=== PATIENT | female | born 1930 | race Caucasian/White ===

== ENCOUNTER 2016-08-30 22:36 | Inpatient (IN) | payer MEDICARE, MEDICAID ==
[~2016-08-30] VITALS: Ht 152.4 cm; Wt 115.0 kg
[~2016-08-30 22:36] MED LIST: ASPI-535 PO; ATOR40TA68 PO; CLOP75TA4 PO; ICNCLON PO; INSU500V SC; METO50TA16 PO; NITROL TD; PANT40TA4 PO; PROM25VI PO
[2016-08-30 22:40] VITALS: Ht 152.4 cm; Wt 115.0 kg
--- NOTE | 2016-08-31 00:26 | ERA ---
ER Documentation Chief Complaint Date/Time DATE: 08/31/16 TIME: 00:25 Chief Complaint dizzy and shortness of breath HPI The patient is a 86-year-old female, presenting to the ER because of dizziness and occipital headache beginning about 7 PM. She feels as if the room is spinning; she has similar symptoms previously. She also complains of shortness of breath and dyspnea on exertion. She denies fever, chills, complaints of cough and congestion for the last couple days. She also complained of lower extremity swollen beginning today. She denies any chest pain, vomiting. She was recently discharged from [facility] last week. She does not smoke or drink Past medical history: Hypertension, dyslipidemia, diabetes mellitus, CAD, history of CHF Past surgical history: Hysterectomy, cholecystectomy, cataract surgery, right knee replacement ROS All systems reviewed and are negative except as per history of present illness. Medications Home Meds Reported Medications Promethazine Hcl (Promethazine Hcl) 25 Mg/Ml Vial, 25 MG PO Q6 Y for COUGH, VIAL 06/26/13 Clopidogrel Bisulfate* (Clopidogrel Bisulfate*) 75 Mg Tablet, 75 MG PO 06/26/13 Pantoprazole (Protonix) 40 Mg Tabec, 40 MG PO DAILY 06/26/13 Nitroglycerin* (Nitro-Bid* Oint (30gm)) 1 Inch Oint, 30 INCH TD DAILY 06/26/13 Metoprolol Succinate* (Toprol XL*) 50 Mg Tab.er.24h, 50 MG PO DAILY 06/26/13 Clonidine (Clonidine (Pediatric Compound)) 0.1 Mg/Ml Susp, 1 MG PO Q6 06/26/13 Atorvastatin* (Atorvastatin*) 40 Mg Tablet, 40 MG PO HS 06/26/13 Aspirin Ec (Aspir 81) 81 Mg Tablet.dr, 81 MG PO DAILY 06/26/13 Insulin Regular, Human (Humulin R) 100 Units/Ml Vial, 0 SC AC MEALS AND BEDTIME , VIAL 06/26/13 Allergies Allergies: Coded Allergies: levofloxacin (Verified Allergy, Unknown, 08/30/16) morphine (Verified Allergy, Unknown, 08/30/16) streptomycin (Verified Allergy, Unknown, 08/30/16) Uncoded Allergies: AVLOX (Allergy, Unknown, 08/30/16) PMhx/Soc History of Surgery: Yes (CHILANGO, GALL BLADDER) Anesthesia Reaction: No Hx Neurological Disorder: No Hx Respiratory Disorders: No Hx Cardiac Disorders: Yes (HTN, heart attack, CHF) Hx Psychiatric Problems: No Hx Miscellaneous Medical Probl: Yes (DM, hypercholesterolemia, obese) Hx Alcohol Use: No Hx Substance Use: No Hx Tobacco Use: No Smoking Status: Never smoker Physical Exam Vitals Vital Signs Date Time Temp Pulse Resp B/P Pulse Ox O2 Delivery O2 Flow Rate FiO2 08/31/16 00:58 Nasal Cannula 2 08/30/16 22:40 98.3 58 17 155/68 97 Physical Exam Const: No acute distress. Head: Atraumatic. Eyes: Normal Conjunctiva. ENT: Normal External Ears, Nose and Mouth. Neck: Full range of motion. No meningismus. Resp: Bibasilar crackle Cardio: Regular rate and rhythm, no murmurs. Abd: Soft, non distended, normal bowel sounds, non tender. Skin: No petechiae or rashes. Back: No midline or flank tenderness. Ext: Mild leg edema, no calf tenderness. Neur: Awake and alert. No focal deficit Psych: Normal Mood and Affect. Result Diagram: 08/31/16 0000 08/31/16 0000 Results 24 hrs Laboratory Tests Test 08/31/16 00:00 White Blood Count 9.510^3/ul Red Blood Count 4.1510^6/ul Hemoglobin 12.0g/dl Hematocrit 37.4% Mean Corpuscular Volume 90.1fl Mean Corpuscular Hemoglobin 28.9pg Mean Corpuscular Hemoglobin Concent 32.1g/dl Red Cell Distribution Width 13.5% Platelet Count 79604^3/UL Mean Platelet Volume 10.8fl Neutrophils % 60.1% Lymphocytes % 27.0% Monocytes % 7.8% Eosinophils % 3.7% Basophils % 0.8% Nucleated Red Blood Cells % 0.0/100WBC Neutrophils # 5.710^3/ul Lymphocytes # 2.610^3/ul Monocytes # 0.710^3/ul Eosinophils # 0.410^3/ul Basophils # 0.110^3/ul Nucleated Red Blood Cells # 0.010^3/ul Prothrombin Time 12.6Sec Prothrombin Time Ratio 1.0 INR International Normalized Ratio 0.94 Activated Partial Thromboplast Time 31.8Sec Sodium Level 134mmol/L Potassium Level 5.0mmol/L Chloride Level 100mmol/L Carbon Dioxide Level 31mmol/L Anion Gap 8 Blood Urea Nitrogen 20mg/dl Creatinine 0.86mg/dl Glucose Level 229mg/dl Calcium Level 8.9mg/dl Troponin I < 0.010ng/ml B-Type Natriuretic Peptide 1410PG/ML Current Medications Medications (Trade) Dose Ordered Sig/[place] Route PRN Reason Start Time Stop Time Status Last Admin Dose Admin Furosemide (Lasix) 40 mg ONCE ONCE IV 08/31/16 02:00 08/31/16 02:01 DC 08/31/16 02:22 Procedures/MDM [place] [address] Radiology Main Line: [phone] DIAGNOSTIC IMAGING REPORT Patient: FREDY BERMUDEZ : 1930 Age: 86 Sex: F MR #: [id number] DOS: 08/31/16 0034 Ordering MD: YAZAN DESAI MD Location: E/R Room/Bed: PROCEDURE: CHEST - 1 VIEW CLINICAL INDICATION: Year-old female with shortness of breath. TECHNIQUE: A single frontal AP portable view of the chest was performed. The images were reviewed on a PACS workstation. COMPARISON: None. FINDINGS: The cardiomediastinal silhouette is moderately enlarged. Mitral annular calcification is noted. There is a calcified thoracic aortic arch. Chronic lung changes are present.. There is no evidence for an infiltrate. There is no evidence for congestive heart failure. There is no evidence for pneumothorax. Degenerative changes are present within the spine. IMPRESSION: 1. Cardiomegaly. 2. Calcified thoracic aortic arch. 3. Chronic lung changes. 4. Degenerative changes within the spine. .Froy Soto MD, MD Date Time Electronically viewed and signed by .Froy Soto MD, on 08/31/2016 01:47 .M/ CC: YAZAN DESAI MD [place] [address] Radiology Main Line: [phone] DIAGNOSTIC IMAGING REPORT Patient: FREDY BERMUDEZ : 1930 Age: 86 Sex: F MR #: [id number] DOS: 08/31/16 0034 Ordering MD: YAZAN DESAI MD Location: E/R Room/Bed: PROCEDURE: CT BRAIN WITHOUT CONTRAST CLINICAL INDICATION: 86-year-old female with dizziness. TECHNIQUE: The study was performed utilizing Zen[employer]T 64-slice CT scanner. Direct axial sections were obtained from the foramen magnum to the vertex without the use of intravenous contrast material. Sagittal and coronal reformations were obtained. One or more the following dose reduction techniques were utilized: automated exposure control, adjustment of the mA and/or kV according to patient's size or use of iterative reconstruction technique. The images were viewed on a PACS workstation. CTD/vol = 90.0 mGy; Total Exam DLP = 720.2 mGy-cm. COMPARISON: None. FINDINGS: There is mild degree of diffuse cortical and central atrophy with compensatory ventricular enlargement. There is no evidence for mass effect or midline shift. There are periventricular areas of decreased density consistent with microangiopathic ischemic changes. There is no evidence for acute intra or extra-axial blood. Calcifications are seen within the intracranial carotid arteries bilaterally. The bony calvarium is intact. Hyperostosis frontalis interna is present. The visualized paranasal sinuses and mastoid air cells are without significant abnormal soft tissue. IMPRESSION: 1. Mild diffuse atrophy. 2. Microangiopathic ischemic changes. 3. Vascular calcifications. 4. Hyperostosis frontalis interna. .Froy Soto MD, MD Date Time Electronically viewed and signed by .Froy Soto MD, MD on 08/31/2016 01:46 .M/ CC: YAZAN DESAI MD EKG: Read by emergency physician Rate/Rhythm: Sinus bradycardia 56 beats/min QRS, ST, T-waves: No ST elevation, no T inversion, septal Q waves Impression: Abnormal EKG MEDICAL MAKING DECISION: The patient is a 86-year-old female, presenting with acute dizziness of unclear etiology, most likely acute benign positional vertigo , acute CHF exacerbation. She was treated with Antivert 25 mg p.o. for dizziness and Lasix 40 mg for acute CHF exacerbation with good response. The differential diagnoses for acute dizziness considered include but are not limited to central causes such as cerebellar infarct, cerebellar hemorrhage, cerebellar tumor, acoustic neuroma, peripheral causes such as benign positional vertigo, labyrinthitis, medication, Meniere's disease. The differential diagnoses for acute dyspnea considered include but are not limited to asthma, COPD, pneumonia, pulmonary embolus, pleural effusion, congestive heart failure. Departure Diagnosis: Primary Impression: Dizziness Additional Impression: CHF (congestive heart failure) Condition: Stable Comments I discussed the findings with the patient. I discussed the patient with the on- call hospitalist Dr. Mckeon who was made aware of the lab, the treatment, the patient condition. The patient is admitted to telemetry at 3:30 AM YAZAN DESAI MD Aug 31, 2016 00:26
[2016-08-31 00:48] LABS: ADD SCAN DIFF NO
[2016-08-31 00:50] LABS: BASOPHIL # 0.1 10^3/ul (0.0-0.1); BASOPHILS % 0.8 % (0.0-2.0); EOSINOPHILS # 0.4 10^3/ul (0.0-0.5); EOSINOPHILS % 3.7 % (0.0-7.0); HEMATOCRIT 37.4 % (37.0-47.0); LYMPHOCYTES # 2.6 10^3/ul (0.8-2.9); MEAN CORPUSCULAR HEMOGLOBIN 28.9 pg (29.0-33.0); MEAN CORPUSCULAR HGB CONC 32.1 g/dl (32.0-37.0); MEAN CORPUSCULAR VOLUME 90.1 fl (82.0-101.0); MEAN PLATELET VOLUME 10.8 fl (7.4-10.4); MONOCYTE # 0.7 10^3/ul (0.3-0.9); MONOCYTES % 7.8 % (0.0-11.0); NEUTROPHIL # 5.7 10^3/ul (1.6-7.5); NEUTROPHILS % 60.1 % (39.0-77.0); PLATELET COUNT 236 10^3/UL (140-415); RED BLOOD COUNT 4.15 10^6/ul (4.20-5.40); RED CELL DISTRIBUTION WIDTH 13.5 % (11.5-14.5); WHITE BLOOD COUNT 9.5 10^3/ul (4.8-10.8)
[2016-08-31 00:59] LABS: INR 0.94; PROTIME 12.6 Sec (12.2-14.2)
[2016-08-31 01:00] LABS: PARTIAL THROMBOPLASTIN TIME 31.8 Sec (25.0-35.0)
[2016-08-31 01:05] LABS: ANION GAP 8 (8-16); BLOOD UREA NITROGEN 20 mg/dl (7-20); CALCIUM 8.9 mg/dl (8.4-10.2); CARBON DIOXIDE 31 mmol/L (21-31); CHLORIDE 100 mmol/L (97-110); CREATININE 0.86 mg/dl (0.44-1.00); GLUCOSE 229 mg/dl (70-220); SODIUM 134 mmol/L (135-144)
[2016-08-31 01:31] LABS: B-TYPE NATRIURETIC PEPTIDE 1410 PG/ML (0-450); TROPONIN-I < 0.010 ng/ml (0.00-0.12)
--- NOTE | 2016-08-31 01:46 | RADRPT ---
PROCEDURE: CT BRAIN WITHOUT CONTRAST CLINICAL INDICATION: 86-year-old female with dizziness. TECHNIQUE: The study was performed utilizing [employer] VCT 64-slice CT scanner. Direct axial sections were obtained from the foramen magnum to the vertex without the use of intravenous contrast material. Sagittal and coronal reformations were obtained. One or more the following dose reduction techniques were utilized: automated exposure control, adjustment of the mA and/or kV according to p atient's size or use of iterative reconstruction technique. The images were viewed on a PACS worksta tion. CTD/vol = 90.0 mGy; Total Exam DLP = 720.2 mGy-cm. COMPARISON: None. FINDINGS: There is mild degree of diffuse cortical and central atrophy with compensatory ventricular enlargeme nt. There is no evidence for mass effect or midline shift. There are periventricular areas of decre ased density consistent with microangiopathic ischemic changes. There is no evidence for acute intr a or extra-axial blood. Calcifications are seen within the intracranial carotid arteries bilaterally . The bony calvarium is intact. Hyperostosis frontalis interna is present. The visualized paranasal sinuses and mastoid air cells are without significant abnormal soft tissue. IMPRESSION: 1. Mild diffuse atrophy. 2. Microangiopathic ischemic changes. 3. Vascular calcifications. 4. Hyperostosis frontalis interna. .Froy Soto MD, MD Date Time Electronically viewed and signed by .Froy Soto MD, on 08/31/2016 01:46 .M/
--- NOTE | 2016-08-31 01:47 | RADRPT ---
PROCEDURE: CHEST - 1 VIEW CLINICAL INDICATION: Year-old female with shortness of breath. TECHNIQUE: A single frontal AP portable view of the chest was performed. The images were reviewed on a PACS workstation. COMPARISON: None. FINDINGS: The cardiomediastinal silhouette is moderately enlarged. Mitral annular calcification is noted. Th ere is a calcified thoracic aortic arch. Chronic lung changes are present.. There is no evidence f or an infiltrate. There is no evidence for congestive heart failure. There is no evidence for pneum othorax. Degenerative changes are present within the spine. IMPRESSION: 1. Cardiomegaly. 2. Calcified thoracic aortic arch. 3. Chronic lung changes. 4. Degenerative changes within the spine. .Froy Soto MD, Date Time Electronically viewed and signed by .Froy Soto MD, on 08/31/2016 01:47 .M/
[2016-08-31] MEDS ORDERED: FUROSEMIDE 40 MG INJ IV ONE (02:00)
[2016-08-31] MEDS ORDERED: MECLIZINE 12.5 MG TAB PO ONE (04:00)
[2016-08-31] MEDS ORDERED: NITROGLYCERIN (SL) 0.4 MG TAB SL PRN (04:30)
[2016-08-31] MEDS ORDERED: NACL 0.9% 3 ML SYG IV SCH (04:30)
[2016-08-31] MEDS ORDERED: METOCLOPRAMIDE 10 MG INJ IV PRN (04:30)
--- NOTE | 2016-08-31 04:39 | HP ---
Date/Time of Note Date/Time of Note DATE: 08/31/16 TIME: 04:11 Assessment/Plan Assessment/Plan Assessment/Plan Dizziness CHF (congestive heart failure) HPI/ROS Admit Date/Time Admit Date/Time 08/31/16 0335 Hx of Present Illness dizzy and shortness of breath HPI The patient is a 86-year-old female, presenting to the ER because of dizziness and occipital headache beginning about 7 PM. She feels as if the room is spinning; she has similar symptoms previously. She also complains of shortness of breath and dyspnea on exertion. She denies fever, chills, complaints of cough and congestion for the last couple days. She also complained of lower extremity swollen beginning today. She denies any chest pain, vomiting. She was recently discharged from [facility] last week. She does not smoke or drink Past medical history: Hypertension, dyslipidemia, diabetes mellitus, CAD, history of CHF Past surgical history: Hysterectomy, cholecystectomy, cataract surgery, right knee replacement ROS All systems reviewed and are negative except as per history of present illness. Medications Home Meds Reported Medications Promethazine Hcl (Promethazine Hcl) 25 Mg/Ml Vial, 25 MG PO Q6 Y for COUGH, VIAL 06/26/13 Clopidogrel Bisulfate* (Clopidogrel Bisulfate*) 75 Mg Tablet, 75 MG PO 06/26/13 Pantoprazole (Protonix) 40 Mg Tabec, 40 MG PO DAILY 06/26/13 Nitroglycerin* (Nitro-Bid* Oint (30gm)) 1 Inch Oint, 30 INCH TD DAILY 06/26/13 Metoprolol Succinate* (Toprol XL*) 50 Mg Tab.er.24h, 50 MG PO DAILY 06/26/13 Clonidine (Clonidine (Pediatric Compound)) 0.1 Mg/Ml Susp, 1 MG PO Q6 06/26/13 Atorvastatin* (Atorvastatin*) 40 Mg Tablet, 40 MG PO HS 06/26/13 Aspirin Ec (Aspir 81) 81 Mg Tablet.dr, 81 MG PO DAILY 06/26/13 Insulin Regular, Human (Humulin R) 100 Units/Ml Vial, 0 SC AC MEALS AND BEDTIME , VIAL 06/26/13 Allergies Allergies: Coded Allergies: levofloxacin (Verified Allergy, Unknown, 08/30/16) morphine (Verified Allergy, Unknown, 08/30/16) streptomycin (Verified Allergy, Unknown, 08/30/16) Uncoded Allergies: AVLOX (Allergy, Unknown, 08/30/16) PMhx/Soc History of Surgery: Yes (CHILANGO, GALL BLADDER) Anesthesia Reaction: No Hx Neurological Disorder: No Hx Respiratory Disorders: No Hx Cardiac Disorders: Yes (HTN, heart attack, CHF) Hx Psychiatric Problems: No Hx Miscellaneous Medical Probl: Yes (DM, hypercholesterolemia, obese) Hx Alcohol Use: No Hx Substance Use: No Hx Tobacco Use: No Smoking Status: Never smoker Physical Exam Vitals Vital Signs Date Time Temp Pulse Resp B/P Pulse Ox O2 Delivery O2 Flow Rate FiO2 08/31/16 00:58 Nasal Cannula 2 08/30/16 22:40 98.3 58 17 155/68 97 Physical Exam Const: No acute distress. Head: Atraumatic. Eyes: Normal Conjunctiva. ENT: Normal External Ears, Nose and Mouth. Neck: Full range of motion. No meningismus. Resp: Bibasilar crackle Cardio: Regular rate and rhythm, no murmurs. Abd: Soft, non distended, normal bowel sounds, non tender. Skin: No petechiae or rashes. Back: No midline or flank tenderness. Ext: Mild leg edema, no calf tenderness. Neur: Awake and alert. No focal deficit Psych: Normal Mood and Affect. Result Diagram: 08/31/16 0000 08/31/16 0000 Results 24 hrs Laboratory Tests Test 08/31/16 00:00 White Blood Count 9.510^3/ul Red Blood Count 4.1510^6/ul Hemoglobin 12.0g/dl Hematocrit 37.4% Mean Corpuscular Volume 90.1fl Mean Corpuscular Hemoglobin 28.9pg Mean Corpuscular Hemoglobin Concent 32.1g/dl Red Cell Distribution Width 13.5% Platelet Count 36090^3/UL Mean Platelet Volume 10.8fl Neutrophils % 60.1% Lymphocytes % 27.0% Monocytes % 7.8% Eosinophils % 3.7% Basophils % 0.8% Nucleated Red Blood Cells % 0.0/100WBC Neutrophils # 5.710^3/ul Lymphocytes # 2.610^3/ul Monocytes # 0.710^3/ul Eosinophils # 0.410^3/ul Basophils # 0.110^3/ul Nucleated Red Blood Cells # 0.010^3/ul Prothrombin Time 12.6Sec Prothrombin Time Ratio 1.0 INR International Normalized Ratio 0.94 Activated Partial Thromboplast Time 31.8Sec Sodium Level 134mmol/L Potassium Level 5.0mmol/L Chloride Level 100mmol/L Carbon Dioxide Level 31mmol/L Anion Gap 8 Blood Urea Nitrogen 20mg/dl Creatinine 0.86mg/dl Glucose Level 229mg/dl Calcium Level 8.9mg/dl Troponin I < 0.010ng/ml B-Type Natriuretic Peptide 1410PG/ML Current Medications Medications (Trade) Dose Ordered Sig/[place] Route PRN Reason Start Time Stop Time Status Last Admin Dose Admin Furosemide (Lasix) 40 mg ONCE ONCE IV 08/31/16 02:00 08/31/16 02:01 DC 08/31/16 02:22 Procedures/[place] [address] Radiology Main Line: [phone] DIAGNOSTIC IMAGING REPORT Patient: FREDY BERMUDEZ : 1930 Age: 86 Sex: F MR #: [id number] DOS: 08/31/16 0034 Ordering MD: YAZAN DESAI MD Location: E/R Room/Bed: PROCEDURE: CHEST - 1 VIEW CLINICAL INDICATION: Year-old female with shortness of breath. TECHNIQUE: A single frontal AP portable view of the chest was performed. The images were reviewed on a PACS workstation. COMPARISON: None. FINDINGS: The cardiomediastinal silhouette is moderately enlarged. Mitral annular calcification is noted. There is a calcified thoracic aortic arch. Chronic lung changes are present.. There is no evidence for an infiltrate. There is no evidence for congestive heart failure. There is no evidence for pneumothorax. Degenerative changes are present within the spine. IMPRESSION: 1. Cardiomegaly. 2. Calcified thoracic aortic arch. 3. Chronic lung changes. 4. Degenerative changes within the spine. .Froy Soto MD, Date Time Electronically viewed and signed by .Froy Soto MD, on 08/31/2016 01:47 .M/ CC: YAZAN DESAI MD [place] [address] Radiology Main Line: [phone] DIAGNOSTIC IMAGING REPORT Patient: FREDY BERMUDEZ : 1930 Age: 86 Sex: F MR #: [id number] DOS: 08/31/16 0034 Ordering MD: YAZAN DESAI MD Location: E/R Room/Bed: PROCEDURE: CT BRAIN WITHOUT CONTRAST CLINICAL INDICATION: 86-year-old female with dizziness. TECHNIQUE: The study was performed utilizing [employer] 64-slice CT scanner. Direct axial sections were obtained from the foramen magnum to the vertex without the use of intravenous contrast material. Sagittal and coronal reformations were obtained. One or more the following dose reduction techniques were utilized: automated exposure control, adjustment of the mA and/or kV according to patient's size or use of iterative reconstruction technique. The images were viewed on a PACS workstation. CTD/vol = 90.0 mGy; Total Exam DLP = 720.2 mGy-cm. COMPARISON: None. FINDINGS: There is mild degree of diffuse cortical and central atrophy with compensatory ventricular enlargement. There is no evidence for mass effect or midline shift. There are periventricular areas of decreased density consistent with microangiopathic ischemic changes. There is no evidence for acute intra or extra-axial blood. Calcifications are seen within the intracranial carotid arteries bilaterally. The bony calvarium is intact. Hyperostosis frontalis interna is present. The visualized paranasal sinuses and mastoid air cells are without significant abnormal soft tissue. IMPRESSION: 1. Mild diffuse atrophy. 2. Microangiopathic ischemic changes. 3. Vascular calcifications. 4. Hyperostosis frontalis interna. .Froy Soto MD, Date Time Electronically viewed and signed by .Froy Soto MD, on 08/31/2016 01:46 .M/ CC: YAZAN DESAI MD EKG: Read by emergency physician Rate/Rhythm: Sinus bradycardia 56 beats/min QRS, ST, T-waves: No ST elevation, no T inversion, septal Q waves Impression: Abnormal EKG MEDICAL MAKING DECISION: The patient is a 86-year-old female, presenting with acute dizziness of unclear etiology, most likely acute benign positional vertigo , acute CHF exacerbation. She was treated with Antivert 25 mg p.o. for dizziness and Lasix 40 mg for acute CHF exacerbation with good response. The differential diagnoses for acute dizziness considered include but are not limited to central causes such as cerebellar infarct, cerebellar hemorrhage, cerebellar tumor, acoustic neuroma, peripheral causes such as benign positional vertigo, labyrinthitis, medication, Meniere's disease. The differential diagnoses for acute dyspnea considered include but are not limited to asthma, COPD, pneumonia, pulmonary embolus, pleural effusion, congestive heart failure. PMH/Family/Social Social History Smoking Status: Never smoker Exam/Review of Systems Vital Signs Vitals Vital Signs Date Time Temp Pulse Resp B/P Pulse Ox O2 Delivery O2 Flow Rate FiO2 08/31/16 00:58 Nasal Cannula 2 08/30/16 22:40 98.3 58 17 155/68 97 Labs Result Diagram: 08/31/16 0000 08/31/16 0000 MARGUERITE MUHAMMAD DO Aug 31, 2016 04:21
[2016-08-31] MEDS: PANTOPRAZOLE (EC) 40 MG TAB PO SCH (06:49)
[2016-08-31] MEDS ORDERED: ACETAMINOPHEN 325 MG TAB PO ONE (07:30)
[2016-08-31] MEDS: ASPIRIN (EC) 81 MG TAB PO SCH (08:30)
[2016-08-31] MEDS ORDERED: HYDROCHLOROTHIAZIDE 12.5 MG CAP PO SCH (09:00)
[2016-08-31] MEDS ORDERED: CLOPIDOGREL 75 MG TAB PO SCH (09:00)
[2016-08-31] MEDS ORDERED: METOPROLOL (XL) 50 MG TAB PO SCH (09:00)
[2016-08-31] MEDS ORDERED: LISINOPRIL 5 MG TAB PO SCH (09:00)
--- NOTE | 2016-08-31 09:13 | CONS ---
Date/Time of Note Date/Time of Note DATE: 08/31/16 TIME: 09:04 Assessment/Plan Assessment/Plan Chief Complaint/Hosp Course Dizziness: constant and chronic. By history could be vertigo and she is currently being treated for this. SOB: Was given IV lasix on admission for possible CHF. Currently euvolemic on exam ?Acute on chronic diastolic heart failure: Euvolemic by exam. HTN: BP elevated on admission. Pt is noncompliant DM HL -continue ASA, lipitor -d/c plavix -decrease Toprol XL to 25mg, if still bradycardic, can stop -continue lisinopril -continue clonidine for now (unclear though if pt is on this at home and would prefer to uptitrate other meds first) -lasix 20mg daily to keep even starting tomorrow Problems: Consultation Date/Type/Reason Admit Date/Time 08/31/16 0335 Date of Consultation: Aug 31, 2016 Type of Consultation: Cardiology Reason for Consultation CHF Referring Provider: LILIAN SANCHEZ of Present Illness 86 yo F known to me from prior admissions with a h/o HTN (noncompliant with meds ), CAD, DM, HL, who presented with dizziness and SOB. She notes that she suddenly became dizzy which she describes as the room spinning so she called her daughter to bring her in. Of note she has constant/chronic "dizziness" which has not been associated with orthostatic hypotension, vertigo, etc. She also notes having mild SOB but this is chronic as well. No chest pain. Currently still has dizziness. No SOB. per HPI Past Medical History per hPI Social History Smoking Status: Never smoker Exam/Review of Systems Vital Signs Vitals Vital Signs Date Time Temp Pulse Resp B/P Pulse Ox O2 Delivery O2 Flow Rate FiO2 08/31/16 08:00 56 15 160/58 100 Nasal Cannula 2.0 08/30/16 22:40 98.3 Exam Constitutional: alert, oriented Head: atraumatic, normocephalic Neck: No jvd Respiratory: clear to auscultation, No crackles/rales Cardiovascular: edema (trace), regular rate and rhythm, systolic murmur (2/6 JUMANA) Gastrointestinal: non-tender, soft Neurological: nl mental status, nl speech Skin: No rash or lesions Results EKG: sinus bradycardia Result Diagram: 08/31/16 0000 08/31/16 0000 Results 24 hrs Laboratory Tests Test 08/31/16 00:00 White Blood Count 9.5 Red Blood Count 4.15 L Hemoglobin 12.0 Hematocrit 37.4 Mean Corpuscular Volume 90.1 Mean Corpuscular Hemoglobin 28.9 L Mean Corpuscular Hemoglobin Concent 32.1 Red Cell Distribution Width 13.5 Platelet Count 236 Mean Platelet Volume 10.8 H Neutrophils % 60.1 Lymphocytes % 27.0 Monocytes % 7.8 Eosinophils % 3.7 Basophils % 0.8 Nucleated Red Blood Cells % 0.0 Neutrophils # 5.7 Lymphocytes # 2.6 Monocytes # 0.7 Eosinophils # 0.4 Basophils # 0.1 Nucleated Red Blood Cells # 0.0 Prothrombin Time 12.6 Prothrombin Time Ratio 1.0 INR International Normalized Ratio 0.94 Activated Partial Thromboplast Time 31.8 Sodium Level 134 L Potassium Level 5.0 Chloride Level 100 Carbon Dioxide Level 31 Anion Gap 8 Blood Urea Nitrogen 20 Creatinine 0.86 Glucose Level 229 H Calcium Level 8.9 Troponin I < 0.010 B-Type Natriuretic Peptide 1410 H Medications Medications Current Medications Metoclopramide HCl (Reglan) 10 mg Q6H PRN IV NAUSEA AND/OR VOMITING; Start at 04:30 Nitroglycerin (Nitroglycerin (Sl Tab) 0.4 Mg) 1 tab Q5M PRN SL CHEST PAIN; Start 08/31/16 at 04:30 Aspirin (Halfprin) 81 mg DAILY PO Last administered on 08/31/16 08:30; Admin Dose 81 MG; Start 08/31/16 at 09:00 Atorvastatin Calcium (Lipitor) 40 mg HS PO ; Start 08/31/16 at 21:00 Clonidine (Catapres) 1 mg TID PO ; Start 08/31/16 at 09:00; Status UNV Pantoprazole (Protonix Tab) 40 mg DAILY@06 PO Last administered on 08/31/16 06 :49; Admin Dose 40 MG; Start 08/31/16 at 06:00 Lisinopril (Zestril) 5 mg DAILY PO Last administered on 08/31/16 08:30; Admin Dose 5 MG; Start 08/31/16 at 09:00 Hydrochlorothiazide (Hydrochlorothiazide) 12.5 mg DAILY PO Last administered on 08/31/16 08:30; Admin Dose 12.5 MG; Start 08/31/16 at 09:00 Metoprolol Succinate (Toprol Xl) 25 mg DAILY PO ; Start 09/01/16 at 09:00 NURYS MENDEZ Aug 31, 2016 09:13
[2016-08-31 10:57] LABS: CREATINE KINASE 44 IU/L (23-200); MAGNESIUM 1.9 mg/dl (1.7-2.5)
[2016-08-31 11:10] LABS: CK-MB 0.39 ng/ml (0.0-2.4)
[2016-08-31 11:11] LABS: TROPONIN-I < 0.012 ng/ml (0.00-0.12)
[2016-08-31 11:29] LABS: THYROID STIMULATING HORMONE 2.44 MIU/L (0.465-4.680)
--- NOTE | 2016-08-31 13:38 | RADRPT ---
Echocardiogram Report Patient Name: FREDY BREMUDEZ Gender: Female Date: 1930 Study Date: 31-Aug-2016 Bottom Filler: Beatriz Harris MARILUZ Location: [facility] Ref. Physician: MARGUERITE MUHAMMAD Quality: Good Procedures: Transthoracic echocardiogram with complete 2D, M-Mode, and doppler examination. Indications: Hx of Myocardial Infarction. Hx of Congestive Heart Failure. 2D/M Mode Doppler Measurement Value Normal Ranges Measurement Value Normal Ranges LVIDd 2D 5.7 3.5 - 5.6 cm TERRI Vmax 1.1 cm2 LVIDs 2D 2.9 2.1 - 4.1 cm TERRI VTI 1.1 cm2 LVPWd 2D 1.3 0.6 - 1.1 cm AV Mean Sj 1.8 m/sec IVSd 2D 1.5 0.6 - 1.1 cm AV Mean PG 14.9 mmHg AoR Diam 2D 2.8 2.0 - 3.7 cm AV Peak Sj 2.7 m/sec EDV 2D 157.9 cm3 AV Peak PG 29.7 mmHg ESV 2D 24.2 cm3 AV VTI 76.4 cm LA Dimen 2D 4.0 2.3 - 4.0 cm AI Peak PG 74.2 mmHg LVOT Diam 2.0 cm AI Peak Sj 4.3 m/sec AI PHT 559.8 msec LVOT Mean Sj 0.6 m/sec LVOT Mean PG 1.9 mmHg LVOT Peak Sj 1.0 m/sec LVOT Peak PG 3.8 mmHg LVOT VTI 26.5 cm MV E Peak Sj 0.9 m/sec MV A Peak Sj 1.3 m/sec MV E/A 0.7 MV PHT 135.0 msec MV Peak Sj 1.5 m/sec MV Peak PG 9.4 mmHg MV Mean Sj 0.9 m/sec MV Mean PG 3.4 mmHg MV Decel Time 380 msec MV Decel Mcintosh 2 MV E/A 0.7 MV PHT 135.0 msec MV VTI 52.3 cm MVA PHT 1.6 cm2 TR Peak Sj 2.8 m/sec TR Peak PG 30.8 mmHg RVSP 34.0 mmHg Findings Left Ventricle: Normal left ventricular systolic function. Normal left ventricular cavity size. Moderate concentric left ventricular hypertrophy. Ejection fraction is visually estimated at 60 %. Tissue Doppler/Mitral Doppler indices are consistent with impaired relaxation (Stage I diastolic dysfunction). Right Ventricle: Normal right ventricular size. Normal right ventricular systolic function. Left Atrium: There is mild enlargement of left atrium. Right Atrium: The right atrium is normal in size. Mitral Valve: Mild mitral leaflet calcification. Moderate mitral annular calcification. Mild mitral valve regurgitation. Aortic Valve: Mild aortic stenosis. Aortic valve Max velocity 2.73 m/sec. Max PG 29.70 mmHg. Mean PG 14.90 mmHg. Aortic cusps appear moderately calcified. Mild aortic valve regurgitation. Tricuspid Valve: Normal appearance of the tricuspid valve. Estimated peak PA systolic pressure 34 mmHg. There is mild tricuspid regurgitation. Pulmonic Valve: Normal pulmonic valve appearance. Pericardium: Normal pericardium with no significant pericardial effusion. Aorta: Normal aortic root. IVC: Normal size and normal respiratory collapse consistent with normal right atrial pressure. Conclusions 1.Normal left ventricular systolic function. Normal left ventricular cavity size. Moderate concentric left ventricular hypertrophy. Ejection fraction is visually estimated at 60 %. Tissue Doppler/Mitral Doppler indices are consistent with impaired relaxation (Stage I diastolic dysfunction). 2.Normal right ventricular size. Normal right ventricular systolic function. 3.There is mild enlargement of left atrium. 4.The right atrium is normal in size. 5.Mild mitral valve regurgitation. 6.Mild aortic stenosis. Mild aortic valve regurgitation. 7.Estimated peak PA systolic pressure 34 mmHg. There is mild tricuspid regurgitation. 8.Normal pericardium with no significant pericardial effusion. Electronically Signed By: Dilip Brown 31-Aug-2016 13:38:04 -0700 Patient Name: FREDY BERMUDEZ Study Date: 31-Aug-2016 [id number]
--- NOTE | 2016-08-31 16:25 | PN ---
Date/Time of Note Date/Time of Note DATE: 08/31/16 TIME: 16:25 Assessment/Plan VTE Prophylaxis VTE Prophylaxis Intervention: LMWH Assessment/Plan Assessment/Plan 86 yo F with 1. Acute onset of dizziness 2. CHF exacerbation diastolic 3. Hypertension: suboptimal control 4. Dyslipidemia 5. Diabetes mellitus type 2 AIC 10.7 :poor control 6. CAD with Hx of [place] 7. Morbid obesity with BMI 49.5 8. Bradycardia: may be contributing to #1 PLAN: Continue gentle diuresis workup for possible stroke / neurology consult Titrate antihypertensives and hypoglycemics BB has been d/c / f/u cardiology recs start Lantus and novolog for DM Pepcid and lovenox for prophylaxis Exam/Review of Systems Vital Signs Vitals Vital Signs Date Time Temp Pulse Resp B/P Pulse Ox O2 Delivery O2 Flow Rate FiO2 08/31/16 12:28 49 15 173/64 94 Nasal Cannula 2.0 08/30/16 22:40 98.3 Results Result Diagram: 08/31/16 0000 08/31/16 0000 Results 24 hrs Laboratory Tests Test 08/31/16 00:00 08/31/16 10:00 White Blood Count 9.5 Red Blood Count 4.15 L Hemoglobin 12.0 Hematocrit 37.4 Mean Corpuscular Volume 90.1 Mean Corpuscular Hemoglobin 28.9 L Mean Corpuscular Hemoglobin Concent 32.1 Red Cell Distribution Width 13.5 Platelet Count 236 Mean Platelet Volume 10.8 H Neutrophils % 60.1 Lymphocytes % 27.0 Monocytes % 7.8 Eosinophils % 3.7 Basophils % 0.8 Nucleated Red Blood Cells % 0.0 Neutrophils # 5.7 Lymphocytes # 2.6 Monocytes # 0.7 Eosinophils # 0.4 Basophils # 0.1 Nucleated Red Blood Cells # 0.0 Prothrombin Time 12.6 Prothrombin Time Ratio 1.0 INR International Normalized Ratio 0.94 Activated Partial Thromboplast Time 31.8 Sodium Level 134 L Potassium Level 5.0 Chloride Level 100 Carbon Dioxide Level 31 Anion Gap 8 Blood Urea Nitrogen 20 Creatinine 0.86 Glucose Level 229 H Calcium Level 8.9 Troponin I < 0.010 < 0.012 B-Type Natriuretic Peptide 1410 H Hemoglobin A1c 10.7 H Magnesium Level 1.9 Creatine Kinase 44 Creatine Kinase Index 0.9 Creatinine Kinase MB (Mass) 0.39 Thyroid Stimulating Hormone (TSH) 2.440 Medications Medications Current Medications Metoclopramide HCl (Reglan) 10 mg Q6H PRN IV NAUSEA AND/OR VOMITING; Start at 04:30 Nitroglycerin (Nitroglycerin (Sl Tab) 0.4 Mg) 1 tab Q5M PRN SL CHEST PAIN; Start 08/31/16 at 04:30 Aspirin (Halfprin) 81 mg DAILY PO Last administered on 08/31/16 08:30; Admin Dose 81 MG; Start 08/31/16 at 09:00 Atorvastatin Calcium (Lipitor) 40 mg HS PO ; Start 08/31/16 at 21:00 Clonidine (Catapres) 1 mg TID PO ; Start 08/31/16 at 09:00; Status UNV Pantoprazole (Protonix Tab) 40 mg DAILY@06 PO Last administered on 08/31/16 06 :49; Admin Dose 40 MG; Start 08/31/16 at 06:00 Lisinopril (Zestril) 5 mg DAILY PO Last administered on 08/31/16 08:30; Admin Dose 5 MG; Start 08/31/16 at 09:00 Hydrochlorothiazide (Hydrochlorothiazide) 12.5 mg DAILY PO Last administered on 08/31/16 08:30; Admin Dose 12.5 MG; Start 08/31/16 at 09:00 Metoprolol Succinate (Toprol Xl) 25 mg DAILY PO ; Start 09/01/16 at 09:00 Furosemide (Lasix) 20 mg DAILY PO ; Start 09/01/16 at 09:00 LILIAN SANCHEZ Aug 31, 2016 16:25
[2016-08-31] MEDS ORDERED: DEXTROSE 50% 50 ML SYRINGE IV PRN ×2 (17:30)
[2016-08-31] MEDS ORDERED: GLUCOSE GEL 15 GRAM TUBE PO PRN ×2 (17:30)
[2016-08-31] MEDS ORDERED: GLUCOSE GEL 15 GRAM TUBE BUCCAL PRN (17:30)
[2016-08-31] MEDS ORDERED: GLUCAGON 1 MG INJ IM PRN (17:30)
[2016-08-31] MEDS ORDERED: LISINOPRIL 20 MG TAB PO ONE (18:00)
[2016-08-31] MEDS: INSULIN ASPART [NOVOLOG] 3 ML PEN SC SCH ×3 (18:00→20:56)
--- NOTE | 2016-08-31 18:46 | RADRPT ---
PROCEDURE: US Carotids. CLINICAL INDICATION: Dizziness. TECHNIQUE: Multiple sonographic of the carotid arteries were obtained utilizing friedman scale imaging . Color and Doppler imaging was performed. The images were reviewed on a PACS workstation. COMPARISON: No prior studies are available for comparison. FINDINGS: Location:RightLeft CCA67.1 cm/sec72.6 cm/sec Prox ICA59.7 cm/sec71.0 cm/sec Mid ICA72.6 cm/sec75.9 cm/sec Dist ICA66.2 cm/sec56.5 cm/sec ECA71.1 cm/ylx568.3 cm/sec ICA/CCA:1.1 1.0 Antegrade flow is seen within the vertebral arteries bilaterally. Intimal thickening is seen within the carotid system bilaterally. However, no evidence for hemodynamically significant stenosis or oc clusion is identified. IMPRESSION: 1. No hemodynamically significant stenosis in the cervical carotid arteries. 2. Antegrade flow in both vertebral arteries. Note: Ultrasound velocity criteria are extrapolated from diameter data as defined by the Society of Radiologists in Ultrasound Consensus Conference Radiology 2003; 229;340-346. This study indirectly r eferences the measurement of the distal ICA diameter as the denominator for stenosis measurement. RPTAT: HTAR .Benigno Duarte MD, Date Time Electronically viewed and signed by .Benigno Duarte MD, on 08/31/2016 18:46 .R/
--- NOTE | 2016-08-31 18:48 | RADRPT ---
PROCEDURE: US DVT. CLINICAL INDICATION: Bilateral lower extremity swelling and pain. TECHNIQUE: Multiple longitudinal and transverse images of the bilateral lower extremity veins were obtained with friedman scale and color Doppler imaging. 2D grayscale measurements with compression, co jorge Doppler flow, and augmentation was performed. The calf veins were interrogated as well. COMPARISON: No prior studies are available for comparison. FINDINGS: The bilateral common femoral, femoral and popliteal veins are normally compressible throughout. Col or flow demonstrates normal filling of the vessels. Normal waveforms are visualized and there is no rmal response to augmentation. The calf veins are visualized and are equally unremarkable. IMPRESSION: 1. No DVT in either lower extremity. RPTAT: HTAR .Benigno Duarte MD, MD Date Time Electronically viewed and signed by .Benigno Duarte MD, on 08/31/2016 18:48 .R/
[2016-08-31 18:50] VITALS: PULSE 55
[2016-08-31] MEDS ORDERED: hydrALAzine 20 MG INJ IV PRN (19:00)
[2016-08-31 19:59] VITALS: BP 170/73
[2016-08-31 20:34] VITALS: PULSE 54
[2016-08-31 20:52] VITALS: BP 177/77; RESP 17
[2016-08-31 20:58] LABS: CREATINE KINASE 45 IU/L (23-200)
[2016-08-31] MEDS ORDERED: LORAZEPAM 1 MG TAB PO ONE (21:00)
[2016-08-31 21:02] LABS: CK-MB 0.53 ng/ml (0.0-2.4)
[2016-08-31] MEDS: ATORVASTATIN 40 MG TAB PO SCH (21:03)
[2016-08-31] MEDS: ENOXAPARIN 40 MG/0.4 ML SYG SC SCH (21:12)
[2016-08-31 21:13] LABS: TROPONIN-I < 0.012 ng/ml (0.00-0.12)
[2016-08-31] MEDS: INSULIN GLARGINE [LANtus] 3 ML PEN SC SCH (22:58)
[2016-09-01] VITALS (14 sets, daily range): BP systolic 96–151; BP diastolic 56–79; PULSE 40–59; RESP 17–20
[2016-09-01] MEDS: PANTOPRAZOLE (EC) 40 MG TAB PO SCH (06:33)
[2016-09-01 07:35] LABS: ADD SCAN DIFF NO
[2016-09-01 07:47] LABS: BASOPHIL # 0.1 10^3/ul (0.0-0.1); EOSINOPHILS # 0.4 10^3/ul (0.0-0.5); EOSINOPHILS % 4.3 % (0.0-7.0); HEMATOCRIT 38.8 % (37.0-47.0); HEMOGLOBIN 11.8 g/dl (12.0-16.0); LYMPHOCYTES # 2.5 10^3/ul (0.8-2.9); LYMPHOCYTES % 30.1 % (15.0-51.0); MEAN CORPUSCULAR HEMOGLOBIN 27.9 pg (29.0-33.0); MEAN CORPUSCULAR HGB CONC 30.4 g/dl (32.0-37.0); MEAN CORPUSCULAR VOLUME 91.7 fl (82.0-101.0); MEAN PLATELET VOLUME 10.6 fl (7.4-10.4); MONOCYTE # 0.6 10^3/ul (0.3-0.9); MONOCYTES % 6.8 % (0.0-11.0); NEUTROPHIL # 4.7 10^3/ul (1.6-7.5); NEUTROPHILS % 57.1 % (39.0-77.0); PLATELET COUNT 227 10^3/UL (140-415); RED BLOOD COUNT 4.23 10^6/ul (4.20-5.40); RED CELL DISTRIBUTION WIDTH 13.8 % (11.5-14.5); WHITE BLOOD COUNT 8.2 10^3/ul (4.8-10.8)
--- NOTE | 2016-09-01 08:03 | CONS ---
Date/Time of Note Date/Time of Note DATE: 09/01/16 TIME: 08:01 Assessment/Plan Assessment/Plan Chief Complaint/Hosp Course Dizziness: constant and chronic. By history could be vertigo and she is currently being treated for this. SOB: Was given IV lasix on admission for possible CHF. Currently euvolemic on exam ?Acute on chronic diastolic heart failure: Euvolemic by exam. HTN: BP elevated on admission. Pt is noncompliant DM HL -continue ASA, lipitor -Toprol XL to 25mg, if still bradycardic, can stop -agree with uptitration of lisinopril and downtitration of clonidine -lasix 20mg daily to keep even -further w/u per primary/neurology Problems: Consultation Date/Type/Reason Admit Date/Time Aug 31, 2016 at 03:36 Initial Consult Date 08/31/16 Type of Consultation: Cardiology Referring Provider: LILIAN SANCHEZ 24 HR Interval Summary Free Text/Dictation Better today. No dizziness Exam/Review of Systems Vital Signs Vitals Vital Signs Date Time Temp Pulse Resp B/P Pulse Ox O2 Delivery O2 Flow Rate FiO2 09/01/16 07:33 98.1 58 17 151/68 93 08/31/16 12:28 Nasal Cannula 2.0 Intake and Output 08/31/16 08/31/16 09/01/16 15:00 23:00 07:00 Intake Total 450 ml Output Total 300 ml Balance 150 ml Exam Constitutional: alert, oriented Psych: no complaints Head: atraumatic, normocephalic Neck: No jvd Respiratory: clear to auscultation Cardiovascular: regular rate and rhythm, No edema Results Result Diagram: 08/31/16 0000 08/31/16 0000 Results 24 hrs Laboratory Tests Test 08/31/16 10:00 08/31/16 18:59 08/31/16 20:25 08/31/16 20:37 Hemoglobin A1c 10.7 H Magnesium Level 1.9 Creatine Kinase 44 45 Creatine Kinase Index 0.9 1.2 Creatinine Kinase MB (Mass) 0.39 0.53 Troponin I < 0.012 < 0.012 Thyroid Stimulating Hormone (TSH) 2.440 Bedside Glucose 186 160 Medications Medications Current Medications Metoclopramide HCl (Reglan) 10 mg Q6H PRN IV NAUSEA AND/OR VOMITING; Start at 04:30 Nitroglycerin (Nitroglycerin (Sl Tab) 0.4 Mg) 1 tab Q5M PRN SL CHEST PAIN; Start 08/31/16 at 04:30 Aspirin (Halfprin) 81 mg DAILY PO Last administered on 08/31/16 08:30; Admin Dose 81 MG; Start 08/31/16 at 09:00 Atorvastatin Calcium (Lipitor) 40 mg HS PO Last administered on 08/31/16 21:03 ; Admin Dose 40 MG; Start 08/31/16 at 21:00 Pantoprazole (Protonix Tab) 40 mg DAILY@06 PO Last administered on 09/01/16 06 :33; Admin Dose 40 MG; Start 08/31/16 at 06:00 Metoprolol Succinate (Toprol Xl) 25 mg DAILY PO ; Start 09/01/16 at 09:00 Furosemide (Lasix) 20 mg DAILY PO ; Start 09/01/16 at 09:00 Hydrochlorothiazide (Hydrochlorothiazide) 25 mg DAILY PO ; Start 09/01/16 at 09: 00 Lisinopril (Zestril) 40 mg DAILY PO ; Start 09/01/16 at 09:00 Insulin Glargine (Lantus) 20 unit DAILY@20 SC Last administered on 08/31/16 22 :58; Admin Dose 20 UNIT; Start 08/31/16 at 20:00 Enoxaparin Sodium (Lovenox) 40 mg DAILY SC Last administered on 08/31/16 21:12 ; Admin Dose 40 MG; Start 08/31/16 at 18:00 Miscellaneous Information 1 ea NOTE XX ; Start 08/31/16 at 17:30 Glucose (Glutose) 15 gm Q15M PRN PO DECREASED GLUCOSE; Start 08/31/16 at 17:30 Glucose (Glutose) 22.5 gm Q15M PRN PO DECREASED GLUCOSE; Start 08/31/16 at 17: 30 Dextrose (D50w Syringe) 25 ml Q15M PRN IV DECREASED GLUCOSE; Start 08/31/16 at 17:30 Dextrose (D50w Syringe) 50 ml Q15M PRN IV DECREASED GLUCOSE; Start 08/31/16 at 17:30 Glucagon (Glucagen) 1 mg Q15M PRN IM DECREASED GLUCOSE; Start 08/31/16 at 17:30 Glucose (Glutose) 15 gm Q15M PRN BUCCAL DECREASED GLUCOSE; Start 08/31/16 at 17 :30 Clonidine (Catapres) 0.1 mg DAILY PO ; Start 09/01/16 at 09:00 Hydralazine HCl (Apresoline) 10 mg Q6H PRN IV ELEVATED BLOOD PRESSURE; Start at 19:00 NURYS MENDEZ Sep 01, 2016 08:03
[2016-09-01] MEDS: ASPIRIN (EC) 81 MG TAB PO SCH (08:13)
[2016-09-01] MEDS: HYDROCHLOROTHIAZIDE 25 MG TAB PO SCH (08:14)
[2016-09-01 08:15] LABS: POTASSIUM 4.9 mmol/L (3.5-5.1)
[2016-09-01] MEDS: FUROSEMIDE 20 MG TAB PO SCH (08:15)
[2016-09-01] MEDS: METOPROLOL (XL) 25 MG TAB PO SCH (08:15)
[2016-09-01 08:17] LABS: CREATININE 1.09 mg/dl (0.44-1.00)
[2016-09-01 08:18] LABS: CALCIUM 8.5 mg/dl (8.4-10.2)
[2016-09-01] MEDS: INSULIN ASPART [NOVOLOG] 3 ML PEN SC SCH ×7 (08:18→20:38)
[2016-09-01] MEDS: ENOXAPARIN 40 MG/0.4 ML SYG SC SCH (08:20)
[2016-09-01] MEDS ORDERED: LISINOPRIL 20 MG TAB PO SCH (09:00)
[2016-09-01] MEDS ORDERED: HYDROmorphONE 1 MG/ML SYG IV STA (11:47)
--- NOTE | 2016-09-01 12:19 | CONS ---
DATE OF ADMISSION: 08/31/2016 DATE OF CONSULTATION: TYPE OF CONSULTATION: Neurology Thank you, Dr. Becerra, for your kind referral for evaluation of dizziness. HISTORY OF PRESENT ILLNESS: The patient is an 86-year-old lady with a past medical history of diabe tariq, hypertension, dyslipidemia, coronary artery disease, congestive heart failure, status post righ t knee replacement and a history of diabetic neuropathy, who presented with sudden onset of dizzines s the day before yesterday. It seems to be slightly better by now, but she still experiences the di zziness is present when she is still, but it gets much worse with movements, even turning in bed. S he denied to me a previous history of similar dizziness. She complains also of generalized weakness when she is dizzy. She said that she did not feel good for a couple of months, and intermittently had been hospitalized for evaluation of chest pain to [facility]. She stated that she palacio s a headache with the dizziness, but the headache is not new, and she thinks that it is one of the m edications she takes that gives her headaches. She denied any lateralized weakness, any problems sw allowing or a change of speech or double vision with her dizziness. She had a CAT scan of the head which shows absence of acute abnormalities, white matter disease and atrophy. Carotid ultrasound sh ows no stenosis in the cervical carotid arteries. Her chest x-ray, cardiomegaly, calcification of t he aorta, otherwise negative. CURRENT MEDICATIONS: 1. Metoprolol. 2. Lasix. 3. Hydrochlorothiazide. 4. Zestril 5. Catapres. 6. Lipitor 40. 7. Insulin. 8. Apresoline. She used to take Plavix as well, but I do not see it on the list of new medications. ALLERGIES: SHE IS ALLERGIC TO: 1. LEVOFLOXACIN. 2. MORPHINE. 3. MOXIFLOXACIN. 4. STREPTOMYCIN. LABORATORY: Shows essentially normal CBC, PT, PTT. BUN 31, creatinine 1.09. Hemoglobin A1c 10.7. The rest of basic metabolic panel was within normal limits. Troponins negative. BNP 1400. TSH wi thin normal limits. SOCIAL HISTORY: No alcohol, tobacco or drug use. FAMILY HISTORY: Noncontributory. EKG, sinus rhythm. She had an echocardiogram done already, which shows moderate LVH, an ejection fr action of 60. PHYSICAL EXAMINATION: VITAL SIGNS: Temperature 98.1, pulse 55, respirations 17, blood pressure 151/68. GENERAL: She is not in acute distress, lying in bed. HEENT: Normocephalic, atraumatic head. NECK: No carotid bruits. No thyromegaly. LUNGS: Clear to auscultation bilaterally. CARDIAC: Normal cardiac rhythm and sounds. ABDOMEN: Soft. Present bowel sounds. EXTREMITIES: No cyanosis, clubbing or edema. NEUROLOGIC: She is awake, alert, and oriented x3, with fluent speech. Cranial nerve examination sh ows intact visual fry bilaterally. Pupils are reactive to light, from 3 to 2 mm bilaterally. Ex traocular movements are intact, without nystagmus. Symmetrical face. Preserved facial strength and sensation. Tongue is in the midline. Palate elevates symmetrically. Motor strength examination s eems to be preserved, possibly mild weakness in the dorsi and plantar flexion of the feet. Normal b ulk and tone. Sensory examination shows diminution of perception of pinprick and vibration in the b ilateral hands and feet. Deep tendon reflexes are 1+ for upper extremities, absent in the lower ext remities. Equivocal response to plantar stimulation bilaterally. Coordination is preserved on fing vo-mq-ttelup testing. No dysmetria or tremor. Gait was not assessed. Patient complains of worseni ng of vertigo with minimal movements, so I did not attempt to perform a Fernie-Hallpike maneuver. IMPRESSION: Acute vertigo, worsening with movements, possible BPPV. I will start the patient on a small dose of meclizine around the clock. Given multiple risk factors for stroke, will obtain a MRI of the brain to rule out. Keep the patient normotensive, euglycemic. Continue antiplatelet medici ne. She used to be on aspirin and Plavix, and now she is only on aspirin. 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 Continue the curren t treatment. Consider physical therapy evaluation and treatment. Thank you very much for this interesting consultation. Physical therapy could attempt to perform a repositioning maneuver for BPPV when the patient is less vertiginous. Dictated By: CECILLE RECINOS/NASIR Conf#: [id number] DID#: [id number]
[2016-09-01] MEDS ORDERED: FAMOTIDINE 20 MG TAB PO SCH (14:00)
[2016-09-01] MEDS: ALBUTEROL 0.083% (NEB) 2.5 MG/3 ML AMP HHN SCH ×2 (14:00→20:00)
[2016-09-01] MEDS ORDERED: ALBUTEROL 0.083% (NEB) 2.5 MG/3 ML AMP HHN PRN (14:00)
--- NOTE | 2016-09-01 14:03 | PN ---
Date/Time of Note Date/Time of Note DATE: 09/01/16 TIME: 13:55 Assessment/Plan VTE Prophylaxis VTE Prophylaxis Intervention: LMWH Lines/Catheters IV Catheter Type (from Nrs): Saline Lock Urinary Cath still in place: No Assessment/Plan Assessment/Plan 86 yo F with 1. Dizziness 2. CHF exacerbation diastolic: improved 3. Hypertension: improved control 4. Dyslipidemia 5. Diabetes mellitus type 2 AIC 10.7 :poor control 6. CAD with Hx of [place] 7. Morbid obesity with BMI 49.5 8. Bradycardia: may be contributing to #1 9. Productive cough : ?bronchitis PLAN: Continue gentle diuresis / add bronchodilator / sputum cultures / ?empiric abx ACEi may be contributing to cough MRI pending / appreciate neuro review / continue meclizine Titrate antihypertensives and hypoglycemics BB has been d/c / f/u cardiology recs Improved DM control on Lantus and novolog PT eval Pepcid and lovenox for prophylaxis Subjective 24 Hr Interval Summary Respiratory: cough, sputum, No shortness of breath Exam/Review of Systems Vital Signs Vitals Vital Signs Date Time Temp Pulse Resp B/P Pulse Ox O2 Delivery O2 Flow Rate FiO2 09/01/16 12:23 Nasal Cannula 2.0 09/01/16 12:11 97.3 47 19 96/59 94 Intake and Output 08/31/16 08/31/16 09/01/16 15:00 23:00 07:00 Intake Total 450 ml Output Total 300 ml Balance 150 ml Exam Constitutional: alert, obese, oriented, No distress Head: normocephalic Eyes: PERRL ENMT: mucosa pink and moist Neck: supple Respiratory: clear to auscultation, diminished breath sounds (++) Cardiovascular: regular rate and rhythm Gastrointestinal: bowel sounds, non-tender, soft Extremities: edema (mild, LLE slightly larger than R) Neurological: lethargic, nl mental status Skin: No rash or lesions Results Result Diagram: 09/01/16 0640 09/01/16 0640 Results 24 hrs Laboratory Tests Test 08/31/16 18:59 08/31/16 20:25 08/31/16 20:37 09/01/16 06:40 Bedside Glucose 186 160 Creatine Kinase 45 Creatine Kinase Index 1.2 Creatinine Kinase MB (Mass) 0.53 Troponin I < 0.012 White Blood Count 8.2 Red Blood Count 4.23 Hemoglobin 11.8 L Hematocrit 38.8 Mean Corpuscular Volume 91.7 Mean Corpuscular Hemoglobin 27.9 L Mean Corpuscular Hemoglobin Concent 30.4 L Red Cell Distribution Width 13.8 Platelet Count 227 Mean Platelet Volume 10.6 H Neutrophils % 57.1 Lymphocytes % 30.1 Monocytes % 6.8 Eosinophils % 4.3 Basophils % 1.0 Nucleated Red Blood Cells % 0.0 Neutrophils # 4.7 Lymphocytes # 2.5 Monocytes # 0.6 Eosinophils # 0.4 Basophils # 0.1 Nucleated Red Blood Cells # 0.0 Sodium Level 136 Potassium Level 4.9 Chloride Level 99 Carbon Dioxide Level 27 Anion Gap 15 # Blood Urea Nitrogen 31 #H Creatinine 1.09 H Glucose Level 270 H Calcium Level 8.5 Test 09/01/16 08:05 09/01/16 12:03 Bedside Glucose 251 H 78 Medications Medications Current Medications Metoclopramide HCl (Reglan) 10 mg Q6H PRN IV NAUSEA AND/OR VOMITING; Start at 04:30 Nitroglycerin (Nitroglycerin (Sl Tab) 0.4 Mg) 1 tab Q5M PRN SL CHEST PAIN; Start 08/31/16 at 04:30 Aspirin (Halfprin) 81 mg DAILY PO Last administered on 09/01/16 08:13; Admin Dose 81 MG; Start 08/31/16 at 09:00 Atorvastatin Calcium (Lipitor) 40 mg HS PO Last administered on 08/31/16 21:03 ; Admin Dose 40 MG; Start 08/31/16 at 21:00 Pantoprazole (Protonix Tab) 40 mg DAILY@06 PO Last administered on 09/01/16 06 :33; Admin Dose 40 MG; Start 08/31/16 at 06:00 Metoprolol Succinate (Toprol Xl) 25 mg DAILY PO ; Start 09/01/16 at 09:00 Furosemide (Lasix) 20 mg DAILY PO Last administered on 09/01/16 08:15; Admin Dose 20 MG; Start 09/01/16 at 09:00 Hydrochlorothiazide (Hydrochlorothiazide) 25 mg DAILY PO Last administered on 08:14; Admin Dose 25 MG; Start 09/01/16 at 09:00 Lisinopril (Zestril) 40 mg DAILY PO Last administered on 09/01/16 08:14; Admin Dose 40 MG; Start 09/01/16 at 09:00 Insulin Glargine (Lantus) 20 unit DAILY@20 SC Last administered on 08/31/16 22 :58; Admin Dose 20 UNIT; Start 08/31/16 at 20:00 Enoxaparin Sodium (Lovenox) 40 mg DAILY SC Last administered on 09/01/16 08:20 ; Admin Dose 40 MG; Start 08/31/16 at 18:00 Miscellaneous Information 1 ea NOTE XX ; Start 08/31/16 at 17:30 Glucose (Glutose) 15 gm Q15M PRN PO DECREASED GLUCOSE; Start 08/31/16 at 17:30 Glucose (Glutose) 22.5 gm Q15M PRN PO DECREASED GLUCOSE; Start 08/31/16 at 17: 30 Dextrose (D50w Syringe) 25 ml Q15M PRN IV DECREASED GLUCOSE; Start 08/31/16 at 17:30 Dextrose (D50w Syringe) 50 ml Q15M PRN IV DECREASED GLUCOSE; Start 08/31/16 at 17:30 Glucagon (Glucagen) 1 mg Q15M PRN IM DECREASED GLUCOSE; Start 08/31/16 at 17:30 Glucose (Glutose) 15 gm Q15M PRN BUCCAL DECREASED GLUCOSE; Start 08/31/16 at 17 :30 Hydralazine HCl (Apresoline) 10 mg Q6H PRN IV ELEVATED BLOOD PRESSURE; Start at 19:00 Meclizine HCl (Antivert) 12.5 mg TID PO ; Start 09/01/16 at 13:00 Procedures Procedures PROCEDURE: US Carotids. CLINICAL INDICATION: Dizziness. TECHNIQUE: Multiple sonographic of the carotid arteries were obtained utilizing friedman scale imaging. Color and Doppler imaging was performed. The images were reviewed on a PACS workstation. COMPARISON: No prior studies are available for comparison. FINDINGS: Location: Right Left CCA 67.1 cm/sec 72.6 cm/sec Prox ICA 59.7 cm/sec 71.0 cm/sec Mid ICA 72.6 cm/sec 75.9 cm/sec Dist ICA 66.2 cm/sec 56.5 cm/sec ECA 71.1 cm/sec 108.3 cm/sec ICA/CCA: 1.1 1.0 Antegrade flow is seen within the vertebral arteries bilaterally. Intimal thickening is seen within the carotid system bilaterally. However, no evidence for hemodynamically significant stenosis or occlusion is identified. IMPRESSION: 1. No hemodynamically significant stenosis in the cervical carotid arteries. 2. Antegrade flow in both vertebral arteries. Note: Ultrasound velocity criteria are extrapolated from diameter data as defined by the Society of Radiologists in Ultrasound Consensus Conference Radiology 2003; 229;340-346. This study indirectly references the measurement of the distal ICA diameter as the denominator for stenosis measurement. RPTAT: HTAR .Benigno Duarte MD, MD Date Time Electronically viewed and signed by .Benigno Duarte MD, on 08/31/2016 18:46 ROCEDURE: US DVT. CLINICAL INDICATION: Bilateral lower extremity swelling and pain. TECHNIQUE: Multiple longitudinal and transverse images of the bilateral lower extremity veins were obtained with friedman scale and color Doppler imaging. 2D grayscale measurements with compression, color Doppler flow, and augmentation was performed. The calf veins were interrogated as well. COMPARISON: No prior studies are available for comparison. FINDINGS: The bilateral common femoral, femoral and popliteal veins are normally compressible throughout. Color flow demonstrates normal filling of the vessels. Normal waveforms are visualized and there is normal response to augmentation. The calf veins are visualized and are equally unremarkable. IMPRESSION: 1. No DVT in either lower extremity. RPTAT: HTAR .Benigno Duarte MD, MD Date Time Electronically viewed and signed by .Benigno Duarte MD, on 08/31/2016 18:48 .R/ CC: LILIAN SANCHEZ BOLATITO M. Sep 01, 2016 14:03
[2016-09-01] MEDS: MECLIZINE 12.5 MG TAB PO SCH ×2 (14:25→20:40)
--- NOTE | 2016-09-01 14:52 | RADRPT ---
Vent Rate: 56 bpm RR Interval: 0 msec PA Interval: 182 msec QRS Duration: 82 msec QT Interval: 440 msec QTC Interval: 424 msec P-R-T [place]: 81 - -50 - 84 degrees Sinus bradycardia Left axis deviation LAHB Anteroseptal infarct , age undetermined or poor R-Wave progression Abnormal ECG No previous tracing available for comparison Electronically Signed By: Gabino Null [id number]
[2016-09-01] MEDS ORDERED: LORAZEPAM 1 MG TAB PO SCH (15:30)
[2016-09-01] MEDS: SALMETEROL/FLUTICASONE 250/50 INHA INH SCH ×2 (16:31→21:00)
[2016-09-01] MEDS: GUAIFENESIN LA 600 MG TABSR PO SCH ×2 (16:52→20:39)
[2016-09-01] MEDS: ATORVASTATIN 40 MG TAB PO SCH (20:40)
--- NOTE | 2016-09-01 20:43 | RADRPT ---
PROCEDURE: MR Brain without contrast. CLINICAL INDICATION: Dizziness, suspected acute stroke. TECHNIQUE: An MRI of the brain was performed without contrast utilizing the following sequences: Sagittal T1 weighted, sagittal FLAIR, axial T1, axial FLAIR, axial T2 weighted, axial diffusion weig hted, axial ADC mapping. Images were reviewed on a PACS workstation. COMPARISON: CT head with 08/31/2016 FINDINGS: Diffusion weighted sequences demonstrate no evidence of acute lacunar or lobar infarction. There is no intracranial hemorrhage, extra-axial fluid collection, mass lesion, midline shift or hydrocephal ous. There is mild prominence of the cerebral sulci, lateral and third ventricles. The basal cister ns are patent. There are mild periventricular and subcortical T2 / FLAIR signal hyperintensities, l ikely related to chronic microangiopathic changes. Normal flow voids are visible the proximal intra cranial arteries and dural sinuses, indicating patency. The midline structures are intact. The paranasal sinuses, mastoid air cells and middle ear cavities are normally aerated. There is het erogeneity of the clivus and skull base, without definite focal abnormality. This may be related to etiologies such as fibrous dysplasia. There is stable appearance of hyperostosis frontalis interna , normal variant. There is bilateral aphakia. The orbits and M extracranial soft tissues are liseth l in appearance. The cerebellopontine angles are normal. No evidence of internal acoustic canal or cerebellopontine angle mass. IMPRESSION: 1. Mild peripheral and central cerebral volume loss. 2. Mild periventricular and subcortical white matter lesions, like microangiopathic changes. 3. No acute intracranial abnormality. No intracranial hemorrhage, mass lesion, infarction or hydro cephalous. 4. Hyperostosis frontalis interna, normal variant. 5. Mild heterogeneity of the skull base, suggestive of benign fibrous dysplasia. No focal abnormal ity as is seen. RPTAT: HGAS .Kevin Reyna MD, Date Time Electronically viewed and signed by .Kevin Reyna MD, on 09/01/2016 20:42 .S/
[2016-09-01] MEDS: INSULIN GLARGINE [LANtus] 3 ML PEN SC SCH (20:53)
[2016-09-02] VITALS (11 sets, daily range): BP systolic 109–150; BP diastolic 49–68; PULSE 56–66; RESP 17–20
[2016-09-02] MEDS: PANTOPRAZOLE (EC) 40 MG TAB PO SCH (06:36)
[2016-09-02] MEDS: INSULIN ASPART [NOVOLOG] 3 ML PEN SC SCH ×8 (07:56→20:19)
[2016-09-02 08:09] LABS: ADD SCAN DIFF NO
[2016-09-02 08:17] LABS: BASOPHIL # 0.1 10^3/ul (0.0-0.1); BASOPHILS % 0.8 % (0.0-2.0); EOSINOPHILS # 0.3 10^3/ul (0.0-0.5); EOSINOPHILS % 3.4 % (0.0-7.0); HEMATOCRIT 37.1 % (37.0-47.0); HEMOGLOBIN 11.7 g/dl (12.0-16.0); LYMPHOCYTES # 2.1 10^3/ul (0.8-2.9); LYMPHOCYTES % 24.7 % (15.0-51.0); MEAN CORPUSCULAR HEMOGLOBIN 28.5 pg (29.0-33.0); MEAN CORPUSCULAR HGB CONC 31.5 g/dl (32.0-37.0); MEAN CORPUSCULAR VOLUME 90.5 fl (82.0-101.0); MEAN PLATELET VOLUME 10.6 fl (7.4-10.4); MONOCYTE # 0.7 10^3/ul (0.3-0.9); MONOCYTES % 8.7 % (0.0-11.0); NEUTROPHIL # 5.2 10^3/ul (1.6-7.5); NEUTROPHILS % 61.9 % (39.0-77.0); PLATELET COUNT 216 10^3/UL (140-415); RED CELL DISTRIBUTION WIDTH 13.7 % (11.5-14.5); WHITE BLOOD COUNT 8.4 10^3/ul (4.8-10.8)
[2016-09-02 08:34] LABS: ALBUMIN 3.2 g/dl (3.3-4.9); BILIRUBIN,INDIRECT 0.1 mg/dl (0-1.1); BILIRUBIN,TOTAL 0.1 mg/dl (0.2-1.3); CALCIUM 8.3 mg/dl (8.4-10.2); CREATININE 1.33 mg/dl (0.44-1.00); MAGNESIUM 2.1 mg/dl (1.7-2.5); POTASSIUM 5.1 mmol/L (3.5-5.1); TOTAL PROTEIN 6.4 g/dl (6.1-8.1)
[2016-09-02] MEDS: ALBUTEROL 0.083% (NEB) 2.5 MG/3 ML AMP HHN SCH ×3 (08:51→19:58)
[2016-09-02] MEDS: METOPROLOL (XL) 25 MG TAB PO SCH (09:00)
[2016-09-02] MEDS: ASPIRIN (EC) 81 MG TAB PO SCH (09:03)
[2016-09-02] MEDS: GUAIFENESIN LA 600 MG TABSR PO SCH ×2 (09:04→20:20)
[2016-09-02] MEDS: LOSARTAN 25 MG TAB PO SCH (09:04)
[2016-09-02] MEDS: MECLIZINE 12.5 MG TAB PO SCH ×3 (09:04→20:20)
[2016-09-02] MEDS: FAMOTIDINE 20 MG TAB PO SCH (09:04)
[2016-09-02] MEDS: HYDROCHLOROTHIAZIDE 25 MG TAB PO SCH (09:05)
[2016-09-02] MEDS: FUROSEMIDE 20 MG TAB PO SCH (09:06)
[2016-09-02] MEDS: ENOXAPARIN 40 MG/0.4 ML SYG SC SCH (09:10)
[2016-09-02] MEDS: SALMETEROL/FLUTICASONE 250/50 INHA INH SCH ×2 (10:13→20:19)
--- NOTE | 2016-09-02 13:20 | CONS ---
Date/Time of Note Date/Time of Note DATE: 09/02/16 TIME: 13:18 Consult Date/Type/Reason Admit Date/Time Aug 31, 2016 at 03:36 Initial Consult Date 08/31/16 Type of Consultation: neurology Ordering Provider: LILIAN SANCHEZ Subjective less dizziness, c/o generalized weakness Objective Vital Signs Date Time Temp Pulse Resp B/P Pulse Ox O2 Delivery O2 Flow Rate FiO2 09/02/16 12:36 64 09/02/16 12:06 97.8 19 133/61 95 09/02/16 11:15 Nasal Cannula 2.0 09/01/16 23:35 21 Intake and Output 09/01/16 09/01/16 09/02/16 15:00 23:00 07:00 Intake Total 800 ml Output Total 600 ml Balance 200 ml Results/Medications Result Diagram: 09/02/16 0750 09/02/16 0750 Results 24 hrs Laboratory Tests Test 09/01/16 17:38 09/01/16 20:37 09/02/16 07:50 09/02/16 07:54 Bedside Glucose 172 151 307 H White Blood Count 8.4 Red Blood Count 4.10 L Hemoglobin 11.7 L Hematocrit 37.1 Mean Corpuscular Volume 90.5 Mean Corpuscular Hemoglobin 28.5 L Mean Corpuscular Hemoglobin Concent 31.5 L Red Cell Distribution Width 13.7 Platelet Count 216 Mean Platelet Volume 10.6 H Neutrophils % 61.9 Lymphocytes % 24.7 Monocytes % 8.7 Eosinophils % 3.4 Basophils % 0.8 Nucleated Red Blood Cells % 0.0 Neutrophils # 5.2 Lymphocytes # 2.1 Monocytes # 0.7 Eosinophils # 0.3 Basophils # 0.1 Nucleated Red Blood Cells # 0.0 Sodium Level 131 L Potassium Level 5.1 Chloride Level 100 Carbon Dioxide Level 28 Anion Gap 8 Blood Urea Nitrogen 39 H Creatinine 1.33 H Glucose Level 334 H Calcium Level 8.3 L Magnesium Level 2.1 Total Bilirubin 0.1 L Direct Bilirubin 0.00 Indirect Bilirubin 0.1 Aspartate Amino Transf (AST/SGOT) 26 Alanine Aminotransferase (ALT/SGPT) 22 Alkaline Phosphatase 106 Total Protein 6.4 Albumin 3.2 L Test 09/02/16 12:09 Bedside Glucose 382 H Medications Current Medications Metoclopramide HCl (Reglan) 10 mg Q6H PRN IV NAUSEA AND/OR VOMITING; Start at 04:30 Nitroglycerin (Nitroglycerin (Sl Tab) 0.4 Mg) 1 tab Q5M PRN SL CHEST PAIN; Start 08/31/16 at 04:30 Aspirin (Halfprin) 81 mg DAILY PO Last administered on 09/02/16 09:03; Admin Dose 81 MG; Start 08/31/16 at 09:00 Atorvastatin Calcium (Lipitor) 40 mg HS PO Last administered on 09/01/16 20:40 ; Admin Dose 40 MG; Start 08/31/16 at 21:00 Pantoprazole (Protonix Tab) 40 mg DAILY@06 PO Last administered on 09/02/16 06 :36; Admin Dose 40 MG; Start 08/31/16 at 06:00 Metoprolol Succinate (Toprol Xl) 25 mg DAILY PO ; Start 09/01/16 at 09:00 Furosemide (Lasix) 20 mg DAILY PO Last administered on 09/02/16 09:06; Admin Dose 20 MG; Start 09/01/16 at 09:00 Hydrochlorothiazide (Hydrochlorothiazide) 25 mg DAILY PO Last administered on 09:05; Admin Dose 25 MG; Start 09/01/16 at 09:00 Insulin Glargine (Lantus) 20 unit DAILY@20 SC Last administered on 09/01/16 20 :53; Admin Dose 20 UNIT; Start 08/31/16 at 20:00 Enoxaparin Sodium (Lovenox) 40 mg DAILY SC Last administered on 09/02/16 09:10 ; Admin Dose 40 MG; Start 08/31/16 at 18:00 Miscellaneous Information 1 ea NOTE XX ; Start 08/31/16 at 17:30 Glucose (Glutose) 15 gm Q15M PRN PO DECREASED GLUCOSE; Start 08/31/16 at 17:30 Glucose (Glutose) 22.5 gm Q15M PRN PO DECREASED GLUCOSE; Start 08/31/16 at 17: 30 Dextrose (D50w Syringe) 25 ml Q15M PRN IV DECREASED GLUCOSE; Start 08/31/16 at 17:30 Dextrose (D50w Syringe) 50 ml Q15M PRN IV DECREASED GLUCOSE; Start 08/31/16 at 17:30 Glucagon (Glucagen) 1 mg Q15M PRN IM DECREASED GLUCOSE; Start 08/31/16 at 17:30 Glucose (Glutose) 15 gm Q15M PRN BUCCAL DECREASED GLUCOSE; Start 08/31/16 at 17 :30 Hydralazine HCl (Apresoline) 10 mg Q6H PRN IV ELEVATED BLOOD PRESSURE; Start at 19:00 Meclizine HCl (Antivert) 12.5 mg TID PO Last administered on 09/02/16 09:04; Admin Dose 12.5 MG; Start 09/01/16 at 13:00 Salmeterol Xinafoate/ Fluticasone (Advair 250/50 Diskus) 1 inh BID INH Last administered on 09/02/16 10:13; Admin Dose 1 INH; Start 09/01/16 at 14:00 Losartan Potassium (Cozaar) 25 mg DAILY PO Last administered on 09/02/16 09:04 ; Admin Dose 25 MG; Start 09/02/16 at 09:00 Famotidine (Pepcid) 20 mg DAILY PO Last administered on 09/02/16 09:04; Admin Dose 20 MG; Start 09/02/16 at 09:00 Guaifenesin (Mucinex) 600 mg BID PO Last administered on 09/02/16 09:04; Admin Dose 600 MG; Start 09/01/16 at 15:30 Assessment/Plan Chief Complaint/Hosp Course PHYSICAL EXAMINATION: GENERAL: She is not in acute distress, lying in bed. HEENT: Normocephalic, atraumatic head. NECK: No carotid bruits. No thyromegaly. LUNGS: Clear to auscultation bilaterally. CARDIAC: Normal cardiac rhythm and sounds. ABDOMEN: Soft. Present bowel sounds. EXTREMITIES: No cyanosis, clubbing or edema. NEUROLOGIC: She is awake, alert, and oriented x3, with fluent speech. Cranial nerve examination shows intact visual fry bilaterally. Pupils are reactive to light, from 3 to 2 mm bilaterally. Extraocular movements are intact, without nystagmus. Symmetrical face. Preserved facial strength and sensation. Tongue is in the midline. Palate elevates symmetrically. Motor strength examination seems to be preserved, possibly mild weakness in the dorsi and plantar flexion of the feet. Normal bulk and tone. Sensory examination shows diminution of perception of pinprick and vibration in the bilateral hands and feet. Deep tendon reflexes are 1+ for upper extremities, absent in the lower extremities. Equivocal response to plantar stimulation bilaterally. Coordination is preserved on [id number] testing. No dysmetria or tremor. Gait was not assessed. IMPRESSION: Acute vertigo, worsening with movements, possible BPPV. Continue small dose of meclizine around the clock. MRI of the brain ruled out CVA. Keep the patient normotensive, euglycemic. Continue antiplatelet medicine. Continue the current treatment. PT/rehab? Problems: CECILLE MARIN MD Sep 02, 2016 13:20
--- NOTE | 2016-09-02 14:16 | PN ---
Date/Time of Note Date/Time of Note DATE: 09/02/16 TIME: 14:08 Assessment/Plan VTE Prophylaxis VTE Prophylaxis Intervention: LMWH Lines/Catheters IV Catheter Type (from Nrsg): Saline Lock Urinary Cath still in place: No Assessment/Plan Assessment/Plan 86 yo F with 1. Dizziness:improved 2. CHF exacerbation diastolic: improved 3. Hypertension: improved control 4. Dyslipidemia 5. Diabetes mellitus type 2 AIC 10.7 :poor control likely 2/2 dietary non compliance 6. CAD with Hx of [place] 7. Morbid obesity with BMI 49.5 8. Bradycardia: may be contributing to #1 9. Productive cough : improved 10. ROBINSON: worsening r/o underlying CKD PLAN: Continue gentle diuresis and bronchodilator / f/u final sputum cultures Continue meclizine / PT eval ordered / patient may need acute rehab Will hold diuretics and ARB for now. Will also get renal USS Titrate antihypertensives and hypoglycemics BB has been d/c / f/u cardiology recs Pepcid and lovenox for prophylaxis Continue supportive care Subjective 24 Hr Interval Summary Free Text/Dictation dizziness and SOB are better still feels very weak however, was able to sit in chair at bedside no more chest pain Exam/Review of Systems Vital Signs Vitals Vital Signs Date Time Temp Pulse Resp B/P Pulse Ox O2 Delivery O2 Flow Rate FiO2 09/02/16 13:55 72 18 97 Nasal Cannula 2.0 09/02/16 12:06 97.8 133/61 09/01/16 23:35 21 Intake and Output 09/01/16 09/01/16 09/02/16 15:00 23:00 07:00 Intake Total 800 ml Output Total 600 ml Balance 200 ml Exam Constitutional: alert, obese, oriented, No distress Head: normocephalic Eyes: PERRL ENMT: mucosa pink and moist Neck: supple Respiratory: clear to auscultation, diminished breath sounds Cardiovascular: regular rate and rhythm Gastrointestinal: bowel sounds, non-tender, soft Extremities: edema improved Neurological: lethargic, nl mental status Skin: No rash or lesions Results Result Diagram: 09/02/16 0750 09/02/16 0750 Results 24 hrs Laboratory Tests Test 09/01/16 17:38 09/01/16 20:37 09/02/16 07:50 09/02/16 07:54 Bedside Glucose 172 151 307 H White Blood Count 8.4 Red Blood Count 4.10 L Hemoglobin 11.7 L Hematocrit 37.1 Mean Corpuscular Volume 90.5 Mean Corpuscular Hemoglobin 28.5 L Mean Corpuscular Hemoglobin Concent 31.5 L Red Cell Distribution Width 13.7 Platelet Count 216 Mean Platelet Volume 10.6 H Neutrophils % 61.9 Lymphocytes % 24.7 Monocytes % 8.7 Eosinophils % 3.4 Basophils % 0.8 Nucleated Red Blood Cells % 0.0 Neutrophils # 5.2 Lymphocytes # 2.1 Monocytes # 0.7 Eosinophils # 0.3 Basophils # 0.1 Nucleated Red Blood Cells # 0.0 Sodium Level 131 L Potassium Level 5.1 Chloride Level 100 Carbon Dioxide Level 28 Anion Gap 8 Blood Urea Nitrogen 39 H Creatinine 1.33 H Glucose Level 334 H Calcium Level 8.3 L Magnesium Level 2.1 Total Bilirubin 0.1 L Direct Bilirubin 0.00 Indirect Bilirubin 0.1 Aspartate Amino Transf (AST/SGOT) 26 Alanine Aminotransferase (ALT/SGPT) 22 Alkaline Phosphatase 106 Total Protein 6.4 Albumin 3.2 L Test 09/02/16 12:09 Bedside Glucose 382 H Medications Medications Current Medications Metoclopramide HCl (Reglan) 10 mg Q6H PRN IV NAUSEA AND/OR VOMITING; Start at 04:30 Nitroglycerin (Nitroglycerin (Sl Tab) 0.4 Mg) 1 tab Q5M PRN SL CHEST PAIN; Start 08/31/16 at 04:30 Aspirin (Halfprin) 81 mg DAILY PO Last administered on 09/02/16 09:03; Admin Dose 81 MG; Start 08/31/16 at 09:00 Atorvastatin Calcium (Lipitor) 40 mg HS PO Last administered on 09/01/16 20:40 ; Admin Dose 40 MG; Start 08/31/16 at 21:00 Pantoprazole (Protonix Tab) 40 mg DAILY@06 PO Last administered on 09/02/16 06 :36; Admin Dose 40 MG; Start 08/31/16 at 06:00 Metoprolol Succinate (Toprol Xl) 25 mg DAILY PO ; Start 09/01/16 at 09:00 Furosemide (Lasix) 20 mg DAILY PO Last administered on 09/02/16 09:06; Admin Dose 20 MG; Start 09/01/16 at 09:00 Hydrochlorothiazide (Hydrochlorothiazide) 25 mg DAILY PO Last administered on 09:05; Admin Dose 25 MG; Start 09/01/16 at 09:00 Insulin Glargine (Lantus) 20 unit DAILY@20 SC Last administered on 09/01/16 20 :53; Admin Dose 20 UNIT; Start 08/31/16 at 20:00 Enoxaparin Sodium (Lovenox) 40 mg DAILY SC Last administered on 09/02/16 09:10 ; Admin Dose 40 MG; Start 08/31/16 at 18:00 Miscellaneous Information 1 ea NOTE XX ; Start 08/31/16 at 17:30 Glucose (Glutose) 15 gm Q15M PRN PO DECREASED GLUCOSE; Start 08/31/16 at 17:30 Glucose (Glutose) 22.5 gm Q15M PRN PO DECREASED GLUCOSE; Start 08/31/16 at 17: 30 Dextrose (D50w Syringe) 25 ml Q15M PRN IV DECREASED GLUCOSE; Start 08/31/16 at 17:30 Dextrose (D50w Syringe) 50 ml Q15M PRN IV DECREASED GLUCOSE; Start 08/31/16 at 17:30 Glucagon (Glucagen) 1 mg Q15M PRN IM DECREASED GLUCOSE; Start 08/31/16 at 17:30 Glucose (Glutose) 15 gm Q15M PRN BUCCAL DECREASED GLUCOSE; Start 08/31/16 at 17 :30 Hydralazine HCl (Apresoline) 10 mg Q6H PRN IV ELEVATED BLOOD PRESSURE; Start at 19:00 Meclizine HCl (Antivert) 12.5 mg TID PO Last administered on 09/02/16 09:04; Admin Dose 12.5 MG; Start 09/01/16 at 13:00 Salmeterol Xinafoate/ Fluticasone (Advair 250/50 Diskus) 1 inh BID INH Last administered on 09/02/16 10:13; Admin Dose 1 INH; Start 09/01/16 at 14:00 Losartan Potassium (Cozaar) 25 mg DAILY PO Last administered on 09/02/16 09:04 ; Admin Dose 25 MG; Start 09/02/16 at 09:00 Famotidine (Pepcid) 20 mg DAILY PO Last administered on 09/02/16 09:04; Admin Dose 20 MG; Start 09/02/16 at 09:00 Guaifenesin (Mucinex) 600 mg BID PO Last administered on 09/02/16t 09:04; Admin Dose 600 MG; Start 09/01/16 at 15:30 LILIAN SANCHEZ Sep 02, 2016 14:16
[2016-09-02] MEDS: INSULIN GLARGINE [LANtus] 3 ML PEN SC SCH (20:19)
[2016-09-02] MEDS: ATORVASTATIN 40 MG TAB PO SCH (20:20)
[2016-09-03] VITALS (12 sets, daily range): BP systolic 132–170; BP diastolic 55–86; PULSE 63–82; RESP 18–20
[2016-09-03] MEDS ORDERED: DIAZEPAM 5 MG TAB PO ONE (04:00)
[2016-09-03] MEDS ORDERED: OXYCODONE/ACETAMINOPHEN (5/325) TAB PO ONE (04:30)
[2016-09-03] MEDS: PANTOPRAZOLE (EC) 40 MG TAB PO SCH (05:41)
[2016-09-03] MEDS: ALBUTEROL 0.083% (NEB) 2.5 MG/3 ML AMP HHN SCH ×2 (07:23→13:08)
[2016-09-03 08:28] LABS: ADD SCAN DIFF NO
[2016-09-03] MEDS: ASPIRIN (EC) 81 MG TAB PO SCH (08:40)
[2016-09-03] MEDS: FUROSEMIDE 20 MG TAB PO SCH (08:40)
[2016-09-03] MEDS: FAMOTIDINE 20 MG TAB PO SCH (08:41)
[2016-09-03] MEDS: LOSARTAN 25 MG TAB PO SCH (08:41)
[2016-09-03] MEDS: MECLIZINE 12.5 MG TAB PO SCH ×3 (08:41→21:53)
[2016-09-03] MEDS: GUAIFENESIN LA 600 MG TABSR PO SCH ×2 (08:41→21:53)
[2016-09-03] MEDS: HYDROCHLOROTHIAZIDE 25 MG TAB PO SCH (08:41)
[2016-09-03 08:46] LABS: BASOPHIL # 0.1 10^3/ul (0.0-0.1); BASOPHILS % 0.7 % (0.0-2.0); EOSINOPHILS # 0.3 10^3/ul (0.0-0.5); EOSINOPHILS % 3.7 % (0.0-7.0); HEMATOCRIT 35.1 % (37.0-47.0); HEMOGLOBIN 10.8 g/dl (12.0-16.0); LYMPHOCYTES % 26.9 % (15.0-51.0); MEAN CORPUSCULAR HEMOGLOBIN 28.3 pg (29.0-33.0); MEAN CORPUSCULAR HGB CONC 30.8 g/dl (32.0-37.0); MEAN CORPUSCULAR VOLUME 91.9 fl (82.0-101.0); MEAN PLATELET VOLUME 10.9 fl (7.4-10.4); MONOCYTE # 0.6 10^3/ul (0.3-0.9); MONOCYTES % 8.5 % (0.0-11.0); NEUTROPHIL # 4.3 10^3/ul (1.6-7.5); NEUTROPHILS % 59.6 % (39.0-77.0); PLATELET COUNT 223 10^3/UL (140-415); RED BLOOD COUNT 3.82 10^6/ul (4.20-5.40); RED CELL DISTRIBUTION WIDTH 13.8 % (11.5-14.5); WHITE BLOOD COUNT 7.3 10^3/ul (4.8-10.8)
[2016-09-03] MEDS: SALMETEROL/FLUTICASONE 250/50 INHA INH SCH ×2 (08:47→21:54)
[2016-09-03] MEDS: ENOXAPARIN 40 MG/0.4 ML SYG SC SCH (08:48)
[2016-09-03] MEDS: INSULIN ASPART [NOVOLOG] 3 ML PEN SC SCH ×7 (08:50→22:07)
[2016-09-03 08:52] LABS: CALCIUM 8.4 mg/dl (8.4-10.2); CREATININE 1.1 mg/dl (0.44-1.00); POTASSIUM 5.3 mmol/L (3.5-5.1)
[2016-09-03] MEDS ORDERED: AMLODIPINE 5 MG TAB PO SCH (11:00)
--- NOTE | 2016-09-03 11:11 | CONS ---
Date/Time of Note Date/Time of Note DATE: 09/03/16 TIME: 11:09 Assessment/Plan Assessment/Plan Chief Complaint/Hosp Course Dizziness: constant and chronic. By history could be vertigo and she is currently being treated for this.Slightly better. SOB: Was given IV lasix on admission for possible CHF. Currently euvolemic on exam ?Acute on chronic diastolic heart failure: Euvolemic by exam. HTN: BP elevated on admission. Pt is noncompliant. DM HL -continue ASA, lipitor -d/c Toprol -continue cozaar -start amlodipine 5mg -lasix 20mg daily to keep even -further w/u per primary/neurology Problems: Consultation Date/Type/Reason Admit Date/Time Aug 31, 2016 at 03:36 Initial Consult Date 08/31/16 Type of Consultation: Cardiology Referring Provider: LILIAN SANCHEZ 24 HR Interval Summary Free Text/Dictation No o/n events. Still with some dizziness. No heart block on monitor. Exam/Review of Systems Vital Signs Vitals Vital Signs Date Time Temp Pulse Resp B/P Pulse Ox O2 Delivery O2 Flow Rate FiO2 09/03/16 08:46 64 09/03/16 08:00 Nasal Cannula 2.0 09/03/16 07:53 97.2 18 170/55 98 09/02/16 19:58 21 Intake and Output 09/02/16 09/02/16 09/03/16 15:00 23:00 07:00 Intake Total 900 ml 200 ml Output Total 500 ml Balance 400 ml 200 ml Exam Constitutional: alert, oriented Psych: no complaints Neck: No jvd Respiratory: clear to auscultation Cardiovascular: regular rate and rhythm, No edema Gastrointestinal: non-tender, soft Results Result Diagram: 09/03/16 0721 09/03/16 0721 Results 24 hrs Laboratory Tests Test 09/02/16 12:09 09/02/16 17:12 09/02/16 17:13 09/02/16 20:16 Bedside Glucose 382 H 128 131 193 Test 09/03/16 07:21 09/03/16 08:36 White Blood Count 7.3 Red Blood Count 3.82 L Hemoglobin 10.8 L Hematocrit 35.1 L Mean Corpuscular Volume 91.9 Mean Corpuscular Hemoglobin 28.3 L Mean Corpuscular Hemoglobin Concent 30.8 L Red Cell Distribution Width 13.8 Platelet Count 223 Mean Platelet Volume 10.9 H Neutrophils % 59.6 Lymphocytes % 26.9 Monocytes % 8.5 Eosinophils % 3.7 Basophils % 0.7 Nucleated Red Blood Cells % 0.0 Neutrophils # 4.3 Lymphocytes # 2.0 Monocytes # 0.6 Eosinophils # 0.3 Basophils # 0.1 Nucleated Red Blood Cells # 0.0 Sodium Level 135 Potassium Level 5.3 H Chloride Level 101 Carbon Dioxide Level 29 Anion Gap 10 Blood Urea Nitrogen 39 H Creatinine 1.10 H Glucose Level 223 #H Calcium Level 8.4 Bedside Glucose 207 Medications Medications Current Medications Metoclopramide HCl (Reglan) 10 mg Q6H PRN IV NAUSEA AND/OR VOMITING; Start at 04:30 Nitroglycerin (Nitroglycerin (Sl Tab) 0.4 Mg) 1 tab Q5M PRN SL CHEST PAIN; Start 08/31/16 at 04:30 Aspirin (Halfprin) 81 mg DAILY PO Last administered on 09/03/16 08:40; Admin Dose 81 MG; Start 08/31/16 at 09:00 Atorvastatin Calcium (Lipitor) 40 mg HS PO Last administered on 09/02/16 20:20 ; Admin Dose 40 MG; Start 08/31/16 at 21:00 Pantoprazole (Protonix Tab) 40 mg DAILY@06 PO Last administered on 09/03/16 05 :41; Admin Dose 40 MG; Start 08/31/16 at 06:00 Furosemide (Lasix) 20 mg DAILY PO Last administered on 09/03/16 08:40; Admin Dose 20 MG; Start 09/01/16 at 09:00 Hydrochlorothiazide (Hydrochlorothiazide) 25 mg DAILY PO Last administered on 08:41; Admin Dose 25 MG; Start 09/01/16 at 09:00 Insulin Glargine (Lantus) 20 unit DAILY@20 SC Last administered on 09/02/16 20 :19; Admin Dose 20 UNIT; Start 08/31/16 at 20:00 Enoxaparin Sodium (Lovenox) 40 mg DAILY SC Last administered on 09/03/16 08:48 ; Admin Dose 40 MG; Start 08/31/16 at 18:00 Miscellaneous Information 1 ea NOTE XX ; Start 08/31/16 at 17:30 Glucose (Glutose) 15 gm Q15M PRN PO DECREASED GLUCOSE; Start 08/31/16 at 17:30 Glucose (Glutose) 22.5 gm Q15M PRN PO DECREASED GLUCOSE; Start 08/31/16 at 17: 30 Dextrose (D50w Syringe) 25 ml Q15M PRN IV DECREASED GLUCOSE; Start 08/31/16 at 17:30 Dextrose (D50w Syringe) 50 ml Q15M PRN IV DECREASED GLUCOSE; Start 08/31/16 at 17:30 Glucagon (Glucagen) 1 mg Q15M PRN IM DECREASED GLUCOSE; Start 08/31/16 at 17:30 Glucose (Glutose) 15 gm Q15M PRN BUCCAL DECREASED GLUCOSE; Start 08/31/16 at 17 :30 Hydralazine HCl (Apresoline) 10 mg Q6H PRN IV ELEVATED BLOOD PRESSURE; Start at 19:00 Meclizine HCl (Antivert) 12.5 mg TID PO Last administered on 09/03/16 08:41; Admin Dose 12.5 MG; Start 09/01/16 at 13:00 Salmeterol Xinafoate/ Fluticasone (Advair 250/50 Diskus) 1 inh BID INH Last administered on 09/02/16 20:19; Admin Dose 1 INH; Start 09/01/16 at 14:00 Losartan Potassium (Cozaar) 25 mg DAILY PO Last administered on 09/03/16 08:41 ; Admin Dose 25 MG; Start 09/02/16 at 09:00 Famotidine (Pepcid) 20 mg DAILY PO Last administered on 09/03/16 08:41; Admin Dose 20 MG; Start 09/02/16 at 09:00 Guaifenesin (Mucinex) 600 mg BID PO Last administered on 09/03/16 08:41; Admin Dose 600 MG; Start 09/01/16 at 15:30 Amlodipine Besylate (Norvasc) 5 mg DAILY PO ; Start 09/03/16 at 11:00 NURYS MENDEZ Sep 03, 2016 11:11
--- NOTE | 2016-09-03 15:07 | PN ---
Date/Time of Note Date/Time of Note DATE: 09/03/16 TIME: 14:58 Assessment/Plan VTE Prophylaxis VTE Prophylaxis Intervention: LMWH Lines/Catheters [facility] Saline Lock Urinary Cath still in place: No Assessment/Plan Assessment/Plan 1. Dizziness:improved, unremarkable MRI brain/carotid us 2. CHF exacerbation diastolic: improved 3. Hypertension: medications adjusted per cardiology today, increase norvasc, stop losartan due to high K 4. Dyslipidemia 5. Diabetes mellitus type 2 AIC 10.7 :poor control likely 2/2 dietary non compliance, increase lantus 6. CAD with Hx of [place] 7. Morbid obesity with BMI 49.5 8. Bradycardia: may be contributing to #1 9. Productive cough : improved 10. ROBINSON: worsening r/o underlying CKD 11. Hyperkalemia, stop losartan Exam/Review of Systems Vital Signs Vitals Vital Signs Date Time Temp Pulse Resp B/P Pulse Ox O2 Delivery O2 Flow Rate FiO2 09/03/16 13:09 65 18 94 Nasal Cannula 2.0 09/03/16 12:11 97.7 154/67 09/02/16 19:58 21 Intake and Output 09/02/16 09/02/16 09/03/16 15:00 23:00 07:00 Intake Total 900 ml 200 ml Output Total 500 ml Balance 400 ml 200 ml Results Result Diagram: 09/03/16 0721 09/03/16 0721 Results 24 hrs Laboratory Tests Test 09/02/16 17:12 09/02/16 17:13 09/02/16 20:16 09/03/16 07:21 Bedside Glucose 128 131 193 White Blood Count 7.3 Red Blood Count 3.82 L Hemoglobin 10.8 L Hematocrit 35.1 L Mean Corpuscular Volume 91.9 Mean Corpuscular Hemoglobin 28.3 L Mean Corpuscular Hemoglobin Concent 30.8 L Red Cell Distribution Width 13.8 Platelet Count 223 Mean Platelet Volume 10.9 H Neutrophils % 59.6 Lymphocytes % 26.9 Monocytes % 8.5 Eosinophils % 3.7 Basophils % 0.7 Nucleated Red Blood Cells % 0.0 Neutrophils # 4.3 Lymphocytes # 2.0 Monocytes # 0.6 Eosinophils # 0.3 Basophils # 0.1 Nucleated Red Blood Cells # 0.0 Sodium Level 135 Potassium Level 5.3 H Chloride Level 101 Carbon Dioxide Level 29 Anion Gap 10 Blood Urea Nitrogen 39 H Creatinine 1.10 H Glucose Level 223 #H Calcium Level 8.4 Test 09/03/16 08:36 09/03/16 12:40 Bedside Glucose 207 242 H Medications Medications Current Medications Metoclopramide HCl (Reglan) 10 mg Q6H PRN IV NAUSEA AND/OR VOMITING; Start at 04:30 Nitroglycerin (Nitroglycerin (Sl Tab) 0.4 Mg) 1 tab Q5M PRN SL CHEST PAIN; Start 08/31/16 at 04:30 Aspirin (Halfprin) 81 mg DAILY PO Last administered on 09/03/16 08:40; Admin Dose 81 MG; Start 08/31/16 at 09:00 Atorvastatin Calcium (Lipitor) 40 mg HS PO Last administered on 09/02/16 20:20 ; Admin Dose 40 MG; Start 08/31/16 at 21:00 Pantoprazole (Protonix Tab) 40 mg DAILY@06 PO Last administered on 09/03/16 05 :41; Admin Dose 40 MG; Start 08/31/16 at 06:00 Furosemide (Lasix) 20 mg DAILY PO Last administered on 09/03/16 08:40; Admin Dose 20 MG; Start 09/01/16 at 09:00 Hydrochlorothiazide (Hydrochlorothiazide) 25 mg DAILY PO Last administered on 08:41; Admin Dose 25 MG; Start 09/01/16 at 09:00 Insulin Glargine (Lantus) 20 unit DAILY@20 SC Last administered on 09/02/16 20 :19; Admin Dose 20 UNIT; Start 08/31/16 at 20:00 Enoxaparin Sodium (Lovenox) 40 mg DAILY SC Last administered on 09/03/16 08:48 ; Admin Dose 40 MG; Start 08/31/16 at 18:00 Miscellaneous Information 1 ea NOTE XX ; Start 08/31/16 at 17:30 Glucose (Glutose) 15 gm Q15M PRN PO DECREASED GLUCOSE; Start 08/31/16 at 17:30 Glucose (Glutose) 22.5 gm Q15M PRN PO DECREASED GLUCOSE; Start 08/31/16 at 17: 30 Dextrose (D50w Syringe) 25 ml Q15M PRN IV DECREASED GLUCOSE; Start 08/31/16 at 17:30 Dextrose (D50w Syringe) 50 ml Q15M PRN IV DECREASED GLUCOSE; Start 08/31/16 at 17:30 Glucagon (Glucagen) 1 mg Q15M PRN IM DECREASED GLUCOSE; Start 08/31/16 at 17:30 Glucose (Glutose) 15 gm Q15M PRN BUCCAL DECREASED GLUCOSE; Start 08/31/16 at 17 :30 Hydralazine HCl (Apresoline) 10 mg Q6H PRN IV ELEVATED BLOOD PRESSURE; Start at 19:00 Meclizine HCl (Antivert) 12.5 mg TID PO Last administered on 09/03/16 08:41; Admin Dose 12.5 MG; Start 09/01/16 at 13:00 Salmeterol Xinafoate/ Fluticasone (Advair 250/50 Diskus) 1 inh BID INH Last administered on 09/02/16 20:19; Admin Dose 1 INH; Start 09/01/16 at 14:00 Losartan Potassium (Cozaar) 25 mg DAILY PO Last administered on 09/03/16 08:41 ; Admin Dose 25 MG; Start 09/02/16 at 09:00 Famotidine (Pepcid) 20 mg DAILY PO Last administered on 09/03/16 08:41; Admin Dose 20 MG; Start 09/02/16 at 09:00 Guaifenesin (Mucinex) 600 mg BID PO Last administered on 09/03/16 08:41; Admin Dose 600 MG; Start 09/01/16 at 15:30 Amlodipine Besylate (Norvasc) 5 mg DAILY PO Last administered on 09/03/16 11: 15; Admin Dose 5 MG; Start 09/03/16 at 11:00 SALVADOR GALLAGHER MD Sep 03, 2016 15:07
[2016-09-03] MEDS ORDERED: INSULIN GLARGINE [LANtus] 3 ML PEN SC SCH (20:00)
[2016-09-03] MEDS: ATORVASTATIN 40 MG TAB PO SCH (21:53)
[2016-09-03] MEDS: OXYCODONE/ACETAMINOPHEN (5/325) TAB PO PRN (21:53)
[2016-09-04] VITALS (12 sets, daily range): BP systolic 102–149; BP diastolic 50–85; PULSE 58–63; RESP 16–20
[2016-09-04] MEDS: ACCU-CHEK XX SCH (02:00)
[2016-09-04] MEDS: PANTOPRAZOLE (EC) 40 MG TAB PO SCH (06:10)
[2016-09-04 07:32] LABS: ADD SCAN DIFF NO
[2016-09-04 07:37] LABS: BASOPHIL # 0.1 10^3/ul (0.0-0.1); BASOPHILS % 0.9 % (0.0-2.0); EOSINOPHILS # 0.4 10^3/ul (0.0-0.5); HEMATOCRIT 35.8 % (37.0-47.0); HEMOGLOBIN 11.3 g/dl (12.0-16.0); LYMPHOCYTES # 2.1 10^3/ul (0.8-2.9); LYMPHOCYTES % 31.3 % (15.0-51.0); MEAN CORPUSCULAR HGB CONC 31.6 g/dl (32.0-37.0); MEAN PLATELET VOLUME 10.4 fl (7.4-10.4); MONOCYTE # 0.6 10^3/ul (0.3-0.9); MONOCYTES % 9.5 % (0.0-11.0); NEUTROPHIL # 3.4 10^3/ul (1.6-7.5); NEUTROPHILS % 51.8 % (39.0-77.0); PLATELET COUNT 218 10^3/UL (140-415); RED BLOOD COUNT 3.89 10^6/ul (4.20-5.40); RED CELL DISTRIBUTION WIDTH 13.7 % (11.5-14.5); WHITE BLOOD COUNT 6.6 10^3/ul (4.8-10.8)
[2016-09-04 08:02] LABS: POTASSIUM 4.8 mmol/L (3.5-5.1)
[2016-09-04 08:04] LABS: CREATININE 1.07 mg/dl (0.44-1.00)
[2016-09-04 08:05] LABS: CALCIUM 8.5 mg/dl (8.4-10.2)
--- NOTE | 2016-09-04 08:44 | CONS ---
Date/Time of Note Date/Time of Note DATE: 09/04/16 TIME: 08:43 Assessment/Plan Assessment/Plan Chief Complaint/Hosp Course Dizziness: constant and chronic. By history could be vertigo and she is currently being treated for this.Slightly better. Plan for rehab for PT SOB: Was given IV lasix on admission for possible CHF. Currently euvolemic on exam ?Acute on chronic diastolic heart failure: Euvolemic by exam. HTN: BP elevated on admission. Pt is noncompliant. Overall better DM HL -continue ASA, lipitor -agree with holding cozaar and increasing amlodipine to 10mg -lasix 20mg daily to keep even -further w/u per primary/neurology -will follow as needed Problems: Consultation Date/Type/Reason Admit Date/Time Aug 31, 2016 at 03:36 Initial Consult Date 08/31/16 Type of Consultation: Cardiology Referring Provider: LILIAN SANCHEZ 24 HR Interval Summary Free Text/Dictation Cozaar d/c-ed due to elevated K. Still with mild dizziness but overall improving. Plan for SNF. Exam/Review of Systems Vital Signs Vitals Vital Signs Date Time Temp Pulse Resp B/P Pulse Ox O2 Delivery O2 Flow Rate FiO2 09/04/16 08:12 98.6 60 20 149/67 98 09/04/16 08:03 Nasal Cannula 2.0 09/02/16 19:58 21 Intake and Output 09/03/16 09/03/16 09/04/16 15:00 23:00 07:00 Intake Total 750 ml 700 ml Output Total 900 ml 800 ml Balance -150 ml -100 ml Exam Constitutional: alert, oriented Psych: no complaints Head: normocephalic Neck: No jvd Respiratory: clear to auscultation, No crackles/rales Cardiovascular: regular rate and rhythm, No edema Gastrointestinal: non-tender, soft Results Result Diagram: 09/04/16 0633 09/04/16 0633 Results 24 hrs Laboratory Tests Test 09/03/16 12:40 09/03/16 17:19 09/03/16 21:59 09/04/16 02:35 Bedside Glucose 242 H 217 314 H 244 H Test 09/04/16 06:33 White Blood Count 6.6 Red Blood Count 3.89 L Hemoglobin 11.3 L Hematocrit 35.8 L Mean Corpuscular Volume 92.0 Mean Corpuscular Hemoglobin 29.0 Mean Corpuscular Hemoglobin Concent 31.6 L Red Cell Distribution Width 13.7 Platelet Count 218 Mean Platelet Volume 10.4 Neutrophils % 51.8 Lymphocytes % 31.3 Monocytes % 9.5 Eosinophils % 6.0 Basophils % 0.9 Nucleated Red Blood Cells % 0.0 Neutrophils # 3.4 Lymphocytes # 2.1 Monocytes # 0.6 Eosinophils # 0.4 Basophils # 0.1 Nucleated Red Blood Cells # 0.0 Sodium Level 137 Potassium Level 4.8 Chloride Level 100 Carbon Dioxide Level 31 Anion Gap 11 Blood Urea Nitrogen 35 H Creatinine 1.07 H Glucose Level 256 H Calcium Level 8.5 Medications Medications Current Medications Metoclopramide HCl (Reglan) 10 mg Q6H PRN IV NAUSEA AND/OR VOMITING; Start at 04:30 Nitroglycerin (Nitroglycerin (Sl Tab) 0.4 Mg) 1 tab Q5M PRN SL CHEST PAIN; Start 08/31/16 at 04:30 Aspirin (Halfprin) 81 mg DAILY PO Last administered on 09/03/16 08:40; Admin Dose 81 MG; Start 08/31/16 at 09:00 Atorvastatin Calcium (Lipitor) 40 mg HS PO Last administered on 09/03/16 21:53 ; Admin Dose 40 MG; Start 08/31/16 at 21:00 Pantoprazole (Protonix Tab) 40 mg DAILY@06 PO Last administered on 09/04/16 06 :10; Admin Dose 40 MG; Start 08/31/16 at 06:00 Furosemide (Lasix) 20 mg DAILY PO Last administered on 09/03/16 08:40; Admin Dose 20 MG; Start 09/01/16 at 09:00 Hydrochlorothiazide (Hydrochlorothiazide) 25 mg DAILY PO Last administered on 08:41; Admin Dose 25 MG; Start 09/01/16 at 09:00 Enoxaparin Sodium (Lovenox) 40 mg DAILY SC Last administered on 09/03/16 08:48 ; Admin Dose 40 MG; Start 08/31/16 at 18:00 Miscellaneous Information 1 ea NOTE XX ; Start 08/31/16 at 17:30 Glucose (Glutose) 15 gm Q15M PRN PO DECREASED GLUCOSE; Start 08/31/16 at 17:30 Glucose (Glutose) 22.5 gm Q15M PRN PO DECREASED GLUCOSE; Start 08/31/16 at 17: 30 Dextrose (D50w Syringe) 25 ml Q15M PRN IV DECREASED GLUCOSE; Start 08/31/16 at 17:30 Dextrose (D50w Syringe) 50 ml Q15M PRN IV DECREASED GLUCOSE; Start 08/31/16 at 17:30 Glucagon (Glucagen) 1 mg Q15M PRN IM DECREASED GLUCOSE; Start 08/31/16 at 17:30 Glucose (Glutose) 15 gm Q15M PRN BUCCAL DECREASED GLUCOSE; Start 08/31/16 at 17 :30 Hydralazine HCl (Apresoline) 10 mg Q6H PRN IV ELEVATED BLOOD PRESSURE; Start at 19:00 Meclizine HCl (Antivert) 12.5 mg TID PO Last administered on 09/03/16 21:53; Admin Dose 12.5 MG; Start 09/01/16 at 13:00 Salmeterol Xinafoate/ Fluticasone (Advair 250/50 Diskus) 1 inh BID INH Last administered on 09/03/16 21:54; Admin Dose 1 INH; Start 09/01/16 at 14:00 Famotidine (Pepcid) 20 mg DAILY PO Last administered on 09/03/16 08:41; Admin Dose 20 MG; Start 09/02/16 at 09:00 Guaifenesin (Mucinex) 600 mg BID PO Last administered on 09/03/16 21:53; Admin Dose 600 MG; Start 09/01/16 at 15:30 Amlodipine Besylate (Norvasc) 10 mg DAILY PO ; Start 09/04/16 at 09:00 Insulin Glargine (Lantus) 24 unit DAILY@20 SC Last administered on 09/03/16 22 :06; Admin Dose 24 UNIT; Start 09/03/16 at 20:00 Oxycodone/ Acetaminophen (Percocet (5/ 325)) 1 tab Q4H PRN PO PAIN Last administered on 09/03/16 21:53; Admin Dose 1 TAB; Start 09/03/16 at 15:30 Diagnostic Test (Pha) (Accu-Chek) 1 ea 02 XX Last administered on 09/04/16 02: 00; Admin Dose 1 EA; Start 09/04/16 at 02:00 NURYS MENDEZ Sep 04, 2016 08:44
[2016-09-04] MEDS: SALMETEROL/FLUTICASONE 250/50 INHA INH SCH ×2 (08:48→20:30)
[2016-09-04] MEDS: MECLIZINE 12.5 MG TAB PO SCH ×3 (08:48→20:29)
[2016-09-04] MEDS: HYDROCHLOROTHIAZIDE 25 MG TAB PO SCH (08:48)
[2016-09-04] MEDS: AMLODIPINE 5 MG TAB PO SCH (08:49)
[2016-09-04] MEDS: GUAIFENESIN LA 600 MG TABSR PO SCH ×2 (08:49→20:29)
[2016-09-04] MEDS: FUROSEMIDE 20 MG TAB PO SCH (08:50)
[2016-09-04] MEDS: ASPIRIN (EC) 81 MG TAB PO SCH (08:50)
[2016-09-04] MEDS: FAMOTIDINE 20 MG TAB PO SCH (08:50)
[2016-09-04] MEDS: INSULIN ASPART [NOVOLOG] 3 ML PEN SC SCH ×7 (08:51→20:38)
[2016-09-04] MEDS: ENOXAPARIN 40 MG/0.4 ML SYG SC SCH (08:57)
[2016-09-04] MEDS: OXYCODONE/ACETAMINOPHEN (5/325) TAB PO PRN ×2 (13:48→19:49)
--- NOTE | 2016-09-04 16:37 | PN ---
Date/Time of Note Date/Time of Note DATE: 09/04/16 TIME: 16:26 Assessment/Plan VTE Prophylaxis VTE Prophylaxis Intervention: LMWH Lines/Catheters IV Catheter Type (from Nrs): Saline Lock Urinary Cath still in place: No Assessment/Plan Assessment/Plan 1. Dizziness:improved, unremarkable MRI brain/carotid us 2. CHF exacerbation diastolic: improved 3. Hypertension: medications adjusted per cardiology today, increase norvasc, stop losartan due to high K 4. Dyslipidemia 5. Diabetes mellitus type 2 AIC 10.7 :poor control likely 2/2 dietary non compliance, increase insulins 6. CAD with Hx of CO 7. Morbid obesity with BMI 49.5 8. Bradycardia: may be contributing to #1 9. Productive cough : improved 10. ROBINSON: worsening r/o underlying CKD 11. Hyperkalemia, stop losartan 12. Left upper back and left shoulder pain, likely muscular, CXR and left shoulder x-ray, on percocet 13. DVT prophylaxis: lovenox Subjective 24 Hr Interval Summary Free Text/Dictation left shouler and left upper back pain Exam/Review of Systems Vital Signs Vitals Vital Signs Date Time Temp Pulse Resp B/P Pulse Ox O2 Delivery O2 Flow Rate FiO2 09/04/16 15:50 98.5 58 20 143/85 96 09/04/16 08:03 Nasal Cannula 2.0 09/02/16 19:58 21 Intake and Output 09/03/16 09/03/16 09/04/16 15:00 23:00 07:00 Intake Total 750 ml 700 ml Output Total 900 ml 800 ml Balance -150 ml -100 ml Exam Constitutional: alert, obese, oriented, well developed Psych: nl mood/affect, no complaints Head: atraumatic, normocephalic Eyes: EOMI, PERRL, nl conjunctiva, nl lids ENMT: nl external ears & nose, nl lips & teeth, nl nasal mucosa & septum Neck: non-tender, supple Respiratory: clear to auscultation, normal air movement, No congested cough, No crackles/rales, No diminished breath sounds, No intercostal retraction, No labored breathing, No other, No respirations, No tactile fremitus, No wheezing Cardiovascular: nl pulses, regular rate and rhythm, No S3, No S4, No bruits, No diastolic murmur, No edema, No gallop, No irregular rhythm, No jugular venous distention (JVD), No murmurs/extra sounds, No other, No rub, No systolic murmur Gastrointestinal: nl liver, spleen, non-tender, soft, No ascites, No bowel sounds, No distended, No firm, No hepatomegaly, No mass , No other, No rebound or guarding, No splenomegaly, No surgical scars, No tender Musculoskeletal: nl extremities to inspection Extremities: normal pulses, No calf tenderness, No clubbing, No cyanosis, No edema, No other, No palpable cord, No pitting pedal edema, No tenderness Neurological: PEDIATRIC ALLERGIST II-XII intact, nl mental status, nl speech Skin: nl turgor Lymph: nl lymph nodes Results Result Diagram: 09/04/1663209/04/16632 Results 24 hrs Laboratory Tests Test 09/03/16 17:19 09/03/16 21:59 09/04/16 02:35 09/04/16 06:33 Bedside Glucose 217 314 H 244 H White Blood Count 6.6 Red Blood Count 3.89 L Hemoglobin 11.3 L Hematocrit 35.8 L Mean Corpuscular Volume 92.0 Mean Corpuscular Hemoglobin 29.0 Mean Corpuscular Hemoglobin Concent 31.6 L Red Cell Distribution Width 13.7 Platelet Count 218 Mean Platelet Volume 10.4 Neutrophils % 51.8 Lymphocytes % 31.3 Monocytes % 9.5 Eosinophils % 6.0 Basophils % 0.9 Nucleated Red Blood Cells % 0.0 Neutrophils # 3.4 Lymphocytes # 2.1 Monocytes # 0.6 Eosinophils # 0.4 Basophils # 0.1 Nucleated Red Blood Cells # 0.0 Sodium Level 137 Potassium Level 4.8 Chloride Level 100 Carbon Dioxide Level 31 Anion Gap 11 Blood Urea Nitrogen 35 H Creatinine 1.07 H Glucose Level 256 H Calcium Level 8.5 Test 09/04/16 08:23 09/04/16 12:25 Bedside Glucose 237 H 308 H Medications Medications Current Medications Metoclopramide HCl (Reglan) 10 mg Q6H PRN IV NAUSEA AND/OR VOMITING; Start at 04:30 Nitroglycerin (Nitroglycerin (Sl Tab) 0.4 Mg) 1 tab Q5M PRN SL CHEST PAIN; Start 08/31/16 at 04:30 Aspirin (Halfprin) 81 mg DAILY PO Last administered on 09/04/16 08:50; Admin Dose 81 MG; Start 08/31/16 at 09:00 Atorvastatin Calcium (Lipitor) 40 mg HS PO Last administered on 09/03/16 21:53 ; Admin Dose 40 MG; Start 08/31/16 at 21:00 Pantoprazole (Protonix Tab) 40 mg DAILY@06 PO Last administered on 09/04/16 06 :10; Admin Dose 40 MG; Start 08/31/16 at 06:00 Furosemide (Lasix) 20 mg DAILY PO Last administered on 09/04/16 08:50; Admin Dose 20 MG; Start 09/01/16 at 09:00 Hydrochlorothiazide (Hydrochlorothiazide) 25 mg DAILY PO Last administered on 08:48; Admin Dose 25 MG; Start 09/01/16 at 09:00 Enoxaparin Sodium (Lovenox) 40 mg DAILY SC Last administered on 09/04/16 08:57 ; Admin Dose 40 MG; Start 08/31/16 at 18:00 Miscellaneous Information 1 ea NOTE XX ; Start 08/31/16 at 17:30 Glucose (Glutose) 15 gm Q15M PRN PO DECREASED GLUCOSE; Start 08/31/16 at 17:30 Glucose (Glutose) 22.5 gm Q15M PRN PO DECREASED GLUCOSE; Start 08/31/16 at 17: 30 Dextrose (D50w Syringe) 25 ml Q15M PRN IV DECREASED GLUCOSE; Start 08/31/16 at 17:30 Dextrose (D50w Syringe) 50 ml Q15M PRN IV DECREASED GLUCOSE; Start 08/31/16 at 17:30 Glucagon (Glucagen) 1 mg Q15M PRN IM DECREASED GLUCOSE; Start 08/31/16 at 17:30 Glucose (Glutose) 15 gm Q15M PRN BUCCAL DECREASED GLUCOSE; Start 08/31/16 at 17 :30 Hydralazine HCl (Apresoline) 10 mg Q6H PRN IV ELEVATED BLOOD PRESSURE; Start at 19:00 Meclizine HCl (Antivert) 12.5 mg TID PO Last administered on 09/04/16 12:49; Admin Dose 12.5 MG; Start 09/01/16 at 13:00 Salmeterol Xinafoate/ Fluticasone (Advair 250/50 Diskus) 1 inh BID INH Last administered on 09/03/16 21:54; Admin Dose 1 INH; Start 09/01/16 at 14:00 Famotidine (Pepcid) 20 mg DAILY PO Last administered on 09/04/16 08:50; Admin Dose 20 MG; Start 09/02/16 at 09:00 Guaifenesin (Mucinex) 600 mg BID PO Last administered on 09/04/16 08:49; Admin Dose 600 MG; Start 09/01/16 at 15:30 Amlodipine Besylate (Norvasc) 10 mg DAILY PO Last administered on 09/04/16 08: 49; Admin Dose 10 MG; Start 09/04/16 at 09:00 Insulin Glargine (Lantus) 24 unit DAILY@20 SC Last administered on 09/03/16 22 :06; Admin Dose 24 UNIT; Start 09/03/16 at 20:00 Oxycodone/ Acetaminophen (Percocet (5/ 325)) 1 tab Q4H PRN PO PAIN Last administered on 09/04/16 13:48; Admin Dose 1 TAB; Start 09/03/16 at 15:30 Diagnostic Test (Pha) (Accu-Chek) 1 ea 02 XX Last administered on 09/04/16 02: 00; Admin Dose 1 EA; Start 09/04/16 at 02:00 SALVADOR GALLAGHER MD Sep 04, 2016 16:37
[2016-09-04] MEDS ORDERED: INSULIN GLARGINE [LANtus] 3 ML PEN SC SCH (20:00)
[2016-09-04] MEDS: ATORVASTATIN 40 MG TAB PO SCH (20:29)
[2016-09-05] VITALS (12 sets, daily range): BP systolic 109–169; BP diastolic 57–70; PULSE 61–65; RESP 16–19
[2016-09-05] MEDS: ACCU-CHEK XX SCH (02:00)
--- NOTE | 2016-09-05 05:55 | RADRPT ---
PROCEDURE: XR Chest. CLINICAL INDICATION: Upper back pain TECHNIQUE: An AP view of the chest was obtained. COMPARISON: Chest x-ray dated 08/31/2016 FINDINGS: There is prominence of the interstitial markings. No pleural effusion or pneumothorax is seen. Th e cardiomediastinal silhouette is mildly enlarged . Calcifications are seen within the aortic arch. The osseous structures demonstrate senescent changes. No rib fracture is identified. IMPRESSION: 1. Mild prominence of the interstitial markings, may reflect mild underlying interstitial edema or chronic lung changes. No significant interval change. 2. Mild cardiomegaly and aortic atherosclerosis. 3. No displaced rib fracture seen. RPTAT: HH .Laura Ortiz MD, MD Date Time Electronically viewed and signed by .Laura Ortiz MD, on 09/05/2016 05:54 .G/
[2016-09-05] MEDS: PANTOPRAZOLE (EC) 40 MG TAB PO SCH (06:01)
--- NOTE | 2016-09-05 07:45 | RADRPT ---
PROCEDURE: XR left shoulder. CLINICAL INDICATION: Pain TECHNIQUE: AP, Internal and external rotation views of the left shoulder were performed. COMPARISON: None. FINDINGS: There are mild degenerative changes involving the acromioclavicular joint with mild joint space narr owing and subchondral sclerosis. There are mild degenerative changes of the glenohumeral joint inclu ding joint space narrowing and small osteophytes as well as calcific tendinosis. There is normal osseous mineralization and alignment. No fracture or osseous lesion is identified. The soft tissues are unremarkable. RPTAT: AA IMPRESSION: Mild degenerative changes of the acromioclavicular and glenohumeral joints, as above. Physician Shanon Date Time Electronically viewed and signed by Lester Long Physician on 09/05/2016 07:45 RA/
[2016-09-05] MEDS: FAMOTIDINE 20 MG TAB PO SCH (08:19)
[2016-09-05] MEDS: SALMETEROL/FLUTICASONE 250/50 INHA INH SCH ×3 (08:19→21:08)
[2016-09-05] MEDS: MECLIZINE 12.5 MG TAB PO SCH ×3 (08:19→21:08)
[2016-09-05] MEDS: FUROSEMIDE 20 MG TAB PO SCH (08:20)
[2016-09-05] MEDS: ASPIRIN (EC) 81 MG TAB PO SCH (08:20)
[2016-09-05] MEDS: GUAIFENESIN LA 600 MG TABSR PO SCH ×2 (08:20→21:08)
[2016-09-05] MEDS: HYDROCHLOROTHIAZIDE 25 MG TAB PO SCH (08:21)
[2016-09-05] MEDS: AMLODIPINE 5 MG TAB PO SCH (08:21)
[2016-09-05] MEDS: ENOXAPARIN 40 MG/0.4 ML SYG SC SCH (08:23)
[2016-09-05] MEDS: INSULIN ASPART [NOVOLOG] 3 ML PEN SC SCH ×7 (08:24→21:00)
[2016-09-05] MEDS ORDERED: KETOROLAC 30 MG INJ IV STA (15:55)
--- NOTE | 2016-09-05 16:22 | PN ---
Date/Time of Note Date/Time of Note DATE: 09/05/16 TIME: 16:16 Assessment/Plan VTE Prophylaxis VTE Prophylaxis Intervention: anti-embolic stocking, LMWH Lines/Catheters IV Catheter Type (from Nrs): Saline Lock Urinary Cath still in place: No Assessment/Plan Chief Complaint/Hosp Course 1. Dizziness:improved, unremarkable MRI brain/carotid us 2. CHF exacerbation diastolic: improved. 3. Hypertension: stable at this time on amlodpine and hctz, continue to follow. Holding cozaar secondary to hyperkalemia 4. Dyslipidemia 5. Diabetes mellitus type 2 AIC 10.7 :poor control likely 2/2 dietary non compliance, insulin adjusted today 6. CAD with Hx of ME 7. Morbid obesity with BMI 49.5 8. Bradycardia: may be contributing to #1, continue to follow. 9. Productive cough : improved 10. ROBINSON: improving, follow bmp 11. Hyperkalemia, losartan stopped 12. Left upper back and left shoulder pain, likely muscular in nature as imaging was negative. On percocet, will give one dose of IV toradol, heating pad. 13. Headache, improving. Possibly secondary to upper back/neck pain. HCTZ is also a possibility as it was a recent medication. Will treat musculoskeletal etiology at this time and reassess. MRI head was negative. 13. DVT prophylaxis: lovenox Problems: Subjective 24 Hr Interval Summary Free Text/Dictation Patient states she still has some shoulder pain posteriorly as well as right upper back pain. She also states her headache has improved, but has not gone away. Denies any photophobia or vision changes. Denies dizziness or shortness of breath. Constitutional: improved, other (right upper back pain, left shoulder pain) Respiratory: no complaints Cardiovascular: no complaints Gastrointestinal: no complaints Genitourinary: no complaints Musculoskeletal: other (right upper back pain, left shoulder pain) Skin: no complaints Exam/Review of Systems Vital Signs Vitals Vital Signs Date Time Temp Pulse Resp B/P Pulse Ox O2 Delivery O2 Flow Rate FiO2 09/05/16 12:22 62 09/05/16 11:53 98.1 19 149/65 95 09/05/16 05:40 2.0 09/04/16 20:00 Nasal Cannula 09/02/16 19:58 21 Intake and Output 09/04/16 09/04/16 09/05/16 15:00 23:00 07:00 Intake Total 1200 ml 400 ml Output Total 1200 ml 700 ml Balance 0 ml -300 ml Exam Constitutional: alert, oriented, other (morbidly obese), No distress Psych: No no complaints Head: atraumatic, normocephalic Eyes: EOMI, nl conjunctiva Neck: non-tender, supple Cardiovascular: nl pulses, regular rate and rhythm Gastrointestinal: non-tender, soft, No ascites Musculoskeletal: other (right upper back pain tender to palpation, left posterior upper back/shoulder region tender palpation), range of motion Extremities: No edema Neurological: WHIPPED TOPPING MIXER II-XII intact, nl mental status Results Result Diagram: 09/04/1663209/04/16 0633 Results 24 hrs Laboratory Tests Test 09/04/16 17:28 09/04/16 20:32 09/05/16 08:05 09/05/16 12:45 Bedside Glucose 224 H 136 292 H 304 H Medications Medications Current Medications Metoclopramide HCl (Reglan) 10 mg Q6H PRN IV NAUSEA AND/OR VOMITING; Start at 04:30 Nitroglycerin (Nitroglycerin (Sl Tab) 0.4 Mg) 1 tab Q5M PRN SL CHEST PAIN; Start 08/31/16 at 04:30 Aspirin (Halfprin) 81 mg DAILY PO Last administered on 09/05/16 08:20; Admin Dose 81 MG; Start 08/31/16 at 09:00 Atorvastatin Calcium (Lipitor) 40 mg HS PO Last administered on 09/04/16 20:29 ; Admin Dose 40 MG; Start 08/31/16 at 21:00 Pantoprazole (Protonix Tab) 40 mg DAILY@06 PO Last administered on 09/05/16 06 :01; Admin Dose 40 MG; Start 08/31/16 at 06:00 Furosemide (Lasix) 20 mg DAILY PO Last administered on 09/05/16 08:20; Admin Dose 20 MG; Start 09/01/16 at 09:00 Enoxaparin Sodium (Lovenox) 40 mg DAILY SC Last administered on 09/05/16 08:23 ; Admin Dose 40 MG; Start 08/31/16 at 18:00 Miscellaneous Information 1 ea NOTE XX ; Start 08/31/16 at 17:30 Glucose (Glutose) 15 gm Q15M PRN PO DECREASED GLUCOSE; Start 08/31/16 at 17:30 Glucose (Glutose) 22.5 gm Q15M PRN PO DECREASED GLUCOSE; Start 08/31/16 at 17: 30 Dextrose (D50w Syringe) 25 ml Q15M PRN IV DECREASED GLUCOSE; Start 08/31/16 at 17:30 Dextrose (D50w Syringe) 50 ml Q15M PRN IV DECREASED GLUCOSE; Start 08/31/16 at 17:30 Glucagon (Glucagen) 1 mg Q15M PRN IM DECREASED GLUCOSE; Start 08/31/16 at 17:30 Glucose (Glutose) 15 gm Q15M PRN BUCCAL DECREASED GLUCOSE; Start 08/31/16 at 17 :30 Hydralazine HCl (Apresoline) 10 mg Q6H PRN IV ELEVATED BLOOD PRESSURE; Start at 19:00 Meclizine HCl (Antivert) 12.5 mg TID PO Last administered on 09/05/16 13:10; Admin Dose 12.5 MG; Start 09/01/16 at 13:00 Salmeterol Xinafoate/ Fluticasone (Advair 250/50 Diskus) 1 inh BID INH Last administered on 09/04/16 20:30; Admin Dose 1 INH; Start 09/01/16 at 14:00 Famotidine (Pepcid) 20 mg DAILY PO Last administered on 09/05/16 08:19; Admin Dose 20 MG; Start 09/02/16 at 09:00 Guaifenesin (Mucinex) 600 mg BID PO Last administered on 09/05/16 08:20; Admin Dose 600 MG; Start 09/01/16 at 15:30 Amlodipine Besylate (Norvasc) 10 mg DAILY PO Last administered on 09/05/16 08: 21; Admin Dose 10 MG; Start 09/04/16 at 09:00 Oxycodone/ Acetaminophen (Percocet (5/ 325)) 1 tab Q4H PRN PO PAIN Last administered on 09/04/16 19:49; Admin Dose 1 TAB; Start 09/03/16 at 15:30 Diagnostic Test (Pha) (Accu-Chek) 1 ea 02 XX Last administered on 09/04/16 02: 00; Admin Dose 1 EA; Start 09/04/16 at 02:00 Hydrochlorothiazide (Hydrochlorothiazide) 25 mg DAILY PO Last administered on t 08:21; Admin Dose 25 MG; Start 09/05/16 at 09:00 Insulin Glargine (Lantus) 35 unit DAILY@20 SC ; Start 09/05/16 at 20:00 KAYA FONTENOT Sep 05, 2016 16:22
[2016-09-05] MEDS: ATORVASTATIN 40 MG TAB PO SCH (21:08)
[2016-09-05] MEDS: INSULIN GLARGINE [LANtus] 3 ML PEN SC SCH (21:16)
[2016-09-06] VITALS (12 sets, daily range): BP systolic 109–166; BP diastolic 58–83; PULSE 54–71; RESP 18–19
[2016-09-06] MEDS: ACCU-CHEK XX SCH (02:00)
[2016-09-06] MEDS: PANTOPRAZOLE (EC) 40 MG TAB PO SCH (06:27)
[2016-09-06] MEDS: SALMETEROL/FLUTICASONE 250/50 INHA INH SCH ×2 (08:47→21:00)
[2016-09-06] MEDS: GUAIFENESIN LA 600 MG TABSR PO SCH ×2 (08:47→21:40)
[2016-09-06] MEDS: HYDROCHLOROTHIAZIDE 25 MG TAB PO SCH (08:48)
[2016-09-06] MEDS: AMLODIPINE 5 MG TAB PO SCH (08:48)
[2016-09-06] MEDS: MECLIZINE 12.5 MG TAB PO SCH ×3 (08:48→21:40)
[2016-09-06] MEDS: ASPIRIN (EC) 81 MG TAB PO SCH (08:48)
[2016-09-06] MEDS: FAMOTIDINE 20 MG TAB PO SCH (08:48)
[2016-09-06] MEDS: OXYCODONE/ACETAMINOPHEN (5/325) TAB PO PRN ×3 (08:49→21:41)
[2016-09-06] MEDS: FUROSEMIDE 20 MG TAB PO SCH (08:49)
[2016-09-06] MEDS: INSULIN ASPART [NOVOLOG] 3 ML PEN SC SCH ×7 (08:57→21:00)
[2016-09-06] MEDS: ENOXAPARIN 40 MG/0.4 ML SYG SC SCH (08:59)
[2016-09-06 10:32] LABS: ADD SCAN DIFF NO
[2016-09-06 10:38] LABS: BASOPHIL # 0.1 10^3/ul (0.0-0.1); BASOPHILS % 0.7 % (0.0-2.0); EOSINOPHILS # 0.4 10^3/ul (0.0-0.5); EOSINOPHILS % 4.8 % (0.0-7.0); HEMATOCRIT 37.8 % (37.0-47.0); HEMOGLOBIN 11.5 g/dl (12.0-16.0); LYMPHOCYTES # 2.1 10^3/ul (0.8-2.9); LYMPHOCYTES % 27.5 % (15.0-51.0); MEAN CORPUSCULAR HEMOGLOBIN 27.8 pg (29.0-33.0); MEAN CORPUSCULAR HGB CONC 30.4 g/dl (32.0-37.0); MEAN CORPUSCULAR VOLUME 91.5 fl (82.0-101.0); MEAN PLATELET VOLUME 10.3 fl (7.4-10.4); MONOCYTE # 0.4 10^3/ul (0.3-0.9); MONOCYTES % 5.2 % (0.0-11.0); NEUTROPHIL # 4.7 10^3/ul (1.6-7.5); NEUTROPHILS % 61.5 % (39.0-77.0); PLATELET COUNT 236 10^3/UL (140-415); RED BLOOD COUNT 4.13 10^6/ul (4.20-5.40); RED CELL DISTRIBUTION WIDTH 13.6 % (11.5-14.5); WHITE BLOOD COUNT 7.6 10^3/ul (4.8-10.8)
[2016-09-06 10:49] LABS: POTASSIUM 4.7 mmol/L (3.5-5.1)
[2016-09-06 10:51] LABS: CREATININE 1.05 mg/dl (0.44-1.00)
[2016-09-06 10:52] LABS: CALCIUM 8.7 mg/dl (8.4-10.2)
--- NOTE | 2016-09-06 19:59 | PN ---
Date/Time of Note Date/Time of Note DATE: 09/06/16 TIME: 19:52 Assessment/Plan VTE Prophylaxis VTE Prophylaxis Intervention: LMWH Lines/Catheters IV Catheter Type (from Nrs): Saline Lock Urinary Cath still in place: No Assessment/Plan Chief Complaint/Hosp Course 1. Dizziness:improved, unremarkable MRI brain/carotid us 2. CHF exacerbation diastolic: improved. 3. Hypertension: stable at this time on amlodpine and hctz, continue to follow. Cozaar discontinued secondary to hyperkalemia. 4. Dyslipidemia 5. Diabetes mellitus type 2 AIC 10.7 :poor control likely 2/2 dietary non compliance, sugars are better controlled today with insulin adjustment. 6. CAD with Hx of [place] 7. Morbid obesity with BMI 49.5 8. Bradycardia: may be contributing to #1, continue to follow. 9. Productive cough : improved 10. ROBINSON: improved. 11. Hyperkalemia, losartan stopped 12. Left upper back and left shoulder pain: slightly improved, likely muscular in nature as imaging was negative. On percocet, will give one dose of IV toradol again tonight, heating pad. 13. Headache, improving. Possibly secondary to upper back/neck pain. HCTZ is also a possibility as it was a recent medication. Will treat musculoskeletal etiology at this time and reassess. MRI head was negative. 13. DVT prophylaxis: lovenox Disposition: We will continue IV Toradol one-time and heating pad overnight. Will have PT eval the patient for discharge planning. Problems: Subjective 24 Hr Interval Summary Free Text/Dictation Patient states she feels a little better today. Her neck and back pain has slightly improved. She was able to get up and sit on the chair. She denies any chest pain. Denies any shortness of breath Exam/Review of Systems Vital Signs Vitals Vital Signs Date Time Temp Pulse Resp B/P Pulse Ox O2 Delivery O2 Flow Rate FiO2 09/06/16 17:14 71 09/06/16 15:47 97.9 19 109/58 98 09/06/16 08:30 Nasal Cannula 2.0 09/02/16 19:58 21 Intake and Output 09/05/16 09/05/16 09/06/16 15:00 23:00 07:00 Intake Total 600 ml 400 ml Output Total 600 ml Balance 600 ml -200 ml Exam General: Patient is an obese female sitting at the bedside chair comfortably The patient is alert oriented -3 HEENT: Atraumatic, normocephalic. The pupils are equal, round and reactive. Extraocular motor are intact Neck: Supple with full range of motion. Mild tenderness to palpation at the right posterior neck Chest: Nontender Lungs: Clear to auscultation bilaterally no crackles rales or wheezing Heart: Normal S1-S2, Regular rhythm and rate. Abdomen: Soft , nontender, nondistended , bowel sounds are present. No guarding no rebound tenderness , No masses or organomegaly. No costovertebral temporal angle mass Extremities: No edema, varicose veins Neurologic: Normal mental status, speech normal, cranial nerves II through XII are intact, motor and sensory are intact, no focal weakness Musculoskeletal: Tenderness to palpation posterior upper back near the right side of the neck tender to palpation posterior left shoulder region Results Result Diagram: 09/06/16 0940 09/06/16 0940 Results 24 hrs Laboratory Tests Test 09/05/16 20:59 09/06/16 08:44 09/06/16 09:40 09/06/16 12:42 Bedside Glucose 177 176 171 White Blood Count 7.6 Red Blood Count 4.13 L Hemoglobin 11.5 L Hematocrit 37.8 Mean Corpuscular Volume 91.5 Mean Corpuscular Hemoglobin 27.8 L Mean Corpuscular Hemoglobin Concent 30.4 L Red Cell Distribution Width 13.6 Platelet Count 236 Mean Platelet Volume 10.3 Neutrophils % 61.5 Lymphocytes % 27.5 Monocytes % 5.2 Eosinophils % 4.8 Basophils % 0.7 Nucleated Red Blood Cells % 0.0 Neutrophils # 4.7 Lymphocytes # 2.1 Monocytes # 0.4 Eosinophils # 0.4 Basophils # 0.1 Nucleated Red Blood Cells # 0.0 Sodium Level 135 Potassium Level 4.7 Chloride Level 99 Carbon Dioxide Level 28 Anion Gap 13 Blood Urea Nitrogen 39 H Creatinine 1.05 H Glucose Level 236 H Calcium Level 8.7 Test 09/06/16 17:39 Bedside Glucose 216 Medications Medications Current Medications Metoclopramide HCl (Reglan) 10 mg Q6H PRN IV NAUSEA AND/OR VOMITING; Start at 04:30 Nitroglycerin (Nitroglycerin (Sl Tab) 0.4 Mg) 1 tab Q5M PRN SL CHEST PAIN; Start 08/31/16 at 04:30 Aspirin (Halfprin) 81 mg DAILY PO Last administered on 09/06/16 08:48; Admin Dose 81 MG; Start 08/31/16 at 09:00 Atorvastatin Calcium (Lipitor) 40 mg HS PO Last administered on 09/05/16 21:08 ; Admin Dose 40 MG; Start 08/31/16 at 21:00 Pantoprazole (Protonix Tab) 40 mg DAILY@06 PO Last administered on 09/06/16 06 :27; Admin Dose 40 MG; Start 08/31/16 at 06:00 Furosemide (Lasix) 20 mg DAILY PO Last administered on 09/06/16 08:49; Admin Dose 20 MG; Start 09/01/16 at 09:00 Enoxaparin Sodium (Lovenox) 40 mg DAILY SC Last administered on 09/06/16 08:59 ; Admin Dose 40 MG; Start 08/31/16 at 18:00 Miscellaneous Information 1 ea NOTE XX ; Start 08/31/16 at 17:30 Glucose (Glutose) 15 gm Q15M PRN PO DECREASED GLUCOSE; Start 08/31/16 at 17:30 Glucose (Glutose) 22.5 gm Q15M PRN PO DECREASED GLUCOSE; Start 08/31/16 at 17: 30 Dextrose (D50w Syringe) 25 ml Q15M PRN IV DECREASED GLUCOSE; Start 08/31/16 at 17:30 Dextrose (D50w Syringe) 50 ml Q15M PRN IV DECREASED GLUCOSE; Start 08/31/16 at 17:30 Glucagon (Glucagen) 1 mg Q15M PRN IM DECREASED GLUCOSE; Start 08/31/16 at 17:30 Glucose (Glutose) 15 gm Q15M PRN BUCCAL DECREASED GLUCOSE; Start 08/31/16 at 17 :30 Hydralazine HCl (Apresoline) 10 mg Q6H PRN IV ELEVATED BLOOD PRESSURE; Start at 19:00 Meclizine HCl (Antivert) 12.5 mg TID PO Last administered on 09/06/16 12:40; Admin Dose 12.5 MG; Start 09/01/16 at 13:00 Salmeterol Xinafoate/ Fluticasone (Advair 250/50 Diskus) 1 inh BID INH Last administered on 09/05/16 21:08; Admin Dose 1 INH; Start 09/01/16 at 14:00 Famotidine (Pepcid) 20 mg DAILY PO Last administered on 09/06/16 08:48; Admin Dose 20 MG; Start 09/02/16 at 09:00 Guaifenesin (Mucinex) 600 mg BID PO Last administered on 09/06/16 08:47; Admin Dose 600 MG; Start 09/01/16 at 15:30 Amlodipine Besylate (Norvasc) 10 mg DAILY PO Last administered on 09/06/16 08: 48; Admin Dose 10 MG; Start 09/04/16 at 09:00 Oxycodone/ Acetaminophen (Percocet (5/ 325)) 1 tab Q4H PRN PO PAIN Last administered on 09/06/16 14:09; Admin Dose 1 TAB; Start 09/03/16 at 15:30 Diagnostic Test (Pha) (Accu-Chek) 1 ea 02 XX Last administered on 09/04/16 02: 00; Admin Dose 1 EA; Start 09/04/16 at 02:00 Hydrochlorothiazide (Hydrochlorothiazide) 25 mg DAILY PO Last administered on 08:48; Admin Dose 25 MG; Start 09/05/16 at 09:00 Insulin Glargine (Lantus) 35 unit DAILY@20 SC Last administered on 09/05/16 21 :16; Admin Dose 35 UNIT; Start 09/05/16 at 20:00 KAYA FONTENOT Sep 06, 2016 19:59
[2016-09-06] MEDS: INSULIN GLARGINE [LANtus] 3 ML PEN SC SCH (21:39)
[2016-09-06] MEDS: ATORVASTATIN 40 MG TAB PO SCH (21:40)
[2016-09-07] VITALS (11 sets, daily range): BP systolic 118–154; BP diastolic 56–80; PULSE 55–69; RESP 18–20
[2016-09-07] MEDS: ACCU-CHEK XX SCH (02:00)
[2016-09-07] MEDS: OXYCODONE/ACETAMINOPHEN (5/325) TAB PO PRN ×2 (02:39→20:29)
[2016-09-07] MEDS: PANTOPRAZOLE (EC) 40 MG TAB PO SCH (07:05)
[2016-09-07] MEDS: INSULIN ASPART [NOVOLOG] 3 ML PEN SC SCH ×7 (07:57→20:48)
[2016-09-07] MEDS: SALMETEROL/FLUTICASONE 250/50 INHA INH SCH ×2 (09:00→20:34)
[2016-09-07] MEDS: ENOXAPARIN 40 MG/0.4 ML SYG SC SCH (09:13)
[2016-09-07] MEDS: GUAIFENESIN LA 600 MG TABSR PO SCH ×2 (09:14→20:29)
[2016-09-07] MEDS: HYDROCHLOROTHIAZIDE 25 MG TAB PO SCH (09:14)
[2016-09-07] MEDS: ASPIRIN (EC) 81 MG TAB PO SCH (09:14)
[2016-09-07] MEDS: MECLIZINE 12.5 MG TAB PO SCH ×3 (09:14→20:29)
[2016-09-07] MEDS: FAMOTIDINE 20 MG TAB PO SCH (09:15)
[2016-09-07] MEDS: AMLODIPINE 5 MG TAB PO SCH (09:15)
[2016-09-07] MEDS: FUROSEMIDE 20 MG TAB PO SCH (09:15)
--- NOTE | 2016-09-07 17:21 | PN ---
Date/Time of Note Date/Time of Note DATE: 09/07/16 TIME: 17:14 Assessment/Plan VTE Prophylaxis VTE Prophylaxis Intervention: LMWH Lines/Catheters IV [facility]from [facility] Saline [facility] Urinary Cath still in place: No Assessment/Plan Chief Complaint/Hosp Course 1. Dizziness:resolved, unremarkable MRI brain/carotid us 2. CHF exacerbation diastolic: stable, continue lasix 20mg po daily. 3. Hypertension: stable at this time on amlodpine and hctz, continue to follow. Cozaar discontinued secondary to hyperkalemia. 4. Dyslipidemia, conitnue statin. 5. Diabetes mellitus type 2 AIC 10.7 :poor control likely 2/2 dietary non compliance, sugars are better controlled continue current regimen. 6. CAD with Hx of [place] 7. Morbid obesity with BMI 49.5 8. Bradycardia: may be contributing to #1, continue to follow. 9. Productive cough : resolved. 10. ROBINSON: improved. 11. Hyperkalemia, losartan stopped 12. Left upper back and left shoulder pain: slightly improved, likely muscular in nature as imaging was negative. On percocet. 13. Headache, resolved. 13. DVT prophylaxis: lovenox Disposition: Patient would benefit from further inpatient PT as per PT. [facility]. Awaiting evaluation. Possible transfer today or tomorrow if accepted. Problems: Subjective 24 Hr Interval Summary Free Text/Dictation Patient doing well. She did try to work with PT today but was having some limitations. She otherwiswe feels good. Exam/Review of Systems Vital Signs Vitals Vital Signs Date Time Temp Pulse Resp B/P Pulse Ox O2 Delivery O2 Flow Rate FiO2 09/07/16 15:45 98.0 57 19 122/56 93 09/07/16 08:30 Nasal Cannula 2.0 Intake and Output 09/06/16 09/06/16 09/07/16 15:00 23:00 07:00 Intake Total 600 ml 240 ml Output Total 1000 ml Balance 600 ml -760 ml Exam General: Patient is an obese female sitting at the bedside chair comfortably The patient is alert oriented -3 HEENT: Atraumatic, normocephalic. The pupils are equal, round and reactive. Extraocular motor are intact Neck: Supple with full range of motion. Mild tenderness to palpation at the right posterior neck Chest: Nontender Lungs: Clear to auscultation bilaterally no crackles rales or wheezing Heart: Normal S1-S2, Regular rhythm and rate. Abdomen: Soft , nontender, nondistended , bowel sounds are present. No guarding no rebound tenderness , No masses or organomegaly. No costovertebral temporal angle mass Extremities: No edema, varicose veins Neurologic: Normal mental status, speech normal, cranial nerves II through XII are intact, motor and sensory are intact, no focal weakness Musculoskeletal: Neck and back tenderness improved. Results Result Diagram: 09/06/1640 09/06/16 0940 Results 24 hrs Laboratory Tests Test 09/06/16 17:39 09/06/16 21:35 09/07/16 02:59 09/07/16 07:57 Bedside Glucose 216 129 141 136 Test 09/07/16 12:31 Bedside Glucose 187 Medications Medications Current Medications Metoclopramide HCl (Reglan) 10 mg Q6H PRN IV NAUSEA AND/OR VOMITING; Start at 04:30 Nitroglycerin (Nitroglycerin (Sl Tab) 0.4 Mg) 1 tab Q5M PRN SL CHEST PAIN; Start 08/31/16 at 04:30 Aspirin (Halfprin) 81 mg DAILY PO Last administered on 09/07/16 09:14; Admin Dose 81 MG; Start 08/31/16 at 09:00 Atorvastatin Calcium (Lipitor) 40 mg HS PO Last administered on 09/06/16 21:40 ; Admin Dose 40 MG; Start 08/31/16 at 21:00 Pantoprazole (Protonix Tab) 40 mg DAILY@06 PO Last administered on 09/07/16 07 :05; Admin Dose 40 MG; Start 08/31/16 at 06:00 Furosemide (Lasix) 20 mg DAILY PO Last administered on 09/07/16 09:15; Admin Dose 20 MG; Start 09/01/16 at 09:00 Enoxaparin Sodium (Lovenox) 40 mg DAILY SC Last administered on 09/07/16 09:13 ; Admin Dose 40 MG; Start 08/31/16 at 18:00 Miscellaneous Information 1 ea NOTE XX ; Start 08/31/16 at 17:30 Glucose (Glutose) 15 gm Q15M PRN PO DECREASED GLUCOSE; Start 08/31/16 at 17:30 Glucose (Glutose) 22.5 gm Q15M PRN PO DECREASED GLUCOSE; Start 08/31/16 at 17: 30 Dextrose (D50w Syringe) 25 ml Q15M PRN IV DECREASED GLUCOSE; Start 08/31/16 at 17:30 Dextrose (D50w Syringe) 50 ml Q15M PRN IV DECREASED GLUCOSE; Start 08/31/16 at 17:30 Glucagon (Glucagen) 1 mg Q15M PRN IM DECREASED GLUCOSE; Start 08/31/16 at 17:30 Glucose (Glutose) 15 gm Q15M PRN BUCCAL DECREASED GLUCOSE; Start 08/31/16 at 17 :30 Hydralazine HCl (Apresoline) 10 mg Q6H PRN IV ELEVATED BLOOD PRESSURE; Start at 19:00 Meclizine HCl (Antivert) 12.5 mg TID PO Last administered on 09/07/16 12:39; Admin Dose 12.5 MG; Start 09/01/16 at 13:00 Salmeterol Xinafoate/ Fluticasone (Advair 250/50 Diskus) 1 inh BID INH Last administered on 09/05/16 21:08; Admin Dose 1 INH; Start 09/01/16 at 14:00 Famotidine (Pepcid) 20 mg DAILY PO Last administered on 09/07/16 09:15; Admin Dose 20 MG; Start 09/02/16 at 09:00 Guaifenesin (Mucinex) 600 mg BID PO Last administered on 09/07/16 09:14; Admin Dose 600 MG; Start 09/01/16 at 15:30 Amlodipine Besylate (Norvasc) 10 mg DAILY PO Last administered on 09/07/16 09: 15; Admin Dose 10 MG; Start 09/04/16 at 09:00 Oxycodone/ Acetaminophen (Percocet (5/ 325)) 1 tab Q4H PRN PO PAIN Last administered on 09/07/16 02:39; Admin Dose 1 TAB; Start 09/03/16 at 15:30 Diagnostic Test (Pha) (Accu-Chek) 1 ea 02 XX Last administered on 09/04/16 02: 00; Admin Dose 1 EA; Start 09/04/16 at 02:00 Hydrochlorothiazide (Hydrochlorothiazide) 25 mg DAILY PO Last administered on 4 /28/17at 09:14; Admin Dose 25 MG; Start 09/05/16 at 09:00 Insulin Glargine (Lantus) 35 unit DAILY@20 SC Last administered on 09/06/16t 21 :39; Admin Dose 35 UNIT; Start 09/05/16 at 20:00 KAYA FONTENOT Sep 07, 2016 17:21
[2016-09-07] MEDS ORDERED: Oxycodone/Acetamin (5/325) PO (19:27)
[2016-09-07] MEDS ORDERED: LAS20 PO (19:27)
[2016-09-07] MEDS ORDERED: LANT3I SC (19:27)
[2016-09-07] MEDS ORDERED: NOVO3I SC (19:27)
[2016-09-07] MEDS ORDERED: NIT4 SL (19:27)
[2016-09-07] MEDS ORDERED: AMLO-145 PO (19:27)
[2016-09-07] MEDS ORDERED: HYD25 PO (19:27)
[2016-09-07] MEDS ORDERED: ADV25050 INH (19:27)
[2016-09-07] MEDS ORDERED: MECL12.574 PO (19:27)
--- NOTE | 2016-09-07 19:28 | PDOCDIS ---
Discharge Instructions CONDITION Patient Condition: Stable HOME CARE INSTRUCTIONS: Diet Instructions: 2gm NaSpecial Diet: DIABETIC DIET. ACTIVITY: Activity Restrictions: Slowly Increase Activity FOLLOW UP/APPOINTMENTS Appointments Follow up with Cardiology within 1 week of discharge Follow up with Neurology within 1 - 2 weeks of discharge Follow up with Primary care doctor within 1 week of discharge KAYA FONTENOT Sep 07, 2016 19:28
--- NOTE | 2016-09-07 19:37 | DS ---
Date/Time of Note Date/Time of Note DATE: 09/07/16 TIME: 19:29 Discharge Summary Admission/Discharge Info Admit Date/Time Aug 31, 2016 at 03:36 Discharge Date/Time Final Diagnosis CHF Vertigo DM Patient Condition: Stable Consults Cardiology, Neurology Hx of Present Illness dizzy and shortness of breath HPI The patient is a 86-year-old female, presenting to the ER because of dizziness and occipital headache beginning about 7 PM. She feels as if the room is spinning; she has similar symptoms previously. She also complains of shortness of breath and dyspnea on exertion. She denies fever, chills, complaints of cough and congestion for the last couple days. She also complained of lower extremity swollen beginning today. She denies any chest pain, vomiting. She was recently discharged from [facility] last week. She does not smoke or drink Past medical history: Hypertension, dyslipidemia, diabetes mellitus, CAD, history of CHF Past surgical history: Hysterectomy, cholecystectomy, cataract surgery, right knee replacement ROS All systems reviewed and are negative except as per history of present illness. Medications Home Meds Reported Medications Promethazine Hcl (Promethazine Hcl) 25 Mg/Ml Vial, 25 MG PO Q6 Y for COUGH, VIAL 06/26/13 Clopidogrel Bisulfate* (Clopidogrel Bisulfate*) 75 Mg Tablet, 75 MG PO 06/26/13 Pantoprazole (Protonix) 40 Mg Tabec, 40 MG PO DAILY 06/26/13 Nitroglycerin* (Nitro-Bid* Oint (30gm)) 1 Inch Oint, 30 INCH TD DAILY 06/26/13 Metoprolol Succinate* (Toprol XL*) 50 Mg Tab.er.24h, 50 MG PO DAILY 06/26/13 Clonidine (Clonidine (Pediatric Compound)) 0.1 Mg/Ml Susp, 1 MG PO Q6 06/26/13 Atorvastatin* (Atorvastatin*) 40 Mg Tablet, 40 MG PO HS 06/26/13 Aspirin Ec (Aspir 81) 81 Mg Tablet.dr, 81 MG PO DAILY 06/26/13 Insulin Regular, Human (Humulin R) 100 Units/Ml Vial, 0 SC AC MEALS AND BEDTIME , VIAL 06/26/13 Allergies Allergies: Coded Allergies: levofloxacin (Verified Allergy, Unknown, 08/30/16) morphine (Verified Allergy, Unknown, 08/30/16) streptomycin (Verified Allergy, Unknown, 08/30/16) Uncoded Allergies: AVLOX (Allergy, Unknown, 08/30/16) PMhx/Soc History of Surgery: Yes (CHILANGO, GALL BLADDER) Anesthesia Reaction: No Hx Neurological Disorder: No Hx Respiratory Disorders: No Hx Cardiac Disorders: Yes (HTN, heart attack, CHF) Hx Psychiatric Problems: No Hx Miscellaneous Medical Probl: Yes (DM, hypercholesterolemia, obese) Hx Alcohol Use: No Hx Substance Use: No Hx Tobacco Use: No Smoking Status: Never smoker Physical Exam Vitals Vital Signs Date Time Temp Pulse Resp B/P Pulse Ox O2 Delivery O2 Flow Rate FiO2 08/31/16 00:58 Nasal Cannula 2 08/30/16 22:40 98.3 58 17 155/68 97 Physical Exam Const: No acute distress. Head: Atraumatic. Eyes: Normal Conjunctiva. ENT: Normal External Ears, Nose and Mouth. Neck: Full range of motion. No meningismus. Resp: Bibasilar crackle Cardio: Regular rate and rhythm, no murmurs. Abd: Soft, non distended, normal bowel sounds, non tender. Skin: No petechiae or rashes. Back: No midline or flank tenderness. Ext: Mild leg edema, no calf tenderness. Neur: Awake and alert. No focal deficit Psych: Normal Mood and Affect. Result Diagram: 08/31/16 0000 08/31/16 0000 Results 24 hrs Laboratory Tests Test 08/31/16 00:00 White Blood Count 9.510^3/ul Red Blood Count 4.1510^6/ul Hemoglobin 12.0g/dl Hematocrit 37.4% Mean Corpuscular Volume 90.1fl Mean Corpuscular Hemoglobin 28.9pg Mean Corpuscular Hemoglobin Concent 32.1g/dl Red Cell Distribution Width 13.5% Platelet Count 48674^3/UL Mean Platelet Volume 10.8fl Neutrophils % 60.1% Lymphocytes % 27.0% Monocytes % 7.8% Eosinophils % 3.7% Basophils % 0.8% Nucleated Red Blood Cells % 0.0/100WBC Neutrophils # 5.710^3/ul Lymphocytes # 2.610^3/ul Monocytes # 0.710^3/ul Eosinophils # 0.410^3/ul Basophils # 0.110^3/ul Nucleated Red Blood Cells # 0.010^3/ul Prothrombin Time 12.6Sec Prothrombin Time Ratio 1.0 INR International Normalized Ratio 0.94 Activated Partial Thromboplast Time 31.8Sec Sodium Level 134mmol/L Potassium Level 5.0mmol/L Chloride Level 100mmol/L Carbon Dioxide Level 31mmol/L Anion Gap 8 Blood Urea Nitrogen 20mg/dl Creatinine 0.86mg/dl Glucose Level 229mg/dl Calcium Level 8.9mg/dl Troponin I < 0.010ng/ml B-Type Natriuretic Peptide 1410PG/ML Current Medications Medications (Trade) Dose Ordered Sig/[place] Route PRN Reason Start Time Stop Time Status Last Admin Dose Admin Furosemide (Lasix) 40 mg ONCE ONCE IV 08/31/16 02:00 08/31/16 02:01 DC 08/31/16 02:22 Procedures/[place] [address] Radiology Main Line: [phone] DIAGNOSTIC IMAGING REPORT Patient: FREDY BERMUDEZ : 1930 Age: 86 Sex: F MR #: [id number] DOS: 08/31/16 0034 Ordering MD: YAZAN DESAI MD Location: E/R Room/Bed: PROCEDURE: CHEST - 1 VIEW CLINICAL INDICATION: Year-old female with shortness of breath. TECHNIQUE: A single frontal AP portable view of the chest was performed. The images were reviewed on a PACS workstation. COMPARISON: None. FINDINGS: The cardiomediastinal silhouette is moderately enlarged. Mitral annular calcification is noted. There is a calcified thoracic aortic arch. Chronic lung changes are present.. There is no evidence for an infiltrate. There is no evidence for congestive heart failure. There is no evidence for pneumothorax. Degenerative changes are present within the spine. IMPRESSION: 1. Cardiomegaly. 2. Calcified thoracic aortic arch. 3. Chronic lung changes. 4. Degenerative changes within the spine. .Froy Soto MD, Date Time Electronically viewed and signed by .Froy Soto MD, on 08/31/2016 01:47 .M/ CC: YAZAN DESAI MD [place] [address] Radiology Main Line: [phone] DIAGNOSTIC IMAGING REPORT Patient: FREDY BERMUDEZ : 1930 Age: 86 Sex: F MR #: [id number] DOS: 08/31/16 0034 Ordering MD: YAZAN DESAI MD Location: E/R Room/Bed: PROCEDURE: CT BRAIN WITHOUT CONTRAST CLINICAL INDICATION: 86-year-old female with dizziness. TECHNIQUE: The study was performed utilizing KapturT 64-slice CT scanner. Direct axial sections were obtained from the foramen magnum to the vertex without the use of intravenous contrast material. Sagittal and coronal reformations were obtained. One or more the following dose reduction techniques were utilized: automated exposure control, adjustment of the mA and/or kV according to patient's size or use of iterative reconstruction technique. The images were viewed on a PACS workstation. CTD/vol = 90.0 mGy; Total Exam DLP = 720.2 mGy-cm. COMPARISON: None. FINDINGS: There is mild degree of diffuse cortical and central atrophy with compensatory ventricular enlargement. There is no evidence for mass effect or midline shift. There are periventricular areas of decreased density consistent with microangiopathic ischemic changes. There is no evidence for acute intra or extra-axial blood. Calcifications are seen within the intracranial carotid arteries bilaterally. The bony calvarium is intact. Hyperostosis frontalis interna is present. The visualized paranasal sinuses and mastoid air cells are without significant abnormal soft tissue. IMPRESSION: 1. Mild diffuse atrophy. 2. Microangiopathic ischemic changes. 3. Vascular calcifications. 4. Hyperostosis frontalis interna. .Froy Soto MD, Date Time Electronically viewed and signed by .Froy Soto MD, on 08/31/2016 01:46 .M/ CC: YAZAN DESAI MD EKG: Read by emergency physician Rate/Rhythm: Sinus bradycardia 56 beats/min QRS, ST, T-waves: No ST elevation, no T inversion, septal Q waves Impression: Abnormal EKG MEDICAL MAKING DECISION: The patient is a 86-year-old female, presenting with acute dizziness of unclear etiology, most likely acute benign positional vertigo , acute CHF exacerbation. She was treated with Antivert 25 mg p.o. for dizziness and Lasix 40 mg for acute CHF exacerbation with good response. The differential diagnoses for acute dizziness considered include but are not limited to central causes such as cerebellar infarct, cerebellar hemorrhage, cerebellar tumor, acoustic neuroma, peripheral causes such as benign positional vertigo, labyrinthitis, medication, Meniere's disease. The differential diagnoses for acute dyspnea considered include but are not limited to asthma, COPD, pneumonia, pulmonary embolus, pleural effusion, congestive heart failure. Hospital Course 1. Dizziness:resolved, unremarkable MRI brain/carotid us 2. CHF exacerbation diastolic: stable, continue lasix 20mg po daily. 3. Hypertension: stable at this time on amlodpine and hctz, continue to follow. Cozaar discontinued secondary to hyperkalemia. 4. Dyslipidemia, conitnue statin. 5. Diabetes mellitus type 2 AIC 10.7 :poor control likely 2/2 dietary non compliance, sugars are better controlled continue current regimen. 6. CAD with Hx of [place] 7. Morbid obesity with BMI 49.5 8. Bradycardia: may be contributing to #1, continue to follow. 9. Productive cough : resolved. 10. ROBINSON: improved. 11. Hyperkalemia, losartan stopped 12. Left upper back and left shoulder pain: slightly improved, likely muscular in nature as imaging was negative. On percocet. 13. Headache, resolved. 13. DVT prophylaxis: lovenox Patient admitted for dizziness and headache. Found to be overloaded and seen by cardiology. Diuresed well. Headache resolved after better control of blood pressure as well as musculoskeletal neck/back pain. Seen by neurology for dizziness. MRI/carotids negative. Thought to be likely due to possible BPPV. Started on meclizine and subsequently improved. Patient also noted to have hyperkalemia, losartan was stopped. Insulin adjusted for better BS control. Patient stable, however seen by PT and recommended inpatient rehab. Evaluated by inpatient rehab and accepted. Patient to follow up with cardio, neuro, and pmd upon discharge from rehab. Home Meds Active Scripts Insulin Glargine* (Lantus*) 100 Unit/Ml Soln, 35 UNIT SC DAILY@20 for 30 Days, # 30 VIAL Prov:CORIE,KAYA 09/07/16 Insulin Aspart* (Novolog Insulin Pen*) 100 Unit/Ml Soln, 12 UNIT SC WITH MEALS for 30 Days, #30 Prov:KAYA FONTENOT 09/07/16 Meclizine Hcl* (Antivert*) 12.5 Mg Tab, 12.5 MG PO TID for 14 Days, #30 TAB PRN for dizziness Prov:KAYA FONTENOT 09/07/16 Salmeterol Xinaf/Fluticasone* (Advair*) 250-50 Diskus Inhaler, 1 INH INH BID for 30 Days, #1 INHALER Prov:KAYA FONTENOT 09/07/16 Hydrochlorothiazide* (Hydrochlorothiazide*) 25 Mg Tab, 25 MG PO DAILY for 30 Days, #30 TAB Prov:KAYA FONTENOT 09/07/16 Furosemide (Lasix) 20 Mg Tab, 20 MG PO DAILY for 30 Days, #30 TAB Prov:KAYA FONTENOT 09/07/16 Nitroglycerin* (Nitrostat*) 0.4 Mg Tab.subl, 1 TAB SL Q5M Y for CHEST PAIN for 14 Days, #30 TAB.SL Prov:KAYA FONTENOT 09/07/16 Amlodipine Besylate* (Amlodipine Besylate*) 5 Mg Tablet, 10 MG PO DAILY for 30 Days, #30 TAB Prov:KAYA FONTENOT 09/07/16 [Oxycodone/Acetamin (5/325)] 1 TAB TAB No Conflict Check, 1 TAB PO Q4H Y for PAIN for 14 Days, #30 CAP Prov:KAYA FONTENOT 09/07/16 Reported Medications Promethazine Hcl (Promethazine Hcl) 25 Mg/Ml Vial, 25 MG PO Q6 Y for COUGH, VIAL 06/26/13 Clopidogrel Bisulfate* (Clopidogrel Bisulfate*) 75 Mg Tablet, 75 MG PO 06/26/13 Pantoprazole (Protonix) 40 Mg Tabec, 40 MG PO DAILY 06/26/13 Nitroglycerin* (Nitro-Bid* Oint (30gm)) 1 Inch Oint, 30 INCH TD DAILY 06/26/13 Metoprolol Succinate* (Toprol XL*) 50 Mg Tab.er.24h, 50 MG PO DAILY 06/26/13 Clonidine (Clonidine (Pediatric Compound)) 0.1 Mg/Ml Susp, 1 MG PO Q6 06/26/13 Atorvastatin* (Atorvastatin*) 40 Mg Tablet, 40 MG PO HS 06/26/13 Aspirin Ec (Aspir 81) 81 Mg Tablet.dr, 81 MG PO DAILY 06/26/13 Insulin Regular, Human (Humulin R) 100 Units/Ml Vial, 0 SC AC MEALS AND BEDTIME , VIAL 06/26/13 Follow-up Plan Patient will be transferred to inpatient rehab. Upon discharge from rehab patient advised to follow up with Cardiology and PMD within 1 week, and Neuro within 1 - 2 weeks. Pending Labs Laboratory Tests Test 09/06/16 21:35 09/07/16 02:59 09/07/16 07:57 09/07/16 12:31 Bedside Glucose 129mg/dL (70-220) 141mg/dL (70-220) 136mg/dL (70-220) 187mg/dL (70-220) Test 09/07/16 17:25 Bedside Glucose 181mg/dL (70-220) KAYA FONTENOT Sep 07, 2016 19:37
[2016-09-07] MEDS: ATORVASTATIN 40 MG TAB PO SCH (20:28)
[2016-09-07] MEDS: INSULIN GLARGINE [LANtus] 3 ML PEN SC SCH (20:33)
== END 2016-09-07 20:45 | DRG 291 ==
LOC: E/R 22:36 → MS4 08-31 03:36
PROVIDERS: ADMIT Family Medicine; ATTEND Family Medicine
DX: I13.0 Hypertensive heart and chronic kidney disease with heart failure and stage 1 through stage 4 chronic kidney disease, or unspecified chronic kidney disease (principal); I50.33 Acute on chronic diastolic (congestive) heart failure; N17.9 Acute kidney failure, unspecified; Z68.42 Body mass index [BMI] 45.0-49.9, adult; N18.9 Chronic kidney disease, unspecified; E66.01 Morbid (severe) obesity due to excess calories; Z91.14 Patient's other noncompliance with medication regimen; R00.1 Bradycardia, unspecified; I25.2 Old myocardial infarction; I25.10 Atherosclerotic heart disease of native coronary artery without angina pectoris; H81.10 Benign paroxysmal vertigo, unspecified ear; J40 Bronchitis, not specified as acute or chronic; M54.9 Dorsalgia, unspecified; M25.512 Pain in left shoulder; Z79.82 Long term (current) use of aspirin; Z79.4 Long term (current) use of insulin; R51 Headache
CPT/HCPCS: 36415; 70450; 70551; 71010; 73030; 80048; 80076; 82550; 82553; 82962; 83036; 83735; 83880; 84443; 84484; 85025; 85610; 85730; 87070; 93005; 93306; 93880; 93970; 94640; 94664; 96374; 97110; 97116; 97163; 97530; J0360; J1170; J1650; J1815; J1885; J1940

== ENCOUNTER 2016-09-07 18:27 | Inpatient (IN) | payer MEDICARE, BC ==
[~2016-09-07] VITALS: Ht 152.9 cm; Wt 91.0 kg
--- NOTE | 2016-09-07 18:46 | PDOCDIS ---
Discharge Instructions CONDITION Patient Condition: Stable HOME CARE INSTRUCTIONS: Diet Instructions: Reduced CalorieSpecial Diet: 2gm Na ACTIVITY: Activity Restrictions: Slowly Increase Activity FOLLOW UP/APPOINTMENTS Appointments With Cardiology within 1 week from discharge, With Primary doctor within 1 week from discharge. KAYA FONTENOT Sep 07, 2016 18:45
[2016-09-07] MEDS ORDERED: AMLO-145 PO (19:27)
[2016-09-07] MEDS ORDERED: LANT3I SC (19:27)
[2016-09-07] MEDS ORDERED: Oxycodone/Acetamin (5/325) PO (19:27)
[2016-09-07] MEDS ORDERED: NIT4 SL (19:27)
[2016-09-07] MEDS ORDERED: ADV25050 INH (19:27)
[2016-09-07] MEDS ORDERED: NOVO3I SC (19:27)
[2016-09-07] MEDS ORDERED: LAS20 PO (19:27)
[2016-09-07] MEDS ORDERED: HYD25 PO (19:27)
[2016-09-07] MEDS ORDERED: MECL12.574 PO (19:27)
[2016-09-07 22:03] VITALS: BP 166/71; PULSE 58; RESP 18
[2016-09-07] MEDS ORDERED: METOCLOPRAMIDE 10 MG INJ IV PRN (22:20)
[2016-09-07] MEDS ORDERED: DEXTROSE 50% 50 ML SYRINGE IV PRN ×2 (22:20)
[2016-09-07] MEDS ORDERED: HYDROCHLOROTHIAZIDE 25 MG TAB PO SCH (22:20)
[2016-09-07] MEDS ORDERED: hydrALAzine 20 MG INJ IV PRN (22:20)
[2016-09-07] MEDS ORDERED: NITROGLYCERIN (SL) 0.4 MG TAB SL PRN (22:20)
[2016-09-07] MEDS ORDERED: GLUCAGON 1 MG INJ IM PRN (22:20)
[2016-09-07] MEDS ORDERED: NACL 0.9% 3 ML SYG IV SCH (22:20)
[2016-09-07] MEDS ORDERED: GLUCOSE GEL 15 GRAM TUBE BUCCAL PRN (22:20)
[2016-09-07] MEDS ORDERED: GLUCOSE GEL 15 GRAM TUBE PO PRN ×2 (22:20)
[2016-09-07 23:57] VITALS: Ht 152.9 cm; Wt 91.0 kg
[2016-09-08] MEDS: ACCU-CHEK XX SCH (02:00)
[2016-09-08 02:34] LABS: ADD UMIC YES; URINE BILIRUBIN (Dip) NEGATIVE (NEGATIVE); URINE BLOOD (Dip) NEGATIVE (NEGATIVE); URINE COLOR LT. YELLOW (YELLOW); URINE GLUCOSE (Dip) NEGATIVE (NEGATIVE); URINE KETONES (Dip) NEGATIVE (NEGATIVE); URINE LEUKOCYTE ESTERASE (Dip) NEGATIVE (NEGATIVE); URINE NITRITE (Dip) NEGATIVE (NEGATIVE); URINE TOTAL PROTEIN (Dip) TRACE (NEGATIVE); URINE UROBILINOGEN (Dip) 0.2 E.U./dL (0.1-1.0)
[2016-09-08 02:40] LABS: BACTERIA,URINE RARE; SQUAMOUS EPITHELIAL CELL,UR FEW; URINE RBCS 0-2 /HPF ([, 0])
[2016-09-08] MEDS ORDERED: BISACODYL 10 MG SUPP PR PRN (03:30)
[2016-09-08] MEDS ORDERED: MAGNESIUM HYDROXIDE 30ML CUP PO PRN (03:30)
[2016-09-08] MEDS ORDERED: LACTULOSE 30ML CUP PO PRN (03:30)
[2016-09-08] MEDS: PANTOPRAZOLE (EC) 40 MG TAB PO SCH (06:01)
--- NOTE | 2016-09-08 07:01 | HP ---
Date/Time of Note Date/Time of Note DATE: 09/08/16 TIME: 06:55 Assessment/Plan VTE Prophylaxis VTE Prophylaxis Intervention: LMWH Lines/Catheters IV [facility] Saline Lock Assessment/Plan Problems: (1) Diabetes mellitus type 2 in obese Status: Chronic Comment: On admission her diabetic control was not adequate. Will adjust with her medications and follow her along. (2) Obesity (BMI 30-39.9) Status: Chronic Comment: Calorie restriction diet (3) Essential hypertension Status: Chronic Comment: Resume low-dose H2 receptor sosa agent follow her kidney function (4) Hyperlipidemia associated with type 2 diabetes mellitus Status: Chronic Comment: Presently off statin therapy. Please note this can cause some muscle weakness will have to keep an eye on this. (5) Mild late onset dysthymic disorder, in partial remission, with anxious distress, with persistent major depressive episode Status: Chronic Comment: Noted. Consider treatment (6) Diastolic dysfunction Status: Chronic Comment: Noted. Undoubtedly has some other cardiac issues that she is bradycardic without any medications to induce bradycardia. Avoid beta-sosa in the situation (7) Coronary artery disease Status: Chronic Comment: Noted and stable Qualifiers: Coronary Disease-Associated Artery/Lesion type: pic[place]une artery [place] vs. transplanted heart: picayune heart Associated angina: without angina Qualified Code: I25.10 - Coronary artery disease involving picayune coronary artery of picayune heart without angina pectoris HPI/ROS Admit Date/Time Admit Date/Time Sep 07, 2016 at 21:00 Hx of Present Illness 86-year-old woman transferred to the acute rehabilitation unit and admitted to [facility] for rehabilitation of her legs. Patient been in the hospital reports that she is having difficulty getting her ambulation back to baseline ROS Constitutional: no complaints (Denies fevers chills or sweats) Eyes: no complaints ENT: no complaints Respiratory: no complaints Cardiovascular: no complaints Gastrointestinal: no complaints Genitourinary: no complaints Musculoskeletal: other (Weak legs and some pain) Endocrine: no complaints PMH/Family/Social Past Medical History Diabetes mellitus type 2 secondary to obesity; diabetic peripheral neuropathy; morbid obesity; hyperlipidemia associated with diabetes mellitus type 2; hypertension; anxiety with depression; LVH with diastolic dysfunction; coronary artery disease; Past Surgical History Status post cholecystectomy; status post total knee replacement; status post CHILANGO ; status post CE and IOL OU Family History Significant Family History: heart disease, diabetes, hypertension Social History Born in [facility] and raised lives in [place] lives with her daughter retired Alcohol Use: none Smoking Status: Former smoker Drug Use: none Exam/Review of Systems Vital Signs Vitals Vital Signs Date Time Temp Pulse Resp B/P Pulse Ox O2 Delivery O2 Flow Rate FiO2 09/08/16 02:33 2.0 09/07/16 23:00 Nasal Cannula 09/07/16 22:03 97.6 58 18 166/71 93 Intake and Output 09/07/16 09/07/16 09/08/16 15:00 23:00 07:00 Intake Total 200 ml Output Total 350 ml Balance -150 ml Exam Constitutional: alert, oriented Psych: anxiety Head: atraumatic, normocephalic Eyes: EOMI, PERRL, nl conjunctiva, nl lids, nl sclera ENMT: mucosa pink and moist, nl external ears & nose, nl lips & teeth, nl nasal mucosa & septum Neck: non-tender, supple Respiratory: clear to auscultation, normal air movement Cardiovascular: nl pulses, regular rate and rhythm Gastrointestinal: nl liver, spleen, non-tender, soft Extremities: normal pulses Neurological: COMMIT[employer] MEMBER II-XII intact, nl mental status, nl speech, nl strength, other (Davila monofilament neuropathy to the plantar aspects of both feet) Skin: nl turgor, rash or lesions Medications Medications Current Medications Metoclopramide HCl (Reglan) 10 mg Q6H PRN IV NAUSEA AND/OR VOMITING; Start at 22:20 Nitroglycerin (Nitroglycerin (Sl Tab) 0.4 Mg) 1 tab Q5M PRN SL CHEST PAIN; Start 09/07/16 at 22:20 Aspirin (Halfprin) 81 mg DAILY PO ; Start 09/07/16 at 22:20 Atorvastatin Calcium (Lipitor) 40 mg HS PO ; Start 09/07/16 at 22:20 Pantoprazole (Protonix Tab) 40 mg DAILY@06 PO Last administered on 09/08/16t 06 :01; Admin Dose 40 MG; Start 09/07/16 at 22:20 Furosemide (Lasix) 20 mg DAILY PO ; Start 09/07/16 at 22:20 Enoxaparin Sodium (Lovenox) 40 mg DAILY SC ; Start 09/07/16 at 22:20 Miscellaneous Information 1 ea NOTE XX ; Start 09/07/16 at 22:20 Glucose (Glutose) 15 gm Q15M PRN PO DECREASED GLUCOSE; Start 09/07/16 at 22:20 Glucose (Glutose) 22.5 gm Q15M PRN PO DECREASED GLUCOSE; Start 09/07/16 at 22: 20 Dextrose (D50w Syringe) 25 ml Q15M PRN IV DECREASED GLUCOSE; Start 09/07/16 at 22:20 Dextrose (D50w Syringe) 50 ml Q15M PRN IV DECREASED GLUCOSE; Start 09/07/16 at 22:20 Glucagon (Glucagen) 1 mg Q15M PRN IM DECREASED GLUCOSE; Start 09/07/16 at 22:20 Glucose (Glutose) 15 gm Q15M PRN BUCCAL DECREASED GLUCOSE; Start 09/07/16 at 22 :20 Hydralazine HCl (Apresoline) 10 mg Q6H PRN IV ELEVATED BLOOD PRESSURE; Start at 22:20 Meclizine HCl (Antivert) 12.5 mg TID PO ; Start 09/07/16 at 22:20 Salmeterol Xinafoate/ Fluticasone (Advair 250/50 Diskus) 1 inh BID INH ; Start 09/07/16 at 22:20 Famotidine (Pepcid) 20 mg DAILY PO ; Start 09/07/16 at 22:20 Guaifenesin (Mucinex) 600 mg BID PO ; Start 09/07/16 at 22:20 Amlodipine Besylate (Norvasc) 10 mg DAILY PO ; Start 09/07/16 at 22:20 Oxycodone/ Acetaminophen (Percocet (5/ 325)) 1 tab Q4H PRN PO PAIN; Start 09/07 at 22:20 Diagnostic Test (Pha) (Accu-Chek) 1 ea 02 XX ; Start 09/07/16 at 22:20 Hydrochlorothiazide (Hydrochlorothiazide) 25 mg DAILY PO ; Start 09/07/16 at 22: 20 Insulin Glargine (Lantus) 35 unit DAILY@20 SC ; Start 09/07/16 at 22:20 Docusate Sodium (Colace) 100 mg BID PO ; Start 09/08/16 at 09:00 Senna (Senokot) 1 tab HS PO ; Start 4/29/17 at 21:00 Acetaminophen (Tylenol Tab) 650 mg Q4H PRN PO PAIN; Start 09/08/16 at 03:30 Bisacodyl (Dulcolax Supp) 10 mg DAILY PRN [place] CONSTIPATION; Start 09/08/16 at 03 :30 Magnesium Hydroxide (Milk Of Mag) 30 ml BID PRN PO CONSTIPATION; Start at 03:30 Lactulose (Enulose) 20 gm DAILY PRN PO CONSTIPATION; Start 09/08/16 at 03:30 MELLISSA SEPULVEDA MD Sep 08, 2016 07:01
[2016-09-08 07:23] LABS: ADD SCAN DIFF NO
[2016-09-08 07:31] LABS: BASOPHIL # 0.1 10^3/ul (0.0-0.1); BASOPHILS % 0.8 % (0.0-2.0); EOSINOPHILS # 0.3 10^3/ul (0.0-0.5); EOSINOPHILS % 5.2 % (0.0-7.0); HEMATOCRIT 36.5 % (37.0-47.0); HEMOGLOBIN 11.3 g/dl (12.0-16.0); LYMPHOCYTES % 32.1 % (15.0-51.0); MEAN CORPUSCULAR VOLUME 90.3 fl (82.0-101.0); MEAN PLATELET VOLUME 10.7 fl (7.4-10.4); MONOCYTE # 0.5 10^3/ul (0.3-0.9); MONOCYTES % 8.5 % (0.0-11.0); NEUTROPHIL # 3.4 10^3/ul (1.6-7.5); NEUTROPHILS % 53.1 % (39.0-77.0); PLATELET COUNT 243 10^3/UL (140-415); RED BLOOD COUNT 4.04 10^6/ul (4.20-5.40); RED CELL DISTRIBUTION WIDTH 13.7 % (11.5-14.5); WHITE BLOOD COUNT 6.4 10^3/ul (4.8-10.8)
[2016-09-08 07:40] LABS: ALBUMIN 3.1 g/dl (3.3-4.9)
[2016-09-08 07:41] LABS: POTASSIUM 4.5 mmol/L (3.5-5.1)
[2016-09-08 07:43] LABS: ALBUMIN/GLOBULIN RATIO 0.93; BILIRUBIN,INDIRECT 0.2 mg/dl (0-1.1); BILIRUBIN,TOTAL 0.2 mg/dl (0.2-1.3); CREATININE 1.04 mg/dl (0.44-1.00); TOTAL PROTEIN 6.4 g/dl (6.1-8.1)
[2016-09-08 07:44] LABS: CALCIUM 8.8 mg/dl (8.4-10.2)
[2016-09-08 08:00] VITALS: BP 145/69; PULSE 63; RESP 18
[2016-09-08] MEDS: INSULIN ASPART [NOVOLOG] 3 ML PEN SC SCH ×7 (08:01→21:00)
[2016-09-08] MEDS: SALMETEROL/FLUTICASONE 250/50 INHA INH SCH ×2 (08:45→21:00)
[2016-09-08] MEDS: ENOXAPARIN 40 MG/0.4 ML SYG SC SCH (08:46)
[2016-09-08] MEDS: DOCUSATE SODIUM 100 MG CAP PO SCH ×2 (08:46→21:00)
[2016-09-08] MEDS: AMLODIPINE 5 MG TAB PO SCH (08:46)
[2016-09-08] MEDS: GUAIFENESIN LA 600 MG TABSR PO SCH ×2 (08:46→21:22)
[2016-09-08] MEDS: FUROSEMIDE 20 MG TAB PO SCH (08:47)
[2016-09-08] MEDS: FAMOTIDINE 20 MG TAB PO SCH (08:47)
[2016-09-08] MEDS: LINAGLIPTIN 5 MG TABLET PO SCH (08:47)
[2016-09-08] MEDS: LOSARTAN 25 MG TAB PO SCH (08:47)
[2016-09-08] MEDS: ASPIRIN (EC) 81 MG TAB PO SCH (08:48)
[2016-09-08] MEDS: MECLIZINE 12.5 MG TAB PO SCH ×3 (08:48→21:22)
[2016-09-08] MEDS: HYDROCHLOROTHIAZIDE 12.5 MG CAP PO SCH (08:48)
[2016-09-08] MEDS: OXYCODONE/ACETAMINOPHEN (5/325) TAB PO PRN (12:29)
--- NOTE | 2016-09-08 13:56 | HP ---
DATE OF ADMISSION: 09/07/2016 PHYSICAL MEDICINE AND REHABILITATION HISTORY AND PHYSICAL/PHYSICIAN POST ADMISSION ASSESSMENT DATE OF VISIT: 09/08/2016 REHABILITATION IMPAIRMENT GROUP: Cardiac debility in the setting of acute diastolic congestive heart failure exacerbation. CHIEF COMPLAINT: Impaired mobility. 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 The patient was evaluated by neurology and did undergo workup, including a CT head and MRI of the brain which showed no acute intracranial findings. Her dizziness was thought to be most likely secondary to benign paroxysmal positional vertigo, for which she was started on Antivert, with improvement of her symptoms. Her hospital course was further complicated by acute CHF exacerbation, for which she was diuresed with Lasix. Further hospital complications included acute kidney injury and hyperkalemia, and her losartan was stopped. Also she required adjustment of her insulin regimen for better control of her blood sugars. The patient did work with physical and occupational therapies and was noted to have a significant overall functional decline from her baseline independent functional status. Currently the patient is requiring moderate to maximal assistance for most of her ADLs and is requiring minimal assistance for her transfers and gait; ambulating 80 feet with a standard walker. Due to her overall ongoing medical comorbidities, as well as significant functional decline, the patient was thought to benefit from acute inpatient rehabilitation. PAST MEDICAL AND PAST SURGICAL HISTORY: As stated in the history of present illness, including a history of diastolic CHF, hypertension, dyslipidemia, diabetes mellitus type 2 poorly controlled with diabetic neuropathy, coronary artery disease, obesity, chronic pain with history of osteoarthritis affecting multiple joints. Other surgeries in the past have included cholecystectomy, right total knee replacement, hysterectomy. FAMILY HISTORY: Significant for diabetes mellitus, hypertension and heart disease. SOCIAL HISTORY: Denies current toxic habits. The patient lives alone in a second-floor apartment. No elevator access, with 14 steps. The patient reports her prior level of function, she was independent for all functional mobility and self-care ADLs. She was using a walker for ambulation. Reports good support from her neighbors and daughter. ALLERGIES: 1. LEVOFLOXACIN. 2. MORPHINE. 3. MOXIFLOXACIN 4. STREPTOMYCIN. MEDICATIONS ON ADMISSION: Reviewed in electronic medical records, includin. Losartan. 2. Hydrochlorothiazide. 3. Tradjenta. 4. Tylenol as needed. 5. Reglan as needed. 6. Nitroglycerin as needed. 7. Aspirin. 8. Lipitor. 9. Protonix. 10. Lasix. 11. Lovenox. 12. Hydralazine as needed. 13. Antivert. 14. Albuterol nebs as needed. 15. Advair. 16. Pepcid. 17. Mucinex. 18. Norvasc. 19. Percocet as needed. 20. Insulin sliding scale. 21. Insulin aspart. 22. Lantus. LABORATORIES AND IMAGING ON ADMISSION: Reviewed in electronic medical records. Admission labs today show a hemoglobin of 11.3, hematocrit 36.5, WBC 6.4, platelets 243, BUN 42, creatinine 1.04. Sodium 136, potassium 4.5. REVIEW OF SYSTEMS: CONSTITUTIONAL: Denies fevers or chills. No night sweats. EYES: Denies pain or discharge. No visual changes. EARS, NOSE AND THROAT: Denies currently any changes in hearing. No difficulty swallowing. No current dizziness. RESPIRATORY: Denies shortness of breath. She has continued cough. CARDIOVASCULAR: Denies chest pain, no palpitations. GENITOURINARY: Denies dysuria. No hematuria. GASTROINTESTINAL: Denies abdominal pain, no nausea or vomiting, no constipation. NEUROLOGICAL: Denies any new focal weakness. Significant for history of diabetic neuropathy. MUSCULOSKELETAL: She has chronic pain in multiple joints. Currently reports minimal to moderate pain in her back, as well as the upper and lower extremities. SKIN: Denies any new rashes or itching. PSYCHIATRIC: Denies current anxiety or depression. REVIEW OF SYSTEMS: Otherwise negative. PHYSICAL EXAMINATION: VITAL SIGNS: Blood pressure 145/69, heart rate is 63, O2 saturation 94% on 2 liters O2. Temperature 98 Fahrenheit, respiratory rate 18. GENERAL: The patient is well-nourished, obese, awake, alert, in no acute distress. HEAD, EYES, EARS, NOSE, THROAT: Normocephalic, atraumatic. Mucous membranes moist. Sclera anicteric. Extraocular muscles appear intact. NECK: Supple, nontender. RESPIRATORY: Respirations are nonlabored. Symmetrical air entry bilaterally. No wheezing. CARDIOVASCULAR: Regular rate and rhythm, audible S1, S2. No significant distal edema. ABDOMEN: Soft, nontender. Bowel sounds present. No masses palpated. EXTREMITIES: Calves are soft and nontender. No cyanosis. SKIN: Blanchable redness in the sacrum area and redness in the groin region. PSYCHIATRIC: Affect and mood are appropriate. Oriented x3. NEUROLOGIC/MUSCULOSKELETAL EXAMINATION: The patient is oriented x3. She has decreased active range of motion in the bilateral shoulders, affecting right greater than left shoulder, with some pain. No joint effusions or joint redness noted. Overall strength is 4- to 4/5 in the upper and lower extremities, with some pain limitations. Reports decreased sensation in a stocking glove distribution. No increase in tone. IMPRESSION: 1. Cardiac debility in the setting of acute diastolic congestive heart failure exacerbation. 2. Impaired mobility, gait and balance. 3. Impaired self-care activities of daily living. 4. Hypertension. 5. Dyslipidemia. 6. Diabetes mellitus, insulin-dependent type 2, poorly controlled, with diabetic neuropathy. 7. Coronary artery disease, with history of myocardial infarction. 8. Obesity. 9. Acute kidney injury. 10. Chronic pain syndrome, with a history of osteoarthritis affecting multiple joints. 11. Dizziness, thought likely secondary to benign paroxysmal positional vertigo. 12. Anemia. PLAN: The patient will be admitted for inpatient comprehensive interdisciplinary rehabilitation to address impairments and medical conditions listed above while assessing equipment needs and compensatory strategies, with coordinated interdisciplinary services that will include physical and occupational therapies and treatment with 24-hour rehabilitation nursing. The patient is anticipated to be able to tolerate 3 hours daily of therapies for at least 5 out of the 7 days per week. 1. Begin physical therapy for bed mobility, transfers, balance training, gait and stairs training, lower extremity strengthening, range of motion, and coordination. 2. Begin occupational therapies for activities of daily living, functional transfers, adaptive equipment evaluation, patient education, upper extremity strengthening, range of motion. 3. Rehabilitation nursing to provide the patient education regarding current medications as they relate to medical illness, monitor blood sugars, monitor for signs or symptoms of hyper or hypoglycemia, monitor pain, monitor bowel and bladder programs and administer these programs and report them with therapies. 4. Dr. Valle and associates to follow for management of medical comorbidities. 5. For her history of hypertension, monitor blood pressures. Internal medicine medically managing. 6. For management of diabetes mellitus, monitor blood sugars. Internal medicine to medically manage and adjust her insulin further as needed. Consider a diabetes education consult, with a history of dietary noncompliance. 7. History of coronary artery disease with a history of myocardial infarction. Continue medical management. 8. For acute kidney injury and history of hyperkalemia, will continue to closely monitor. Avoid nephrotoxic agents. Internal medicine to medically manage and follow. 9. For BPPV, currently denies any symptoms. Continue antivert Will closely monitor. Neurology has been following and medically managing. 10. For anemia will continue to closely monitor hemoglobin and hematocrit. 11. For acute congestive heart failure exacerbation, diastolic congestive heart failure exacerbation continue diuretics, per internal medicine. Continue to monitor volume status, pulmonary status and O2 saturations. 12. For dyslipidemia, she is on statin. 13. For chronic pain syndrome with a history of osteoarthritis, continue the current pain regimen, including p.r.n. Percocet. We will monitor as she mobilizes further with therapies, and adjust further as needed. 14. For GI prophylaxis she is on a proton pump inhibitor and for DVT prophylaxis she is on Lovenox. REHABILITATION GOALS: Improve bed mobility, transfers, gait, stairs and self- care ADLs to at least a supervision level. Anticipated disposition is to home, with family/friends support. ESTIMATED LENGTH OF STAY: Approximately 10 to 14 days. Her case will be discussed at the weekly interdisciplinary conference. PROGNOSIS: At the current time this inpatient hospital rehabilitation stay is medically necessary to achieve important health and functional goals. The patient requires frequent physician visits, 24-hour rehabilitation nursing, and a coordinated intensive rehabilitation program, as described above, to address complex medical, nursing and rehabilitation needs. The patient has a good prognosis for benefiting from this program and returning to home and community. REHABILITATION PHYSICIAN POST-ADMISSION ASSESSMENT REVIEW: I have had the opportunity to examine the patient within 24 hours of admission and have reviewed the preadmission assessment and find it consistent with my examination and evaluation of the patient. I confirm that this patient is appropriate for admission and treatment in this inpatient rehabilitation hospital, needs intense interdisciplinary rehabilitation care, and is expected to achieve meaningful goals within a reasonable period of time that are consistent with the planned discharge disposition, as noted above. Dictated By: LENORE INTERIANO MD, RA/NASIR Conf#: [id number] DID#: [id number] MTDD
[2016-09-08 20:32] VITALS: BP 124/56; RESP 18
[2016-09-08] MEDS ORDERED: SENNA TAB PO PRN (21:00)
[2016-09-08] MEDS ORDERED: SENNA TAB PO SCH (21:00)
[2016-09-08] MEDS: ATORVASTATIN 40 MG TAB PO SCH (21:23)
[2016-09-08] MEDS: INSULIN GLARGINE [LANtus] 3 ML PEN SC SCH (22:13)
[2016-09-09] MEDS: ACCU-CHEK XX SCH (02:00)
[2016-09-09] MEDS: PANTOPRAZOLE (EC) 40 MG TAB PO SCH (06:55)
[2016-09-09 07:30] VITALS: BP 134/63; RESP 20
[2016-09-09 07:43] LABS: ADD SCAN DIFF NO
[2016-09-09 07:49] LABS: BASOPHILS % 0.4 % (0.0-2.0); EOSINOPHILS # 0.3 10^3/ul (0.0-0.5); EOSINOPHILS % 2.9 % (0.0-7.0); HEMOGLOBIN 10.7 g/dl (12.0-16.0); LYMPHOCYTES # 1.5 10^3/ul (0.8-2.9); LYMPHOCYTES % 14.6 % (15.0-51.0); MEAN CORPUSCULAR HEMOGLOBIN 27.9 pg (29.0-33.0); MEAN CORPUSCULAR HGB CONC 30.6 g/dl (32.0-37.0); MEAN CORPUSCULAR VOLUME 91.4 fl (82.0-101.0); MONOCYTE # 0.7 10^3/ul (0.3-0.9); MONOCYTES % 6.5 % (0.0-11.0); NEUTROPHIL # 7.9 10^3/ul (1.6-7.5); NEUTROPHILS % 75.1 % (39.0-77.0); PLATELET COUNT 235 10^3/UL (140-415); RED BLOOD COUNT 3.83 10^6/ul (4.20-5.40); RED CELL DISTRIBUTION WIDTH 13.9 % (11.5-14.5); WHITE BLOOD COUNT 10.5 10^3/ul (4.8-10.8)
[2016-09-09] MEDS: INSULIN ASPART [NOVOLOG] 3 ML PEN SC SCH ×7 (07:54→21:00)
[2016-09-09 08:01] LABS: ALBUMIN 3.3 g/dl (3.3-4.9); ALBUMIN/GLOBULIN RATIO 1.1; BILIRUBIN,INDIRECT 0.1 mg/dl (0-1.1); BILIRUBIN,TOTAL 0.1 mg/dl (0.2-1.3); CALCIUM 8.7 mg/dl (8.4-10.2); CREATININE 1.29 mg/dl (0.44-1.00); POTASSIUM 5.7 mmol/L (3.5-5.1); TOTAL PROTEIN 6.3 g/dl (6.1-8.1)
[2016-09-09] MEDS: AMLODIPINE 5 MG TAB PO SCH (08:30)
[2016-09-09] MEDS: GUAIFENESIN LA 600 MG TABSR PO SCH ×2 (08:30→21:29)
[2016-09-09] MEDS: ASPIRIN (EC) 81 MG TAB PO SCH (08:30)
[2016-09-09] MEDS: LINAGLIPTIN 5 MG TABLET PO SCH (08:31)
[2016-09-09] MEDS: HYDROCHLOROTHIAZIDE 12.5 MG CAP PO SCH (08:31)
[2016-09-09] MEDS: FUROSEMIDE 20 MG TAB PO SCH (08:31)
[2016-09-09] MEDS: LOSARTAN 25 MG TAB PO SCH (08:31)
[2016-09-09] MEDS: FAMOTIDINE 20 MG TAB PO SCH (08:31)
[2016-09-09] MEDS: MECLIZINE 12.5 MG TAB PO SCH ×3 (08:31→21:29)
[2016-09-09] MEDS: DOCUSATE SODIUM 100 MG CAP PO SCH ×2 (08:32→21:00)
[2016-09-09] MEDS: SALMETEROL/FLUTICASONE 250/50 INHA INH SCH ×2 (08:32→21:00)
[2016-09-09] MEDS: ENOXAPARIN 40 MG/0.4 ML SYG SC SCH (08:42)
[2016-09-09] MEDS ORDERED: NA POLYST SULFON 15 GM/60 ML BTL PO SCH (09:00)
--- NOTE | 2016-09-09 09:29 | PN ---
Date/Time of Note Date/Time of Note DATE: 09/09/16 TIME: 09:23 Assessment/Plan VTE Prophylaxis VTE Prophylaxis Intervention: LMWH Lines/Catheters IV [facility] Saline Lock Urinary Cath still in place: No Assessment/Plan Assessment/Plan 1. Cardiac debility in the setting of acute diastolic congestive heart failure exacerbation, with impaired mobility/gait/ADLs. On diuretics per internal medicine, monitor volume status. Pulmonary status stable. Continue to monitor 02 sats closely. Continue PT/OT, min assist to contact guard assistance for bed mobility and transfers. 2. Hypertension. BP controlled. Internal medicine managing. 3. Dyslipidemia. Continue statin. 4. Diabetes mellitus, insulin-dependent type 2, historically poorly controlled , with diabetic neuropathy. Monitor blood sugars, internal medicine managing. 5. Coronary artery disease, with history of myocardial infarction. Continue medical management. 6. Obesity. 7. Acute kidney injury. Continue to monitor renal function. Internal medicine medically managing. 8. Chronic pain syndrome, with a history of osteoarthritis affecting multiple joints. Continue perocet as needed. 9. Dizziness, thought likely secondary to BPPV. Denies current symptoms. Monitor. Continue antivert. 10. Anemia. Continue to monitor hemoglobin/hematocrit. 11. Hyperkalemia. Ordered for kayexalate. Repeat potassium level later today. Consider holding losartan, as renal function also worse today, defer to internal medicine. Subjective 24 Hr Interval Summary Free Text/Dictation Rehab progress note Subjective: No acute overnight events per nursing staff. Denies any acute complaints this morning. ROS: Denies chest pain, no shortness of breath, no palpitations, no headache, no dizziness, no abdominal pain, no constipation, no chills. Exam/Review of Systems Vital Signs Vitals Vital Signs Date Time Temp Pulse Resp B/P Pulse Ox O2 Delivery O2 Flow Rate FiO2 09/09/16 07:30 98.3 56 20 134/63 98 09/08/16 20:00 Nasal Cannula 2.0 Intake and Output 09/08/16 09/08/16 09/09/16 15:00 23:00 07:00 Intake Total 720 ml 240 ml Output Total 350 ml Balance 720 ml -110 ml Exam General: Awake, alert, no acute distress, obese CV: Regular rate, s1s2 Lungs: Respirations nonlabored, no wheezing Abdomen soft, nontender Extremities: No cyanosis, no new swelling Neuro: No new focal changes. Follows simple commands. Results Result Diagram: 09/09/16 0608 09/09/16 0608 Results 24 hrs Laboratory Tests Test 09/08/16 12:12 09/08/16 17:27 09/08/16 21:08 09/08/16 22:08 Bedside Glucose 202 90 81 132 Test 09/09/16 06:00 09/09/16 06:08 09/09/16 07:43 Thyroid Stimulating Hormone (TSH) 3.440 Hepatitis B Surface Antigen NEGATIVE Hepatitis C Antibody Pending White Blood Count 10.5 # Red Blood Count 3.83 L Hemoglobin 10.7 L Hematocrit 35.0 L Mean Corpuscular Volume 91.4 Mean Corpuscular Hemoglobin 27.9 L Mean Corpuscular Hemoglobin Concent 30.6 L Red Cell Distribution Width 13.9 Platelet Count 235 Mean Platelet Volume 11.0 H Neutrophils % 75.1 Lymphocytes % 14.6 L Monocytes % 6.5 Eosinophils % 2.9 Basophils % 0.4 Nucleated Red Blood Cells % 0.0 Neutrophils # 7.9 H Lymphocytes # 1.5 Monocytes # 0.7 Eosinophils # 0.3 Basophils # 0.0 Nucleated Red Blood Cells # 0.0 Sodium Level 134 L Potassium Level 5.7 H Chloride Level 99 Carbon Dioxide Level 30 Anion Gap 11 Blood Urea Nitrogen 49 H Creatinine 1.29 H Glucose Level 185 Calcium Level 8.7 Total Bilirubin 0.1 L Direct Bilirubin 0.00 Indirect Bilirubin 0.1 Aspartate Amino Transf (AST/SGOT) 41 Alanine Aminotransferase (ALT/SGPT) 51 Alkaline Phosphatase 67 Total Protein 6.3 Albumin 3.3 Globulin 3.00 Albumin/Globulin Ratio 1.10 Bedside Glucose 188 Medications Medications Current Medications Metoclopramide HCl (Reglan) 10 mg Q6H PRN IV NAUSEA AND/OR VOMITING; Start at 22:20 Nitroglycerin (Nitroglycerin (Sl Tab) 0.4 Mg) 1 tab Q5M PRN SL CHEST PAIN; Start 09/07/16 at 22:20 Aspirin (Halfprin) 81 mg DAILY PO Last administered on 09/09/16 08:30; Admin Dose 81 MG; Start 09/07/16 at 22:20 Atorvastatin Calcium (Lipitor) 40 mg HS PO Last administered on 09/08/16 21:23 ; Admin Dose 40 MG; Start 09/07/16 at 22:20 Pantoprazole (Protonix Tab) 40 mg DAILY@06 PO Last administered on 09/09/16 06 :55; Admin Dose 40 MG; Start 09/07/16 at 22:20 Furosemide (Lasix) 20 mg DAILY PO Last administered on 09/09/16 08:31; Admin Dose 20 MG; Start 09/07/16 at 22:20 Enoxaparin Sodium (Lovenox) 40 mg DAILY SC Last administered on 09/08/16 08:46 ; Admin Dose 40 MG; Start 09/07/16 at 22:20 Miscellaneous Information 1 ea NOTE XX ; Start 09/07/16 at 22:20 Glucose (Glutose) 15 gm Q15M PRN PO DECREASED GLUCOSE; Start 09/07/16 at 22:20 Glucose (Glutose) 22.5 gm Q15M PRN PO DECREASED GLUCOSE; Start 09/07/16 at 22: 20 Dextrose (D50w Syringe) 25 ml Q15M PRN IV DECREASED GLUCOSE; Start 09/07/16 at 22:20 Dextrose (D50w Syringe) 50 ml Q15M PRN IV DECREASED GLUCOSE; Start 09/07/16 at 22:20 Glucagon (Glucagen) 1 mg Q15M PRN IM DECREASED GLUCOSE; Start 09/07/16 at 22:20 Glucose (Glutose) 15 gm Q15M PRN BUCCAL DECREASED GLUCOSE; Start 09/07/16 at 22 :20 Hydralazine HCl (Apresoline) 10 mg Q6H PRN IV ELEVATED BLOOD PRESSURE; Start at 22:20 Meclizine HCl (Antivert) 12.5 mg TID PO Last administered on 09/09/16 08:31; Admin Dose 12.5 MG; Start 09/07/16 at 22:20 Salmeterol Xinafoate/ Fluticasone (Advair 250/50 Diskus) 1 inh BID INH ; Start 09/07/16 at 22:20 Famotidine (Pepcid) 20 mg DAILY PO Last administered on 09/09/16 08:31; Admin Dose 20 MG; Start 09/07/16 at 22:20 Guaifenesin (Mucinex) 600 mg BID PO Last administered on 09/09/16 08:30; Admin Dose 600 MG; Start 09/07/16 at 22:20 Amlodipine Besylate (Norvasc) 10 mg DAILY PO Last administered on 09/09/16 08: 30; Admin Dose 10 MG; Start 09/07/16 at 22:20 Oxycodone/ Acetaminophen (Percocet (5/ 325)) 1 tab Q4H PRN PO PAIN Last administered on 09/08/16 12:29; Admin Dose 1 TAB; Start 09/07/16 at 22:20 Diagnostic Test (Pha) (Accu-Chek) 1 ea 02 XX ; Start 09/07/16 at 22:20 Insulin Glargine (Lantus) 35 unit DAILY@20 SC Last administered on 09/08/16 22 :13; Admin Dose 35 UNIT; Start 09/07/16 at 22:20 Docusate Sodium (Colace) 100 mg BID PO Last administered on 09/08/16 08:46; Admin Dose 100 MG; Start 09/08/16 at 09:00 Acetaminophen (Tylenol Tab) 650 mg Q4H PRN PO PAIN; Start 09/08/16 at 03:30 Bisacodyl (Dulcolax Supp) 10 mg DAILY PRN [place] CONSTIPATION; Start 09/08/16 at 03 :30 Magnesium Hydroxide (Milk Of Mag) 30 ml BID PRN PO CONSTIPATION; Start at 03:30 Lactulose (Enulose) 20 gm DAILY PRN PO CONSTIPATION; Start 09/08/16 at 03:30 Losartan Potassium (Cozaar) 25 mg DAILY PO Last administered on 09/09/16 08:31 ; Admin Dose 25 MG; Start 09/08/16 at 09:00 Hydrochlorothiazide (Hydrochlorothiazide) 12.5 mg DAILY PO Last administered on 09/09/16 08:31; Admin Dose 12.5 MG; Start 09/08/16 at 09:00 Linagliptin (Tradjenta) 5 mg DAILY PO Last administered on 09/09/16 08:31; Admin Dose 5 MG; Start 09/08/16 at 09:00 Senna (Senokot) 1 tab HS PRN PO constipation; Start 09/08/16 at 21:00 Sodium Polystyrene Sulfonate (Kayexalate) 30 gm ONCE PO ; Start 09/09/16 at 09: 00; Stop 09/09/16 at 12:00 LENORE INTERIANO Sep 09, 2016 09:29
[2016-09-09] MEDS: OXYCODONE/ACETAMINOPHEN (5/325) TAB PO PRN ×2 (10:52→21:29)
[2016-09-09] MEDS: ACETAMINOPHEN 325 MG TAB PO PRN (15:16)
[2016-09-09 20:14] VITALS: BP 137/61; RESP 18
[2016-09-09] MEDS: INSULIN GLARGINE [LANtus] 3 ML PEN SC SCH (21:24)
[2016-09-09] MEDS: ATORVASTATIN 40 MG TAB PO SCH (21:29)
[2016-09-10] MEDS: ACCU-CHEK XX SCH (02:00)
[2016-09-10] MEDS: PANTOPRAZOLE (EC) 40 MG TAB PO SCH (07:03)
[2016-09-10 07:30] VITALS: BP 150/69; RESP 18
[2016-09-10] MEDS: INSULIN ASPART [NOVOLOG] 3 ML PEN SC SCH ×7 (07:35→21:00)
[2016-09-10] MEDS: ENOXAPARIN 40 MG/0.4 ML SYG SC SCH ×2 (08:05→08:31)
[2016-09-10] MEDS: FUROSEMIDE 20 MG TAB PO SCH (08:06)
[2016-09-10] MEDS: ASPIRIN (EC) 81 MG TAB PO SCH (08:06)
[2016-09-10] MEDS: MECLIZINE 12.5 MG TAB PO SCH ×3 (08:07→20:29)
[2016-09-10] MEDS: LOSARTAN 25 MG TAB PO SCH (08:07)
[2016-09-10] MEDS: GUAIFENESIN LA 600 MG TABSR PO SCH ×2 (08:07→20:29)
[2016-09-10] MEDS: LINAGLIPTIN 5 MG TABLET PO SCH (08:07)
[2016-09-10] MEDS: AMLODIPINE 5 MG TAB PO SCH (08:07)
[2016-09-10] MEDS: HYDROCHLOROTHIAZIDE 12.5 MG CAP PO SCH (08:08)
[2016-09-10] MEDS: FAMOTIDINE 20 MG TAB PO SCH (08:08)
[2016-09-10] MEDS: SALMETEROL/FLUTICASONE 250/50 INHA INH SCH ×2 (08:09→20:29)
[2016-09-10] MEDS: DOCUSATE SODIUM 100 MG CAP PO SCH ×2 (08:10→20:31)
[2016-09-10] MEDS: OXYCODONE/ACETAMINOPHEN (5/325) TAB PO PRN ×2 (08:36→12:35)
--- NOTE | 2016-09-10 12:13 | CONS ---
Date/Time of Note Date/Time of Note DATE: 09/10/16 TIME: 12:13 Consult Date/Type/Reason Admit Date/Time Sep 07, 2016 at 21:00 Initial Consult Date Objective Vital Signs Date Time Temp Pulse Resp B/P Pulse Ox O2 Delivery O2 Flow Rate FiO2 09/10/16 08:00 Nasal Cannula 2.0 09/09/16 20:14 98.1 62 18 137/61 99 Intake and Output 09/09/16 09/09/16 09/10/16 14:59 22:59 06:59 Intake Total 1140 ml 300 ml Output Total 900 ml 600 ml Balance -900 ml 1140 ml -300 ml INTERDISCIPLINARY TEAM CONFERENCE BOWEL- Cont BLADDER-Cont SKIN- intact OT- DRESSING-min/mod BATHING-min/mod TOILETING-mod PT- BED MOBILITY-min TRANSFERS-min AMBULATION-min 120 A/P- Interdisciplinary team conference held today. Please see interdisciplinary sheet. Working toward d.cHenry on 09/18 with post discharge follow up of physical therapy, occupational therapy. Results/Medications Result Diagram: 09/09/16 0608 09/09/16 1625 Results 24 hrs Laboratory Tests Test 09/09/16 16:25 09/09/16 16:58 09/09/16 20:52 09/10/16 07:43 Potassium Level 4.7 Bedside Glucose 119 118 74 Medications Current Medications Metoclopramide HCl (Reglan) 10 mg Q6H PRN IV NAUSEA AND/OR VOMITING; Start at 22:20 Nitroglycerin (Nitroglycerin (Sl Tab) 0.4 Mg) 1 tab Q5M PRN SL CHEST PAIN; Start 09/07/16 at 22:20 Aspirin (Halfprin) 81 mg DAILY PO Last administered on 09/10/16 08:06; Admin Dose 81 MG; Start 09/07/16 at 22:20 Atorvastatin Calcium (Lipitor) 40 mg HS PO Last administered on 09/09/16 21:29 ; Admin Dose 40 MG; Start 09/07/16 at 22:20 Pantoprazole (Protonix Tab) 40 mg DAILY@06 PO Last administered on 09/10/16 07: 03; Admin Dose 40 MG; Start 09/07/16 at 22:20 Furosemide (Lasix) 20 mg DAILY PO Last administered on 09/10/16 08:06; Admin Dose 20 MG; Start 09/07/16 at 22:20 Enoxaparin Sodium (Lovenox) 40 mg DAILY SC Last administered on 09/08/16 08:46 ; Admin Dose 40 MG; Start 09/07/16 at 22:20 Miscellaneous Information 1 ea NOTE XX ; Start 09/07/16 at 22:20 Glucose (Glutose) 15 gm Q15M PRN PO DECREASED GLUCOSE; Start 09/07/16 at 22:20 Glucose (Glutose) 22.5 gm Q15M PRN PO DECREASED GLUCOSE; Start 09/07/16 at 22: 20 Dextrose (D50w Syringe) 25 ml Q15M PRN IV DECREASED GLUCOSE; Start 09/07/16 at 22:20 Dextrose (D50w Syringe) 50 ml Q15M PRN IV DECREASED GLUCOSE; Start 09/07/16 at 22:20 Glucagon (Glucagen) 1 mg Q15M PRN IM DECREASED GLUCOSE; Start 09/07/16 at 22:20 Glucose (Glutose) 15 gm Q15M PRN BUCCAL DECREASED GLUCOSE; Start 09/07/16 at 22 :20 Hydralazine HCl (Apresoline) 10 mg Q6H PRN IV ELEVATED BLOOD PRESSURE; Start at 22:20 Meclizine HCl (Antivert) 12.5 mg TID PO Last administered on 09/10/16 08:07; Admin Dose 12.5 MG; Start 09/07/16 at 22:20 Salmeterol Xinafoate/ Fluticasone (Advair 250/50 Diskus) 1 inh BID INH ; Start 09/07/16 at 22:20 Famotidine (Pepcid) 20 mg DAILY PO Last administered on 09/10/16 08:08; Admin Dose 20 MG; Start 09/07/16 at 22:20 Guaifenesin (Mucinex) 600 mg BID PO Last administered on 09/10/16 08:07; Admin Dose 600 MG; Start 09/07/16 at 22:20 Amlodipine Besylate (Norvasc) 10 mg DAILY PO Last administered on 09/10/16 08: 07; Admin Dose 10 MG; Start 09/07/16 at 22:20 Oxycodone/ Acetaminophen (Percocet (5/ 325)) 1 tab Q4H PRN PO PAIN Last administered on 09/10/16 08:36; Admin Dose 1 TAB; Start 09/07/16 at 22:20 Diagnostic Test (Pha) (Accu-Chek) 1 ea 02 XX ; Start 09/07/16 at 22:20 Insulin Glargine (Lantus) 35 unit DAILY@20 SC Last administered on 09/09/16 21 :24; Admin Dose 35 UNIT; Start 09/07/16 at 22:20 Docusate Sodium (Colace) 100 mg BID PO Last administered on 09/08/16 08:46; Admin Dose 100 MG; Start 09/08/16 at 09:00 Acetaminophen (Tylenol Tab) 650 mg Q4H PRN PO PAIN Last administered on 15:16; Admin Dose 650 MG; Start 09/08/16 at 03:30 Bisacodyl (Dulcolax Supp) 10 mg DAILY PRN [place] CONSTIPATION; Start 09/08/16 at 03 :30 Magnesium Hydroxide (Milk Of Mag) 30 ml BID PRN PO CONSTIPATION; Start at 03:30 Lactulose (Enulose) 20 gm DAILY PRN PO CONSTIPATION; Start 09/08/16 at 03:30 Losartan Potassium (Cozaar) 25 mg DAILY PO Last administered on 09/10/16 08:07 ; Admin Dose 25 MG; Start 09/08/16 at 09:00 Hydrochlorothiazide (Hydrochlorothiazide) 12.5 mg DAILY PO Last administered on 09/10/16 08:08; Admin Dose 12.5 MG; Start 09/08/16 at 09:00 Linagliptin (Tradjenta) 5 mg DAILY PO Last administered on 09/10/16 08:07; Admin Dose 5 MG; Start 09/08/16 at 09:00 Senna (Senokot) 1 tab HS PRN PO constipation; Start 09/08/16 at 21:00 DMITRY SHANNON MD September 10, 2016 12:13
--- NOTE | 2016-09-10 15:31 | CONS ---
Date/Time of Note Date/Time of Note DATE: 09/10/16 TIME: 15:30 Consult Date/Type/Reason Admit Date/Time Sep 07, 2016 at 21:00 Initial Consult Date Type of Consultation: Internal medicine Subjective Patient comfortable this morning no new events. She is requesting regular pain medications of [place] Objective Vital Signs Date Time Temp Pulse Resp B/P Pulse Ox O2 Delivery O2 Flow Rate FiO2 09/10/16 08:00 Nasal Cannula 2.0 09/10/16 07:30 98.1 60 18 150/69 93 Intake and Output 09/09/16 09/09/16 09/10/16 15:00 23:00 07:00 Intake Total 1140 ml 300 ml Output Total 900 ml 600 ml Balance -900 ml 1140 ml -300 ml Exam GENERAL: Elderly appearing lady comfortable at rest no acute distress VITAL SIGNS: per chart NECK: Supple. No JVD or lymphadenopathy. CARDIAC EXAM: S1, S2. No added sounds or murmurs. CHEST: clear bilaterally, No added sounds, rales or wheezes ABDOMEN: Soft, nontender. No guarding or rebound. EXTREMITIES: No cyanosis, clubbing or edema. NEUROLOGIC: Generalized weakness. No focal deficits. Results/Medications Result Diagram: 09/09/16 0608 09/09/16 1625 Results 24 hrs Laboratory Tests Test 09/09/16 16:25 09/09/16 16:58 09/09/16 20:52 09/10/16 07:43 Potassium Level 4.7 Bedside Glucose 119 118 74 Test 09/10/16 12:29 Bedside Glucose 115 Medications Current Medications Metoclopramide HCl (Reglan) 10 mg Q6H PRN IV NAUSEA AND/OR VOMITING; Start at 22:20 Nitroglycerin (Nitroglycerin (Sl Tab) 0.4 Mg) 1 tab Q5M PRN SL CHEST PAIN; Start 09/07/16 at 22:20 Aspirin (Halfprin) 81 mg DAILY PO Last administered on 09/10/16 08:06; Admin Dose 81 MG; Start 09/07/16 at 22:20 Atorvastatin Calcium (Lipitor) 40 mg HS PO Last administered on 09/09/16 21:29 ; Admin Dose 40 MG; Start 09/07/16 at 22:20 Pantoprazole (Protonix Tab) 40 mg DAILY@06 PO Last administered on 09/10/16 07: 03; Admin Dose 40 MG; Start 09/07/16 at 22:20 Furosemide (Lasix) 20 mg DAILY PO Last administered on 09/10/16 08:06; Admin Dose 20 MG; Start 09/07/16 at 22:20 Enoxaparin Sodium (Lovenox) 40 mg DAILY SC Last administered on 09/08/16 08:46 ; Admin Dose 40 MG; Start 09/07/16 at 22:20 Miscellaneous Information 1 ea NOTE XX ; Start 09/07/16 at 22:20 Glucose (Glutose) 15 gm Q15M PRN PO DECREASED GLUCOSE; Start 09/07/16 at 22:20 Glucose (Glutose) 22.5 gm Q15M PRN PO DECREASED GLUCOSE; Start 09/07/16 at 22: 20 Dextrose (D50w Syringe) 25 ml Q15M PRN IV DECREASED GLUCOSE; Start 09/07/16 at 22:20 Dextrose (D50w Syringe) 50 ml Q15M PRN IV DECREASED GLUCOSE; Start 09/07/16 at 22:20 Glucagon (Glucagen) 1 mg Q15M PRN IM DECREASED GLUCOSE; Start 09/07/16 at 22:20 Glucose (Glutose) 15 gm Q15M PRN BUCCAL DECREASED GLUCOSE; Start 09/07/16 at 22 :20 Hydralazine HCl (Apresoline) 10 mg Q6H PRN IV ELEVATED BLOOD PRESSURE; Start at 22:20 Meclizine HCl (Antivert) 12.5 mg TID PO Last administered on 09/10/16 14:08; Admin Dose 12.5 MG; Start 09/07/16 at 22:20 Salmeterol Xinafoate/ Fluticasone (Advair 250/50 Diskus) 1 inh BID INH ; Start 09/07/16 at 22:20 Famotidine (Pepcid) 20 mg DAILY PO Last administered on 09/10/16 08:08; Admin Dose 20 MG; Start 09/07/16 at 22:20 Guaifenesin (Mucinex) 600 mg BID PO Last administered on 09/10/16 08:07; Admin Dose 600 MG; Start 09/07/16 at 22:20 Amlodipine Besylate (Norvasc) 10 mg DAILY PO Last administered on 09/10/16 08: 07; Admin Dose 10 MG; Start 09/07/16 at 22:20 Oxycodone/ Acetaminophen (Percocet (5/ 325)) 1 tab Q4H PRN PO PAIN Last administered on 09/10/16 12:35; Admin Dose 1 TAB; Start 09/07/16 at 22:20 Diagnostic Test (Pha) (Accu-Chek) 1 ea 02 XX ; Start 09/07/16 at 22:20 Insulin Glargine (Lantus) 35 unit DAILY@20 SC Last administered on 09/09/16 21 :24; Admin Dose 35 UNIT; Start 09/07/16 at 22:20 Docusate Sodium (Colace) 100 mg BID PO Last administered on 09/08/16 08:46; Admin Dose 100 MG; Start 09/08/16 at 09:00 Acetaminophen (Tylenol Tab) 650 mg Q4H PRN PO PAIN Last administered on 15:16; Admin Dose 650 MG; Start 09/08/16 at 03:30 Bisacodyl (Dulcolax Supp) 10 mg DAILY PRN [place] CONSTIPATION; Start 09/08/16 at 03 :30 Magnesium Hydroxide (Milk Of Mag) 30 ml BID PRN PO CONSTIPATION; Start at 03:30 Lactulose (Enulose) 20 gm DAILY PRN PO CONSTIPATION; Start 09/08/16 at 03:30 Losartan Potassium (Cozaar) 25 mg DAILY PO Last administered on 09/10/16 08:07 ; Admin Dose 25 MG; Start 09/08/16 at 09:00 Hydrochlorothiazide (Hydrochlorothiazide) 12.5 mg DAILY PO Last administered on 09/10/16 08:08; Admin Dose 12.5 MG; Start 09/08/16 at 09:00 Linagliptin (Tradjenta) 5 mg DAILY PO Last administered on 09/10/16 08:07; Admin Dose 5 MG; Start 09/08/16 at 09:00 Senna (Senokot) 1 tab HS PRN PO constipation; Start 09/08/16 at 21:00 Assessment/Plan Chief Complaint/Hosp Course Assessment 1. Recent congestive cardiac failure 2. Diabetes mellitus 3. Essential hypertension 4. History of chronic pain 5. Probable obstructive sleep apnea Plan. 1. Continue current recommendations 2. Continue physical therapy 3. Add [place] for pain medications Problems: JER[facility]INE SAMPSON [facility], [facility] September 10, 2016 15:31
[2016-09-10] MEDS: ALBUTEROL 0.083% (NEB) 2.5 MG/3 ML AMP HHN PRN (15:42)
[2016-09-10 19:55] VITALS: BP 149/64; RESP 18
[2016-09-10] MEDS: INSULIN GLARGINE [LANtus] 3 ML PEN SC SCH (20:07)
[2016-09-10] MEDS: HYDROCODONE/APAP (10/325) TAB PO PRN (20:28)
[2016-09-10] MEDS: ATORVASTATIN 40 MG TAB PO SCH (20:29)
[2016-09-11] MEDS: ACCU-CHEK XX SCH (02:00)
[2016-09-11] MEDS: PANTOPRAZOLE (EC) 40 MG TAB PO SCH (06:15)
[2016-09-11] MEDS: HYDROCODONE/APAP (10/325) TAB PO PRN ×2 (06:28→15:00)
[2016-09-11] MEDS: INSULIN ASPART [NOVOLOG] 3 ML PEN SC SCH ×7 (07:35→21:00)
[2016-09-11 07:40] VITALS: BP 144/65; RESP 18
[2016-09-11] MEDS: FAMOTIDINE 20 MG TAB PO SCH (08:16)
[2016-09-11] MEDS: HYDROCHLOROTHIAZIDE 12.5 MG CAP PO SCH (08:16)
[2016-09-11] MEDS: GUAIFENESIN LA 600 MG TABSR PO SCH ×2 (08:16→20:27)
[2016-09-11] MEDS: FUROSEMIDE 20 MG TAB PO SCH (08:16)
[2016-09-11] MEDS: LINAGLIPTIN 5 MG TABLET PO SCH (08:16)
[2016-09-11] MEDS: LOSARTAN 25 MG TAB PO SCH (08:17)
[2016-09-11] MEDS: MECLIZINE 12.5 MG TAB PO SCH ×3 (08:17→20:30)
[2016-09-11] MEDS: AMLODIPINE 5 MG TAB PO SCH (08:17)
[2016-09-11] MEDS: ASPIRIN (EC) 81 MG TAB PO SCH (08:17)
[2016-09-11] MEDS: DOCUSATE SODIUM 100 MG CAP PO SCH ×2 (08:18→21:00)
[2016-09-11] MEDS: SALMETEROL/FLUTICASONE 250/50 INHA INH SCH ×2 (08:18→21:00)
[2016-09-11] MEDS: ENOXAPARIN 40 MG/0.4 ML SYG SC SCH (08:18)
[2016-09-11 08:43] LABS: ADD SCAN DIFF NO
[2016-09-11 08:51] LABS: BASOPHILS % 0.4 % (0.0-2.0); EOSINOPHILS # 0.3 10^3/ul (0.0-0.5); EOSINOPHILS % 3.6 % (0.0-7.0); HEMATOCRIT 35.4 % (37.0-47.0); MEAN CORPUSCULAR HEMOGLOBIN 28.4 pg (29.0-33.0); MEAN CORPUSCULAR HGB CONC 31.1 g/dl (32.0-37.0); MEAN CORPUSCULAR VOLUME 91.5 fl (82.0-101.0); MONOCYTE # 0.8 10^3/ul (0.3-0.9); MONOCYTES % 8.5 % (0.0-11.0); NEUTROPHIL # 5.8 10^3/ul (1.6-7.5); NEUTROPHILS % 65.2 % (39.0-77.0); PLATELET COUNT 260 10^3/UL (140-415); RED BLOOD COUNT 3.87 10^6/ul (4.20-5.40); RED CELL DISTRIBUTION WIDTH 13.8 % (11.5-14.5); WHITE BLOOD COUNT 8.9 10^3/ul (4.8-10.8)
[2016-09-11 09:21] LABS: CALCIUM 8.5 mg/dl (8.4-10.2); CREATININE 1.33 mg/dl (0.44-1.00); PHOSPHORUS 5.3 mg/dl (2.5-4.9); POTASSIUM 4.6 mmol/L (3.5-5.1)
[2016-09-11] MEDS: ALBUTEROL 0.083% (NEB) 2.5 MG/3 ML AMP HHN PRN ×2 (10:31→20:34)
[2016-09-11] MEDS: ACETAMINOPHEN 325 MG TAB PO PRN (11:57)
--- NOTE | 2016-09-11 12:07 | CONS ---
Date/Time of Note Date/Time of Note DATE: 09/11/16 TIME: 12:06 Consult Date/Type/Reason Admit Date/Time Sep 07, 2016 at 21:00 Type of Consultation: Internal medicine Subjective Reports her shoulder pain improved with forearm trough on the FWW Objective pulm-cta cga ambulation Vital Signs Date Time Temp Pulse Resp B/P Pulse Ox O2 Delivery O2 Flow Rate FiO2 09/11/16 10:30 62 16 96 09/11/16 08:00 Nasal Cannula 2.0 09/11/16 07:40 98.1 144/65 Intake and Output 09/10/16 09/10/16 09/11/16 15:00 23:00 07:00 Intake Total 830 ml 1150 ml Output Total 450 ml 550 ml Balance 380 ml 600 ml Results/Medications Result Diagram: 09/11/16 0707 09/11/16 0707 Results 24 hrs Laboratory Tests Test 09/10/16 12:29 09/10/16 17:21 09/10/16 20:03 09/10/16 21:13 Bedside Glucose 115 79 115 103 Test 09/11/16 07:07 09/11/16 07:48 09/11/16 11:59 White Blood Count 8.9 Red Blood Count 3.87 L Hemoglobin 11.0 L Hematocrit 35.4 L Mean Corpuscular Volume 91.5 Mean Corpuscular Hemoglobin 28.4 L Mean Corpuscular Hemoglobin Concent 31.1 L Red Cell Distribution Width 13.8 Platelet Count 260 Mean Platelet Volume 11.0 H Neutrophils % 65.2 Lymphocytes % 22.0 Monocytes % 8.5 Eosinophils % 3.6 Basophils % 0.4 Nucleated Red Blood Cells % 0.0 Neutrophils # 5.8 Lymphocytes # 2.0 Monocytes # 0.8 Eosinophils # 0.3 Basophils # 0.0 Nucleated Red Blood Cells # 0.0 Sodium Level 136 Potassium Level 4.6 Chloride Level 100 Carbon Dioxide Level 31 Anion Gap 10 Blood Urea Nitrogen 50 H Creatinine 1.33 H Glucose Level 141 Calcium Level 8.5 Phosphorus Level 5.3 H Magnesium Level 2.0 Bedside Glucose 137 136 Medications Current Medications Metoclopramide HCl (Reglan) 10 mg Q6H PRN IV NAUSEA AND/OR VOMITING; Start at 22:20 Nitroglycerin (Nitroglycerin (Sl Tab) 0.4 Mg) 1 tab Q5M PRN SL CHEST PAIN; Start 09/07/16 at 22:20 Aspirin (Halfprin) 81 mg DAILY PO Last administered on 09/11/16 08:17; Admin Dose 81 MG; Start 09/07/16 at 22:20 Atorvastatin Calcium (Lipitor) 40 mg HS PO Last administered on 09/10/16 20:29 ; Admin Dose 40 MG; Start 09/07/16 at 22:20 Pantoprazole (Protonix Tab) 40 mg DAILY@06 PO Last administered on 09/11/16 06: 15; Admin Dose 40 MG; Start 09/07/16 at 22:20 Furosemide (Lasix) 20 mg DAILY PO Last administered on 09/11/16 08:16; Admin Dose 20 MG; Start 09/07/16 at 22:20 Enoxaparin Sodium (Lovenox) 40 mg DAILY SC Last administered on 09/08/16 08:46 ; Admin Dose 40 MG; Start 09/07/16 at 22:20 Miscellaneous Information 1 ea NOTE XX ; Start 09/07/16 at 22:20 Glucose (Glutose) 15 gm Q15M PRN PO DECREASED GLUCOSE; Start 09/07/16 at 22:20 Glucose (Glutose) 22.5 gm Q15M PRN PO DECREASED GLUCOSE; Start 09/07/16 at 22: 20 Dextrose (D50w Syringe) 25 ml Q15M PRN IV DECREASED GLUCOSE; Start 09/07/16 at 22:20 Dextrose (D50w Syringe) 50 ml Q15M PRN IV DECREASED GLUCOSE; Start 09/07/16 at 22:20 Glucagon (Glucagen) 1 mg Q15M PRN IM DECREASED GLUCOSE; Start 09/07/16 at 22:20 Glucose (Glutose) 15 gm Q15M PRN BUCCAL DECREASED GLUCOSE; Start 09/07/16 at 22 :20 Hydralazine HCl (Apresoline) 10 mg Q6H PRN IV ELEVATED BLOOD PRESSURE; Start at 22:20 Meclizine HCl (Antivert) 12.5 mg TID PO Last administered on 09/11/16 08:17; Admin Dose 12.5 MG; Start 09/07/16 at 22:20 Salmeterol Xinafoate/ Fluticasone (Advair 250/50 Diskus) 1 inh BID INH ; Start 09/07/16 at 22:20 Famotidine (Pepcid) 20 mg DAILY PO Last administered on 09/11/16 08:16; Admin Dose 20 MG; Start 09/07/16 at 22:20 Guaifenesin (Mucinex) 600 mg BID PO Last administered on 09/11/16 08:16; Admin Dose 600 MG; Start 09/07/16 at 22:20 Amlodipine Besylate (Norvasc) 10 mg DAILY PO Last administered on 09/11/16 08: 17; Admin Dose 10 MG; Start 09/07/16 at 22:20 Oxycodone/ Acetaminophen (Percocet (5/ 325)) 1 tab Q4H PRN PO PAIN Last administered on 09/10/16 12:35; Admin Dose 1 TAB; Start 09/07/16 at 22:20 Diagnostic Test (Pha) (Accu-Chek) 1 ea 02 XX ; Start 09/07/16 at 22:20 Insulin Glargine (Lantus) 35 unit DAILY@20 SC Last administered on 09/10/16 20: 07; Admin Dose 35 UNIT; Start 09/07/16 at 22:20 Docusate Sodium (Colace) 100 mg BID PO Last administered on 09/08/16 08:46; Admin Dose 100 MG; Start 09/08/16 at 09:00 Acetaminophen (Tylenol Tab) 650 mg Q4H PRN PO PAIN Last administered on 11:57; Admin Dose 650 MG; Start 09/08/16 at 03:30 Bisacodyl (Dulcolax Supp) 10 mg DAILY PRN [place] CONSTIPATION; Start 09/08/16 at 03 :30 Magnesium Hydroxide (Milk Of Mag) 30 ml BID PRN PO CONSTIPATION; Start at 03:30 Lactulose (Enulose) 20 gm DAILY PRN PO CONSTIPATION; Start 09/08/16 at 03:30 Losartan Potassium (Cozaar) 25 mg DAILY PO Last administered on 09/11/16 08:17 ; Admin Dose 25 MG; Start 09/08/16 at 09:00 Hydrochlorothiazide (Hydrochlorothiazide) 12.5 mg DAILY PO Last administered on 09/11/16 08:16; Admin Dose 12.5 MG; Start 09/08/16 at 09:00 Linagliptin (Tradjenta) 5 mg DAILY PO Last administered on 09/11/16 08:16; Admin Dose 5 MG; Start 09/08/16 at 09:00 Senna (Senokot) 1 tab HS PRN PO constipation; Start 09/08/16 at 21:00 Acetaminophen/ Hydrocodone Bitart ([place] (10/325)) 1 tab Q6H PRN PO pain Last administered on 09/11/16 06:28; Admin Dose 1 TAB; Start 09/10/16 at 16:00 Assessment/Plan Additional Assessment/Plan Rehab- Debility due to CHF; diabetic neuropathy; OA affecting multiple joints HTN DM2 dyslipidemia . Obesity Acute kidney injury Dizziness- secondary to BPV- improving DMITRY SHANNON MD September 11, 2016 12:06
[2016-09-11] MEDS: OXYCODONE/ACETAMINOPHEN (5/325) TAB PO PRN (19:08)
--- NOTE | 2016-09-11 20:05 | RADRPT ---
PROCEDURE: XR Chest. CLINICAL INDICATION: Pain. TECHNIQUE: Chest x-ray, single view. COMPARISON: 09/04/2016. FINDINGS: The heart is enlarged. Aortic arch atherosclerotic calcification is present. There is mild convexi ty of the left superior mediastinal border suggesting the presence of enlarged pulmonary trunk. Thi s is unchanged. There is no evidence of focal pulmonary parenchymal opacification. The left lower c hest is slightly limited as a result of overlapping soft tissue. Degenerative changes of the should ers are present. IMPRESSION: Cardiomegaly and atherosclerosis with mild enlargement of the pulmonary trunk, unchanged. RPTAT: [facility]ST .Tracey Gonzalez MD, MD Date Time Electronically viewed and signed by .Tracey Gonzalez MD, MD on 09/11/2016 20:04 .T/
[2016-09-11 20:16] VITALS: BP 129/62; RESP 18
[2016-09-11] MEDS: ATORVASTATIN 40 MG TAB PO SCH (20:27)
[2016-09-11] MEDS: INSULIN GLARGINE [LANtus] 3 ML PEN SC SCH (20:29)
[2016-09-12] MEDS: ACCU-CHEK XX SCH (02:00)
[2016-09-12] MEDS: PANTOPRAZOLE (EC) 40 MG TAB PO SCH (06:03)
[2016-09-12 07:47] VITALS: BP 164/70; RESP 18
[2016-09-12] MEDS: INSULIN ASPART [NOVOLOG] 3 ML PEN SC SCH ×7 (07:55→20:32)
[2016-09-12] MEDS: AMLODIPINE 5 MG TAB PO SCH (08:08)
[2016-09-12] MEDS: ASPIRIN (EC) 81 MG TAB PO SCH (08:08)
[2016-09-12] MEDS: GUAIFENESIN LA 600 MG TABSR PO SCH ×2 (08:08→20:18)
[2016-09-12] MEDS: FAMOTIDINE 20 MG TAB PO SCH (08:09)
[2016-09-12] MEDS: MECLIZINE 12.5 MG TAB PO SCH ×3 (08:09→20:17)
[2016-09-12] MEDS: LINAGLIPTIN 5 MG TABLET PO SCH (08:09)
[2016-09-12] MEDS: HYDROCHLOROTHIAZIDE 12.5 MG CAP PO SCH (08:09)
[2016-09-12] MEDS: FUROSEMIDE 20 MG TAB PO SCH (08:09)
[2016-09-12] MEDS: LOSARTAN 25 MG TAB PO SCH (08:09)
[2016-09-12] MEDS: SALMETEROL/FLUTICASONE 250/50 INHA INH SCH ×2 (08:12→20:31)
[2016-09-12] MEDS: DOCUSATE SODIUM 100 MG CAP PO SCH ×2 (08:12→20:31)
[2016-09-12] MEDS: ENOXAPARIN 40 MG/0.4 ML SYG SC SCH (08:12)
--- NOTE | 2016-09-12 09:57 | CONS ---
Date/Time of Note Date/Time of Note DATE: 09/12/16 TIME: 09:57 Consult Date/Type/Reason Admit Date/Time Sep 07, 2016 at 21:00 Type of Consultation: Internal medicine Subjective No new complaints Objective pulm-cta abd-soft Vital Signs Date Time Temp Pulse Resp B/P Pulse Ox O2 Delivery O2 Flow Rate FiO2 09/12/16 09:00 Nasal Cannula 2.0 09/12/16 07:47 98.4 73 18 164/70 95 09/11/16 20:34 21 Intake and Output 09/11/16 09/11/16 09/12/16 15:00 23:00 07:00 Intake Total 1240 ml 1100 ml 800 ml Output Total 200 ml 200 ml Balance 1040 ml 900 ml 800 ml Results/Medications Result Diagram: 09/11/16 0707 09/11/16 0707 Results 24 hrs Laboratory Tests Test 09/11/16 11:59 09/11/16 17:12 09/11/16 20:28 09/12/16 07:43 Bedside Glucose 136 134 161 163 Medications Current Medications Metoclopramide HCl (Reglan) 10 mg Q6H PRN IV NAUSEA AND/OR VOMITING; Start at 22:20 Nitroglycerin (Nitroglycerin (Sl Tab) 0.4 Mg) 1 tab Q5M PRN SL CHEST PAIN; Start 09/07/16 at 22:20 Aspirin (Halfprin) 81 mg DAILY PO Last administered on 09/12/16 08:08; Admin Dose 81 MG; Start 09/07/16 at 22:20 Atorvastatin Calcium (Lipitor) 40 mg HS PO Last administered on 09/11/16 20:27 ; Admin Dose 40 MG; Start 09/07/16 at 22:20 Pantoprazole (Protonix Tab) 40 mg DAILY@06 PO Last administered on 09/12/16 06: 03; Admin Dose 40 MG; Start 09/07/16 at 22:20 Furosemide (Lasix) 20 mg DAILY PO Last administered on 09/12/16 08:09; Admin Dose 20 MG; Start 09/07/16 at 22:20 Enoxaparin Sodium (Lovenox) 40 mg DAILY SC Last administered on 09/08/16 08:46 ; Admin Dose 40 MG; Start 09/07/16 at 22:20 Miscellaneous Information 1 ea NOTE XX ; Start 09/07/16 at 22:20 Glucose (Glutose) 15 gm Q15M PRN PO DECREASED GLUCOSE; Start 09/07/16 at 22:20 Glucose (Glutose) 22.5 gm Q15M PRN PO DECREASED GLUCOSE; Start 09/07/16 at 22: 20 Dextrose (D50w Syringe) 25 ml Q15M PRN IV DECREASED GLUCOSE; Start 09/07/16 at 22:20 Dextrose (D50w Syringe) 50 ml Q15M PRN IV DECREASED GLUCOSE; Start 09/07/16 at 22:20 Glucagon (Glucagen) 1 mg Q15M PRN IM DECREASED GLUCOSE; Start 09/07/16 at 22:20 Glucose (Glutose) 15 gm Q15M PRN BUCCAL DECREASED GLUCOSE; Start 09/07/16 at 22 :20 Hydralazine HCl (Apresoline) 10 mg Q6H PRN IV ELEVATED BLOOD PRESSURE; Start at 22:20 Meclizine HCl (Antivert) 12.5 mg TID PO Last administered on 09/12/16 08:09; Admin Dose 12.5 MG; Start 09/07/16 at 22:20 Salmeterol Xinafoate/ Fluticasone (Advair 250/50 Diskus) 1 inh BID INH ; Start 09/07/16 at 22:20 Famotidine (Pepcid) 20 mg DAILY PO Last administered on 09/12/16 08:09; Admin Dose 20 MG; Start 09/07/16 at 22:20 Guaifenesin (Mucinex) 600 mg BID PO Last administered on 09/12/16 08:08; Admin Dose 600 MG; Start 09/07/16 at 22:20 Amlodipine Besylate (Norvasc) 10 mg DAILY PO Last administered on 09/12/16 08: 08; Admin Dose 10 MG; Start 09/07/16 at 22:20 Oxycodone/ Acetaminophen (Percocet (5/ 325)) 1 tab Q4H PRN PO PAIN Last administered on 09/11/16 19:08; Admin Dose 1 TAB; Start 09/07/16 at 22:20 Diagnostic Test (Pha) (Accu-Chek) 1 ea 02 XX ; Start 09/07/16 at 22:20 Insulin Glargine (Lantus) 35 unit DAILY@20 SC Last administered on 09/11/16 20: 29; Admin Dose 35 UNIT; Start 09/07/16 at 22:20 Docusate Sodium (Colace) 100 mg BID PO Last administered on 09/08/16 08:46; Admin Dose 100 MG; Start 09/08/16 at 09:00 Acetaminophen (Tylenol Tab) 650 mg Q4H PRN PO PAIN Last administered on 11:57; Admin Dose 650 MG; Start 09/08/16 at 03:30 Bisacodyl (Dulcolax Supp) 10 mg DAILY PRN [place] CONSTIPATION; Start 09/08/16 at 03 :30 Magnesium Hydroxide (Milk Of Mag) 30 ml BID PRN PO CONSTIPATION; Start at 03:30 Lactulose (Enulose) 20 gm DAILY PRN PO CONSTIPATION; Start 09/08/16 at 03:30 Losartan Potassium (Cozaar) 25 mg DAILY PO Last administered on 09/12/16 08:09 ; Admin Dose 25 MG; Start 09/08/16 at 09:00 Hydrochlorothiazide (Hydrochlorothiazide) 12.5 mg DAILY PO Last administered on 09/12/16 08:09; Admin Dose 12.5 MG; Start 09/08/16 at 09:00 Linagliptin (Tradjenta) 5 mg DAILY PO Last administered on 09/12/16 08:09; Admin Dose 5 MG; Start 09/08/16 at 09:00 Senna (Senokot) 1 tab HS PRN PO constipation; Start 09/08/16 at 21:00 Acetaminophen/ Hydrocodone Bitart ([place] (10/325)) 1 tab Q6H PRN PO pain Last administered on 09/11/16 15:00; Admin Dose 1 TAB; Start 09/10/16 at 16:00 Assessment/Plan Additional Assessment/Plan Rehab- Debility due to CHF; diabetic neuropathy; OA affecting multiple joints Progressing,continue rehab treatment plan Pain-improving HTN DM2 dyslipidemia . Obesity Acute kidney injury DMITRY SHANNON MD September 12, 2016 09:57
[2016-09-12] MEDS: OXYCODONE/ACETAMINOPHEN (5/325) TAB PO PRN ×2 (10:17→17:18)
--- NOTE | 2016-09-12 16:34 | CONS ---
Date/Time of Note Date/Time of Note DATE: 09/12/16 TIME: 16:33 Consult Date/Type/Reason Admit Date/Time Sep 07, 2016 at 21:00 Type of Consultation: Internal medicine Subjective Patient stable, cxr today is unremarkable. Objective Vital Signs Date Time Temp Pulse Resp B/P Pulse Ox O2 Delivery O2 Flow Rate FiO2 09/12/16 09:00 Nasal Cannula 2.0 09/12/16 07:47 98.4 73 18 164/70 95 09/11/16 20:34 21 Intake and Output 09/11/16 09/11/16 09/12/16 15:00 23:00 07:00 Intake Total 1240 ml 1100 ml 800 ml Output Total 200 ml 200 ml Balance 1040 ml 900 ml 800 ml Exam GENERAL: Elderly appearing lady comfortable at rest no acute distress VITAL SIGNS: per chart NECK: Supple. No JVD or lymphadenopathy. CARDIAC EXAM: S1, S2. No added sounds or murmurs. CHEST: clear bilaterally, No added sounds, rales or wheezes ABDOMEN: Soft, nontender. No guarding or rebound. EXTREMITIES: No cyanosis, clubbing or edema. NEUROLOGIC: Generalized weakness. No focal deficits. Results/Medications Result Diagram: 09/11/1670609/11/16706 Results 24 hrs Laboratory Tests Test 09/11/16 17:12 09/11/16 20:28 09/12/16 07:43 09/12/16 12:18 Bedside Glucose 134 161 163 88 Medications Current Medications Metoclopramide HCl (Reglan) 10 mg Q6H PRN IV NAUSEA AND/OR VOMITING; Start at 22:20 Nitroglycerin (Nitroglycerin (Sl Tab) 0.4 Mg) 1 tab Q5M PRN SL CHEST PAIN; Start 09/07/16 at 22:20 Aspirin (Halfprin) 81 mg DAILY PO Last administered on 09/12/16 08:08; Admin Dose 81 MG; Start 09/07/16 at 22:20 Atorvastatin Calcium (Lipitor) 40 mg HS PO Last administered on 09/11/16 20:27 ; Admin Dose 40 MG; Start 09/07/16 at 22:20 Pantoprazole (Protonix Tab) 40 mg DAILY@06 PO Last administered on 09/12/16 06: 03; Admin Dose 40 MG; Start 09/07/16 at 22:20 Furosemide (Lasix) 20 mg DAILY PO Last administered on 09/12/16 08:09; Admin Dose 20 MG; Start 09/07/16 at 22:20 Enoxaparin Sodium (Lovenox) 40 mg DAILY SC Last administered on 09/08/16 08:46 ; Admin Dose 40 MG; Start 09/07/16 at 22:20 Miscellaneous Information 1 ea NOTE XX ; Start 09/07/16 at 22:20 Glucose (Glutose) 15 gm Q15M PRN PO DECREASED GLUCOSE; Start 09/07/16 at 22:20 Glucose (Glutose) 22.5 gm Q15M PRN PO DECREASED GLUCOSE; Start 09/07/16 at 22: 20 Dextrose (D50w Syringe) 25 ml Q15M PRN IV DECREASED GLUCOSE; Start 09/07/16 at 22:20 Dextrose (D50w Syringe) 50 ml Q15M PRN IV DECREASED GLUCOSE; Start 09/07/16 at 22:20 Glucagon (Glucagen) 1 mg Q15M PRN IM DECREASED GLUCOSE; Start 09/07/16 at 22:20 Glucose (Glutose) 15 gm Q15M PRN BUCCAL DECREASED GLUCOSE; Start 09/07/16 at 22 :20 Hydralazine HCl (Apresoline) 10 mg Q6H PRN IV ELEVATED BLOOD PRESSURE; Start at 22:20 Meclizine HCl (Antivert) 12.5 mg TID PO Last administered on 09/12/16 12:24; Admin Dose 12.5 MG; Start 09/07/16 at 22:20 Salmeterol Xinafoate/ Fluticasone (Advair 250/50 Diskus) 1 inh BID INH ; Start 09/07/16 at 22:20 Famotidine (Pepcid) 20 mg DAILY PO Last administered on 09/12/16 08:09; Admin Dose 20 MG; Start 09/07/16 at 22:20 Guaifenesin (Mucinex) 600 mg BID PO Last administered on 09/12/16 08:08; Admin Dose 600 MG; Start 09/07/16 at 22:20 Amlodipine Besylate (Norvasc) 10 mg DAILY PO Last administered on 09/12/16 08: 08; Admin Dose 10 MG; Start 09/07/16 at 22:20 Oxycodone/ Acetaminophen (Percocet (5/ 325)) 1 tab Q4H PRN PO PAIN Last administered on 09/12/16 10:17; Admin Dose 1 TAB; Start 09/07/16 at 22:20 Diagnostic Test (Pha) (Accu-Chek) 1 ea 02 XX ; Start 09/07/16 at 22:20 Insulin Glargine (Lantus) 35 unit DAILY@20 SC Last administered on 09/11/16 20: 29; Admin Dose 35 UNIT; Start 09/07/16 at 22:20 Docusate Sodium (Colace) 100 mg BID PO Last administered on 09/08/16 08:46; Admin Dose 100 MG; Start 09/08/16 at 09:00 Acetaminophen (Tylenol Tab) 650 mg Q4H PRN PO PAIN Last administered on 11:57; Admin Dose 650 MG; Start 09/08/16 at 03:30 Bisacodyl (Dulcolax Supp) 10 mg DAILY PRN [place] CONSTIPATION; Start 09/08/16 at 03 :30 Magnesium Hydroxide (Milk Of Mag) 30 ml BID PRN PO CONSTIPATION; Start at 03:30 Lactulose (Enulose) 20 gm DAILY PRN PO CONSTIPATION; Start 09/08/16 at 03:30 Losartan Potassium (Cozaar) 25 mg DAILY PO Last administered on 09/12/16 08:09 ; Admin Dose 25 MG; Start 09/08/16 at 09:00 Hydrochlorothiazide (Hydrochlorothiazide) 12.5 mg DAILY PO Last administered on 09/12/16 08:09; Admin Dose 12.5 MG; Start 09/08/16 at 09:00 Linagliptin (Tradjenta) 5 mg DAILY PO Last administered on 09/12/16 08:09; Admin Dose 5 MG; Start 09/08/16 at 09:00 Senna (Senokot) 1 tab HS PRN PO constipation; Start 09/08/16 at 21:00 Acetaminophen/ Hydrocodone Bitart ([place] (10/325)) 1 tab Q6H PRN PO pain Last administered on 09/11/16 15:00; Admin Dose 1 TAB; Start 09/10/16 at 16:00 Assessment/Plan Chief Complaint/Hosp Course Assessment 1. Recent congestive cardiac failure 2. Diabetes mellitus 3. Essential hypertension 4. History of chronic pain 5. Probable obstructive sleep apnea Plan. 1. Continue current recommendations 2. Continue physical therapy 3. continue norco and ativan as needed. Problems: JERMAINE SAMPSON MD, [facility] September 12, 2016 16:34
[2016-09-12 20:00] VITALS: BP 110/53; RESP 18
--- NOTE | 2016-09-12 20:06 | CONS ---
DATE OF ADMISSION: 09/07/2016 DATE OF CONSULTATION: 09/12/2016 TYPE OF CONSULTATION: Psychological. REFERRING PHYSICIAN: Dmitry Valenzuela MD CONSULTING PSYCHOLOGIST: Sabine Shell, PhD REASON FOR CONSULTATION: This consultation was requested by Dr. Cathleen Valenzuela in order to evaluate the cognitive and emotional functioning of this patient related to her present medical condition. HISTORY OF PRESENT ILLNESS: The patient is an 86-year-old female. She has numerous medical problem s. The patient was evaluated in the hospital because of all the medical complications and eventuall y cleared to be able to come to the acute rehabilitation unit for acute multidisciplinary rehabilita tion. The patient is motivated to get better. The patient does want to return to functioning as sh e was in the past. The patient is very frustrated about all her medical problems. FAMILY AND SOCIAL HISTORY: The patient lives by herself, but reports that her daughter comes by екатерина macario. The patient lives in a second floor apartment with no elevator. The patient will have difficul ty being able to get in and out of her apartment. She does have support from neighbors in the area as well. The patient reports that she used to have some care regarding her son, who is schizophreni c, but now is getting care in another facility. MEDICATIONS: The patient is currently not on any psychotropic medications. SUBSTANCE USE: The patient reports that she does not smoke. The patient reports that she does not use alcohol or other drugs. MENTAL STATUS EXAMINATION: APPEARANCE: The patient was seen in bed. She appeared to be of average height and obese. The raj ent is right-handed. BEHAVIOR: The patient was cooperative during the consultation. The patient did attempt to answer a ll questions presented to her by the interviewer. MOOD AND AFFECT: The patient's mood appeared to be somewhat depressed. Affect did appear to be sli ghtly anxious. PERCEPTION: The patient reports no hallucinations or delusions. The patient was alert to person, p lace, situation, and time. MEMORY AND COGNITION: The patient's memory and cognition appear to be somewhat impaired. She was a ble to say the month, date, and year. The patient was able to say hospital was [facility], but did not use [facility]. The patient was able to say who the President of [facility] is, but could not say who the governor of the state or the mayor the [facility]. The patient could not spell "world" backwards. The patient could not do serial 7 subtractions from 100. Overall, the patient's cognition appears to have some impairment at present. INTELLIGENCE: Intelligence appears to fall in the average range when she is functioning well. INSIGHT: Fair. JUDGMENT: Fair. THOUGHT CONTENT: The patient is concerned about her present medical condition. The patient is fear ful that she will not be able to return to her previous level of functioning. The patient will need some help when she returns home. The patient reports that her daughter will stay with her when she is discharged and that should give her some help that she needs. DISCUSSION: The patient can likely benefit from some cognitive/behavioral psychotherapy while she i s on the unit. This psychotherapy would focus on her underlying level of frustration regarding her medical problems and try to help her with her cognitive deficits. DIAGNOSTIC IMPRESSION: 1. F06.31, mood disorder due to multiple medical problems with depressive features. 2. F06.8, cognitive disorder, not otherwise specified. Thank you very much, Dr. Cathleen Valenzuela, for referring this individual. Please do not hesitate to ca ll if you have additional questions. Dictated By: SABINE SHELL PHD FRANCISCO/NASIR Conf#: [id number] DID#: [id number] CC: DMITRY VALENZUELA MD;*EndCC*
[2016-09-12] MEDS: ACETAMINOPHEN 325 MG TAB PO PRN (20:17)
[2016-09-12] MEDS: ATORVASTATIN 40 MG TAB PO SCH (20:18)
[2016-09-12] MEDS: INSULIN GLARGINE [LANtus] 3 ML PEN SC SCH (20:21)
[2016-09-12] MEDS: ALBUTEROL 0.083% (NEB) 2.5 MG/3 ML AMP HHN PRN (20:37)
[2016-09-12] MEDS: HYDROCODONE/APAP (10/325) TAB PO PRN (21:39)
[2016-09-13] MEDS: ACCU-CHEK XX SCH (02:00)
[2016-09-13] MEDS: PANTOPRAZOLE (EC) 40 MG TAB PO SCH (06:01)
[2016-09-13 07:30] VITALS: BP 152/66; RESP 18
[2016-09-13] MEDS: INSULIN ASPART [NOVOLOG] 3 ML PEN SC SCH ×8 (07:35→21:00)
[2016-09-13] MEDS: SALMETEROL/FLUTICASONE 250/50 INHA INH SCH ×3 (08:37→21:00)
[2016-09-13] MEDS: ENOXAPARIN 40 MG/0.4 ML SYG SC SCH ×2 (08:38→08:48)
[2016-09-13] MEDS: AMLODIPINE 5 MG TAB PO SCH (08:39)
[2016-09-13] MEDS: MECLIZINE 12.5 MG TAB PO SCH ×3 (08:39→21:35)
[2016-09-13] MEDS: LINAGLIPTIN 5 MG TABLET PO SCH (08:39)
[2016-09-13] MEDS: ASPIRIN (EC) 81 MG TAB PO SCH (08:40)
[2016-09-13] MEDS: FUROSEMIDE 20 MG TAB PO SCH (08:40)
[2016-09-13] MEDS: DOCUSATE SODIUM 100 MG CAP PO SCH ×3 (08:40→21:00)
[2016-09-13] MEDS: GUAIFENESIN LA 600 MG TABSR PO SCH ×2 (08:40→21:35)
[2016-09-13] MEDS: LOSARTAN 25 MG TAB PO SCH (08:40)
[2016-09-13] MEDS: FAMOTIDINE 20 MG TAB PO SCH (08:40)
[2016-09-13] MEDS: HYDROCHLOROTHIAZIDE 12.5 MG CAP PO SCH (08:41)
[2016-09-13] MEDS: ALBUTEROL 0.083% (NEB) 2.5 MG/3 ML AMP HHN PRN (10:32)
--- NOTE | 2016-09-13 12:33 | CONS ---
Date/Time of Note Date/Time of Note DATE: 09/13/16 TIME: 12:32 Consult Date/Type/Reason Admit Date/Time Sep 07, 2016 at 21:00 Type of Consultation: Internal medicine Subjective Complaining of dysuria this morning mild abdominal discomfort Objective Vital Signs Date Time Temp Pulse Resp B/P Pulse Ox O2 Delivery O2 Flow Rate FiO2 09/13/16 10:33 72 17 96 21 09/13/16 08:00 Nasal Cannula 2.0 09/13/16 07:30 98.4 152/66 Intake and Output 09/12/16 09/12/16 09/13/16 14:59 22:59 06:59 Intake Total 1240 ml 1100 ml Output Total 400 ml 400 ml Balance 840 ml 700 ml Exam GENERAL: Elderly appearing lady comfortable at rest no acute distress VITAL SIGNS: per chart NECK: Supple. No JVD or lymphadenopathy. CARDIAC EXAM: S1, S2. No added sounds or murmurs. CHEST: clear bilaterally, No added sounds, rales or wheezes ABDOMEN: Soft, nontender. No guarding or rebound. EXTREMITIES: No cyanosis, clubbing or edema. NEUROLOGIC: Generalized weakness. No focal deficits. Results/Medications Result Diagram: 09/11/16 0707 09/11/16 0707 Results 24 hrs Laboratory Tests Test 09/12/16 17:24 09/12/16 20:20 09/13/16 08:13 Bedside Glucose 142 89 90 Medications Current Medications Metoclopramide HCl (Reglan) 10 mg Q6H PRN IV NAUSEA AND/OR VOMITING; Start at 22:20 Nitroglycerin (Nitroglycerin (Sl Tab) 0.4 Mg) 1 tab Q5M PRN SL CHEST PAIN; Start 09/07/16 at 22:20 Aspirin (Halfprin) 81 mg DAILY PO Last administered on 09/13/16 08:40; Admin Dose 81 MG; Start 09/07/16 at 22:20 Atorvastatin Calcium (Lipitor) 40 mg HS PO Last administered on 09/12/16 20:18 ; Admin Dose 40 MG; Start 09/07/16 at 22:20 Pantoprazole (Protonix Tab) 40 mg DAILY@06 PO Last administered on 09/13/16 06: 01; Admin Dose 40 MG; Start 09/07/16 at 22:20 Furosemide (Lasix) 20 mg DAILY PO Last administered on 09/13/16 08:40; Admin Dose 20 MG; Start 09/07/16 at 22:20 Enoxaparin Sodium (Lovenox) 40 mg DAILY SC Last administered on 09/08/16 08:46 ; Admin Dose 40 MG; Start 09/07/16 at 22:20 Miscellaneous Information 1 ea NOTE XX ; Start 09/07/16 at 22:20 Glucose (Glutose) 15 gm Q15M PRN PO DECREASED GLUCOSE; Start 09/07/16 at 22:20 Glucose (Glutose) 22.5 gm Q15M PRN PO DECREASED GLUCOSE; Start 09/07/16 at 22: 20 Dextrose (D50w Syringe) 25 ml Q15M PRN IV DECREASED GLUCOSE; Start 09/07/16 at 22:20 Dextrose (D50w Syringe) 50 ml Q15M PRN IV DECREASED GLUCOSE; Start 09/07/16 at 22:20 Glucagon (Glucagen) 1 mg Q15M PRN IM DECREASED GLUCOSE; Start 09/07/16 at 22:20 Glucose (Glutose) 15 gm Q15M PRN BUCCAL DECREASED GLUCOSE; Start 09/07/16 at 22 :20 Hydralazine HCl (Apresoline) 10 mg Q6H PRN IV ELEVATED BLOOD PRESSURE; Start at 22:20 Meclizine HCl (Antivert) 12.5 mg TID PO Last administered on 09/13/16 08:39; Admin Dose 12.5 MG; Start 09/07/16 at 22:20 Salmeterol Xinafoate/ Fluticasone (Advair 250/50 Diskus) 1 inh BID INH ; Start 09/07/16 at 22:20 Famotidine (Pepcid) 20 mg DAILY PO Last administered on 09/13/16 08:40; Admin Dose 20 MG; Start 09/07/16 at 22:20 Guaifenesin (Mucinex) 600 mg BID PO Last administered on 09/13/16 08:40; Admin Dose 600 MG; Start 09/07/16 at 22:20 Amlodipine Besylate (Norvasc) 10 mg DAILY PO Last administered on 09/13/16 08: 39; Admin Dose 10 MG; Start 09/07/16 at 22:20 Oxycodone/ Acetaminophen (Percocet (5/ 325)) 1 tab Q4H PRN PO PAIN Last administered on 09/12/16 17:18; Admin Dose 1 TAB; Start 09/07/16 at 22:20 Diagnostic Test (Pha) (Accu-Chek) 1 ea 02 XX ; Start 09/07/16 at 22:20 Insulin Glargine (Lantus) 35 unit DAILY@20 SC Last administered on 09/12/16 20: 21; Admin Dose 35 UNIT; Start 09/07/16 at 22:20 Docusate Sodium (Colace) 100 mg BID PO Last administered on 09/08/16 08:46; Admin Dose 100 MG; Start 09/08/16 at 09:00 Acetaminophen (Tylenol Tab) 650 mg Q4H PRN PO PAIN Last administered on 20:17; Admin Dose 650 MG; Start 09/08/16 at 03:30 Bisacodyl (Dulcolax Supp) 10 mg DAILY PRN [place] CONSTIPATION; Start 09/08/16 at 03 :30 Magnesium Hydroxide (Milk Of Mag) 30 ml BID PRN PO CONSTIPATION; Start at 03:30 Lactulose (Enulose) 20 gm DAILY PRN PO CONSTIPATION; Start 09/08/16 at 03:30 Losartan Potassium (Cozaar) 25 mg DAILY PO Last administered on 09/13/16 08:40 ; Admin Dose 25 MG; Start 09/08/16 at 09:00 Hydrochlorothiazide (Hydrochlorothiazide) 12.5 mg DAILY PO Last administered on 09/13/16 08:41; Admin Dose 12.5 MG; Start 09/08/16 at 09:00 Linagliptin (Tradjenta) 5 mg DAILY PO Last administered on 09/13/16 08:39; Admin Dose 5 MG; Start 09/08/16 at 09:00 Senna (Senokot) 1 tab HS PRN PO constipation; Start 09/08/16 at 21:00 Acetaminophen/ Hydrocodone Bitart ([place] (10/325)) 1 tab Q6H PRN PO pain Last administered on 09/12/16 21:39; Admin Dose 1 TAB; Start 09/10/16 at 16:00 Assessment/Plan Chief Complaint/Hosp Course Assessment 1. Recent congestive cardiac failure 2. Diabetes mellitus 3. Essential hypertension 4. History of chronic pain 5. Probable obstructive sleep apnea 6. Possible UTI Plan. 1. Continue current recommendations 2. Continue physical therapy 3. continue norco and ativan as needed. 4. UA for Gram stain and culture Problems: JERMAINE SAMPSON MD, [facility] September 13, 2016 12:33
--- NOTE | 2016-09-13 12:34 | CONS ---
Date/Time of Note Date/Time of Note DATE: 09/13/16 TIME: 12:33 Consult Date/Type/Reason Admit Date/Time Sep 07, 2016 at 21:00 Type of Consultation: Internal medicine Subjective Patient in good spirits Objective pulm-cta abd-soft sba ambulation Vital Signs Date Time Temp Pulse Resp B/P Pulse Ox O2 Delivery O2 Flow Rate FiO2 09/13/16 10:33 72 17 96 21 09/13/16 08:00 Nasal Cannula 2.0 09/13/16 07:30 98.4 152/66 Intake and Output 09/12/16 09/12/16 09/13/16 15:00 23:00 07:00 Intake Total 1240 ml 1100 ml Output Total 400 ml 400 ml Balance 840 ml 700 ml Results/Medications Result Diagram: 09/11/1607 09/11/16 0707 Results 24 hrs Laboratory Tests Test 09/12/16 17:24 09/12/16 20:20 09/13/16 08:13 Bedside Glucose 142 89 90 Medications Current Medications Metoclopramide HCl (Reglan) 10 mg Q6H PRN IV NAUSEA AND/OR VOMITING; Start at 22:20 Nitroglycerin (Nitroglycerin (Sl Tab) 0.4 Mg) 1 tab Q5M PRN SL CHEST PAIN; Start 09/07/16 at 22:20 Aspirin (Halfprin) 81 mg DAILY PO Last administered on 09/13/16 08:40; Admin Dose 81 MG; Start 09/07/16 at 22:20 Atorvastatin Calcium (Lipitor) 40 mg HS PO Last administered on 09/12/16 20:18 ; Admin Dose 40 MG; Start 09/07/16 at 22:20 Pantoprazole (Protonix Tab) 40 mg DAILY@06 PO Last administered on 09/13/16 06: 01; Admin Dose 40 MG; Start 09/07/16 at 22:20 Furosemide (Lasix) 20 mg DAILY PO Last administered on 09/13/16 08:40; Admin Dose 20 MG; Start 09/07/16 at 22:20 Enoxaparin Sodium (Lovenox) 40 mg DAILY SC Last administered on 09/08/16 08:46 ; Admin Dose 40 MG; Start 09/07/16 at 22:20 Miscellaneous Information 1 ea NOTE XX ; Start 09/07/16 at 22:20 Glucose (Glutose) 15 gm Q15M PRN PO DECREASED GLUCOSE; Start 09/07/16 at 22:20 Glucose (Glutose) 22.5 gm Q15M PRN PO DECREASED GLUCOSE; Start 09/07/16 at 22: 20 Dextrose (D50w Syringe) 25 ml Q15M PRN IV DECREASED GLUCOSE; Start 09/07/16 at 22:20 Dextrose (D50w Syringe) 50 ml Q15M PRN IV DECREASED GLUCOSE; Start 09/07/16 at 22:20 Glucagon (Glucagen) 1 mg Q15M PRN IM DECREASED GLUCOSE; Start 09/07/16 at 22:20 Glucose (Glutose) 15 gm Q15M PRN BUCCAL DECREASED GLUCOSE; Start 09/07/16 at 22 :20 Hydralazine HCl (Apresoline) 10 mg Q6H PRN IV ELEVATED BLOOD PRESSURE; Start at 22:20 Meclizine HCl (Antivert) 12.5 mg TID PO Last administered on 09/13/16 08:39; Admin Dose 12.5 MG; Start 09/07/16 at 22:20 Salmeterol Xinafoate/ Fluticasone (Advair 250/50 Diskus) 1 inh BID INH ; Start 09/07/16 at 22:20 Famotidine (Pepcid) 20 mg DAILY PO Last administered on 09/13/16 08:40; Admin Dose 20 MG; Start 09/07/16 at 22:20 Guaifenesin (Mucinex) 600 mg BID PO Last administered on 09/13/16 08:40; Admin Dose 600 MG; Start 09/07/16 at 22:20 Amlodipine Besylate (Norvasc) 10 mg DAILY PO Last administered on 09/13/16 08: 39; Admin Dose 10 MG; Start 09/07/16 at 22:20 Oxycodone/ Acetaminophen (Percocet (5/ 325)) 1 tab Q4H PRN PO PAIN Last administered on 09/12/16 17:18; Admin Dose 1 TAB; Start 09/07/16 at 22:20 Diagnostic Test (Pha) (Accu-Chek) 1 ea 02 XX ; Start 09/07/16 at 22:20 Insulin Glargine (Lantus) 35 unit DAILY@20 SC Last administered on 09/12/16 20: 21; Admin Dose 35 UNIT; Start 09/07/16 at 22:20 Docusate Sodium (Colace) 100 mg BID PO Last administered on 09/08/16 08:46; Admin Dose 100 MG; Start 09/08/16 at 09:00 Acetaminophen (Tylenol Tab) 650 mg Q4H PRN PO PAIN Last administered on 20:17; Admin Dose 650 MG; Start 09/08/16 at 03:30 Bisacodyl (Dulcolax Supp) 10 mg DAILY PRN [place] CONSTIPATION; Start 09/08/16 at 03 :30 Magnesium Hydroxide (Milk Of Mag) 30 ml BID PRN PO CONSTIPATION; Start at 03:30 Lactulose (Enulose) 20 gm DAILY PRN PO CONSTIPATION; Start 09/08/16 at 03:30 Losartan Potassium (Cozaar) 25 mg DAILY PO Last administered on 09/13/16 08:40 ; Admin Dose 25 MG; Start 09/08/16 at 09:00 Hydrochlorothiazide (Hydrochlorothiazide) 12.5 mg DAILY PO Last administered on 09/13/16 08:41; Admin Dose 12.5 MG; Start 09/08/16 at 09:00 Linagliptin (Tradjenta) 5 mg DAILY PO Last administered on 09/13/16 08:39; Admin Dose 5 MG; Start 09/08/16 at 09:00 Senna (Senokot) 1 tab HS PRN PO constipation; Start 09/08/16 at 21:00 Acetaminophen/ Hydrocodone Bitart ([place] (10/325)) 1 tab Q6H PRN PO pain Last administered on 09/12/16 21:39; Admin Dose 1 TAB; Start 09/10/16 at 16:00 Assessment/Plan Additional Assessment/Plan Rehab- Debility due to CHF; diabetic neuropathy; OA affecting multiple joints Making excellent progress. Continue treatment plan HTN DM2 dyslipidemia . Obesity Acute kidney injury DMITRY SHANNON MD September 13, 2016 12:34
[2016-09-13] MEDS: HYDROCODONE/APAP (10/325) TAB PO PRN (13:27)
[2016-09-13 14:55] LABS: ADD UMIC YES; URINE BILIRUBIN (Dip) NEGATIVE (NEGATIVE); URINE BLOOD (Dip) NEGATIVE (NEGATIVE); URINE COLOR LT. YELLOW (YELLOW); URINE GLUCOSE (Dip) NEGATIVE (NEGATIVE); URINE KETONES (Dip) NEGATIVE (NEGATIVE); URINE LEUKOCYTE ESTERASE (Dip) 2+ (NEGATIVE); URINE NITRITE (Dip) NEGATIVE (NEGATIVE); URINE TOTAL PROTEIN (Dip) NEGATIVE (NEGATIVE); URINE UROBILINOGEN (Dip) 0.2 E.U./dL (0.1-1.0)
[2016-09-13 16:06] LABS: BACTERIA,URINE MANY; URINE RBCS 0-2 /HPF ([, 0])
[2016-09-13 16:07] LABS: SQUAMOUS EPITHELIAL CELL,UR MANY
[2016-09-13] MEDS: OXYCODONE/ACETAMINOPHEN (5/325) TAB PO PRN (18:51)
[2016-09-13 20:00] VITALS: BP 138/67; RESP 18
[2016-09-13] MEDS: ATORVASTATIN 40 MG TAB PO SCH (21:35)
[2016-09-14] MEDS: ACCU-CHEK XX SCH (02:00)
[2016-09-14] MEDS: PANTOPRAZOLE (EC) 40 MG TAB PO SCH (06:17)
[2016-09-14 07:39] VITALS: BP 126/58; RESP 18
[2016-09-14] MEDS: INSULIN ASPART [NOVOLOG] 3 ML PEN SC SCH ×8 (07:48→22:03)
[2016-09-14 08:31] LABS: ADD SCAN DIFF NO
[2016-09-14 08:42] LABS: BASOPHIL # 0.1 10^3/ul (0.0-0.1); BASOPHILS % 0.6 % (0.0-2.0); EOSINOPHILS # 0.4 10^3/ul (0.0-0.5); EOSINOPHILS % 4.6 % (0.0-7.0); HEMATOCRIT 34.6 % (37.0-47.0); HEMOGLOBIN 10.7 g/dl (12.0-16.0); LYMPHOCYTES # 1.9 10^3/ul (0.8-2.9); MEAN CORPUSCULAR HEMOGLOBIN 28.3 pg (29.0-33.0); MEAN CORPUSCULAR HGB CONC 30.9 g/dl (32.0-37.0); MEAN CORPUSCULAR VOLUME 91.5 fl (82.0-101.0); MEAN PLATELET VOLUME 10.7 fl (7.4-10.4); MONOCYTE # 0.7 10^3/ul (0.3-0.9); MONOCYTES % 8.2 % (0.0-11.0); NEUTROPHILS % 62.1 % (39.0-77.0); PLATELET COUNT 282 10^3/UL (140-415); RED BLOOD COUNT 3.78 10^6/ul (4.20-5.40); RED CELL DISTRIBUTION WIDTH 13.7 % (11.5-14.5)
[2016-09-14] MEDS: DOCUSATE SODIUM 100 MG CAP PO SCH ×2 (08:45→21:00)
[2016-09-14] MEDS: FAMOTIDINE 20 MG TAB PO SCH (08:45)
[2016-09-14] MEDS: GUAIFENESIN LA 600 MG TABSR PO SCH ×2 (08:46→21:51)
[2016-09-14] MEDS: ASPIRIN (EC) 81 MG TAB PO SCH (08:46)
[2016-09-14] MEDS: LOSARTAN 25 MG TAB PO SCH (08:49)
[2016-09-14] MEDS: FUROSEMIDE 20 MG TAB PO SCH (08:50)
[2016-09-14] MEDS: LINAGLIPTIN 5 MG TABLET PO SCH (08:51)
[2016-09-14] MEDS: MECLIZINE 12.5 MG TAB PO SCH ×3 (08:51→21:50)
[2016-09-14] MEDS: SALMETEROL/FLUTICASONE 250/50 INHA INH SCH ×2 (08:53→21:00)
[2016-09-14] MEDS: ENOXAPARIN 40 MG/0.4 ML SYG SC SCH (08:54)
[2016-09-14] MEDS: AMLODIPINE 5 MG TAB PO SCH (09:00)
[2016-09-14] MEDS: HYDROCHLOROTHIAZIDE 12.5 MG CAP PO SCH (09:00)
[2016-09-14 09:12] LABS: POTASSIUM 4.5 mmol/L (3.5-5.1)
[2016-09-14 09:14] LABS: CREATININE 1.18 mg/dl (0.44-1.00)
[2016-09-14 09:15] LABS: CALCIUM 8.8 mg/dl (8.4-10.2); MAGNESIUM 2.1 mg/dl (1.7-2.5); PHOSPHORUS 5.7 mg/dl (2.5-4.9)
--- NOTE | 2016-09-14 11:15 | CONS ---
Date/Time of Note Date/Time of Note DATE: 09/14/16 TIME: 11:14 Consult Date/Type/Reason Admit Date/Time Sep 07, 2016 at 21:00 Type of Consultation: Internal medicine Subjective c/o dysuria Objective pulm-cta sba ambulation Vital Signs Date Time Temp Pulse Resp B/P Pulse Ox O2 Delivery O2 Flow Rate FiO2 09/14/16 07:39 98.2 65 18 126/58 95 09/13/16 19:42 Nasal Cannula 2.0 09/13/16 10:33 21 Intake and Output 09/13/16 09/13/16 09/14/16 14:59 22:59 06:59 Intake Total 820 ml 200 ml Output Total 1050 ml 1350 ml 150 ml Balance -1050 ml -530 ml 50 ml Results/Medications Result Diagram: 09/14/16 0715 09/14/16 0715 Results 24 hrs Laboratory Tests Test 09/13/16 12:41 09/13/16 13:50 09/13/16 17:38 09/13/16 20:19 Bedside Glucose 122 76 43 *L Urine Color LT. YELLOW Urine Clarity CLEAR Urine pH 5.0 Urine Specific [place] <=1.005 L Urine Ketones NEGATIVE Urine Nitrite NEGATIVE Urine Bilirubin NEGATIVE Urine Urobilinogen 0.2 E.U./dL Urine Leukocyte Esterase 2+ H Urine Microscopic RBC 0-2 Urine WBC Clumps FEW Urine Microscopic WBC >200 Urine Squamous Epithelial Cells MANY Urine Bacteria MANY Urine Hemoglobin NEGATIVE Urine Glucose NEGATIVE Urine Total Protein NEGATIVE Test 09/13/16 20:34 09/13/16 20:58 09/13/16 21:13 09/14/16 01:54 Bedside Glucose 57 L 155 153 163 Test 09/14/16 07:15 09/14/16 07:46 White Blood Count 8.0 Red Blood Count 3.78 L Hemoglobin 10.7 L Hematocrit 34.6 L Mean Corpuscular Volume 91.5 Mean Corpuscular Hemoglobin 28.3 L Mean Corpuscular Hemoglobin Concent 30.9 L Red Cell Distribution Width 13.7 Platelet Count 282 Mean Platelet Volume 10.7 H Neutrophils % 62.1 Lymphocytes % 24.0 Monocytes % 8.2 Eosinophils % 4.6 Basophils % 0.6 Nucleated Red Blood Cells % 0.0 Neutrophils # 5.0 Lymphocytes # 1.9 Monocytes # 0.7 Eosinophils # 0.4 Basophils # 0.1 Nucleated Red Blood Cells # 0.0 Sodium Level 140 Potassium Level 4.5 Chloride Level 98 Carbon Dioxide Level 30 Anion Gap 17 H Blood Urea Nitrogen 52 H Creatinine 1.18 H Glucose Level 168 Calcium Level 8.8 Phosphorus Level 5.7 H Magnesium Level 2.1 Bedside Glucose 151 Medications Current Medications Metoclopramide HCl (Reglan) 10 mg Q6H PRN IV NAUSEA AND/OR VOMITING; Start at 22:20 Nitroglycerin (Nitroglycerin (Sl Tab) 0.4 Mg) 1 tab Q5M PRN SL CHEST PAIN; Start 09/07/16 at 22:20 Aspirin (Halfprin) 81 mg DAILY PO Last administered on 09/14/16 08:46; Admin Dose 81 MG; Start 09/07/16 at 22:20 Atorvastatin Calcium (Lipitor) 40 mg HS PO Last administered on 09/13/16 21:35 ; Admin Dose 40 MG; Start 09/07/16 at 22:20 Pantoprazole (Protonix Tab) 40 mg DAILY@06 PO Last administered on 09/14/16 06: 17; Admin Dose 40 MG; Start 09/07/16 at 22:20 Furosemide (Lasix) 20 mg DAILY PO Last administered on 09/14/16 08:50; Admin Dose 20 MG; Start 09/07/16 at 22:20 Enoxaparin Sodium (Lovenox) 40 mg DAILY SC Last administered on 09/08/16 08:46 ; Admin Dose 40 MG; Start 09/07/16 at 22:20 Miscellaneous Information 1 ea NOTE XX ; Start 09/07/16 at 22:20 Glucose (Glutose) 15 gm Q15M PRN PO DECREASED GLUCOSE; Start 09/07/16 at 22:20 Glucose (Glutose) 22.5 gm Q15M PRN PO DECREASED GLUCOSE; Start 09/07/16 at 22: 20 Dextrose (D50w Syringe) 25 ml Q15M PRN IV DECREASED GLUCOSE; Start 09/07/16 at 22:20 Dextrose (D50w Syringe) 50 ml Q15M PRN IV DECREASED GLUCOSE Last administered on 09/13/16 20:42; Admin Dose 50 ML; Start 09/07/16 at 22:20 Glucagon (Glucagen) 1 mg Q15M PRN IM DECREASED GLUCOSE; Start 09/07/16 at 22:20 Glucose (Glutose) 15 gm Q15M PRN BUCCAL DECREASED GLUCOSE; Start 09/07/16 at 22 :20 Hydralazine HCl (Apresoline) 10 mg Q6H PRN IV ELEVATED BLOOD PRESSURE; Start at 22:20 Meclizine HCl (Antivert) 12.5 mg TID PO Last administered on 09/14/16 08:51; Admin Dose 12.5 MG; Start 09/07/16 at 22:20 Salmeterol Xinafoate/ Fluticasone (Advair 250/50 Diskus) 1 inh BID INH ; Start 09/07/16 at 22:20 Famotidine (Pepcid) 20 mg DAILY PO Last administered on 09/14/16 08:45; Admin Dose 20 MG; Start 09/07/16 at 22:20 Guaifenesin (Mucinex) 600 mg BID PO Last administered on 09/14/16 08:46; Admin Dose 600 MG; Start 09/07/16 at 22:20 Amlodipine Besylate (Norvasc) 10 mg DAILY PO Last administered on 09/13/16 08: 39; Admin Dose 10 MG; Start 09/07/16 at 22:20 Oxycodone/ Acetaminophen (Percocet (5/ 325)) 1 tab Q4H PRN PO PAIN Last administered on 09/13/16 18:51; Admin Dose 1 TAB; Start 09/07/16 at 22:20 Diagnostic Test (Pha) (Accu-Chek) 1 ea 02 XX ; Start 09/07/16 at 22:20 Docusate Sodium (Colace) 100 mg BID PO Last administered on 09/08/16 08:46; Admin Dose 100 MG; Start 09/08/16 at 09:00 Acetaminophen (Tylenol Tab) 650 mg Q4H PRN PO PAIN Last administered on 20:17; Admin Dose 650 MG; Start 09/08/16 at 03:30 Bisacodyl (Dulcolax Supp) 10 mg DAILY PRN [place] CONSTIPATION; Start 09/08/16 at 03 :30 Magnesium Hydroxide (Milk Of Mag) 30 ml BID PRN PO CONSTIPATION; Start at 03:30 Lactulose (Enulose) 20 gm DAILY PRN PO CONSTIPATION; Start 09/08/16 at 03:30 Losartan Potassium (Cozaar) 25 mg DAILY PO Last administered on 09/14/16 08:49 ; Admin Dose 25 MG; Start 09/08/16 at 09:00 Hydrochlorothiazide (Hydrochlorothiazide) 12.5 mg DAILY PO Last administered on 09/13/16 08:41; Admin Dose 12.5 MG; Start 09/08/16 at 09:00 Linagliptin (Tradjenta) 5 mg DAILY PO Last administered on 09/14/16 08:51; Admin Dose 5 MG; Start 09/08/16 at 09:00 Senna (Senokot) 1 tab HS PRN PO constipation; Start 09/08/16 at 21:00 Acetaminophen/ Hydrocodone Bitart ([place] (10/325)) 1 tab Q6H PRN PO pain Last administered on 09/13/16 13:27; Admin Dose 1 TAB; Start 09/10/16 at 16:00 Insulin Glargine (Lantus) 35 unit DAILY@20 SC ; Start 09/14/16 at 20:00 Trimethoprim/ Sulfamethoxazole (Bactrim (Ds)) 1 tab BID PO ; Start 09/14/16 at 10 :30; Stop 09/18/16 at 10:29 Assessment/Plan Additional Assessment/Plan Rehab- Debility due to CHF; diabetic neuropathy; OA affecting multiple joints Continue unterdisciplinary rehab - start bactrim for UTI HTN DM2 dyslipidemia . Obesity Acute kidney injury DMITRY SHANNON MD September 14, 2016 11:15
[2016-09-14] MEDS: TRIMETHOPRIM/SULFAMETHOX (DS) TAB PO SCH ×2 (13:57→21:51)
[2016-09-14] MEDS: HYDROCODONE/APAP (10/325) TAB PO PRN (13:59)
--- NOTE | 2016-09-14 15:48 | CONS ---
Date/Time of Note Date/Time of Note DATE: 09/14/16 TIME: 15:45 Consult Date/Type/Reason Admit Date/Time Sep 07, 2016 at 21:00 Type of Consultation: Internal medicine Subjective Hypoglycemc episode earlier today. Stable now. Objective Vital Signs Date Time Temp Pulse Resp B/P Pulse Ox O2 Delivery O2 Flow Rate FiO2 09/14/16 08:00 Nasal Cannula 2.0 09/14/16 07:39 98.2 65 18 126/58 95 09/13/16 10:33 21 Intake and Output 09/13/16 09/13/16 09/14/16 15:00 23:00 07:00 Intake Total 820 ml 200 ml Output Total 1050 ml 1350 ml 150 ml Balance -1050 ml -530 ml 50 ml Exam GENERAL: Elderly appearing lady comfortable at rest no acute distress VITAL SIGNS: per chart NECK: Supple. No JVD or lymphadenopathy. CARDIAC EXAM: S1, S2. No added sounds or murmurs. CHEST: clear bilaterally, No added sounds, rales or wheezes ABDOMEN: Soft, nontender. No guarding or rebound. EXTREMITIES: No cyanosis, clubbing or edema. NEUROLOGIC: Generalized weakness. No focal deficits. Results/Medications Result Diagram: 09/14/16 0715 09/14/16 0715 Results 24 hrs Laboratory Tests Test 09/13/16 17:38 09/13/16 20:19 09/13/16 20:34 09/13/16 20:58 Bedside Glucose 76 43 *L 57 L 155 Test 09/13/16 21:13 09/14/16 01:54 09/14/16 07:15 09/14/16 07:46 Bedside Glucose 153 163 151 White Blood Count 8.0 Red Blood Count 3.78 L Hemoglobin 10.7 L Hematocrit 34.6 L Mean Corpuscular Volume 91.5 Mean Corpuscular Hemoglobin 28.3 L Mean Corpuscular Hemoglobin Concent 30.9 L Red Cell Distribution Width 13.7 Platelet Count 282 Mean Platelet Volume 10.7 H Neutrophils % 62.1 Lymphocytes % 24.0 Monocytes % 8.2 Eosinophils % 4.6 Basophils % 0.6 Nucleated Red Blood Cells % 0.0 Neutrophils # 5.0 Lymphocytes # 1.9 Monocytes # 0.7 Eosinophils # 0.4 Basophils # 0.1 Nucleated Red Blood Cells # 0.0 Sodium Level 140 Potassium Level 4.5 Chloride Level 98 Carbon Dioxide Level 30 Anion Gap 17 H Blood Urea Nitrogen 52 H Creatinine 1.18 H Glucose Level 168 Calcium Level 8.8 Phosphorus Level 5.7 H Magnesium Level 2.1 Test 09/14/16 12:00 Bedside Glucose 207 Medications Current Medications Metoclopramide HCl (Reglan) 10 mg Q6H PRN IV NAUSEA AND/OR VOMITING; Start at 22:20 Nitroglycerin (Nitroglycerin (Sl Tab) 0.4 Mg) 1 tab Q5M PRN SL CHEST PAIN; Start 09/07/16 at 22:20 Aspirin (Halfprin) 81 mg DAILY PO Last administered on 09/14/16 08:46; Admin Dose 81 MG; Start 09/07/16 at 22:20 Atorvastatin Calcium (Lipitor) 40 mg HS PO Last administered on 09/13/16 21:35 ; Admin Dose 40 MG; Start 09/07/16 at 22:20 Pantoprazole (Protonix Tab) 40 mg DAILY@06 PO Last administered on 09/14/16 06: 17; Admin Dose 40 MG; Start 09/07/16 at 22:20 Furosemide (Lasix) 20 mg DAILY PO Last administered on 09/14/16 08:50; Admin Dose 20 MG; Start 09/07/16 at 22:20 Enoxaparin Sodium (Lovenox) 40 mg DAILY SC Last administered on 09/08/16 08:46 ; Admin Dose 40 MG; Start 09/07/16 at 22:20 Miscellaneous Information 1 ea NOTE XX ; Start 09/07/16 at 22:20 Glucose (Glutose) 15 gm Q15M PRN PO DECREASED GLUCOSE; Start 09/07/16 at 22:20 Glucose (Glutose) 22.5 gm Q15M PRN PO DECREASED GLUCOSE; Start 09/07/16 at 22: 20 Dextrose (D50w Syringe) 25 ml Q15M PRN IV DECREASED GLUCOSE; Start 09/07/16 at 22:20 Dextrose (D50w Syringe) 50 ml Q15M PRN IV DECREASED GLUCOSE Last administered on 09/13/16 20:42; Admin Dose 50 ML; Start 09/07/16 at 22:20 Glucagon (Glucagen) 1 mg Q15M PRN IM DECREASED GLUCOSE; Start 09/07/16 at 22:20 Glucose (Glutose) 15 gm Q15M PRN BUCCAL DECREASED GLUCOSE; Start 09/07/16 at 22 :20 Hydralazine HCl (Apresoline) 10 mg Q6H PRN IV ELEVATED BLOOD PRESSURE; Start at 22:20 Meclizine HCl (Antivert) 12.5 mg TID PO Last administered on 09/14/16 13:57; Admin Dose 12.5 MG; Start 09/07/16 at 22:20 Salmeterol Xinafoate/ Fluticasone (Advair 250/50 Diskus) 1 inh BID INH ; Start 09/07/16 at 22:20 Famotidine (Pepcid) 20 mg DAILY PO Last administered on 09/14/16 08:45; Admin Dose 20 MG; Start 09/07/16 at 22:20 Guaifenesin (Mucinex) 600 mg BID PO Last administered on 09/14/16 08:46; Admin Dose 600 MG; Start 09/07/16 at 22:20 Amlodipine Besylate (Norvasc) 10 mg DAILY PO Last administered on 09/13/16 08: 39; Admin Dose 10 MG; Start 09/07/16 at 22:20 Oxycodone/ Acetaminophen (Percocet (5/ 325)) 1 tab Q4H PRN PO PAIN Last administered on 09/13/16 18:51; Admin Dose 1 TAB; Start 09/07/16 at 22:20 Diagnostic Test (Pha) (Accu-Chek) 1 ea 02 XX ; Start 09/07/16 at 22:20 Docusate Sodium (Colace) 100 mg BID PO Last administered on 09/08/16 08:46; Admin Dose 100 MG; Start 09/08/16 at 09:00 Acetaminophen (Tylenol Tab) 650 mg Q4H PRN PO PAIN Last administered on 20:17; Admin Dose 650 MG; Start 09/08/16 at 03:30 Bisacodyl (Dulcolax Supp) 10 mg DAILY PRN [place] CONSTIPATION; Start 09/08/16 at 03 :30 Magnesium Hydroxide (Milk Of Mag) 30 ml BID PRN PO CONSTIPATION; Start at 03:30 Lactulose (Enulose) 20 gm DAILY PRN PO CONSTIPATION; Start 09/08/16 at 03:30 Losartan Potassium (Cozaar) 25 mg DAILY PO Last administered on 09/14/16 08:49 ; Admin Dose 25 MG; Start 09/08/16 at 09:00 Hydrochlorothiazide (Hydrochlorothiazide) 12.5 mg DAILY PO Last administered on 09/13/16 08:41; Admin Dose 12.5 MG; Start 09/08/16 at 09:00 Linagliptin (Tradjenta) 5 mg DAILY PO Last administered on 09/14/16 08:51; Admin Dose 5 MG; Start 09/08/16 at 09:00 Senna (Senokot) 1 tab HS PRN PO constipation; Start 09/08/16 at 21:00 Acetaminophen/ Hydrocodone Bitart ([place] (10/325)) 1 tab Q6H PRN PO pain Last administered on 09/14/16 13:59; Admin Dose 1 TAB; Start 09/10/16 at 16:00 Insulin Glargine (Lantus) 35 unit DAILY@20 SC ; Start 09/14/16 at 20:00 Trimethoprim/ Sulfamethoxazole (Bactrim (Ds)) 1 tab BID PO Last administered on 09/14/16 13:57; Admin Dose 1 TAB; Start 09/14/16 at 10:30; Stop 09/18/16 at 10: 29 Assessment/Plan Chief Complaint/Hosp Course Assessment 1. Recent congestive cardiac failure 2. Diabetes mellitus with hypoglycemia. 3. Essential hypertension 4. History of chronic pain 5. Probable obstructive sleep apnea 6. UTI gram negative rods. Plan. 1. Continue current recommendations 2. Continue physical therapy 3. continue norco and ativan as needed. 4. abx for uti 5. Decrease lantus and novolog. Problems: JERMAINE SAMPSON MD, FCCP September 14, 2016 15:48
[2016-09-14] MEDS ORDERED: INSULIN ASPART [NOVOLOG] 3 ML PEN SC SCH (17:35)
[2016-09-14 20:00] VITALS: BP 142/63; RESP 18
[2016-09-14] MEDS ORDERED: INSULIN GLARGINE [LANtus] 3 ML PEN SC SCH ×2 (20:00)
[2016-09-14] MEDS: ATORVASTATIN 40 MG TAB PO SCH (21:50)
[2016-09-15] MEDS: ACCU-CHEK XX SCH (02:00)
[2016-09-15] MEDS: PANTOPRAZOLE (EC) 40 MG TAB PO SCH (06:16)
[2016-09-15 07:30] VITALS: BP 124/57; RESP 18
[2016-09-15] MEDS: INSULIN ASPART [NOVOLOG] 3 ML PEN SC SCH ×7 (07:35→20:30)
[2016-09-15] MEDS: HYDROCODONE/APAP (10/325) TAB PO PRN ×3 (08:50→21:33)
[2016-09-15] MEDS: LOSARTAN 25 MG TAB PO SCH ×2 (08:51→09:00)
[2016-09-15] MEDS: GUAIFENESIN LA 600 MG TABSR PO SCH ×2 (08:51→20:30)
[2016-09-15] MEDS: MECLIZINE 12.5 MG TAB PO SCH ×3 (08:51→20:30)
[2016-09-15] MEDS: ASPIRIN (EC) 81 MG TAB PO SCH (08:51)
[2016-09-15] MEDS: FUROSEMIDE 20 MG TAB PO SCH (08:51)
[2016-09-15] MEDS: FAMOTIDINE 20 MG TAB PO SCH (08:51)
[2016-09-15] MEDS: TRIMETHOPRIM/SULFAMETHOX (DS) TAB PO SCH ×2 (08:51→20:30)
[2016-09-15] MEDS: DOCUSATE SODIUM 100 MG CAP PO SCH ×2 (08:52→20:29)
[2016-09-15] MEDS: AMLODIPINE 5 MG TAB PO SCH ×2 (08:52→09:00)
[2016-09-15] MEDS: HYDROCHLOROTHIAZIDE 12.5 MG CAP PO SCH (08:52)
[2016-09-15] MEDS: LINAGLIPTIN 5 MG TABLET PO SCH (08:52)
[2016-09-15] MEDS: SALMETEROL/FLUTICASONE 250/50 INHA INH SCH ×2 (08:53→20:29)
[2016-09-15] MEDS: ENOXAPARIN 40 MG/0.4 ML SYG SC SCH ×2 (08:55→09:00)
--- NOTE | 2016-09-15 09:31 | CONS ---
Date/Time of Note Date/Time of Note DATE: 09/15/16 TIME: 09:30 Consult Date/Type/Reason Admit Date/Time Sep 07, 2016 at 21:00 Type of Consultation: Internal medicine Subjective Reports dysuria improved Objective [id number] sba ambulation Vital Signs Date Time Temp Pulse Resp B/P Pulse Ox O2 Delivery O2 Flow Rate FiO2 09/15/16 07:30 91.1 64 18 124/57 94 09/14/16 20:00 Nasal Cannula 2.0 09/13/16 10:33 21 Intake and Output 09/14/16 09/14/16 09/15/16 15:00 23:00 07:00 Intake Total 1240 ml 620 ml 250 ml Output Total 1750 ml 250 ml 350 ml Balance -510 ml 370 ml -100 ml Exam ehab- Debility due to CHF; diabetic neuropathy; OA affecting multiple joints Continue unterdisciplinary rehab - bactrim for UTI HTN DM2 dyslipidemia . Obesity Acute kidney injury Results/Medications Result Diagram: 09/14/1615 09/14/16 0715 Results 24 hrs Laboratory Tests Test 09/14/16 12:00 09/14/16 17:12 09/14/16 21:55 09/15/16 03:01 Bedside Glucose 207 116 220 147 Test 09/15/16 08:14 Bedside Glucose 138 Medications Current Medications Metoclopramide HCl (Reglan) 10 mg Q6H PRN IV NAUSEA AND/OR VOMITING; Start at 22:20 Nitroglycerin (Nitroglycerin (Sl Tab) 0.4 Mg) 1 tab Q5M PRN SL CHEST PAIN; Start 09/07/16 at 22:20 Aspirin (Halfprin) 81 mg DAILY PO Last administered on 09/15/16 08:51; Admin Dose 81 MG; Start 09/07/16 at 22:20 Atorvastatin Calcium (Lipitor) 40 mg HS PO Last administered on 09/14/16 21:50 ; Admin Dose 40 MG; Start 09/07/16 at 22:20 Pantoprazole (Protonix Tab) 40 mg DAILY@06 PO Last administered on 09/15/16 06: 16; Admin Dose 40 MG; Start 09/07/16 at 22:20 Furosemide (Lasix) 20 mg DAILY PO Last administered on 09/15/16 08:51; Admin Dose 20 MG; Start 09/07/16 at 22:20 Enoxaparin Sodium (Lovenox) 40 mg DAILY SC Last administered on 09/08/16 08:46 ; Admin Dose 40 MG; Start 09/07/16 at 22:20 Miscellaneous Information 1 ea NOTE XX ; Start 09/07/16 at 22:20 Glucose (Glutose) 15 gm Q15M PRN PO DECREASED GLUCOSE; Start 09/07/16 at 22:20 Glucose (Glutose) 22.5 gm Q15M PRN PO DECREASED GLUCOSE; Start 09/07/16 at 22: 20 Dextrose (D50w Syringe) 25 ml Q15M PRN IV DECREASED GLUCOSE; Start 09/07/16 at 22:20 Dextrose (D50w Syringe) 50 ml Q15M PRN IV DECREASED GLUCOSE Last administered on 09/13/16 20:42; Admin Dose 50 ML; Start 09/07/16 at 22:20 Glucagon (Glucagen) 1 mg Q15M PRN IM DECREASED GLUCOSE; Start 09/07/16 at 22:20 Glucose (Glutose) 15 gm Q15M PRN BUCCAL DECREASED GLUCOSE; Start 09/07/16 at 22 :20 Hydralazine HCl (Apresoline) 10 mg Q6H PRN IV ELEVATED BLOOD PRESSURE; Start at 22:20 Meclizine HCl (Antivert) 12.5 mg TID PO Last administered on 09/15/16 08:51; Admin Dose 12.5 MG; Start 09/07/16 at 22:20 Salmeterol Xinafoate/ Fluticasone (Advair 250/50 Diskus) 1 inh BID INH ; Start 09/07/16 at 22:20 Famotidine (Pepcid) 20 mg DAILY PO Last administered on 09/15/16 08:51; Admin Dose 20 MG; Start 09/07/16 at 22:20 Guaifenesin (Mucinex) 600 mg BID PO Last administered on 09/15/16 08:51; Admin Dose 600 MG; Start 09/07/16 at 22:20 Amlodipine Besylate (Norvasc) 10 mg DAILY PO Last administered on 09/13/16 08: 39; Admin Dose 10 MG; Start 09/07/16 at 22:20 Oxycodone/ Acetaminophen (Percocet (5/ 325)) 1 tab Q4H PRN PO PAIN Last administered on 09/13/16 18:51; Admin Dose 1 TAB; Start 09/07/16 at 22:20 Diagnostic Test (Pha) (Accu-Chek) 1 ea 02 XX ; Start 09/07/16 at 22:20 Docusate Sodium (Colace) 100 mg BID PO Last administered on 09/15/16 08:52; Admin Dose 100 MG; Start 09/08/16 at 09:00 Acetaminophen (Tylenol Tab) 650 mg Q4H PRN PO PAIN Last administered on 20:17; Admin Dose 650 MG; Start 09/08/16 at 03:30 Bisacodyl (Dulcolax Supp) 10 mg DAILY PRN [place] CONSTIPATION; Start 09/08/16 at 03 :30 Magnesium Hydroxide (Milk Of Mag) 30 ml BID PRN PO CONSTIPATION; Start at 03:30 Lactulose (Enulose) 20 gm DAILY PRN PO CONSTIPATION; Start 09/08/16 at 03:30 Losartan Potassium (Cozaar) 25 mg DAILY PO Last administered on 09/14/16 08:49 ; Admin Dose 25 MG; Start 09/08/16 at 09:00 Hydrochlorothiazide (Hydrochlorothiazide) 12.5 mg DAILY PO Last administered on 09/15/16 08:52; Admin Dose 12.5 MG; Start 09/08/16 at 09:00 Linagliptin (Tradjenta) 5 mg DAILY PO Last administered on 09/15/16 08:52; Admin Dose 5 MG; Start 09/08/16 at 09:00 Senna (Senokot) 1 tab HS PRN PO constipation; Start 09/08/16 at 21:00 Acetaminophen/ Hydrocodone Bitart ([place] (10/325)) 1 tab Q6H PRN PO pain Last administered on 09/15/16 08:50; Admin Dose 1 TAB; Start 09/10/16 at 16:00 Trimethoprim/ Sulfamethoxazole (Bactrim (Ds)) 1 tab BID PO Last administered on 09/15/16 08:51; Admin Dose 1 TAB; Start 09/14/16 at 10:30; Stop 09/18/16 at 10: 29 DMITRY SHANNON MD September 15, 2016 09:31
--- NOTE | 2016-09-15 11:19 | CONS ---
Date/Time of Note Date/Time of Note DATE: 09/15/16 TIME: 11:17 Consult Date/Type/Reason Admit Date/Time Sep 07, 2016 at 21:00 Type of Consultation: Internal medicine Subjective No events overnight Sleeping this morning appears comfortable Objective Vital Signs Date Time Temp Pulse Resp B/P Pulse Ox O2 Delivery O2 Flow Rate FiO2 09/15/16 07:30 91.1 64 18 124/57 94 09/14/16 20:00 Nasal Cannula 2.0 09/13/16 10:33 21 Intake and Output 09/14/16 09/14/16 09/15/16 14:59 22:59 06:59 Intake Total 1240 ml 620 ml 250 ml Output Total 1750 ml 250 ml 350 ml Balance -510 ml 370 ml -100 ml Exam GENERAL: Elderly appearing lady comfortable at rest no acute distress VITAL SIGNS: per chart NECK: Supple. No JVD or lymphadenopathy. CARDIAC EXAM: S1, S2. No added sounds or murmurs. CHEST: clear bilaterally, No added sounds, rales or wheezes ABDOMEN: Soft, nontender. No guarding or rebound. EXTREMITIES: No cyanosis, clubbing or edema. NEUROLOGIC: Generalized weakness. No focal deficits. Results/Medications Result Diagram: 09/14/1615 09/14/16 0715 Results 24 hrs Laboratory Tests Test 09/14/16 12:00 09/14/16 17:12 09/14/16 21:55 09/15/16 03:01 Bedside Glucose 207 116 220 147 Test 09/15/16 08:14 Bedside Glucose 138 Medications Current Medications Metoclopramide HCl (Reglan) 10 mg Q6H PRN IV NAUSEA AND/OR VOMITING; Start at 22:20 Nitroglycerin (Nitroglycerin (Sl Tab) 0.4 Mg) 1 tab Q5M PRN SL CHEST PAIN; Start 09/07/16 at 22:20 Aspirin (Halfprin) 81 mg DAILY PO Last administered on 09/15/16 08:51; Admin Dose 81 MG; Start 09/07/16 at 22:20 Atorvastatin Calcium (Lipitor) 40 mg HS PO Last administered on 09/14/16 21:50 ; Admin Dose 40 MG; Start 09/07/16 at 22:20 Pantoprazole (Protonix Tab) 40 mg DAILY@06 PO Last administered on 09/15/16 06: 16; Admin Dose 40 MG; Start 09/07/16 at 22:20 Furosemide (Lasix) 20 mg DAILY PO Last administered on 09/15/16 08:51; Admin Dose 20 MG; Start 09/07/16 at 22:20 Enoxaparin Sodium (Lovenox) 40 mg DAILY SC Last administered on 09/08/16 08:46 ; Admin Dose 40 MG; Start 09/07/16 at 22:20 Miscellaneous Information 1 ea NOTE XX ; Start 09/07/16 at 22:20 Glucose (Glutose) 15 gm Q15M PRN PO DECREASED GLUCOSE; Start 09/07/16 at 22:20 Glucose (Glutose) 22.5 gm Q15M PRN PO DECREASED GLUCOSE; Start 09/07/16 at 22: 20 Dextrose (D50w Syringe) 25 ml Q15M PRN IV DECREASED GLUCOSE; Start 09/07/16 at 22:20 Dextrose (D50w Syringe) 50 ml Q15M PRN IV DECREASED GLUCOSE Last administered on 09/13/16 20:42; Admin Dose 50 ML; Start 09/07/16 at 22:20 Glucagon (Glucagen) 1 mg Q15M PRN IM DECREASED GLUCOSE; Start 09/07/16 at 22:20 Glucose (Glutose) 15 gm Q15M PRN BUCCAL DECREASED GLUCOSE; Start 09/07/16 at 22 :20 Hydralazine HCl (Apresoline) 10 mg Q6H PRN IV ELEVATED BLOOD PRESSURE; Start at 22:20 Meclizine HCl (Antivert) 12.5 mg TID PO Last administered on 09/15/16 08:51; Admin Dose 12.5 MG; Start 09/07/16 at 22:20 Salmeterol Xinafoate/ Fluticasone (Advair 250/50 Diskus) 1 inh BID INH ; Start 09/07/16 at 22:20 Famotidine (Pepcid) 20 mg DAILY PO Last administered on 09/15/16 08:51; Admin Dose 20 MG; Start 09/07/16 at 22:20 Guaifenesin (Mucinex) 600 mg BID PO Last administered on 09/15/16 08:51; Admin Dose 600 MG; Start 09/07/16 at 22:20 Amlodipine Besylate (Norvasc) 10 mg DAILY PO Last administered on 09/13/16 08: 39; Admin Dose 10 MG; Start 09/07/16 at 22:20 Oxycodone/ Acetaminophen (Percocet (5/ 325)) 1 tab Q4H PRN PO PAIN Last administered on 09/13/16 18:51; Admin Dose 1 TAB; Start 09/07/16 at 22:20 Diagnostic Test (Pha) (Accu-Chek) 1 ea 02 XX ; Start 09/07/16 at 22:20 Docusate Sodium (Colace) 100 mg BID PO Last administered on 09/15/16 08:52; Admin Dose 100 MG; Start 09/08/16 at 09:00 Acetaminophen (Tylenol Tab) 650 mg Q4H PRN PO PAIN Last administered on 20:17; Admin Dose 650 MG; Start 09/08/16 at 03:30 Bisacodyl (Dulcolax Supp) 10 mg DAILY PRN [place] CONSTIPATION; Start 09/08/16 at 03 :30 Magnesium Hydroxide (Milk Of Mag) 30 ml BID PRN PO CONSTIPATION; Start at 03:30 Lactulose (Enulose) 20 gm DAILY PRN PO CONSTIPATION; Start 09/08/16 at 03:30 Losartan Potassium (Cozaar) 25 mg DAILY PO Last administered on 09/14/16 08:49 ; Admin Dose 25 MG; Start 09/08/16 at 09:00 Hydrochlorothiazide (Hydrochlorothiazide) 12.5 mg DAILY PO Last administered on 09/15/16 08:52; Admin Dose 12.5 MG; Start 09/08/16 at 09:00 Linagliptin (Tradjenta) 5 mg DAILY PO Last administered on 09/15/16 08:52; Admin Dose 5 MG; Start 09/08/16 at 09:00 Senna (Senokot) 1 tab HS PRN PO constipation; Start 09/08/16 at 21:00 Acetaminophen/ Hydrocodone Bitart ([place] (10/325)) 1 tab Q6H PRN PO pain Last administered on 09/15/16 08:50; Admin Dose 1 TAB; Start 09/10/16 at 16:00 Trimethoprim/ Sulfamethoxazole (Bactrim (Ds)) 1 tab BID PO Last administered on 09/15/16 08:51; Admin Dose 1 TAB; Start 09/14/16 at 10:30; Stop 09/18/16 at 10: 29 Assessment/Plan Chief Complaint/Hosp Course Assessment 1. Recent congestive cardiac failure 2. Diabetes mellitus with hypoglycemia. 3. Essential hypertension 4. History of chronic pain 5. Probable obstructive sleep apnea 6. UTI gram negative Klebsiella sensitive to Bactrim Plan. 1. Continue current recommendations 2. Continue physical therapy 3. continue norco and ativan as needed. 4. abx for uti 5. Decrease lantus and novolog. Monitor blood glucose Problems: JERMAINE SAMPSON MD, [facility] September 15, 2016 11:19
[2016-09-15 19:34] VITALS: BP 143/65; RESP 18
[2016-09-15] MEDS: ATORVASTATIN 40 MG TAB PO SCH (20:30)
[2016-09-16] MEDS: ACCU-CHEK XX SCH (02:00)
[2016-09-16] MEDS: PANTOPRAZOLE (EC) 40 MG TAB PO SCH (07:02)
[2016-09-16 07:30] VITALS: BP 168/72; RESP 18
[2016-09-16] MEDS: SALMETEROL/FLUTICASONE 250/50 INHA INH SCH ×2 (08:21→20:53)
[2016-09-16] MEDS: ENOXAPARIN 40 MG/0.4 ML SYG SC SCH (08:22)
[2016-09-16] MEDS: INSULIN ASPART [NOVOLOG] 3 ML PEN SC SCH ×8 (08:23→21:00)
[2016-09-16] MEDS: LINAGLIPTIN 5 MG TABLET PO SCH (08:24)
[2016-09-16] MEDS: ASPIRIN (EC) 81 MG TAB PO SCH (08:25)
[2016-09-16] MEDS: GUAIFENESIN LA 600 MG TABSR PO SCH ×2 (08:25→20:48)
[2016-09-16] MEDS: FAMOTIDINE 20 MG TAB PO SCH (08:25)
[2016-09-16] MEDS: AMLODIPINE 5 MG TAB PO SCH (08:25)
[2016-09-16] MEDS: TRIMETHOPRIM/SULFAMETHOX (DS) TAB PO SCH ×2 (08:25→20:48)
[2016-09-16] MEDS: FUROSEMIDE 20 MG TAB PO SCH (08:25)
[2016-09-16] MEDS: HYDROCODONE/APAP (10/325) TAB PO PRN ×2 (08:29→23:32)
[2016-09-16] MEDS: DOCUSATE SODIUM 100 MG CAP PO SCH ×2 (08:29→20:53)
[2016-09-16] MEDS: HYDROCHLOROTHIAZIDE 12.5 MG CAP PO SCH (08:29)
[2016-09-16] MEDS: LOSARTAN 25 MG TAB PO SCH (08:29)
[2016-09-16] MEDS: MECLIZINE 12.5 MG TAB PO SCH ×3 (09:00→20:47)
--- NOTE | 2016-09-16 14:20 | CONS ---
Date/Time of Note Date/Time of Note DATE: 09/16/16 TIME: 14:19 Consult Date/Type/Reason Admit Date/Time Sep 07, 2016 at 21:00 Type of Consultation: Internal medicine Subjective Patient comfortable this morning Concerned about her pain medications when she goes home Objective Vital Signs Date Time Temp Pulse Resp B/P Pulse Ox O2 Delivery O2 Flow Rate FiO2 09/16/16 08:00 Nasal Cannula 2.0 09/16/16 07:30 98.2 68 18 168/72 94 09/13/16 10:33 21 Intake and Output 09/15/16 09/15/16 09/16/16 15:00 23:00 07:00 Intake Total 200 ml 1750 ml 320 ml Output Total 1250 ml 1200 ml 400 ml Balance -1050 ml 550 ml -80 ml Exam GENERAL: Elderly appearing lady comfortable at rest no acute distress VITAL SIGNS: per chart NECK: Supple. No JVD or lymphadenopathy. CARDIAC EXAM: S1, S2. No added sounds or murmurs. CHEST: clear bilaterally, No added sounds, rales or wheezes ABDOMEN: Soft, nontender. No guarding or rebound. EXTREMITIES: No cyanosis, clubbing or edema. NEUROLOGIC: Generalized weakness. No focal deficits. Results/Medications Result Diagram: 09/14/1671409/14/16714 Results 24 hrs Laboratory Tests Test 09/15/16 17:44 09/15/16 20:26 09/16/16 07:56 09/16/16 12:07 Bedside Glucose 91 125 158 115 Medications Current Medications Metoclopramide HCl (Reglan) 10 mg Q6H PRN IV NAUSEA AND/OR VOMITING; Start at 22:20 Nitroglycerin (Nitroglycerin (Sl Tab) 0.4 Mg) 1 tab Q5M PRN SL CHEST PAIN; Start 09/07/16 at 22:20 Aspirin (Halfprin) 81 mg DAILY PO Last administered on 09/16/16 08:25; Admin Dose 81 MG; Start 09/07/16 at 22:20 Atorvastatin Calcium (Lipitor) 40 mg HS PO Last administered on 09/15/16 20:30 ; Admin Dose 40 MG; Start 09/07/16 at 22:20 Pantoprazole (Protonix Tab) 40 mg DAILY@06 PO Last administered on 09/16/16 07: 02; Admin Dose 40 MG; Start 09/07/16 at 22:20 Furosemide (Lasix) 20 mg DAILY PO Last administered on 09/16/16 08:25; Admin Dose 20 MG; Start 09/07/16 at 22:20 Enoxaparin Sodium (Lovenox) 40 mg DAILY SC Last administered on 09/08/16 08:46 ; Admin Dose 40 MG; Start 09/07/16 at 22:20 Miscellaneous Information 1 ea NOTE XX ; Start 09/07/16 at 22:20 Glucose (Glutose) 15 gm Q15M PRN PO DECREASED GLUCOSE; Start 09/07/16 at 22:20 Glucose (Glutose) 22.5 gm Q15M PRN PO DECREASED GLUCOSE; Start 09/07/16 at 22: 20 Dextrose (D50w Syringe) 25 ml Q15M PRN IV DECREASED GLUCOSE; Start 09/07/16 at 22:20 Dextrose (D50w Syringe) 50 ml Q15M PRN IV DECREASED GLUCOSE Last administered on 09/13/16 20:42; Admin Dose 50 ML; Start 09/07/16 at 22:20 Glucagon (Glucagen) 1 mg Q15M PRN IM DECREASED GLUCOSE; Start 09/07/16 at 22:20 Glucose (Glutose) 15 gm Q15M PRN BUCCAL DECREASED GLUCOSE; Start 09/07/16 at 22 :20 Hydralazine HCl (Apresoline) 10 mg Q6H PRN IV ELEVATED BLOOD PRESSURE; Start at 22:20 Meclizine HCl (Antivert) 12.5 mg TID PO Last administered on 09/16/16 12:43; Admin Dose 12.5 MG; Start 09/07/16 at 22:20 Salmeterol Xinafoate/ Fluticasone (Advair 250/50 Diskus) 1 inh BID INH Last administered on 09/15/16 20:29; Admin Dose 1 INH; Start 09/07/16 at 22:20 Famotidine (Pepcid) 20 mg DAILY PO Last administered on 09/16/16 08:25; Admin Dose 20 MG; Start 09/07/16 at 22:20 Guaifenesin (Mucinex) 600 mg BID PO Last administered on 09/16/16 08:25; Admin Dose 600 MG; Start 09/07/16 at 22:20 Amlodipine Besylate (Norvasc) 10 mg DAILY PO Last administered on 09/16/16 08: 25; Admin Dose 10 MG; Start 09/07/16 at 22:20 Oxycodone/ Acetaminophen (Percocet (5/ 325)) 1 tab Q4H PRN PO PAIN Last administered on 09/13/16 18:51; Admin Dose 1 TAB; Start 09/07/16 at 22:20 Diagnostic Test (Pha) (Accu-Chek) 1 ea 02 XX Last administered on 09/16/16 02: 00; Admin Dose 1 EA; Start 09/07/16 at 22:20 Docusate Sodium (Colace) 100 mg BID PO Last administered on 09/15/16 20:29; Admin Dose 100 MG; Start 09/08/16 at 09:00 Acetaminophen (Tylenol Tab) 650 mg Q4H PRN PO PAIN Last administered on 20:17; Admin Dose 650 MG; Start 09/08/16 at 03:30 Bisacodyl (Dulcolax Supp) 10 mg DAILY PRN [place] CONSTIPATION; Start 09/08/16 at 03 :30 Magnesium Hydroxide (Milk Of Mag) 30 ml BID PRN PO CONSTIPATION; Start at 03:30 Lactulose (Enulose) 20 gm DAILY PRN PO CONSTIPATION; Start 09/08/16 at 03:30 Losartan Potassium (Cozaar) 25 mg DAILY PO Last administered on 09/16/16 08:29 ; Admin Dose 25 MG; Start 09/08/16 at 09:00 Hydrochlorothiazide (Hydrochlorothiazide) 12.5 mg DAILY PO Last administered on 09/16/16 08:29; Admin Dose 12.5 MG; Start 09/08/16 at 09:00 Linagliptin (Tradjenta) 5 mg DAILY PO Last administered on 09/16/16 08:24; Admin Dose 5 MG; Start 09/08/16 at 09:00 Senna (Senokot) 1 tab HS PRN PO constipation; Start 09/08/16 at 21:00 Acetaminophen/ Hydrocodone Bitart ([place] (10/325)) 1 tab Q6H PRN PO pain Last administered on 09/16/16 08:29; Admin Dose 1 TAB; Start 09/10/16 at 16:00 Trimethoprim/ Sulfamethoxazole (Bactrim (Ds)) 1 tab BID PO Last administered on 09/16/16t 08:25; Admin Dose 1 TAB; Start 09/14/16 at 10:30; Stop 09/18/16 at 10: 29 Assessment/Plan Chief Complaint/Hosp Course Assessment 1. Recent congestive cardiac failure 2. Diabetes mellitus with hypoglycemia. 3. Essential hypertension 4. History of chronic pain 5. Probable obstructive sleep apnea 6. UTI gram negative Klebsiella sensitive to Bactrim Plan. 1. Continue current recommendations 2. Continue physical therapy 3. continue norco and ativan as needed. 4. abx for uti 5. Will adjust her medications, add Lantus 6 units daily and NovoLog 6 units with meals Problems: JERMAINE SAMPSON MD, FCCP September 16, 2016 14:20
[2016-09-16] MEDS: ATORVASTATIN 40 MG TAB PO SCH (20:48)
[2016-09-16] MEDS: INSULIN GLARGINE [LANtus] 3 ML PEN SC SCH (20:49)
[2016-09-16 21:53] VITALS: BP 137/65; RESP 18
[2016-09-17] MEDS: ACCU-CHEK XX SCH (03:20)
[2016-09-17] MEDS: PANTOPRAZOLE (EC) 40 MG TAB PO SCH (05:25)
[2016-09-17 07:30] VITALS: BP 133/63; RESP 18
[2016-09-17] MEDS: INSULIN ASPART [NOVOLOG] 3 ML PEN SC SCH ×7 (07:35→20:51)
[2016-09-17] MEDS: FUROSEMIDE 20 MG TAB PO SCH (08:17)
[2016-09-17] MEDS: TRIMETHOPRIM/SULFAMETHOX (DS) TAB PO SCH ×2 (08:17→20:46)
[2016-09-17] MEDS: FAMOTIDINE 20 MG TAB PO SCH (08:17)
[2016-09-17] MEDS: ASPIRIN (EC) 81 MG TAB PO SCH (08:17)
[2016-09-17] MEDS: LOSARTAN 25 MG TAB PO SCH ×3 (08:18→09:00)
[2016-09-17] MEDS: LINAGLIPTIN 5 MG TABLET PO SCH (08:18)
[2016-09-17] MEDS: MECLIZINE 12.5 MG TAB PO SCH ×3 (08:25→20:46)
[2016-09-17] MEDS: OXYCODONE/ACETAMINOPHEN (5/325) TAB PO PRN (08:25)
[2016-09-17] MEDS: AMLODIPINE 5 MG TAB PO SCH (08:25)
[2016-09-17] MEDS: ENOXAPARIN 40 MG/0.4 ML SYG SC SCH (09:00)
[2016-09-17] MEDS: HYDROCHLOROTHIAZIDE 12.5 MG CAP PO SCH (09:00)
[2016-09-17] MEDS: GUAIFENESIN LA 600 MG TABSR PO SCH ×2 (09:00→20:46)
[2016-09-17] MEDS: DOCUSATE SODIUM 100 MG CAP PO SCH ×2 (09:00→20:50)
[2016-09-17] MEDS: SALMETEROL/FLUTICASONE 250/50 INHA INH SCH ×2 (09:00→20:50)
--- NOTE | 2016-09-17 11:45 | CONS ---
Date/Time of Note Date/Time of Note DATE: 09/17/16 TIME: 11:44 Consult Date/Type/Reason Admit Date/Time Sep 07, 2016 at 21:00 Type of Consultation: Internal medicine Subjective Patient remains stable this morning no new events discharge planning in place Blood sugar testing remains within normal limits following recent change in insulin dosing Objective Vital Signs Date Time Temp Pulse Resp B/P Pulse Ox O2 Delivery O2 Flow Rate FiO2 09/17/16 07:30 98.0 55 18 133/63 94 09/17/16 05:20 2.0 09/16/16 20:00 Nasal Cannula 09/13/16 10:33 21 Intake and Output 09/16/16 09/16/16 09/17/16 15:00 23:00 07:00 Intake Total 860 ml 360 ml Balance 860 ml 360 ml Results/Medications Result Diagram: 09/14/1615 09/14/1615 Results 24 hrs Laboratory Tests Test 09/16/16 12:07 09/16/16 17:26 09/16/16 20:43 09/17/16 07:49 Bedside Glucose 115 149 107 125 Medications Current Medications Metoclopramide HCl (Reglan) 10 mg Q6H PRN IV NAUSEA AND/OR VOMITING; Start at 22:20 Nitroglycerin (Nitroglycerin (Sl Tab) 0.4 Mg) 1 tab Q5M PRN SL CHEST PAIN; Start 09/07/16 at 22:20 Aspirin (Halfprin) 81 mg DAILY PO Last administered on 09/17/16 08:17; Admin Dose 81 MG; Start 09/07/16 at 22:20 Atorvastatin Calcium (Lipitor) 40 mg HS PO Last administered on 09/16/16 20:48 ; Admin Dose 40 MG; Start 09/07/16 at 22:20 Pantoprazole (Protonix Tab) 40 mg DAILY@06 PO Last administered on 09/17/16 05: 25; Admin Dose 40 MG; Start 09/07/16 at 22:20 Furosemide (Lasix) 20 mg DAILY PO Last administered on 09/17/16 08:17; Admin Dose 20 MG; Start 09/07/16 at 22:20 Enoxaparin Sodium (Lovenox) 40 mg DAILY SC Last administered on 09/08/16 08:46 ; Admin Dose 40 MG; Start 09/07/16 at 22:20 Miscellaneous Information 1 ea NOTE XX ; Start 09/07/16 at 22:20 Glucose (Glutose) 15 gm Q15M PRN PO DECREASED GLUCOSE; Start 09/07/16 at 22:20 Glucose (Glutose) 22.5 gm Q15M PRN PO DECREASED GLUCOSE; Start 09/07/16 at 22: 20 Dextrose (D50w Syringe) 25 ml Q15M PRN IV DECREASED GLUCOSE; Start 09/07/16 at 22:20 Dextrose (D50w Syringe) 50 ml Q15M PRN IV DECREASED GLUCOSE Last administered on 09/13/16 20:42; Admin Dose 50 ML; Start 09/07/16 at 22:20 Glucagon (Glucagen) 1 mg Q15M PRN IM DECREASED GLUCOSE; Start 09/07/16 at 22:20 Glucose (Glutose) 15 gm Q15M PRN BUCCAL DECREASED GLUCOSE; Start 09/07/16 at 22 :20 Hydralazine HCl (Apresoline) 10 mg Q6H PRN IV ELEVATED BLOOD PRESSURE; Start at 22:20 Meclizine HCl (Antivert) 12.5 mg TID PO Last administered on 09/17/16 08:25; Admin Dose 12.5 MG; Start 09/07/16 at 22:20 Salmeterol Xinafoate/ Fluticasone (Advair 250/50 Diskus) 1 inh BID INH Last administered on 09/15/16 20:29; Admin Dose 1 INH; Start 09/07/16 at 22:20 Famotidine (Pepcid) 20 mg DAILY PO Last administered on 09/17/16 08:17; Admin Dose 20 MG; Start 09/07/16 at 22:20 Guaifenesin (Mucinex) 600 mg BID PO Last administered on 09/16/16 20:48; Admin Dose 600 MG; Start 09/07/16 at 22:20 Amlodipine Besylate (Norvasc) 10 mg DAILY PO Last administered on 09/17/16 08: 25; Admin Dose 10 MG; Start 09/07/16 at 22:20 Oxycodone/ Acetaminophen (Percocet (5/ 325)) 1 tab Q4H PRN PO PAIN Last administered on 09/17/16 08:25; Admin Dose 1 TAB; Start 09/07/16 at 22:20 Diagnostic Test (Pha) (Accu-Chek) 1 ea 02 XX Last administered on 09/16/16 02: 00; Admin Dose 1 EA; Start 09/07/16 at 22:20 Docusate Sodium (Colace) 100 mg BID PO Last administered on 09/15/16 20:29; Admin Dose 100 MG; Start 09/08/16 at 09:00 Acetaminophen (Tylenol Tab) 650 mg Q4H PRN PO PAIN Last administered on 20:17; Admin Dose 650 MG; Start 09/08/16 at 03:30 Bisacodyl (Dulcolax Supp) 10 mg DAILY PRN [place]STIPATION; Start 09/08/16 at 03 :30 Magnesium Hydroxide (Milk Of Mag) 30 ml BID PRN PO CONSTIPATION; Start at 03:30 Lactulose (Enulose) 20 gm DAILY PRN PO CONSTIPATION; Start 09/08/16 at 03:30 Losartan Potassium (Cozaar) 25 mg DAILY PO Last administered on 09/17/16 08:24 ; Admin Dose 25 MG; Start 09/08/16 at 09:00 Hydrochlorothiazide (Hydrochlorothiazide) 12.5 mg DAILY PO Last administered on 09/16/16 08:29; Admin Dose 12.5 MG; Start 09/08/16 at 09:00 Linagliptin (Tradjenta) 5 mg DAILY PO Last administered on 09/17/16 08:18; Admin Dose 5 MG; Start 09/08/16 at 09:00 Senna (Senokot) 1 tab HS PRN PO constipation; Start 09/08/16 at 21:00 Acetaminophen/ Hydrocodone Bitart ([place] (10/325)) 1 tab Q6H PRN PO pain Last administered on 09/16/16 23:32; Admin Dose 1 TAB; Start 09/10/16 at 16:00 Trimethoprim/ Sulfamethoxazole (Bactrim (Ds)) 1 tab BID PO Last administered on 09/17/16 08:17; Admin Dose 1 TAB; Start 09/14/16 at 10:30; Stop 09/18/16 at 10: 29 Insulin Glargine (Lantus) 6 unit DAILY@20 SC Last administered on 5/7/17at 20: 49; Admin Dose 6 UNIT; Start 09/16/16 at 20:00 Assessment/Plan Chief Complaint/Hosp Course Assessment 1. Recent congestive cardiac failure 2. Diabetes mellitus with hypoglycemia. 3. Essential hypertension 4. History of chronic pain 5. Probable obstructive sleep apnea 6. UTI gram negative Klebsiella sensitive to Bactrim Plan. 1. Continue current recommendations 2. Continue physical therapy 3. continue norco and ativan as needed. 4. abx for uti consider stopping antibiotics next 2-3 days 5. Continue Lantus 6 units daily and NovoLog 6 units with meals Problems: JERMAINE SAMPSON MD, [facility] September 17, 2016 11:45
[2016-09-17] MEDS: HYDROCODONE/APAP (10/325) TAB PO PRN ×2 (12:51→23:17)
--- NOTE | 2016-09-17 13:20 | CONS ---
Date/Time of Note Date/Time of Note DATE: 09/17/16 TIME: 13:18 Consult Date/Type/Reason Admit Date/Time Sep 07, 2016 at 21:00 Type of Consultation: Internal medicine Objective Vital Signs Date Time Temp Pulse Resp B/P Pulse Ox O2 Delivery O2 Flow Rate FiO2 09/17/16 07:30 98.0 55 18 133/63 94 09/17/16 05:20 2.0 09/16/16 20:00 Nasal Cannula 09/13/16 10:33 21 Intake and Output 09/16/16 09/16/16 09/17/16 15:00 23:00 07:00 Intake Total 860 ml 360 ml Balance 860 ml 360 ml INTERDISCIPLINARY TEAM CONFERENCE BOWEL- Cont BLADDER-Cont SKIN- intact OT- DRESSING-s BATHING-s TOILETING-s PT- BED MOBILITY-s TRANSFERS-s AMBULATION-s 150 feet A/P- Interdisciplinary team conference held today. Please see interdisciplinary sheet. Working toward d.c. on 09/18 with post discharge follow up of physical therapy, occupational therapy. Results/Medications Result Diagram: 09/14/1615 09/14/1615 Results 24 hrs Laboratory Tests Test 09/16/16 17:26 09/16/16 20:43 09/17/16 07:49 09/17/16 12:38 Bedside Glucose 149 107 125 185 Medications Current Medications Metoclopramide HCl (Reglan) 10 mg Q6H PRN IV NAUSEA AND/OR VOMITING; Start at 22:20 Nitroglycerin (Nitroglycerin (Sl Tab) 0.4 Mg) 1 tab Q5M PRN SL CHEST PAIN; Start 09/07/16 at 22:20 Aspirin (Halfprin) 81 mg DAILY PO Last administered on 09/17/16 08:17; Admin Dose 81 MG; Start 09/07/16 at 22:20 Atorvastatin Calcium (Lipitor) 40 mg HS PO Last administered on 09/16/16 20:48 ; Admin Dose 40 MG; Start 09/07/16 at 22:20 Pantoprazole (Protonix Tab) 40 mg DAILY@06 PO Last administered on 09/17/16 05: 25; Admin Dose 40 MG; Start 09/07/16 at 22:20 Furosemide (Lasix) 20 mg DAILY PO Last administered on 09/17/16 08:17; Admin Dose 20 MG; Start 09/07/16 at 22:20 Enoxaparin Sodium (Lovenox) 40 mg DAILY SC Last administered on 09/08/16 08:46 ; Admin Dose 40 MG; Start 09/07/16 at 22:20 Miscellaneous Information 1 ea NOTE XX ; Start 09/07/16 at 22:20 Glucose (Glutose) 15 gm Q15M PRN PO DECREASED GLUCOSE; Start 09/07/16 at 22:20 Glucose (Glutose) 22.5 gm Q15M PRN PO DECREASED GLUCOSE; Start 09/07/16 at 22: 20 Dextrose (D50w Syringe) 25 ml Q15M PRN IV DECREASED GLUCOSE; Start 09/07/16 at 22:20 Dextrose (D50w Syringe) 50 ml Q15M PRN IV DECREASED GLUCOSE Last administered on 09/13/16 20:42; Admin Dose 50 ML; Start 09/07/16 at 22:20 Glucagon (Glucagen) 1 mg Q15M PRN IM DECREASED GLUCOSE; Start 09/07/16 at 22:20 Glucose (Glutose) 15 gm Q15M PRN BUCCAL DECREASED GLUCOSE; Start 09/07/16 at 22 :20 Hydralazine HCl (Apresoline) 10 mg Q6H PRN IV ELEVATED BLOOD PRESSURE; Start at 22:20 Meclizine HCl (Antivert) 12.5 mg TID PO Last administered on 09/17/16 08:25; Admin Dose 12.5 MG; Start 09/07/16 at 22:20 Salmeterol Xinafoate/ Fluticasone (Advair 250/50 Diskus) 1 inh BID INH Last administered on 09/15/16 20:29; Admin Dose 1 INH; Start 09/07/16 at 22:20 Famotidine (Pepcid) 20 mg DAILY PO Last administered on 09/17/16 08:17; Admin Dose 20 MG; Start 09/07/16 at 22:20 Guaifenesin (Mucinex) 600 mg BID PO Last administered on 09/16/16 20:48; Admin Dose 600 MG; Start 09/07/16 at 22:20 Amlodipine Besylate (Norvasc) 10 mg DAILY PO Last administered on 09/17/16 08: 25; Admin Dose 10 MG; Start 09/07/16 at 22:20 Oxycodone/ Acetaminophen (Percocet (5/ 325)) 1 tab Q4H PRN PO PAIN Last administered on 09/17/16 08:25; Admin Dose 1 TAB; Start 09/07/16 at 22:20 Diagnostic Test (Pha) (Accu-Chek) 1 ea 02 XX Last administered on 09/16/16 02: 00; Admin Dose 1 EA; Start 09/07/16 at 22:20 Docusate Sodium (Colace) 100 mg BID PO Last administered on 09/15/16 20:29; Admin Dose 100 MG; Start 09/08/16 at 09:00 Acetaminophen (Tylenol Tab) 650 mg Q4H PRN PO PAIN Last administered on 20:17; Admin Dose 650 MG; Start 09/08/16 at 03:30 Bisacodyl (Dulcolax Supp) 10 mg DAILY PRN [place] CONSTIPATION; Start 09/08/16 at 03 :30 Magnesium Hydroxide (Milk Of Mag) 30 ml BID PRN PO CONSTIPATION; Start at 03:30 Lactulose (Enulose) 20 gm DAILY PRN PO CONSTIPATION; Start 09/08/16 at 03:30 Losartan Potassium (Cozaar) 25 mg DAILY PO Last administered on 09/17/16 08:24 ; Admin Dose 25 MG; Start 09/08/16 at 09:00 Hydrochlorothiazide (Hydrochlorothiazide) 12.5 mg DAILY PO Last administered on 09/16/16 08:29; Admin Dose 12.5 MG; Start 09/08/16 at 09:00 Linagliptin (Tradjenta) 5 mg DAILY PO Last administered on 09/17/16 08:18; Admin Dose 5 MG; Start 09/08/16 at 09:00 Senna (Senokot) 1 tab HS PRN PO constipation; Start 09/08/16 at 21:00 Acetaminophen/ Hydrocodone Bitart ([place] (10/325)) 1 tab Q6H PRN PO pain Last administered on 09/17/16 12:51; Admin Dose 1 TAB; Start 09/10/16 at 16:00 Trimethoprim/ Sulfamethoxazole (Bactrim (Ds)) 1 tab BID PO Last administered on 09/17/16 08:17; Admin Dose 1 TAB; Start 09/14/16 at 10:30; Stop 09/18/16 at 10: 29 Insulin Glargine (Lantus) 6 unit DAILY@20 SC Last administered on 09/16/16t 20: 49; Admin Dose 6 UNIT; Start 09/16/16 at 20:00 DMITRY SHANNON MD September 17, 2016 13:20
[2016-09-17 19:43] VITALS: BP 118/54; RESP 14
[2016-09-17] MEDS: ATORVASTATIN 40 MG TAB PO SCH (20:46)
[2016-09-17] MEDS: INSULIN GLARGINE [LANtus] 3 ML PEN SC SCH (20:50)
[2016-09-18] MEDS: ACCU-CHEK XX SCH (02:00)
[2016-09-18] MEDS: PANTOPRAZOLE (EC) 40 MG TAB PO SCH (06:16)
[2016-09-18] MEDS: INSULIN ASPART [NOVOLOG] 3 ML PEN SC SCH ×4 (07:35→12:14)
[2016-09-18 08:06] LABS: CREATININE 1.51 mg/dl (0.44-1.00)
[2016-09-18] MEDS: ENOXAPARIN 40 MG/0.4 ML SYG SC SCH (08:29)
[2016-09-18] MEDS: FAMOTIDINE 20 MG TAB PO SCH (08:31)
[2016-09-18] MEDS: MECLIZINE 12.5 MG TAB PO SCH ×2 (08:31→12:14)
[2016-09-18] MEDS: ASPIRIN (EC) 81 MG TAB PO SCH (08:31)
[2016-09-18] MEDS: LOSARTAN 25 MG TAB PO SCH (08:31)
[2016-09-18] MEDS: TRIMETHOPRIM/SULFAMETHOX (DS) TAB PO SCH (08:31)
[2016-09-18] MEDS: LINAGLIPTIN 5 MG TABLET PO SCH (08:31)
[2016-09-18] MEDS: HYDROCHLOROTHIAZIDE 12.5 MG CAP PO SCH (08:32)
[2016-09-18] MEDS: HYDROCODONE/APAP (10/325) TAB PO PRN ×2 (08:32→15:17)
[2016-09-18] MEDS: GUAIFENESIN LA 600 MG TABSR PO SCH (08:32)
[2016-09-18] MEDS: DOCUSATE SODIUM 100 MG CAP PO SCH (08:33)
[2016-09-18] MEDS: FUROSEMIDE 20 MG TAB PO SCH (08:33)
[2016-09-18] MEDS: SALMETEROL/FLUTICASONE 250/50 INHA INH SCH (09:00)
[2016-09-18] MEDS: AMLODIPINE 5 MG TAB PO SCH (09:00)
--- NOTE | 2016-09-18 12:03 | CONS ---
Date/Time of Note Date/Time of Note DATE: 09/18/16 TIME: 12:02 Consult Date/Type/Reason Admit Date/Time Sep 07, 2016 at 21:00 Type of Consultation: Internal medicine Subjective Patient comfortable this morning, blood sugars remained controlled Objective Vital Signs Date Time Temp Pulse Resp B/P Pulse Ox O2 Delivery O2 Flow Rate FiO2 09/18/16 04:43 2.0 09/17/16 20:00 Nasal Cannula 09/17/16 19:43 98.0 54 14 118/54 93 Intake and Output 09/17/16 09/17/16 09/18/16 15:00 23:00 07:00 Intake Total 460 ml 990 ml Balance 460 ml 990 ml Exam GENERAL: Elderly appearing lady comfortable at rest no acute distress VITAL SIGNS: per chart NECK: Supple. No JVD or lymphadenopathy. CARDIAC EXAM: S1, S2. No added sounds or murmurs. CHEST: clear bilaterally, No added sounds, rales or wheezes ABDOMEN: Soft, nontender. No guarding or rebound. EXTREMITIES: No cyanosis, clubbing or edema. NEUROLOGIC: Generalized weakness. No focal deficits. Results/Medications Result Diagram: 09/14/16 0715 09/18/16 0643 Results 24 hrs Laboratory Tests Test 09/17/16 12:38 09/17/16 17:41 09/17/16 20:07 09/18/16 06:43 Bedside Glucose 185 90 108 Blood Urea Nitrogen 44 H Creatinine 1.51 H Test 09/18/16 07:53 09/18/16 11:52 Bedside Glucose 114 136 Medications Current Medications Metoclopramide HCl (Reglan) 10 mg Q6H PRN IV NAUSEA AND/OR VOMITING; Start at 22:20 Nitroglycerin (Nitroglycerin (Sl Tab) 0.4 Mg) 1 tab Q5M PRN SL CHEST PAIN; Start 09/07/16 at 22:20 Aspirin (Halfprin) 81 mg DAILY PO Last administered on 09/18/16 08:31; Admin Dose 81 MG; Start 09/07/16 at 22:20 Atorvastatin Calcium (Lipitor) 40 mg HS PO Last administered on 09/17/16 20:46 ; Admin Dose 40 MG; Start 09/07/16 at 22:20 Pantoprazole (Protonix Tab) 40 mg DAILY@06 PO Last administered on 09/18/16 06: 16; Admin Dose 40 MG; Start 09/07/16 at 22:20 Furosemide (Lasix) 20 mg DAILY PO Last administered on 09/18/16 08:33; Admin Dose 20 MG; Start 09/07/16 at 22:20 Enoxaparin Sodium (Lovenox) 40 mg DAILY SC Last administered on 09/18/16 08:29 ; Admin Dose 40 MG; Start 09/07/16 at 22:20 Miscellaneous Information 1 ea NOTE XX ; Start 09/07/16 at 22:20 Glucose (Glutose) 15 gm Q15M PRN PO DECREASED GLUCOSE; Start 09/07/16 at 22:20 Glucose (Glutose) 22.5 gm Q15M PRN PO DECREASED GLUCOSE; Start 09/07/16 at 22: 20 Dextrose (D50w Syringe) 25 ml Q15M PRN IV DECREASED GLUCOSE; Start 09/07/16 at 22:20 Dextrose (D50w Syringe) 50 ml Q15M PRN IV DECREASED GLUCOSE Last administered on 09/13/16 20:42; Admin Dose 50 ML; Start 09/07/16 at 22:20 Glucagon (Glucagen) 1 mg Q15M PRN IM DECREASED GLUCOSE; Start 09/07/16 at 22:20 Glucose (Glutose) 15 gm Q15M PRN BUCCAL DECREASED GLUCOSE; Start 09/07/16 at 22 :20 Hydralazine HCl (Apresoline) 10 mg Q6H PRN IV ELEVATED BLOOD PRESSURE; Start at 22:20 Meclizine HCl (Antivert) 12.5 mg TID PO Last administered on 09/18/16 08:31; Admin Dose 12.5 MG; Start 09/07/16 at 22:20 Salmeterol Xinafoate/ Fluticasone (Advair 250/50 Diskus) 1 inh BID INH Last administered on 09/15/16 20:29; Admin Dose 1 INH; Start 09/07/16 at 22:20 Famotidine (Pepcid) 20 mg DAILY PO Last administered on 09/18/16 08:31; Admin Dose 20 MG; Start 09/07/16 at 22:20 Guaifenesin (Mucinex) 600 mg BID PO Last administered on 09/18/16 08:32; Admin Dose 600 MG; Start 09/07/16 at 22:20 Amlodipine Besylate (Norvasc) 10 mg DAILY PO Last administered on 09/17/16 08: 25; Admin Dose 10 MG; Start 09/07/16 at 22:20 Oxycodone/ Acetaminophen (Percocet (5/ 325)) 1 tab Q4H PRN PO PAIN Last administered on 09/17/16 08:25; Admin Dose 1 TAB; Start 09/07/16 at 22:20 Diagnostic Test (Pha) (Accu-Chek) 1 ea 02 XX Last administered on 09/16/16 02: 00; Admin Dose 1 EA; Start 09/07/16 at 22:20 Docusate Sodium (Colace) 100 mg BID PO Last administered on 09/18/16 08:33; Admin Dose 100 MG; Start 09/08/16 at 09:00 Acetaminophen (Tylenol Tab) 650 mg Q4H PRN PO PAIN Last administered on 20:17; Admin Dose 650 MG; Start 09/08/16 at 03:30 Bisacodyl (Dulcolax Supp) 10 mg DAILY PRN [place] CONSTIPATION; Start 09/08/16 at 03 :30 Magnesium Hydroxide (Milk Of Mag) 30 ml BID PRN PO CONSTIPATION; Start at 03:30 Lactulose (Enulose) 20 gm DAILY PRN PO CONSTIPATION; Start 09/08/16 at 03:30 Losartan Potassium (Cozaar) 25 mg DAILY PO Last administered on 09/18/16 08:31 ; Admin Dose 25 MG; Start 09/08/16 at 09:00 Hydrochlorothiazide (Hydrochlorothiazide) 12.5 mg DAILY PO Last administered on 09/18/16 08:32; Admin Dose 12.5 MG; Start 09/08/16 at 09:00 Linagliptin (Tradjenta) 5 mg DAILY PO Last administered on 09/18/16 08:31; Admin Dose 5 MG; Start 09/08/16 at 09:00 Senna (Senokot) 1 tab HS PRN PO constipation; Start 09/08/16 at 21:00 Acetaminophen/ Hydrocodone Bitart ([place] (10/325)) 1 tab Q6H PRN PO pain Last administered on 09/18/16 08:32; Admin Dose 1 TAB; Start 09/10/16 at 16:00 Insulin Glargine (Lantus) 6 unit DAILY@20 SC Last administered on 09/17/16t 20: 50; Admin Dose 6 UNIT; Start 09/16/16 at 20:00 Assessment/Plan Chief Complaint/Hosp Course Assessment 1. Recent congestive cardiac failure 2. Diabetes mellitus with hypoglycemia. 3. Essential hypertension 4. History of chronic pain 5. Probable obstructive sleep apnea 6. UTI gram negative Klebsiella sensitive to Bactrim Plan. 1. Continue current recommendations 2. Continue physical therapy 3. continue norco and ativan as needed. 4. abx for uti consider stopping antibiotics next 2-3 days 5. Continue Lantus 6 units daily and NovoLog 6 units with meals Discharge planning for today Will follow-up with primary care physician and myself as an outpatient Problems: J[facility] SAMPSON MD, [facility] September 18, 2016 12:03
[2016-09-19] MEDS ORDERED: ENOXAPARIN 30 MG/0.3 ML SYG SC SCH (09:00)
== END 2016-09-18 15:50 | disposition home or self-care (01) | DRG 292 ==
LOC: VRC 21:00
PROVIDERS: ADMIT Physical Medicine & Rehabilitation; ATTEND Physical Medicine & Rehabilitation
DX: I11.0 Hypertensive heart disease with heart failure (principal); N17.9 Acute kidney failure, unspecified; E11.40 Type 2 diabetes mellitus with diabetic neuropathy, unspecified; E87.5 Hyperkalemia; D64.9 Anemia, unspecified; E78.5 Hyperlipidemia, unspecified; Z79.4 Long term (current) use of insulin; I25.10 Atherosclerotic heart disease of native coronary artery without angina pectoris; I25.2 Old myocardial infarction; I50.33 Acute on chronic diastolic (congestive) heart failure; G89.4 Chronic pain syndrome; E66.9 Obesity, unspecified; Z68.38 Body mass index [BMI] 38.0-38.9, adult; H81.10 Benign paroxysmal vertigo, unspecified ear; F06.31 Mood disorder due to known physiological condition with depressive features; F06.8 Other specified mental disorders due to known physiological condition
CPT/HCPCS: 71010; 80048; 80053; 81001; 81003; 82565; 82962; 83735; 84100; 84132; 84443; 84520; 85025; 86803; 87070; 87081; 87086; 87340; 94640; 94664; 97110; 97112; 97116; 97150; 97162; 97165; 97530; 97535; J1650; J1815

== ENCOUNTER 2016-10-05 14:55 | Inpatient (IN) | payer MEDICARE, BC ==
[~2016-10-05] VITALS: Ht 153.7 cm; Wt 95.6 kg
[~2016-10-05 14:55] MED LIST changes: +ADV25050 INH; +AMLO-145 PO; -CLOP75TA4 PO; +HYD25 PO; -ICNCLON PO; -INSU500V SC; +LANT3I SC; +LAS20 PO; +MECL12.574 PO; -METO50TA16 PO; +NIT4 SL; -NITROL TD; +NOVO3I SC; -PROM25VI PO
--- NOTE | 2016-10-05 16:06 | ERA ---
ER Documentation Chief Complaint Date/Time DATE: 10/05/16 TIME: 16:04 Chief Complaint DIARRHEA X5 DAYS HPI The patient is 86-year-old female, presenting to the ER because of intermittent diarrhea for the last 7 days. She also complains of chronic cough. She talked to her physician today who prescribed her Flagyl for diarrhea, however she did not feel better, therefore she came to the ER. She was recently discharged on September 18, 2016 from rehab due to debility. She denies fever, chills. She has a chronic cough, denies dyspnea, chest pain, complaints of minimal left-sided abdominal pain with coughing. She denied dysuria, recent traveling, or family member with similar symptoms Past medical history: History of CHF, CAD, hypertension, dyslipidemia, diabetes mellitus, diabetic neuropathy, vertigo Past surgical history: Right knee replacement, cholecystectomy, hysterectomy ROS All systems reviewed and are negative except as per history of present illness. Medications Home Meds Reported Medications Insulin Glargine* (Lantus*) 100 Unit/Ml Soln, 25 UNIT SC Q4PM, #1 VIAL 10/05/16 Isosorbide Mononitrate* (Isosorbide Mononitrate*) 60 Mg Tab.er.24h, 60 MG PO DAILY, TAB 10/05/16 Amlodipine Besylate* (Amlodipine Besylate*) 10 Mg Tablet, 10 MG PO DAILY, #30 TAB 10/05/16 Atorvastatin* (Atorvastatin*) 40 Mg Tablet, 40 MG PO QHS, #30 TAB 10/05/16 Famotidine* (Famotidine*) 20 Mg Tablet, 20 MG PO DAILY, #30 TAB 10/05/16 Furosemide* (Furosemide*) 20 Mg Tablet, 20 MG PO DAILY, #60 TAB 10/05/16 Hydrochlorothiazide* (Hydrochlorothiazide*) 12.5 Mg Tablet, 12.5 MG PO DAILY, # 30 TAB 10/05/16 Losartan Potassium* (Losartan Potassium*) 25 Mg Tablet, 25 MG PO Q4H, TAB 10/05/16 Oxycodone HCl/Acetaminophen (Percocet 5-325 mg Tablet) 1 Each Tablet, 1 EACH PO Q4H, TAB 10/05/16 Salmeterol Xinaf/Fluticasone* (Advair*) 250-50 Diskus Inhaler, 1 INH INHALATION BID, #1 INHALER 10/05/16 Aspirin* (Aspirin* EC) 81 Mg Tablet.dr, 81 MG PO DAILY, TAB 10/05/16 Benzonatate* (Benzonatate*) 100 Mg Capsule, 100 MG PO TID Y for COUGH, CAP 10/05/16 Metronidazole* (Metronidazole*) 500 Mg Tablet, 500 MG PO TID, TAB 10/05/16 Discontinued Reported Medications Pantoprazole (Protonix) 40 Mg Tabec, 40 MG PO DAILY 06/26/13 Atorvastatin* (Atorvastatin*) 40 Mg Tablet, 40 MG PO HS 06/26/13 Aspirin Ec (Aspir 81) 81 Mg Tablet.dr, 81 MG PO DAILY 06/26/13 Discontinued Scripts Insulin Glargine* (Lantus*) 100 Unit/Ml Soln, 35 UNIT SC DAILY@20 for 30 Days, # 30 VIAL Prov:KAYA FONTENOT 09/07/16 Insulin Aspart* (Novolog Insulin Pen*) 100 Unit/Ml Soln, 12 UNIT SC WITH MEALS for 30 Days, #30 Prov:KAYA FONTENOT 09/07/16 Meclizine Hcl* (Antivert*) 12.5 Mg Tab, 12.5 MG PO TID for 14 Days, #30 TAB PRN for dizziness Prov:KAYA FONTENOT 09/07/16 Salmeterol Xinaf/Fluticasone* (Advair*) 250-50 Diskus Inhaler, 1 INH INH BID for 30 Days, #1 INHALER Prov:KAYA FONTENOT 09/07/16 Hydrochlorothiazide* (Hydrochlorothiazide*) 25 Mg Tab, 25 MG PO DAILY for 30 Days, #30 TAB Prov:KAYA FONTENOT 09/07/16 Furosemide (Lasix) 20 Mg Tab, 20 MG PO DAILY for 30 Days, #30 TAB Prov:KAYA FONTENOT 09/07/16 Nitroglycerin* (Nitrostat*) 0.4 Mg Tab.subl, 1 TAB SL Q5M Y for CHEST PAIN for 14 Days, #30 TAB.SL Prov:KAYA FONTENOT 09/07/16 Amlodipine Besylate* (Amlodipine Besylate*) 5 Mg Tablet, 10 MG PO DAILY for 30 Days, #30 TAB Prov:KAYA FONTENOT 09/07/16 Allergies Allergies: Coded Allergies: levofloxacin (Verified Allergy, Unknown, 10/05/16) morphine (Verified Allergy, Unknown, 10/05/16) moxifloxacin (Unverified Allergy, Unknown, 10/05/16) streptomycin (Verified Allergy, Unknown, 10/05/16) PMhx/Soc History of Surgery: Yes (R)total knee replacement) Anesthesia Reaction: No Hx Neurological Disorder: No Hx Respiratory Disorders: No Hx Cardiac Disorders: Yes (CHF, CAD, BRADYCARDIA, HTN, DYSLIPIDEMIA) Hx Psychiatric Problems: No Hx Miscellaneous Medical Probl: Yes (HTN, CHF, CAD, dysthymic disorder) Hx Alcohol Use: No Hx Substance Use: No Hx Tobacco Use: No Physical Exam Vitals Vital Signs Date Time Temp Pulse Resp B/P Pulse Ox O2 Delivery O2 Flow Rate FiO2 10/05/16 19:01 67 17 114/44 95 Room Air 10/05/16 18:09 68 22 97 21 10/05/16 15:00 98.0 64 18 154/71 96 Physical Exam Const: No acute distress. Head: Atraumatic. Eyes: Normal Conjunctiva. ENT: Normal External Ears, Nose and Mouth. Neck: Full range of motion. No meningismus. Resp: Minimal expiratory wheezes bilaterally. Cardio: Regular rate and rhythm, no murmurs. Abd: Soft, obese, normal bowel sounds, non tender. Skin: No petechiae or rashes. Back: No midline or flank tenderness. Ext: No cyanosis, or edema. Neur: Awake and alert. No focal deficit Psych: Normal Mood and Affect. Result Diagram: 10/05/16 1642 10/05/16 1642 Results 24 hrs Laboratory Tests Test 10/05/16 16:41 10/05/16 16:42 10/05/16 18:55 Bedside Glucose 119mg/dL White Blood Count 10.210^3/ul Red Blood Count 3.9110^6/ul Hemoglobin 11.2g/dl Hematocrit 35.4% Mean Corpuscular Volume 90.5fl Mean Corpuscular Hemoglobin 28.6pg Mean Corpuscular Hemoglobin Concent 31.6g/dl Red Cell Distribution Width 13.5% Platelet Count 04200^3/UL Mean Platelet Volume 9.9fl Neutrophils % 72.5% Lymphocytes % 17.1% Monocytes % 6.4% Eosinophils % 2.9% Basophils % 0.5% Nucleated Red Blood Cells % 0.0/100WBC Neutrophils # 7.410^3/ul Lymphocytes # 1.710^3/ul Monocytes # 0.710^3/ul Eosinophils # 0.310^3/ul Basophils # 0.110^3/ul Nucleated Red Blood Cells # 0.010^3/ul Sodium Level 141mmol/L Potassium Level 4.6mmol/L Chloride Level 104mmol/L Carbon Dioxide Level 25mmol/L Anion Gap 17 Blood Urea Nitrogen 56mg/dl Creatinine 1.84mg/dl Glucose Level 121mg/dl Calcium Level 9.0mg/dl Magnesium Level 2.3mg/dl Total Bilirubin 0.3mg/dl Direct Bilirubin 0.00mg/dl Indirect Bilirubin 0.3mg/dl Aspartate Amino Transf (AST/SGOT) 22IU/L Alanine Aminotransferase (ALT/SGPT) 31IU/L Alkaline Phosphatase 69IU/L Troponin I < 0.012ng/ml B-Type Natriuretic Peptide 1370PG/ML Total Protein 7.5g/dl Albumin 3.6g/dl Globulin 3.90g/dl Albumin/Globulin Ratio 0.92 Lipase 65U/L Bedside Urine pH (LAB) 5.5 Bedside Urine Protein (LAB) 3+ Bedside Urine Glucose (UA) 0.1% Bedside Urine Ketones (LAB) Negative Bedside Urine Blood 3+ Bedside Urine Nitrite (LAB) Negative Bedside Urine Leukocyte Esterase (L 3+ Current Medications Medications (Trade) Dose Ordered Sig/[place] Route PRN Reason Start Time Stop Time Status Last Admin Dose Admin Acetaminophen/ Hydrocodone Bitart ([place] (5/325)) 1 tab ONCE ONCE PO 10/05/16 18:00 10/05/16 18:01 DC 10/05/16 17:43 Ondansetron HCl (Zofran Odt) 4 mg ONCE STAT ODT 10/05/16 17:31 10/05/16 17:33 DC 10/05/16 17:37 Levalbuterol (Xopenex Neb) 1.25 mg ONCE ONCE HHN 10/05/16 18:00 10/05/16 18:01 DC 10/05/16 18:01 Ipratropium [place] (Atrovent 0.02% (Neb)) 0.5 mg ONCE ONCE HHN 10/05/16 18:00 10/05/16 18:01 DC 10/05/16 18:01 Acetaminophen/ Hydrocodone Bitart ([place] (5/325)) 1 tab ONCE ONCE PO 10/05/16 18:00 10/05/16 18:01 DC 10/05/16 18:00 IV Flush (NS 3 ml) 3 ml PER PROTOCOL IV 10/05/16 18:30 Ondansetron HCl (Zofran Inj) 4 mg Q6H PRN IV NAUSEA AND/OR VOMITING 10/05/16 18:30 Acetaminophen (Tylenol Tab) 650 mg Q6H PRN PO PAIN LEVEL 1-3 OR FEVER 10/05/16 18:30 Acetaminophen/ Hydrocodone Bitart ([place] (5/325)) 1 tab Q6H PRN PO MODERATE PAIN LEVEL 4-6 10/05/16 18:30 Morphine Sulfate (morphine) 2 mg Q4H PRN IV SEVERE PAIN LEVEL 7-10 10/05/16 18:30 Docusate Sodium (Colace) 100 mg Q12H PRN PO CONSTIPATION 10/05/16 18:30 Magnesium Hydroxide (Milk Of Mag) 30 ml DAILY PRN PO CONSTIPATION 10/05/16 18:30 Sodium Biphosphate/ Sodium Phosphate (Fleet Enema) 133 ml DAILY PRN MD CONSTIPATION 10/05/16 18:30 Pantoprazole (Protonix Iv) 40 mg DAILY@06 IV 10/06/16 06:00 Heparin Sodium (Porcine) 5000 unit 5,000 unit Q12 SC 10/05/16 21:00 Sodium Chloride (1/2 NS) 1,000 ml @ 75 mls/hr Q55H23I IV 10/05/16 18:21 10/05/16 19:15 Lorazepam (Ativan) 0.5 mg Q6H PRN IV ANXIETY 10/05/16 18:30 Albuterol/ Ipratropium (Duoneb) 3 ml Q4H RESP THERAPY PRN HHN SHORTNESS OF BREATH 10/05/16 18:30 Hydralazine HCl (Apresoline) 10 mg Q6H PRN IV ELEVATED BLOOD PRESSURE 10/05/16 18:30 Nitroglycerin (Nitroglycerin (Sl Tab) 0.4 Mg) 1 tab Q5M PRN SL ANGINA 10/05/16 18:30 Benzonatate (Tessalon) 100 mg TID PRN PO COUGH 10/05/16 18:30 UNV Salmeterol Xinafoate/ Fluticasone (Advair 250/50 Diskus) 1 inh BID INH 10/05/16 21:00 UNV Insulin Aspart (Novolog Insulin Pen) NOVOLOG *MILD* ALGORI... Q4 SC 10/05/16 21:00 UNV Miscellaneous Information (* Miscellaneous Pharmacy Order) HYPOGLYCEMIA PROTOCOL w... ONCE ONCE XX 10/05/16 19:30 10/05/16 19:31 UNV Miscellaneous Information (* Miscellaneous Pharmacy Order) Discontinue Glyburide, Glipizide,... ONCE ONCE XX 10/05/16 19:30 10/05/16 19:31 UNV Miscellaneous Information (* Miscellaneous Pharmacy Order) Discontinue all previ... ONCE ONCE XX 10/05/16 19:30 10/05/16 19:31 UNV Procedures/[place] [id number] Radiology Main Line: [phone] DIAGNOSTIC IMAGING REPORT Patient: FREDY BERMUDEZ : 1930 Age: 86 Sex: F MR #: [id number] DOS: 10/05/16 1621 Ordering MD: YAZAN DESAI MD Location: E/R Room/Bed: PROCEDURE: Chest x-ray CLINICAL INDICATION: Abdominal pain TECHNIQUE: Chest single view COMPARISON: 09/11/2016 FINDINGS: There is stable moderate cardiomegaly and an sclerotic aortic calcification. The pulmonary vessels are normal in caliber. The lungs are clear. The costophrenic angles are sharp. The visualized bony thorax is unremarkable. IMPRESSION: No acute cardiopulmonary disease. Stable cardiomegaly and an sclerotic aortic calcification RPTAT: HH .William Cervantes MD, MD Date Time Electronically viewed and signed by .William Cervantes MD, on 10/05/2016 17:14 .W/ CC: YAZAN DESAI MD MEDICAL MAKING DECISION: The patient is 86-year-old female, presenting with acute cystitis, acute dehydration, acute kidney injury, acute diarrhea. She was treated with Xopenex 1.25 mg and Atrovent 0.5 mg nebulizer for wheezing, [place] 10 mg p.o. for her headache and Zofran ODT for nausea and Rocephin IV for acute cystitis with good response The differential diagnoses considered include but are not limited to cholelithiasis, cholecystitis, cystitis, pancreatitis, hepatitis, gastritis, peptic ulcer disease, gastric ulcer, appendicitis, diverticulitis, cholangitis, choledocholithiasis, partial small bowel obstruction. Departure Diagnosis: Primary Impression: Acute diarrhea Additional Impressions: Acute cystitis Dehydration Acute kidney injury Anemia Condition: Stable Comments I discussed the findings with the patient. I discussed the patient with the on- call hospitalist Dr. Robles who was made aware of the lab, the treatment, the patient condition. The patient is admitted to medical surgery bed at 6:10 PM YAZAN DESAI MD October 05, 2016 16:06
[2016-10-05 16:48] LABS: ADD SCAN DIFF NO
[2016-10-05 16:50] LABS: BASOPHIL # 0.1 10^3/ul (0.0-0.1); BASOPHILS % 0.5 % (0.0-2.0); EOSINOPHILS # 0.3 10^3/ul (0.0-0.5); EOSINOPHILS % 2.9 % (0.0-7.0); HEMATOCRIT 35.4 % (37.0-47.0); HEMOGLOBIN 11.2 g/dl (12.0-16.0); LYMPHOCYTES # 1.7 10^3/ul (0.8-2.9); LYMPHOCYTES % 17.1 % (15.0-51.0); MEAN CORPUSCULAR HEMOGLOBIN 28.6 pg (29.0-33.0); MEAN CORPUSCULAR HGB CONC 31.6 g/dl (32.0-37.0); MEAN CORPUSCULAR VOLUME 90.5 fl (82.0-101.0); MEAN PLATELET VOLUME 9.9 fl (7.4-10.4); MONOCYTE # 0.7 10^3/ul (0.3-0.9); MONOCYTES % 6.4 % (0.0-11.0); NEUTROPHIL # 7.4 10^3/ul (1.6-7.5); NEUTROPHILS % 72.5 % (39.0-77.0); PLATELET COUNT 240 10^3/UL (140-415); RED BLOOD COUNT 3.91 10^6/ul (4.20-5.40); RED CELL DISTRIBUTION WIDTH 13.5 % (11.5-14.5); WHITE BLOOD COUNT 10.2 10^3/ul (4.8-10.8)
[2016-10-05 17:14] LABS: ALBUMIN 3.6 g/dl (3.3-4.9); CHLORIDE 104 mmol/L (97-110)
[2016-10-05 17:15] LABS: POTASSIUM 4.6 mmol/L (3.5-5.1); SODIUM 141 mmol/L (135-144)
--- NOTE | 2016-10-05 17:15 | RADRPT ---
PROCEDURE: Chest x-ray CLINICAL INDICATION: Abdominal pain TECHNIQUE: Chest single view COMPARISON: 09/11/2016 FINDINGS: There is stable moderate cardiomegaly and an sclerotic aortic calcification. The pulmonary vessels a re normal in caliber. The lungs are clear. The costophrenic angles are sharp. The visualized bony thorax is unremarkable. IMPRESSION: No acute cardiopulmonary disease. Stable cardiomegaly and an sclerotic aortic calcification RPTAT: HH .William Cervantes MD, Date Time Electronically viewed and signed by .William Cervantes MD, on 10/05/2016 17:14 .W/
[2016-10-05 17:17] LABS: ALANINE AMINOTRANSFERASE 31 IU/L (13-69); ALBUMIN/GLOBULIN RATIO 0.92; ALKALINE PHOSPHATASE 69 IU/L (42-121); ANION GAP 17 (8-16); ASPARTATE AMINO TRANSFERASE 22 IU/L (15-46); BILIRUBIN,INDIRECT 0.3 mg/dl (0-1.1); BILIRUBIN,TOTAL 0.3 mg/dl (0.2-1.3); BLOOD UREA NITROGEN 56 mg/dl (7-20); CARBON DIOXIDE 25 mmol/L (21-31); CREATININE 1.84 mg/dl (0.44-1.00); GLUCOSE 121 mg/dl (70-220); TOTAL PROTEIN 7.5 g/dl (6.1-8.1)
[2016-10-05 17:26] LABS: B-TYPE NATRIURETIC PEPTIDE 1370 PG/ML (0-450)
[2016-10-05 17:29] LABS: TROPONIN-I < 0.012 ng/ml (0.00-0.12)
[2016-10-05] MEDS ORDERED: ONDANSETRON (ODT) 4 MG TAB ODT STA (17:31)
[2016-10-05] MEDS ORDERED: IPRATROPIUM (NEB) 0.5 MG/2.5 ML AMP HHN ONE (18:00)
[2016-10-05] MEDS ORDERED: HYDROCODONE/APAP (5/325) TAB PO ONE ×2 (18:00)
[2016-10-05] MEDS ORDERED: LEVALBUTEROL (NEB) 1.25 MG/0.5 ML AMP HHN ONE (18:00)
[2016-10-05] MEDS ORDERED: METR500T14 PO (18:21)
[2016-10-05] MEDS ORDERED: ADV25050 INHALATION (18:22)
[2016-10-05] MEDS ORDERED: BENZ-5 PO (18:22)
[2016-10-05] MEDS ORDERED: ASPI-664 PO (18:22)
[2016-10-05] MEDS ORDERED: LOSA25TA5 PO (18:23)
[2016-10-05] MEDS ORDERED: OXYC-279 PO (18:23)
[2016-10-05] MEDS ORDERED: HYDR12.58 PO (18:23)
[2016-10-05] MEDS ORDERED: FURO20TA3 PO (18:24)
[2016-10-05] MEDS ORDERED: ATOR40TA68 PO (18:24)
[2016-10-05] MEDS ORDERED: FAMO20TA18 PO (18:24)
[2016-10-05] MEDS ORDERED: ISOS60TA PO (18:25)
[2016-10-05] MEDS ORDERED: AMLO-147 PO (18:25)
[2016-10-05] MEDS ORDERED: LANT3I SC (18:26)
[2016-10-05] MEDS ORDERED: hydrALAzine 20 MG INJ IV PRN (18:30)
[2016-10-05] MEDS ORDERED: NA PHOSPHATE/BIPHOS 133 ML ENEMA PR PRN (18:30)
[2016-10-05] MEDS ORDERED: DOCUSATE SODIUM 100 MG CAP PO PRN (18:30)
[2016-10-05] MEDS ORDERED: NACL 0.9% 3 ML SYG IV SCH (18:30)
[2016-10-05] MEDS ORDERED: morphine 2 MG INJ IV PRN (18:30)
[2016-10-05] MEDS ORDERED: LORAZEPAM 2 MG INJ IV PRN (18:30)
[2016-10-05] MEDS ORDERED: ACETAMINOPHEN 325 MG TAB PO PRN (18:30)
[2016-10-05] MEDS ORDERED: HYDROCODONE/APAP (5/325) TAB PO PRN (18:30)
[2016-10-05] MEDS ORDERED: ONDANSETRON 4 MG INJ IV PRN (18:30)
[2016-10-05] MEDS ORDERED: NITROGLYCERIN (SL) 0.4 MG TAB SL PRN (18:30)
[2016-10-05] MEDS ORDERED: MAGNESIUM HYDROXIDE 30ML CUP PO PRN (18:30)
[2016-10-05 18:53] LABS: URINE BLOOD (Dip) POC 3+ (NEGATIVE)
--- NOTE | 2016-10-05 18:59 | QN ---
Documentation Comment RENAL consult chart reviewed ROBINSON WCKD DIARRHEA PER ORDER MILADIS SAWANT MD October 05, 2016 18:59
[2016-10-05] MEDS: SOD CHLORIDE 0.45% 1,000 ML IV SCH (19:15)
[2016-10-05] MEDS ORDERED: CEFTRIAXONE 1 GM/50 ML (PMX) 50 ML IVPB ONE (20:00)
[2016-10-05 20:12] VITALS: PULSE 64
--- NOTE | 2016-10-05 20:46 | HP ---
DATE OF ADMISSION: 10/05/2016 CHIEF COMPLAINT: Diarrhea for 5 days and coughing. HISTORY OF PRESENT ILLNESS: An 86-year-old female, past medical history of chronic CHF, coronary ar nimo disease, essential hypertension, high cholesterol, type 2 diabetes, diabetic neuropathy, vertig o who was recently discharged from acute rehab facility after spending time there from 09/07 to 01/2017. The patient has been having diarrhea for the last 5 to 6 days, nonbloody, mostly watery in severity. The patient has also been having some coughing symptoms of yellowish sputum but denies fe vers or chills. No chest pain, no shortness of breath. No hematuria. No upper GI bleeding. When she came in today, she was found with an elevated creatinine level of 1.8, her baseline appears to b e around the low 1 range, and her chest x-ray showed no acute cardiopulmonary disease. Earlier toda y, the patient before coming into the ER talked to her primary care doctor, who was concerned about the diarrhea, especially being going on for the last 5 to 6 days, so he told her to come into the ER . PAST MEDICAL HISTORY: Stated above. ALLERGIES: INCLUDE: 1. LEVAQUIN. 2. MORPHINE. 3. MOXIFLOXACIN. 4. STREPTOMYCIN. HOME MEDICINES: 1. Flagyl 500 mg t.i.d. 2. Amlodipine 10 mg daily. 3. Atorvastatin 40 mg at bedtime. 4. Imdur 60 mg daily. 5. Losartan 25 mg q.4 hours. 6. Aspirin 81 mg daily. 7. Percocet 5/325 q.4. 8. Lasix 20 mg daily. 9. Hydrochlorothiazide 12.5 mg daily. 10. Benzonatate 100 mg p.o. t.i.d. p.r.n. 11. Advair 250/50 inhaled b.i.d. 12. Famotidine 20 mg daily. 13. Lantus 25 units per day. PAST SURGICAL HISTORY: Includes right knee replacement in the past, cholecystectomy, hysterectomy i n the past. SOCIAL HISTORY: Negative for smoking, drinking, IV drug abuse. FAMILY HISTORY: Noncontributory today. VITAL SIGNS: T-max 98.0, pulse 64, respirations 18, blood pressure 154/71, saturating at 96% on maria isabel m air. PHYSICAL EXAMINATION: GENERAL: The patient is answering questions, lying in bed. No acute distress. HEENT: Pupils equal, round, react to light. Extraocular muscles intact. NECK: Supple. No thyromegaly. LUNGS: Clear to auscultation bilaterally. CARDIOVASCULAR: S1, S2 heard. No rubs, gallops. LUNGS: Some mild expiratory wheezes bilaterally. ABDOMEN: Soft, nontender, nondistended, obese but no rebound or guarding. MUSCULOSKELETAL: 1+ pitting edema of bilateral lower extremities to the mid calves. NEUROLOGIC: No focal deficits. LABORATORIES: WBC 10.2, hemoglobin 11.2, hematocrit 35.4, platelets of 240. Sodium 141, potassium 4.6, chloride 104, CO2 25, BUN of 56, creatinine 1.84, glucose 121. LFTs are normal. BNP is 1370. We mentioned the chest x-ray findings. ASSESSMENT AND PLAN: An 86-year-old female coming in with diarrhea and cough and renal insufficienc y for the last 5 to 6 days. 1. Diarrhea. Again, unclear source. Will admit the patient to the hospital, put her on half liseth l saline IV fluids given her history of CHF, although her chest x-ray was clear at this time. She n eeds rehydration given her renal insufficiency. Will check a TSH, A1c, lipid panel. More important ly, we will check the stool for C. diff, ova and parasites and culture as well. 2. Renal insufficiency. Again, most likely secondary to dehydration from the diarrhea. Again, IV fluid rehydration as mentioned above, get a renal consult as well. Monitor ins and outs and daily B UN and creatinine levels. 3. History of diabetes type 2. Check A1c, put her on sliding scale insulin. 4. Essential hypertension. Continue hydralazine p.r.n., monitor for now. We are holding the allegra nt's home Lasix and hydrochlorothiazide for now. 5. History of chronic congestive heart failure. Last echocardiogram was performed on 08/31/2016. At that time, her echocardiogram showed ejection fraction of 60%. There was normal left ventricular systolic function, but there was some stage I diastolic dysfunction. There was some mild aortic st enosis and some mild mitral valve regurgitation at that time. Again, low-dose IV fluids, continue t o monitor for now. Monitor for signs of any further lower extremity swelling. 6. Cough and wheezing. Do not suspect upper respiratory infection. Will add DuoNebs q.4 hours for the first 24 hours. Will also get PT and OT consults. 7. Gastrointestinal prophylaxis. PPI. 8. Deep venous thrombosis prophylaxis. We will put her on heparin subQ. Dictated By: KADY RHODES/NASIR Conf#: [id number] DID#: [id number]
[2016-10-05 20:51] VITALS: Ht 153.7 cm; Wt 95.6 kg
[2016-10-05 20:55] VITALS: BP 117/53; RESP 16
[2016-10-05] MEDS ORDERED: DEXTROSE 50% 50 ML SYRINGE IV PRN ×2 (21:00)
[2016-10-05] MEDS ORDERED: GLUCOSE GEL 15 GRAM TUBE BUCCAL PRN (21:00)
[2016-10-05] MEDS: INSULIN ASPART [NOVOLOG] 3 ML PEN SC SCH (21:00)
[2016-10-05] MEDS: SALMETEROL/FLUTICASONE 250/50 INHA INH SCH (21:00)
[2016-10-05] MEDS: HEPARIN 5,000 UNIT/0.5 ML VIAL SC SCH (21:00)
[2016-10-05] MEDS ORDERED: GLUCAGON 1 MG INJ IM PRN (21:00)
[2016-10-05] MEDS ORDERED: GLUCOSE GEL 15 GRAM TUBE PO PRN ×2 (21:00)
[2016-10-05] MEDS: ALBUTEROL/IPRATROPIUM (NEB) 3 ML AMP HHN PRN (23:21)
[2016-10-05 23:46] LABS: PROTEIN/CREAT RATIO 0.21 RATIO
[2016-10-05] MEDS: BENZONATATE 100 MG CAP PO PRN (23:57)
[2016-10-05] MEDS: HYDROCODONE/APAP (5/325) TAB PO PRN (23:57)
[2016-10-06] MEDS: INSULIN ASPART [NOVOLOG] 3 ML PEN SC SCH ×5 (01:00→16:41)
[2016-10-06] MEDS ORDERED: traMADol 50 MG TAB PO PRN (02:30)
[2016-10-06] MEDS: PANTOPRAZOLE 40 MG INJ IV SCH (06:14)
[2016-10-06 06:25] LABS: ADD SCAN DIFF NO
[2016-10-06 06:27] LABS: BASOPHIL # 0.1 10^3/ul (0.0-0.1); BASOPHILS % 0.4 % (0.0-2.0); EOSINOPHILS # 0.2 10^3/ul (0.0-0.5); EOSINOPHILS % 1.5 % (0.0-7.0); HEMATOCRIT 34.1 % (37.0-47.0); HEMOGLOBIN 10.7 g/dl (12.0-16.0); LYMPHOCYTES # 1.7 10^3/ul (0.8-2.9); LYMPHOCYTES % 15.2 % (15.0-51.0); MEAN CORPUSCULAR HEMOGLOBIN 29.2 pg (29.0-33.0); MEAN CORPUSCULAR HGB CONC 31.4 g/dl (32.0-37.0); MEAN CORPUSCULAR VOLUME 92.9 fl (82.0-101.0); MEAN PLATELET VOLUME 10.2 fl (7.4-10.4); MONOCYTE # 0.7 10^3/ul (0.3-0.9); MONOCYTES % 6.3 % (0.0-11.0); NEUTROPHIL # 8.5 10^3/ul (1.6-7.5); NEUTROPHILS % 76.2 % (39.0-77.0); PLATELET COUNT 230 10^3/UL (140-415); RED BLOOD COUNT 3.67 10^6/ul (4.20-5.40); RED CELL DISTRIBUTION WIDTH 13.7 % (11.5-14.5); WHITE BLOOD COUNT 11.2 10^3/ul (4.8-10.8)
[2016-10-06 06:43] LABS: ALBUMIN 3.2 g/dl (3.3-4.9); ALBUMIN/GLOBULIN RATIO 1.03; CALCIUM 8.4 mg/dl (8.4-10.2); CREATININE 2.68 mg/dl (0.44-1.00); POTASSIUM 4.7 mmol/L (3.5-5.1); TOTAL PROTEIN 6.3 g/dl (6.1-8.1)
[2016-10-06 07:33] LABS: THYROID STIMULATING HORMONE 1.57 MIU/L (0.465-4.680)
[2016-10-06] MEDS: SOD CHLORIDE 0.45% 1,000 ML IV SCH ×2 (07:41→12:11)
[2016-10-06 07:50] LABS: MAGNESIUM 2.2 mg/dl (1.7-2.5); PHOSPHORUS 7.4 mg/dl (2.5-4.9)
[2016-10-06] MEDS: HEPARIN 5,000 UNIT/0.5 ML VIAL SC SCH ×2 (08:25→20:42)
[2016-10-06] MEDS: SALMETEROL/FLUTICASONE 250/50 INHA INH SCH ×2 (08:25→20:42)
[2016-10-06 08:26] VITALS: BP 108/42; RESP 18
--- NOTE | 2016-10-06 11:47 | CONS ---
Date/Time of Note Date/Time of Note DATE: 10/06/16 TIME: 11:45 Assessment/Plan Assessment/Plan Chief Complaint/Hosp Course 1. ROBINSON 2. CKD 3. DIARRHEA 4. Obesity Problems: Additional Assessment/Plan 1. Optimization kidney function Consultation Date/Type/Reason Admit Date/Time October 05, 2016 at 18:41 Initial Consult Date 10/04/2016 Type of Consultation: Nephrology Reason for Consultation Dr Arguelles Exam/Review of Systems Vital Signs Vitals Vital Signs Date Time Temp Pulse Resp B/P Pulse Ox O2 Delivery O2 Flow Rate FiO2 10/06/16 08:26 97.5 61 18 108/42 92 10/05/16 23:25 21 10/05/16 20:12 Room Air Intake and Output 10/05/16 10/05/16 10/06/16 15:00 23:00 07:00 Intake Total 50 ml 850 ml Output Total 300 ml Balance 50 ml 550 ml Exam Constitutional: alert, oriented Psych: no complaints Head: atraumatic, normocephalic ENMT: nl external ears & nose Neck: supple Respiratory: clear to auscultation Cardiovascular: regular rate and rhythm Gastrointestinal: other (painful on palpation) Genitourinary - Female: nl external genitalia Results Result Diagram: 10/06/16 0509 10/06/16 0509 Results 24 hrs Laboratory Tests Test 10/05/16 16:41 10/05/16 16:42 10/05/16 18:55 10/05/16 22:01 Bedside Glucose 119 106 White Blood Count 10.2 # Red Blood Count 3.91 L Hemoglobin 11.2 L Hematocrit 35.4 L Mean Corpuscular Volume 90.5 Mean Corpuscular Hemoglobin 28.6 L Mean Corpuscular Hemoglobin Concent 31.6 L Red Cell Distribution Width 13.5 Platelet Count 240 Mean Platelet Volume 9.9 Neutrophils % 72.5 Lymphocytes % 17.1 Monocytes % 6.4 Eosinophils % 2.9 Basophils % 0.5 Nucleated Red Blood Cells % 0.0 Neutrophils # 7.4 Lymphocytes # 1.7 Monocytes # 0.7 Eosinophils # 0.3 Basophils # 0.1 Nucleated Red Blood Cells # 0.0 Sodium Level 141 Potassium Level 4.6 Chloride Level 104 Carbon Dioxide Level 25 Anion Gap 17 H Blood Urea Nitrogen 56 H Creatinine 1.84 H Glucose Level 121 Calcium Level 9.0 Magnesium Level 2.3 Total Bilirubin 0.3 Direct Bilirubin 0.00 Indirect Bilirubin 0.3 Aspartate Amino Transf (AST/SGOT) 22 Alanine Aminotransferase (ALT/SGPT) 31 Alkaline Phosphatase 69 Troponin I < 0.012 B-Type Natriuretic Peptide 1370 H Total Protein 7.5 Albumin 3.6 Globulin 3.90 H Albumin/Globulin Ratio 0.92 Lipase 65 Free Thyroxine 1.23 Bedside Urine pH (LAB) 5.5 Bedside Urine Protein (LAB) 3+ H Bedside Urine Glucose (UA) 0.1% H Bedside Urine Ketones (LAB) Negative Bedside Urine Blood 3+ H Bedside Urine Nitrite (LAB) Negative Bedside Urine Leukocyte Esterase (L 3+ H Test 10/05/16 22:51 10/06/16 01:53 10/06/16 05:09 10/06/16 06:13 Urine Eosinophils % 0.0 Urine Random Creatinine 220.63 Urine Random Sodium 47 Urine Protein/Creatinine Ratio 0.21 Urine Total Protein 47.0 H Bedside Glucose 111 99 White Blood Count 11.2 H Red Blood Count 3.67 L Hemoglobin 10.7 L Hematocrit 34.1 L Mean Corpuscular Volume 92.9 Mean Corpuscular Hemoglobin 29.2 Mean Corpuscular Hemoglobin Concent 31.4 L Red Cell Distribution Width 13.7 Platelet Count 230 Mean Platelet Volume 10.2 Neutrophils % 76.2 Lymphocytes % 15.2 Monocytes % 6.3 Eosinophils % 1.5 Basophils % 0.4 Nucleated Red Blood Cells % 0.0 Neutrophils # 8.5 H Lymphocytes # 1.7 Monocytes # 0.7 Eosinophils # 0.2 Basophils # 0.1 Nucleated Red Blood Cells # 0.0 Sodium Level 135 Potassium Level 4.7 Chloride Level 105 Carbon Dioxide Level 22 Anion Gap 13 Blood Urea Nitrogen 60 H Creatinine 2.68 H Glucose Level 103 Hemoglobin A1c 9.3 H Calcium Level 8.4 Phosphorus Level 7.4 H Magnesium Level 2.2 Total Bilirubin 0.0 L Direct Bilirubin 0.00 Indirect Bilirubin 0.0 Aspartate Amino Transf (AST/SGOT) 19 Alanine Aminotransferase (ALT/SGPT) 27 Alkaline Phosphatase 56 Total Protein 6.3 # Albumin 3.2 L Globulin 3.10 Albumin/Globulin Ratio 1.03 Triglycerides Level 136 Cholesterol Level 99 L LDL Cholesterol, Calculated 40 HDL Cholesterol 32 L Cholesterol/HDL Ratio 3.0 Thyroid Stimulating Hormone (TSH) 1.570 Test 10/06/16 08:22 10/06/16 09:08 10/06/16 10:51 Bedside Glucose 88 86 86 Medications Medications Current Medications Ondansetron HCl (Zofran Inj) 4 mg Q6H PRN IV NAUSEA AND/OR VOMITING; Start at 18:30 Acetaminophen (Tylenol Tab) 650 mg Q6H PRN PO PAIN LEVEL 1-3 OR FEVER Last administered on 10/06/16 01:58; Admin Dose 650 MG; Start 10/05/16 at 18:30 Morphine Sulfate (morphine) 2 mg Q4H PRN IV SEVERE PAIN LEVEL 7-10; Start 10/05 at 18:30 Docusate Sodium (Colace) 100 mg Q12H PRN PO CONSTIPATION; Start 10/05/16 at 18: 30 Magnesium Hydroxide (Milk Of Mag) 30 ml DAILY PRN PO CONSTIPATION; Start at 18:30 Sodium Biphosphate/ Sodium Phosphate (Fleet Enema) 133 ml DAILY PRN [place] CONSTIPATION; Start 10/05/16 at 18:30 Pantoprazole (Protonix Iv) 40 mg DAILY@06 IV Last administered on 10/06/16 06: 14; Admin Dose 40 MG; Start 10/06/16 at 06:00 Heparin Sodium (Porcine) 5000 unit 5,000 unit Q12 SC ; Start 10/05/16 at 21:00 Sodium Chloride (1/2 NS) 1,000 ml @ 75 mls/hr [id number] IV Last administered on 10/05/16 19:15; Admin Dose 75 MLS/HR; Start 10/05/16 at 18:21 Lorazepam (Ativan) 0.5 mg Q6H PRN IV ANXIETY; Start 10/05/16 at 18:30 Hydralazine HCl (Apresoline) 10 mg Q6H PRN IV ELEVATED BLOOD PRESSURE; Start at 18:30 Nitroglycerin (Nitroglycerin (Sl Tab) 0.4 Mg) 1 tab Q5M PRN SL ANGINA; Start at 18:30 Benzonatate (Tessalon) 100 mg TID PRN PO COUGH Last administered on 10/05/16 23:57; Admin Dose 100 MG; Start 10/05/16 at 18:30 Salmeterol Xinafoate/ Fluticasone (Advair 250/50 Diskus) 1 inh BID INH ; Start 10/05/16 at 21:00 Insulin Aspart (Novolog Insulin Pen) NOVOLOG *MILD* ALGORI... Q4 SC ; Start at 21:00 Miscellaneous Information 1 ea NOTE XX ; Start 10/05/16 at 21:00 Glucose (Glutose) 15 gm Q15M PRN PO DECREASED GLUCOSE; Start 10/05/16 at 21:00 Glucose (Glutose) 22.5 gm Q15M PRN PO DECREASED GLUCOSE; Start 10/05/16 at 21: 00 Dextrose (D50w Syringe) 25 ml Q15M PRN IV DECREASED GLUCOSE; Start 10/05/16 at 21:00 Dextrose (D50w Syringe) 50 ml Q15M PRN IV DECREASED GLUCOSE; Start 10/05/16 at 21:00 Glucagon (Glucagen) 1 mg Q15M PRN IM DECREASED GLUCOSE; Start 10/05/16 at 21:00 Glucose (Glutose) 15 gm Q15M PRN BUCCAL DECREASED GLUCOSE; Start 10/05/16 at 21 :00 Acetaminophen/ Hydrocodone Bitart ([place] (5/325)) 2 tab Q6H PRN PO MODERATE PAIN LEVEL 4-6 Last administered on 10/05/16t 23:57; Admin Dose 2 TAB; Start at 00:30 Tramadol HCl (Ultram) 50 mg Q6H PRN PO Pain; Start 10/06/16 at 02:30 NOBLE GONGORA October 06, 2016 11:47
[2016-10-06] MEDS: CEFTRIAXONE 1 GM/50 ML (PMX) 50 ML IVPB SCH (15:28)
--- NOTE | 2016-10-06 15:32 | PN ---
Date/Time of Note Date/Time of Note DATE: 10/06/16 TIME: 15:26 Assessment/Plan VTE Prophylaxis VTE Prophylaxis Intervention: heparin Lines/Catheters IV C[facility]ter Type (from [facility]): Peripheral IV Urinary Cath still in place: No Assessment/Plan Chief Complaint/Hosp Course ASSESSMENT AND PLAN: 86-year-old female coming in with diarrhea and cough and renal insufficiency for the last 5 to 6 days. 1. Diarrhea. Again, unclear source. No episodes since admission. - continue IV fluids, cautiously given her history of CHF, although her chest x-ray was clear at this time. She needs rehydration given her renal insufficiency. - F/U TSH, A1c, lipid panel, and stool for C. diff, ova and parasites and culture as well. 2. Renal insufficiency. Again, most likely secondary to dehydration from the diarrhea. Cr more elevated today. - cautiously continue IV fluid rehydration as mentioned above - f/u renal consult rec's - Monitor ins and outs and daily BUN and creatinine levels. 3. History of diabetes type 2 - sliding scale insulin. 4. Essential hypertension. Continue hydralazine p.r.n., monitor for now. We are holding the patient's home Lasix and hydrochlorothiazide for now. 5. History of chronic congestive heart failure. Last echocardiogram was performed on 08/31/2016. At that time, her echocardiogram showed ejection fraction of 60%. There was normal left ventricular systolic function, but there was some stage I diastolic dysfunction. There was some mild aortic stenosis and some mild mitral valve regurgitation at that time. Again, low- dose IV fluids, continue to monitor for now. Monitor for signs of any further lower extremity swelling. 6. Cough and wheezing - DuoNebs q.4 hours prn, f/u PT and OT consults. 7. Gastrointestinal prophylaxis. PPI. 8. Deep venous thrombosis prophylaxis - heparin subQ. 9. UTI - abx Problems: Subjective 24 Hr Interval Summary Free Text/Dictation Pt had no acute events overnight, seen by renal team yesterday. Exam/Review of Systems Vital Signs Vitals Vital Signs Date Time Temp Pulse Resp B/P Pulse Ox O2 Delivery O2 Flow Rate FiO2 10/06/16 08:26 97.5 61 18 108/42 92 10/05/16 23:25 21 10/05/16 20:12 Room Air Intake and Output 5/10/05/16 10/06/16 15:00 23:00 07:00 Intake Total 50 ml 850 ml Output Total 300 ml Balance 50 ml 550 ml Exam GENERAL: The patient is answering questions, lying in bed. No acute distress. HEENT: Pupils equal, round, react to light. Extraocular muscles intact. NECK: Supple. No thyromegaly. LUNGS: Clear to auscultation bilaterally. CARDIOVASCULAR: S1, S2 heard. No rubs, gallops. LUNGS: Some mild expiratory wheezes bilaterally. ABDOMEN: Soft, nontender, nondistended, obese but no rebound or guarding. MUSCULOSKELETAL: 1+ pitting edema of bilateral lower extremities to the mid calves. NEUROLOGIC: No focal deficits. Results Result Diagram: 10/06/16 0509 10/06/16 0509 Results 24 hrs Laboratory Tests Test 10/05/16 16:41 10/05/16 16:42 10/05/16 18:55 10/05/16 22:01 Bedside Glucose 119 106 White Blood Count 10.2 # Red Blood Count 3.91 L Hemoglobin 11.2 L Hematocrit 35.4 L Mean Corpuscular Volume 90.5 Mean Corpuscular Hemoglobin 28.6 L Mean Corpuscular Hemoglobin Concent 31.6 L Red Cell Distribution Width 13.5 Platelet Count 240 Mean Platelet Volume 9.9 Neutrophils % 72.5 Lymphocytes % 17.1 Monocytes % 6.4 Eosinophils % 2.9 Basophils % 0.5 Nucleated Red Blood Cells % 0.0 Neutrophils # 7.4 Lymphocytes # 1.7 Monocytes # 0.7 Eosinophils # 0.3 Basophils # 0.1 Nucleated Red Blood Cells # 0.0 Sodium Level 141 Potassium Level 4.6 Chloride Level 104 Carbon Dioxide Level 25 Anion Gap 17 H Blood Urea Nitrogen 56 H Creatinine 1.84 H Glucose Level 121 Calcium Level 9.0 Magnesium Level 2.3 Total Bilirubin 0.3 Direct Bilirubin 0.00 Indirect Bilirubin 0.3 Aspartate Amino Transf (AST/SGOT) 22 Alanine Aminotransferase (ALT/SGPT) 31 Alkaline Phosphatase 69 Troponin I < 0.012 B-Type Natriuretic Peptide 1370 H Total Protein 7.5 Albumin 3.6 Globulin 3.90 H Albumin/Globulin Ratio 0.92 Lipase 65 Free Thyroxine 1.23 Bedside Urine pH (LAB) 5.5 Bedside Urine Protein (LAB) 3+ H Bedside Urine Glucose (UA) 0.1% H Bedside Urine Ketones (LAB) Negative Bedside Urine Blood 3+ H Bedside Urine Nitrite (LAB) Negative Bedside Urine Leukocyte Esterase (L 3+ H Test 10/05/16 22:51 10/06/16 01:53 10/06/16 05:09 10/06/16 06:13 Urine Eosinophils % 0.0 Urine Random Creatinine 220.63 Urine Random Sodium 47 Urine Protein/Creatinine Ratio 0.21 Urine Total Protein 47.0 H Bedside Glucose 111 99 White Blood Count 11.2 H Red Blood Count 3.67 L Hemoglobin 10.7 L Hematocrit 34.1 L Mean Corpuscular Volume 92.9 Mean Corpuscular Hemoglobin 29.2 Mean Corpuscular Hemoglobin Concent 31.4 L Red Cell Distribution Width 13.7 Platelet Count 230 Mean Platelet Volume 10.2 Neutrophils % 76.2 Lymphocytes % 15.2 Monocytes % 6.3 Eosinophils % 1.5 Basophils % 0.4 Nucleated Red Blood Cells % 0.0 Neutrophils # 8.5 H Lymphocytes # 1.7 Monocytes # 0.7 Eosinophils # 0.2 Basophils # 0.1 Nucleated Red Blood Cells # 0.0 Sodium Level 135 Potassium Level 4.7 Chloride Level 105 Carbon Dioxide Level 22 Anion Gap 13 Blood Urea Nitrogen 60 H Creatinine 2.68 H Glucose Level 103 Hemoglobin A1c 9.3 H Calcium Level 8.4 Phosphorus Level 7.4 H Magnesium Level 2.2 Total Bilirubin 0.0 L Direct Bilirubin 0.00 Indirect Bilirubin 0.0 Aspartate Amino Transf (AST/SGOT) 19 Alanine Aminotransferase (ALT/SGPT) 27 Alkaline Phosphatase 56 Total Protein 6.3 # Albumin 3.2 L Globulin 3.10 Albumin/Globulin Ratio 1.03 Triglycerides Level 136 Cholesterol Level 99 L LDL Cholesterol, Calculated 40 HDL Cholesterol 32 L Cholesterol/HDL Ratio 3.0 Thyroid Stimulating Hormone (TSH) 1.570 Test 10/06/16 08:22 10/06/16 09:08 10/06/16 10:51 10/06/16 13:06 Bedside Glucose 88 86 86 79 Medications Medications Current Medications Ondansetron HCl (Zofran Inj) 4 mg Q6H PRN IV NAUSEA AND/OR VOMITING; Start at 18:30 Acetaminophen (Tylenol Tab) 650 mg Q6H PRN PO PAIN LEVEL 1-3 OR FEVER Last administered on 10/06/16t 01:58; Admin Dose 650 MG; Start 10/05/16 at 18:30 Morphine Sulfate (morphine) 2 mg Q4H PRN IV SEVERE PAIN LEVEL 7-10; Start 10/05 at 18:30 Docusate Sodium (Colace) 100 mg Q12H PRN PO CONSTIPATION; Start 10/05/16 at 18: 30 Magnesium Hydroxide (Milk Of Mag) 30 ml DAILY PRN PO CONSTIPATION; Start at 18:30 Sodium Biphosphate/ Sodium Phosphate (Fleet Enema) 133 ml DAILY PRN [place] CONSTIPATION; Start 10/05/16 at 18:30 Pantoprazole (Protonix Iv) 40 mg DAILY@06 IV Last administered on 10/06/16 06: 14; Admin Dose 40 MG; Start 10/06/16 at 06:00 Heparin Sodium (Porcine) 5000 unit 5,000 unit Q12 SC ; Start 10/05/16 at 21:00 Sodium Chloride (1/2 NS) 1,000 ml @ 75 mls/hr [id number] IV Last administered on 10/06/16 12:11; Admin Dose 75 MLS/HR; Start 10/05/16 at 18:21 Lorazepam (Ativan) 0.5 mg Q6H PRN IV ANXIETY; Start 10/05/16 at 18:30 Hydralazine HCl (Apresoline) 10 mg Q6H PRN IV ELEVATED BLOOD PRESSURE; Start at 18:30 Nitroglycerin (Nitroglycerin (Sl Tab) 0.4 Mg) 1 tab Q5M PRN SL ANGINA; Start at 18:30 Benzonatate (Tessalon) 100 mg TID PRN PO COUGH Last administered on 10/05/16 23:57; Admin Dose 100 MG; Start 10/05/16 at 18:30 Salmeterol Xinafoate/ Fluticasone (Advair 250/50 Diskus) 1 inh BID INH ; Start 10/05/16 at 21:00 Insulin Aspart (Novolog Insulin Pen) NOVOLOG *MILD* ALGORI... Q4 SC ; Start at 21:00 Miscellaneous Information 1 ea NOTE XX ; Start 10/05/16 at 21:00 Glucose (Glutose) 15 gm Q15M PRN PO DECREASED GLUCOSE; Start 10/05/16 at 21:00 Glucose (Glutose) 22.5 gm Q15M PRN PO DECREASED GLUCOSE; Start 10/05/16 at 21: 00 Dextrose (D50w Syringe) 25 ml Q15M PRN IV DECREASED GLUCOSE; Start 10/05/16 at 21:00 Dextrose (D50w Syringe) 50 ml Q15M PRN IV DECREASED GLUCOSE; Start 10/05/16 at 21:00 Glucagon (Glucagen) 1 mg Q15M PRN IM DECREASED GLUCOSE; Start 10/05/16 at 21:00 Glucose (Glutose) 15 gm Q15M PRN BUCCAL DECREASED GLUCOSE; Start 10/05/16 at 21 :00 Acetaminophen/ Hydrocodone Bitart ([place] (5/325)) 2 tab Q6H PRN PO MODERATE PAIN LEVEL 4-6 Last administered on 10/05/16t 23:57; Admin Dose 2 TAB; Start at 00:30 Tramadol HCl 50 mg 50 mg Q6H PRN PO Pain; Start 10/06/16 at 02:30 Ceftriaxone Sodium (Rocephin) 50 ml @ 100 mls/hr Q24H IVPB ; Start 10/06/16 at 15:00 KADY HERNANDEZ October 06, 2016 15:32
[2016-10-06] MEDS: SOD CHLORIDE 0.9% 1,000 ML IV SCH (15:33)
[2016-10-06] MEDS: BENZONATATE 100 MG CAP PO PRN ×2 (17:34→20:42)
--- NOTE | 2016-10-06 18:11 | CONS ---
Date/Time of Note Date/Time of Note DATE: 10/06/16 TIME: 18:09 Assessment/Plan Assessment/Plan Chief Complaint/Hosp Course [id number] consult ROBINSON HTN DM DRUG INDUCED ROBINSON [employer] PER CPOE Problems: Consultation Date/Type/Reason Admit Date/Time October 05, 2016 at 18:41 Initial Consult Date Type of Consultation: Nephrology 24 HR Interval Summary Constitutional: no complaints Exam/Review of Systems Vital Signs Vitals Vital Signs Date Time Temp Pulse Resp B/P Pulse Ox O2 Delivery O2 Flow Rate FiO2 10/06/16 08:26 97.5 61 18 108/42 92 10/05/16 23:25 21 10/05/16 20:12 Room Air Intake and Output 10/05/16 10/05/16 10/06/16 15:00 23:00 07:00 Intake Total 50 ml 850 ml Output Total 300 ml Balance 50 ml 550 ml Exam Respiratory: clear to auscultation Cardiovascular: regular rate and rhythm Gastrointestinal: soft Extremities: normal pulses Neurological: [employer] II-XII intact Results Result Diagram: 10/06/16 0509 10/06/16 0509 Results 24 hrs Laboratory Tests Test 10/05/16 18:55 10/05/16 22:01 10/05/16 22:51 10/06/16 01:53 Bedside Urine pH (LAB) 5.5 Bedside Urine Protein (LAB) 3+ H Bedside Urine Glucose (UA) 0.1% H Bedside Urine Ketones (LAB) Negative Bedside Urine Blood 3+ H Bedside Urine Nitrite (LAB) Negative Bedside Urine Leukocyte Esterase (L 3+ H Bedside Glucose 106 111 Urine Eosinophils % 0.0 Urine Random Creatinine 220.63 Urine Random Sodium 47 Urine Protein/Creatinine Ratio 0.21 Urine Total Protein 47.0 H Test 10/06/16 05:09 10/06/16 06:13 10/06/16 08:22 10/06/16 09:08 White Blood Count 11.2 H Red Blood Count 3.67 L Hemoglobin 10.7 L Hematocrit 34.1 L Mean Corpuscular Volume 92.9 Mean Corpuscular Hemoglobin 29.2 Mean Corpuscular Hemoglobin Concent 31.4 L Red Cell Distribution Width 13.7 Platelet Count 230 Mean Platelet Volume 10.2 Neutrophils % 76.2 Lymphocytes % 15.2 Monocytes % 6.3 Eosinophils % 1.5 Basophils % 0.4 Nucleated Red Blood Cells % 0.0 Neutrophils # 8.5 H Lymphocytes # 1.7 Monocytes # 0.7 Eosinophils # 0.2 Basophils # 0.1 Nucleated Red Blood Cells # 0.0 Sodium Level 135 Potassium Level 4.7 Chloride Level 105 Carbon Dioxide Level 22 Anion Gap 13 Blood Urea Nitrogen 60 H Creatinine 2.68 H Glucose Level 103 Hemoglobin A1c 9.3 H Calcium Level 8.4 Phosphorus Level 7.4 H Magnesium Level 2.2 Total Bilirubin 0.0 L Direct Bilirubin 0.00 Indirect Bilirubin 0.0 Aspartate Amino Transf (AST/SGOT) 19 Alanine Aminotransferase (ALT/SGPT) 27 Alkaline Phosphatase 56 Total Protein 6.3 # Albumin 3.2 L Globulin 3.10 Albumin/Globulin Ratio 1.03 Triglycerides Level 136 Cholesterol Level 99 L LDL Cholesterol, Calculated 40 HDL Cholesterol 32 L Cholesterol/HDL Ratio 3.0 Thyroid Stimulating Hormone (TSH) 1.570 Bedside Glucose 99 88 86 Test 10/06/16 10:51 10/06/16 13:06 10/06/16 16:40 Bedside Glucose 86 79 98 Medications Medications Current Medications Ondansetron HCl (Zofran Inj) 4 mg Q6H PRN IV NAUSEA AND/OR VOMITING; Start at 18:30 Acetaminophen (Tylenol Tab) 650 mg Q6H PRN PO PAIN LEVEL 1-3 OR FEVER Last administered on 10/06/16 01:58; Admin Dose 650 MG; Start 10/05/16 at 18:30 Morphine Sulfate (morphine) 2 mg Q4H PRN IV SEVERE PAIN LEVEL 7-10; Start 10/05 at 18:30 Docusate Sodium (Colace) 100 mg Q12H PRN PO CONSTIPATION; Start 10/05/16 at 18: 30 Magnesium Hydroxide (Milk Of Mag) 30 ml DAILY PRN PO CONSTIPATION; Start at 18:30 Sodium Biphosphate/ Sodium Phosphate (Fleet Enema) 133 ml DAILY PRN [place] CONSTIPATION; Start 10/05/16 at 18:30 Pantoprazole (Protonix Iv) 40 mg DAILY@06 IV Last administered on 10/06/16 06: 14; Admin Dose 40 MG; Start 10/06/16 at 06:00 Heparin Sodium (Porcine) (Heparin (5000 Units/0.5 ml)) 5,000 unit Q12 SC ; Start 10/05/16 at 21:00 Lorazepam (Ativan) 0.5 mg Q6H PRN IV ANXIETY; Start 10/05/16 at 18:30 Hydralazine HCl (Apresoline) 10 mg Q6H PRN IV ELEVATED BLOOD PRESSURE; Start at 18:30 Nitroglycerin (Nitroglycerin (Sl Tab) 0.4 Mg) 1 tab Q5M PRN SL ANGINA; Start at 18:30 Benzonatate (Tessalon) 100 mg TID PRN PO COUGH Last administered on 10/06/16 17:34; Admin Dose 100 MG; Start 10/05/16 at 18:30 Salmeterol Xinafoate/ Fluticasone (Advair 250/50 Diskus) 1 inh BID INH ; Start 10/05/16 at 21:00 Insulin Aspart (Novolog Insulin Pen) NOVOLOG *MILD* ALGORI... Q4 SC ; Start at 21:00 Miscellaneous Information 1 ea NOTE XX ; Start 10/05/16 at 21:00 Glucose (Glutose) 15 gm Q15M PRN PO DECREASED GLUCOSE; Start 10/05/16 at 21:00 Glucose (Glutose) 22.5 gm Q15M PRN PO DECREASED GLUCOSE; Start 10/05/16 at 21: 00 Dextrose (D50w Syringe) 25 ml Q15M PRN IV DECREASED GLUCOSE; Start 10/05/16 at 21:00 Dextrose (D50w Syringe) 50 ml Q15M PRN IV DECREASED GLUCOSE; Start 10/05/16 at 21:00 Glucagon (Glucagen) 1 mg Q15M PRN IM DECREASED GLUCOSE; Start 10/05/16 at 21:00 Glucose (Glutose) 15 gm Q15M PRN BUCCAL DECREASED GLUCOSE; Start 10/05/16 at 21 :00 Acetaminophen/ Hydrocodone Bitart ([place] (5/325)) 2 tab Q6H PRN PO MODERATE PAIN LEVEL 4-6 Last administered on 10/05/16 23:57; Admin Dose 2 TAB; Start at 00:30 Tramadol HCl 50 mg 50 mg Q6H PRN PO Pain; Start 10/06/16 at 02:30 Ceftriaxone Sodium 50 ml @ 100 mls/hr Q24H IVPB Last administered on 15:28; Admin Dose 100 MLS/HR; Start 10/06/16 at 15:00 Sodium Chloride (NS) 1,000 ml @ 75 mls/hr [id number] IV Last administered on 10/06t 15:33; Admin Dose 75 MLS/HR; Start 10/06/16 at 15:30 MILADIS SAWANT MD October 06, 2016 18:11
[2016-10-06 19:34] VITALS: BP 126/58; RESP 20
--- NOTE | 2016-10-06 19:54 | RADRPT ---
PROCEDURE: Renal US. CLINICAL INDICATION: Acute kidney injury. TECHNIQUE: Multiple sonographic images of the kidneys and urinary bladder were obtained. The imag es were reviewed on a PACS workstation. COMPARISON: No prior studies are available for comparison. FINDINGS: The right kidney measures 10.9 cm. The left kidney measures 11.7 cm. There is no renal mass. There is no hydronephrosis. There is no renal calculus. Renal parenchymal thickness is normal bilaterally. Echogenicity is normal bilaterally. The perirenal regions are normal with no fluid collection or mass. The urinary bladder is unremarkable. IMPRESSION: 1. Unremarkable renal ultrasound. RPTAT: QQ .Paul Mora MD, Date Time Electronically viewed and signed by .Paul Mora MD, on 10/06/2016 19:54 .R/
[2016-10-06] MEDS: HYDROCODONE/APAP (5/325) TAB PO PRN (20:41)
[2016-10-06] MEDS: Insulin NOVOLOG SS MILD Algorithm (SS with meals and bedtime) SC SCH (20:42)
[2016-10-06] MEDS ORDERED: INSULIN ASPART [NOVOLOG] 3 ML PEN SC SCH (21:00)
[2016-10-06] MEDS: ALBUTEROL/IPRATROPIUM (NEB) 3 ML AMP HHN PRN (21:25)
--- NOTE | 2016-10-07 01:15 | CONS ---
DATE OF ADMISSION: 10/05/2016 DATE OF CONSULTATION: 10/06/2016 NEPHROLOGY CONSULTATION Thank you, Dr. Robles, for kindly asking me to see this patient in nephrology consultation. HISTORY OF PRESENT ILLNESS: Erin Richey is an elderly female with history of congestive heart failu re, diabetic neuropathy, osteoarthritis, hypertension, diabetes mellitus, dyslipidemia, obesity and history of acute kidney injury, dizziness, positional vertigo, impairment in self-care and mobility per old record, recently discharged from this hospital and now presents with diarrhea for 5 days. He matocrit previously 34.6. The patient's BUN 44, creatinine 1.5 on 09/18/2016 and patient's chest x- ray done previously shows cardiomegaly and atherosclerosis with mild enlargement of the pulmonary tr unk. The patient now presents with above complaints of diarrhea and noted to have electrolyte imbal ance. PAST MEDICAL HISTORY: Type 2 diabetes mellitus, obesity. The patient has hypertension, dyslipidemia . The patient has a history of anxiety, history of depression, diastolic dysfunction, CAD, CKD. Carlo graham's other diagnoses include the patient has a history of UTI, gram-negative rods with Klebsiella , sensitive to Bactrim. The patient also has history of CKD. ALLERGIES: 1. LEVOFLOXACIN. 2. MORPHINE. 3 AVELOX. 4. STREPTOMYCIN. SOCIAL HISTORY: Negative. PAST SURGICAL HISTORY: Positive for history of cholecystectomy, appendectomy, history of right knee replacement, hysterectomy, history of cataract surgery. MEDICATION HISTORY: Listed includes: 1. Amlodipine. 2. Aspirin. 3. Lipitor. 4. Benzonatate. 5. Pepcid. 6. Furosemide. 7. Hydrochlorothiazide. 8. Insulin. 9. Isosorbide. 10. Losartan. 11. Flagyl. 12. Oxycodone. 13. Solu-Medrol. REVIEW OF SYSTEMS: HEENT: Unremarkable. RESPIRATORY: Unremarkable. CARDIOVASCULAR: Unremarkable. ABDOMEN: Patient's diarrhea is resolving. EXTREMITIES: Unremarkable. CENTRAL NERVOUS SYSTEM: Unremarkable. PHYSICAL EXAMINATION: GENERAL: The patient is awake, alert. VITAL SIGNS: Pulse 61, blood pressure 108/42. HEAD: Atraumatic, normocephalic. Pupils are equal, reactive. No pallor or conjunctival icterus. NECK: Supple, no JVD. LUNGS: Clear. CARDIOVASCULAR: S1, S2 are normal. ABDOMEN: Soft, obese, bowel sounds present, no palpable mass. EXTREMITIES: No cyanosis, clubbing or edema. CENTRAL NERVOUS SYSTEM: The patient is awake, alert, no focal deficit. LABORATORY DATA: WBC 11.2, hematocrit 34.1, platelet count of 230. The patient had sodium 139, pota ssium 4.7, BUN 60, creatinine 2.68. The patient's creatinine 1.84, sodium 141 earlier. BNP 1370. The patient's UA is positive for leuk esterase, protein is positive. IMPRESSION: 1. Patient has acute kidney injury. 2. Prerenal azotemia due to diuretic, also diarrhea. 3. The patient has underlying acute kidney injury, rule out drug-induced in the form of Bactrim at the time of discharge during last admission. Rule out interstitial nephritis. OTHER DIAGNOSES: Include: 1. Diabetes mellitus. 2. Hypertension. 3. History of chronic congestive heart failure, diastolic. PLAN: At this point is to obtain urine sodium and creatinine and eosinophil, ultrasound of the kidn ey, IV fluid. The patient's stool for C. difficile should be checked. The patient is currently on Rocephin and IV fluid which is going to be monitored. The patient's electrolytes will be monitored very closely. Thank you, Dr. Robles, for kindly asking me to see this patient in nephrology consultation. Dictated By: MILADIS PEREZ/NASIR Conf#: [id number] DID#: [id number]
[2016-10-07] MEDS: ACCUCHECK AT 2AM (Patients on SS coverage) XX SCH (02:00)
[2016-10-07] MEDS: PANTOPRAZOLE 40 MG INJ IV SCH (05:31)
[2016-10-07] MEDS: SOD CHLORIDE 0.9% 1,000 ML IV SCH ×3 (05:31→21:32)
[2016-10-07] MEDS: Insulin NOVOLOG SS MILD Algorithm (SS with meals and bedtime) SC SCH ×4 (07:30→20:33)
[2016-10-07] MEDS: BENZONATATE 100 MG CAP PO PRN ×2 (08:09→15:04)
[2016-10-07] MEDS: HEPARIN 5,000 UNIT/0.5 ML VIAL SC SCH ×2 (08:11→20:25)
[2016-10-07] MEDS: SALMETEROL/FLUTICASONE 250/50 INHA INH SCH ×2 (08:11→20:33)
[2016-10-07 08:50] VITALS: BP 112/58; RESP 16
[2016-10-07 09:58] LABS: ADD SCAN DIFF NO
[2016-10-07 10:11] LABS: BASOPHIL # 0.1 10^3/ul (0.0-0.1); BASOPHILS % 0.5 % (0.0-2.0); EOSINOPHILS # 0.3 10^3/ul (0.0-0.5); EOSINOPHILS % 3.2 % (0.0-7.0); HEMOGLOBIN 10.6 g/dl (12.0-16.0); LYMPHOCYTES # 1.5 10^3/ul (0.8-2.9); LYMPHOCYTES % 15.2 % (15.0-51.0); MEAN CORPUSCULAR HEMOGLOBIN 28.5 pg (29.0-33.0); MEAN CORPUSCULAR HGB CONC 31.2 g/dl (32.0-37.0); MEAN CORPUSCULAR VOLUME 91.4 fl (82.0-101.0); MEAN PLATELET VOLUME 9.7 fl (7.4-10.4); MONOCYTE # 0.7 10^3/ul (0.3-0.9); MONOCYTES % 7.4 % (0.0-11.0); NEUTROPHILS % 72.9 % (39.0-77.0); PLATELET COUNT 236 10^3/UL (140-415); RED BLOOD COUNT 3.72 10^6/ul (4.20-5.40); RED CELL DISTRIBUTION WIDTH 13.6 % (11.5-14.5); WHITE BLOOD COUNT 9.6 10^3/ul (4.8-10.8)
[2016-10-07 10:23] LABS: POTASSIUM 4.8 mmol/L (3.5-5.1)
[2016-10-07 10:25] LABS: CREATININE 2.1 mg/dl (0.44-1.00)
[2016-10-07 10:26] LABS: CALCIUM 8.1 mg/dl (8.4-10.2)
--- NOTE | 2016-10-07 12:10 | PN ---
Date/Time of Note Date/Time of Note DATE: 10/07/16 TIME: 12:04 Assessment/Plan VTE Prophylaxis VTE Prophylaxis Intervention: SCD's Lines/Catheters IV C[facility]ter Type (from [facility] Peripheral IV Urinary Cath still in place: No Assessment/Plan Chief Complaint/Hosp Course ASSESSMENT AND PLAN: 86-year-old female coming in with diarrhea and cough and renal insufficiency for the last 5 to 6 days. 1. Diarrhea. Again, unclear source. No episodes since admission. - continue IV fluids, cautiously given her history of CHF, although her chest x-ray was clear at this time. She needs rehydration given her renal insufficiency. - F/U stool for C. diff, ova and parasites and culture as well. 2. Renal insufficiency. Again, most likely secondary to dehydration from the diarrhea. Cr more elevated today. - cautiously continue IV fluid rehydration as mentioned above - f/u renal consult rec's - Monitor ins and outs and daily BUN and creatinine levels. 3. History of diabetes type 2 - sliding scale insulin. 4. Essential hypertension. Continue hydralazine p.r.n., monitor for now. We are holding the patient's home Lasix and hydrochlorothiazide for now. 5. History of chronic congestive heart failure. Last echocardiogram was performed on 08/31/2016. At that time, her echocardiogram showed ejection fraction of 60%. There was normal left ventricular systolic function, but there was some stage I diastolic dysfunction. There was some mild aortic stenosis and some mild mitral valve regurgitation at that time. Again, low- dose IV fluids, continue to monitor for now. Monitor for signs of any further lower extremity swelling. 6. Cough and wheezing - DuoNebs q.4 hours prn, f/u PT and OT consults. 7. Gastrointestinal prophylaxis. PPI. 8. Deep venous thrombosis prophylaxis - heparin subQ. 9. UTI - abx, f/u cx results Problems: Subjective 24 Hr Interval Summary Free Text/Dictation Pt refused to work with PT, and refused subQ heparin. Seen by renal team. Exam/Review of Systems Vital Signs Vitals Vital Signs Date Time Temp Pulse Resp B/P Pulse Ox O2 Delivery O2 Flow Rate FiO2 10/07/16 08:50 98.3 85 16 112/58 100 10/06/16 21:40 Nasal Cannula 2.0 10/06/16 21:30 21 Intake and Output 10/06/16 10/06/16 10/07/16 15:00 23:00 07:00 Intake Total 525 ml 1015 ml Output Total 400 ml 350 ml Balance 125 ml 665 ml Exam GENERAL: The patient is answering questions, lying in bed. No acute distress. HEENT: Pupils equal, round, react to light. Extraocular muscles intact. NECK: Supple. No thyromegaly. LUNGS: Clear to auscultation bilaterally. CARDIOVASCULAR: S1, S2 heard. No rubs, gallops. LUNGS: Some mild expiratory wheezes bilaterally. ABDOMEN: Soft, nontender, nondistended, obese but no rebound or guarding. MUSCULOSKELETAL: 1+ pitting edema of bilateral lower extremities to the mid calves. NEUROLOGIC: No focal deficits. Results Result Diagram: 10/07/1692210/07/16922 Results 24 hrs Laboratory Tests Test 10/06/16 13:06 10/06/16 16:40 10/06/16 20:38 10/07/16 07:37 Bedside Glucose 79 98 100 94 Test 10/07/16 09:23 10/07/16 11:35 White Blood Count 9.6 Red Blood Count 3.72 L Hemoglobin 10.6 L Hematocrit 34.0 L Mean Corpuscular Volume 91.4 Mean Corpuscular Hemoglobin 28.5 L Mean Corpuscular Hemoglobin Concent 31.2 L Red Cell Distribution Width 13.6 Platelet Count 236 Mean Platelet Volume 9.7 Neutrophils % 72.9 Lymphocytes % 15.2 Monocytes % 7.4 Eosinophils % 3.2 Basophils % 0.5 Nucleated Red Blood Cells % 0.0 Neutrophils # 7.0 Lymphocytes # 1.5 Monocytes # 0.7 Eosinophils # 0.3 Basophils # 0.1 Nucleated Red Blood Cells # 0.0 Sodium Level 138 Potassium Level 4.8 Chloride Level 109 Carbon Dioxide Level 26 Anion Gap 8 Blood Urea Nitrogen 61 H Creatinine 2.10 H Glucose Level 129 Calcium Level 8.1 L Bedside Glucose 140 Medications Medications Current Medications Ondansetron HCl (Zofran Inj) 4 mg Q6H PRN IV NAUSEA AND/OR VOMITING; Start at 18:30 Acetaminophen (Tylenol Tab) 650 mg Q6H PRN PO PAIN LEVEL 1-3 OR FEVER Last administered on 10/06/16t 01:58; Admin Dose 650 MG; Start 10/05/16 at 18:30 Morphine Sulfate (morphine) 2 mg Q4H PRN IV SEVERE PAIN LEVEL 7-10; Start 10/05 at 18:30 Docusate Sodium (Colace) 100 mg Q12H PRN PO CONSTIPATION; Start 10/05/16 at 18: 30 Magnesium Hydroxide (Milk Of Mag) 30 ml DAILY PRN PO CONSTIPATION; Start at 18:30 Sodium Biphosphate/ Sodium Phosphate (Fleet Enema) 133 ml DAILY PRN [place] CONSTIPATION; Start 10/05/16 at 18:30 Pantoprazole (Protonix Iv) 40 mg DAILY@06 IV Last administered on 10/07/16 05: 31; Admin Dose 40 MG; Start 10/06/16 at 06:00 Heparin Sodium (Porcine) (Heparin (5000 Units/0.5 ml)) 5,000 unit Q12 SC ; Start 10/05/16 at 21:00 Lorazepam (Ativan) 0.5 mg Q6H PRN IV ANXIETY; Start 10/05/16 at 18:30 Hydralazine HCl (Apresoline) 10 mg Q6H PRN IV ELEVATED BLOOD PRESSURE; Start at 18:30 Nitroglycerin (Nitroglycerin (Sl Tab) 0.4 Mg) 1 tab Q5M PRN SL ANGINA; Start at 18:30 Benzonatate (Tessalon) 100 mg TID PRN PO COUGH Last administered on 10/07/16 08:09; Admin Dose 100 MG; Start 10/05/16 at 18:30 Salmeterol Xinafoate/ Fluticasone (Advair 250/50 Diskus) 1 inh BID INH ; Start 10/05/16 at 21:00 Miscellaneous Information 1 ea NOTE XX ; Start 10/05/16 at 21:00 Glucose (Glutose) 15 gm Q15M PRN PO DECREASED GLUCOSE; Start 10/05/16 at 21:00 Glucose (Glutose) 22.5 gm Q15M PRN PO DECREASED GLUCOSE; Start 10/05/16 at 21: 00 Dextrose (D50w Syringe) 25 ml Q15M PRN IV DECREASED GLUCOSE; Start 10/05/16 at 21:00 Dextrose (D50w Syringe) 50 ml Q15M PRN IV DECREASED GLUCOSE; Start 10/05/16 at 21:00 Glucagon (Glucagen) 1 mg Q15M PRN IM DECREASED GLUCOSE; Start 10/05/16 at 21:00 Glucose (Glutose) 15 gm Q15M PRN BUCCAL DECREASED GLUCOSE; Start 10/05/16 at 21 :00 Acetaminophen/ Hydrocodone Bitart ([place] (5/325)) 2 tab Q6H PRN PO MODERATE PAIN LEVEL 4-6 Last administered on 10/06/16 20:41; Admin Dose 2 TAB; Start at 00:30 Tramadol HCl 50 mg 50 mg Q6H PRN PO Pain; Start 10/06/16 at 02:30 Ceftriaxone Sodium 50 ml @ 100 mls/hr Q24H IVPB Last administered on 15:28; Admin Dose 100 MLS/HR; Start 10/06/16 at 15:00 Sodium Chloride (NS) 1,000 ml @ 75 mls/hr [id number] IV Last administered on 10/07 05:31; Admin Dose 75 MLS/HR; Start 10/06/16 at 15:30 Diagnostic Test (Pha) (Accu-Chek) 1 ea 02 XX ; Start 10/07/16 at 02:00 KADY HERNANDEZ October 07, 2016 12:10
[2016-10-07] MEDS: CEFTRIAXONE 1 GM/50 ML (PMX) 50 ML IVPB SCH (14:28)
[2016-10-07] MEDS: HYDROCODONE/APAP (5/325) TAB PO PRN ×2 (15:03→21:26)
--- NOTE | 2016-10-07 16:37 | CONS ---
Date/Time of Note Date/Time of Note DATE: 10/07/16 TIME: 16:36 Assessment/Plan Assessment/Plan Chief Complaint/Hosp Course RENAL consult ROBINSON HTN DM DRUG INDUCED ROBINSON SEPTRA PLAN PER CPOE IV FLUID F/U BMP Problems: Consultation Date/Type/Reason Admit Date/Time October 05, 2016 at 18:41 Type of Consultation: Nephrology Exam/Review of Systems Vital Signs Vitals Vital Signs Date Time Temp Pulse Resp B/P Pulse Ox O2 Delivery O2 Flow Rate FiO2 10/07/16 16:18 2.0 10/07/16 08:50 98.3 85 16 112/58 100 10/06/16 21:40 Nasal Cannula 10/06/16 21:30 21 Intake and Output 10/06/16 10/06/16 10/07/16 15:00 23:00 07:00 Intake Total 525 ml 1015 ml Output Total 400 ml 350 ml Balance 125 ml 665 ml Exam Neck: supple Respiratory: clear to auscultation Cardiovascular: regular rate and rhythm Gastrointestinal: bowel sounds, soft Results Result Diagram: 10/07/16 0923 10/07/16 0923 Results 24 hrs Laboratory Tests Test 10/06/16 16:40 10/06/16 20:38 10/07/16 07:37 10/07/16 09:23 Bedside Glucose 98 100 94 White Blood Count 9.6 Red Blood Count 3.72 L Hemoglobin 10.6 L Hematocrit 34.0 L Mean Corpuscular Volume 91.4 Mean Corpuscular Hemoglobin 28.5 L Mean Corpuscular Hemoglobin Concent 31.2 L Red Cell Distribution Width 13.6 Platelet Count 236 Mean Platelet Volume 9.7 Neutrophils % 72.9 Lymphocytes % 15.2 Monocytes % 7.4 Eosinophils % 3.2 Basophils % 0.5 Nucleated Red Blood Cells % 0.0 Neutrophils # 7.0 Lymphocytes # 1.5 Monocytes # 0.7 Eosinophils # 0.3 Basophils # 0.1 Nucleated Red Blood Cells # 0.0 Sodium Level 138 Potassium Level 4.8 Chloride Level 109 Carbon Dioxide Level 26 Anion Gap 8 Blood Urea Nitrogen 61 H Creatinine 2.10 H Glucose Level 129 Calcium Level 8.1 L Test 10/07/16 11:35 Bedside Glucose 140 Medications Medications Current Medications Ondansetron HCl (Zofran Inj) 4 mg Q6H PRN IV NAUSEA AND/OR VOMITING; Start at 18:30 Acetaminophen (Tylenol Tab) 650 mg Q6H PRN PO PAIN LEVEL 1-3 OR FEVER Last administered on 10/06/16 01:58; Admin Dose 650 MG; Start 10/05/16 at 18:30 Morphine Sulfate (morphine) 2 mg Q4H PRN IV SEVERE PAIN LEVEL 7-10; Start 10/05 at 18:30 Docusate Sodium (Colace) 100 mg Q12H PRN PO CONSTIPATION; Start 10/05/16 at 18: 30 Magnesium Hydroxide (Milk Of Mag) 30 ml DAILY PRN PO CONSTIPATION; Start at 18:30 Sodium Biphosphate/ Sodium Phosphate (Fleet Enema) 133 ml DAILY PRN [place] CONSTIPATION; Start 10/05/16 at 18:30 Heparin Sodium (Porcine) (Heparin (5000 Units/0.5 ml)) 5,000 unit Q12 SC ; Start 10/05/16 at 21:00 Lorazepam (Ativan) 0.5 mg Q6H PRN IV ANXIETY; Start 10/05/16 at 18:30 Hydralazine HCl (Apresoline) 10 mg Q6H PRN IV ELEVATED BLOOD PRESSURE; Start at 18:30 Nitroglycerin (Nitroglycerin (Sl Tab) 0.4 Mg) 1 tab Q5M PRN SL ANGINA; Start at 18:30 Benzonatate (Tessalon) 100 mg TID PRN PO COUGH Last administered on 10/07/16 15:04; Admin Dose 100 MG; Start 10/05/16 at 18:30 Salmeterol Xinafoate/ Fluticasone (Advair 250/50 Diskus) 1 inh BID INH ; Start 10/05/16 at 21:00 Miscellaneous Information 1 ea NOTE XX ; Start 10/05/16 at 21:00 Glucose (Glutose) 15 gm Q15M PRN PO DECREASED GLUCOSE; Start 10/05/16 at 21:00 Glucose (Glutose) 22.5 gm Q15M PRN PO DECREASED GLUCOSE; Start 10/05/16 at 21: 00 Dextrose (D50w Syringe) 25 ml Q15M PRN IV DECREASED GLUCOSE; Start 10/05/16 at 21:00 Dextrose (D50w Syringe) 50 ml Q15M PRN IV DECREASED GLUCOSE; Start 10/05/16 at 21:00 Glucagon (Glucagen) 1 mg Q15M PRN IM DECREASED GLUCOSE; Start 10/05/16 at 21:00 Glucose (Glutose) 15 gm Q15M PRN BUCCAL DECREASED GLUCOSE; Start 10/05/16 at 21 :00 Acetaminophen/ Hydrocodone Bitart ([place] (5/325)) 2 tab Q6H PRN PO MODERATE PAIN LEVEL 4-6 Last administered on 10/07/16 15:03; Admin Dose 2 TAB; Start at 00:30 Tramadol HCl 50 mg 50 mg Q6H PRN PO Pain; Start 10/06/16 at 02:30 Ceftriaxone Sodium 50 ml @ 100 mls/hr Q24H IVPB Last administered on 14:28; Admin Dose 100 MLS/HR; Start 10/06/16 at 15:00 Sodium Chloride (NS) 1,000 ml @ 75 mls/hr [id number] IV Last administered on 10/07 05:31; Admin Dose 75 MLS/HR; Start 10/06/16 at 15:30 Diagnostic Test (Pha) (Accu-Chek) 1 ea 02 XX ; Start 10/07/16 at 02:00 Pantoprazole (Protonix Tab) 40 mg DAILY@06 PO ; Start 10/08/16 at 06:00 MILADIS SAWANT MD October 07, 2016 16:37
[2016-10-07 20:08] VITALS: BP 133/60; RESP 16
[2016-10-08] MEDS: ACCUCHECK AT 2AM (Patients on SS coverage) XX SCH (01:58)
[2016-10-08] MEDS ORDERED: PANTOPRAZOLE (EC) 40 MG TAB PO SCH (06:00)
[2016-10-08] MEDS: BENZONATATE 100 MG CAP PO PRN (06:11)
[2016-10-08] MEDS: Insulin NOVOLOG SS MILD Algorithm (SS with meals and bedtime) SC SCH ×3 (07:30→17:18)
[2016-10-08 07:52] VITALS: BP 139/87; RESP 16
[2016-10-08 08:09] LABS: ADD SCAN DIFF NO
[2016-10-08 08:20] LABS: BASOPHIL # 0.1 10^3/ul (0.0-0.1); BASOPHILS % 0.8 % (0.0-2.0); EOSINOPHILS # 0.4 10^3/ul (0.0-0.5); EOSINOPHILS % 4.9 % (0.0-7.0); HEMATOCRIT 33.6 % (37.0-47.0); HEMOGLOBIN 10.5 g/dl (12.0-16.0); LYMPHOCYTES # 1.5 10^3/ul (0.8-2.9); LYMPHOCYTES % 19.7 % (15.0-51.0); MEAN CORPUSCULAR HEMOGLOBIN 28.5 pg (29.0-33.0); MEAN CORPUSCULAR HGB CONC 31.3 g/dl (32.0-37.0); MEAN CORPUSCULAR VOLUME 91.1 fl (82.0-101.0); MEAN PLATELET VOLUME 9.7 fl (7.4-10.4); MONOCYTE # 0.7 10^3/ul (0.3-0.9); MONOCYTES % 8.6 % (0.0-11.0); NEUTROPHIL # 4.9 10^3/ul (1.6-7.5); NEUTROPHILS % 64.6 % (39.0-77.0); PLATELET COUNT 260 10^3/UL (140-415); RED BLOOD COUNT 3.69 10^6/ul (4.20-5.40); RED CELL DISTRIBUTION WIDTH 13.3 % (11.5-14.5); WHITE BLOOD COUNT 7.6 10^3/ul (4.8-10.8)
[2016-10-08] MEDS: HEPARIN 5,000 UNIT/0.5 ML VIAL SC SCH (08:21)
[2016-10-08] MEDS: SALMETEROL/FLUTICASONE 250/50 INHA INH SCH (08:21)
[2016-10-08 08:34] LABS: POTASSIUM 4.5 mmol/L (3.5-5.1)
[2016-10-08 08:36] LABS: CREATININE 1.19 mg/dl (0.44-1.00)
[2016-10-08 08:37] LABS: CALCIUM 8.2 mg/dl (8.4-10.2)
[2016-10-08] MEDS: HYDROCODONE/APAP (5/325) TAB PO PRN (10:31)
--- NOTE | 2016-10-08 11:01 | RADRPT ---
PROCEDURE: XR Chest. CLINICAL INDICATION: Shortness of breath TECHNIQUE: Single AP view of the chest were obtained COMPARISON: None FINDINGS: The heart is at the upper limits of normal in size. The pulmonary vasculature are mildly prominent. There is also a possible mild enlarged appearance the pulmonary arteries. The aorta demonstrates a therosclerotic calcifications. Bilateral mild interstitial basilar opacities are seen with a mild l eft lower lung opacity that could represent atelectasis or possible small effusion. There is no pne umothorax. Degenerative changes are seen within the thoracic spine. There is no acute osseous abno rmality. IMPRESSION: Borderline cardiomegaly and vascular congestion with possible trace left effusion versus left basila r atelectasis. Possible pulmonary arterial enlargement may indicate the presence of pulmonary arterial hypertension . RPTAT: AA .Rhonda Hernandez MD, Date Time Electronically viewed and signed by .Rhonda Hernandez MD, MD on 10/08/2016 11:01 .José/
--- NOTE | 2016-10-08 12:02 | CONS ---
Date/Time of Note Date/Time of Note DATE: 10/08/16 TIME: 12:01 Assessment/Plan Assessment/Plan Chief Complaint/Hosp Course 1. ROBINSON 2. CKD 3. DIARRHEA 4. Obesity 5. COPD Problems: Additional Assessment/Plan 1. Kidney function optimization Consultation Date/Type/Reason Admit Date/Time October 07, 2016 at 17:36 Initial Consult Date 10/04/2016 Type of Consultation: Nephrology Reason for Consultation Dr Arguelles Exam/Review of Systems Vital Signs Vitals Vital Signs Date Time Temp Pulse Resp B/P Pulse Ox O2 Delivery O2 Flow Rate FiO2 10/08/16 07:52 98.1 71 16 139/87 91 10/07/16 21:00 2.0 10/06/16 21:40 Nasal Cannula 10/06/16 21:30 21 Intake and Output 10/07/16 10/07/16 10/08/16 15:00 23:00 07:00 Intake Total 1890 ml 920 ml Balance 1890 ml 920 ml Exam Constitutional: alert, oriented Psych: no complaints Eyes: nl conjunctiva ENMT: nl external ears & nose Neck: supple Respiratory: congested cough, diminished breath sounds Cardiovascular: regular rate and rhythm Results Result Diagram: 10/08/16 0754 10/08/16 0754 Results 24 hrs Laboratory Tests Test 10/07/16 17:08 10/07/16 20:32 10/08/16 07:54 10/08/16 08:20 Bedside Glucose 133 102 111 White Blood Count 7.6 # Red Blood Count 3.69 L Hemoglobin 10.5 L Hematocrit 33.6 L Mean Corpuscular Volume 91.1 Mean Corpuscular Hemoglobin 28.5 L Mean Corpuscular Hemoglobin Concent 31.3 L Red Cell Distribution Width 13.3 Platelet Count 260 Mean Platelet Volume 9.7 Neutrophils % 64.6 Lymphocytes % 19.7 Monocytes % 8.6 Eosinophils % 4.9 Basophils % 0.8 Nucleated Red Blood Cells % 0.0 Neutrophils # 4.9 Lymphocytes # 1.5 Monocytes # 0.7 Eosinophils # 0.4 Basophils # 0.1 Nucleated Red Blood Cells # 0.0 Sodium Level 142 Potassium Level 4.5 Chloride Level 115 H Carbon Dioxide Level 25 Anion Gap 7 L Blood Urea Nitrogen 46 #H Creatinine 1.19 H Glucose Level 114 Calcium Level 8.2 L Medications Medications Current Medications Ondansetron HCl (Zofran Inj) 4 mg Q6H PRN IV NAUSEA AND/OR VOMITING; Start at 18:30 Acetaminophen (Tylenol Tab) 650 mg Q6H PRN PO PAIN LEVEL 1-3 OR FEVER Last administered on 10/06/16 01:58; Admin Dose 650 MG; Start 10/05/16 at 18:30 Morphine Sulfate (morphine) 2 mg Q4H PRN IV SEVERE PAIN LEVEL 7-10; Start 10/05 at 18:30 Docusate Sodium (Colace) 100 mg Q12H PRN PO CONSTIPATION Last administered on 10:31; Admin Dose 100 MG; Start 10/05/16 at 18:30 Magnesium Hydroxide (Milk Of Mag) 30 ml DAILY PRN PO CONSTIPATION; Start at 18:30 Sodium Biphosphate/ Sodium Phosphate (Fleet Enema) 133 ml DAILY PRN [place] CONSTIPATION; Start 10/05/16 at 18:30 Heparin Sodium (Porcine) (Heparin (5000 Units/0.5 ml)) 5,000 unit Q12 SC ; Start 10/05/16 at 21:00 Lorazepam (Ativan) 0.5 mg Q6H PRN IV ANXIETY; Start 10/05/16 at 18:30 Hydralazine HCl (Apresoline) 10 mg Q6H PRN IV ELEVATED BLOOD PRESSURE; Start at 18:30 Nitroglycerin (Nitroglycerin (Sl Tab) 0.4 Mg) 1 tab Q5M PRN SL ANGINA; Start at 18:30 Benzonatate (Tessalon) 100 mg TID PRN PO COUGH Last administered on 10/08/16 06:11; Admin Dose 100 MG; Start 10/05/16 at 18:30 Salmeterol Xinafoate/ Fluticasone (Advair 250/50 Diskus) 1 inh BID INH ; Start 10/05/16 at 21:00 Miscellaneous Information 1 ea NOTE XX ; Start 10/05/16 at 21:00 Glucose (Glutose) 15 gm Q15M PRN PO DECREASED GLUCOSE; Start 10/05/16 at 21:00 Glucose (Glutose) 22.5 gm Q15M PRN PO DECREASED GLUCOSE; Start 10/05/16 at 21: 00 Dextrose (D50w Syringe) 25 ml Q15M PRN IV DECREASED GLUCOSE; Start 10/05/16 at 21:00 Dextrose (D50w Syringe) 50 ml Q15M PRN IV DECREASED GLUCOSE; Start 10/05/16 at 21:00 Glucagon (Glucagen) 1 mg Q15M PRN IM DECREASED GLUCOSE; Start 10/05/16 at 21:00 Glucose (Glutose) 15 gm Q15M PRN BUCCAL DECREASED GLUCOSE; Start 10/05/16 at 21 :00 Acetaminophen/ Hydrocodone Bitart ([place] (5/325)) 2 tab Q6H PRN PO MODERATE PAIN LEVEL 4-6 Last administered on 10/08/16 10:31; Admin Dose 2 TAB; Start at 00:30 Tramadol HCl 50 mg 50 mg Q6H PRN PO Pain; Start 10/06/16 at 02:30 Ceftriaxone Sodium 50 ml @ 100 mls/hr Q24H IVPB Last administered on 14:28; Admin Dose 100 MLS/HR; Start 10/06/16 at 15:00 Sodium Chloride (NS) 1,000 ml @ 75 mls/hr [id number] IV Last administered on 10/07 21:32; Admin Dose 75 MLS/HR; Start 10/06/16 at 15:30 Diagnostic Test (Pha) (Accu-Chek) 1 ea 02 XX ; Start 10/07/16 at 02:00 Pantoprazole (Protonix Tab) 40 mg DAILY@06 PO Last administered on 10/08/16 05 :10; Admin Dose 40 MG; Start 10/08/16 at 06:00 NOBLE GONGORA October 08, 2016 12:02
[2016-10-08] MEDS: CEFTRIAXONE 1 GM/50 ML (PMX) 50 ML IVPB SCH (15:14)
--- NOTE | 2016-10-08 16:33 | DS ---
Date/Time of Note Date/Time of Note DATE: 10/08/16 TIME: 16:28 Discharge Summary Admission/Discharge Info Admit Date/Time October 07, 2016 at 17:36 Discharge Date/Time Final Diagnosis 1. acute enteritis, resolved 2. Dehydration, due to enteritis, resolved 3. Acute renal failure from dehydration, resolved 3. Diabetes type 2, stable 4. Essential hypertension. controlled 5. History of chronic congestive heart failure. stable Patient Condition: Stable Hospital Course An 86-year-old female, past medical history of chronic CHF, coronary artery disease, essential hypertension, high cholesterol, type 2 diabetes, diabetic neuropathy, vertigo who was recently discharged from acute rehab facility after spending time there from 09/07 to 09/18/2016. The patient has been having diarrhea for the last 5 to 6 days, nonbloody, mostly watery in severity. The patient has also been having some coughing symptoms of yellowish sputum but denies fevers or chills. No chest pain, no shortness of breath. No hematuria. No upper GI bleeding. When she came in today, she was found with an elevated creatinine level of 1.8, her baseline appears to be around the low 1 range, and her chest x-ray showed no acute cardiopulmonary disease. Earlier today, the patient before coming into the ER talked to her primary care doctor, who was concerned about the diarrhea, especially being going on for the last 5 to 6 days , so he told her to come into the ER. Patient is diagnosed with acute enteritis that resolved after admission. She had dehydration with acute renal failure that improved with IVF and hold of diuretics. Patient is clinically stable and discharged home with stable condition. Instructions are given to the daughter. Home Meds Reported Medications Insulin Glargine* (Lantus*) 100 Unit/Ml Soln, 25 UNIT SC Q4PM, #1 VIAL 10/05/16 Isosorbide Mononitrate* (Isosorbide Mononitrate*) 60 Mg Tab.er.24h, 60 MG PO DAILY, TAB 10/05/16 Amlodipine Besylate* (Amlodipine Besylate*) 10 Mg Tablet, 10 MG PO DAILY, #30 TAB 10/05/16 Atorvastatin* (Atorvastatin*) 40 Mg Tablet, 40 MG PO QHS, #30 TAB 10/05/16 Famotidine* (Famotidine*) 20 Mg Tablet, 20 MG PO DAILY, #30 TAB 10/05/16 Losartan Potassium* (Losartan Potassium*) 25 Mg Tablet, 25 MG PO Q4H, TAB 10/05/16 Oxycodone HCl/Acetaminophen (Percocet 5-325 mg Tablet) 1 Each Tablet, 1 EACH PO Q4H, TAB 10/05/16 Salmeterol Xinaf/Fluticasone* (Advair*) 250-50 Diskus Inhaler, 1 INH INHALATION BID, #1 INHALER 10/05/16 Aspirin* (Aspirin* EC) 81 Mg Tablet.dr, 81 MG PO DAILY, TAB 10/05/16 Benzonatate* (Benzonatate*) 100 Mg Capsule, 100 MG PO TID Y for COUGH, CAP 10/05/16 Discontinued Reported Medications Furosemide* (Furosemide*) 20 Mg Tablet, 20 MG PO DAILY, #60 TAB 10/05/16 Hydrochlorothiazide* (Hydrochlorothiazide*) 12.5 Mg Tablet, 12.5 MG PO DAILY, # 30 TAB 10/05/16 Metronidazole* (Metronidazole*) 500 Mg Tablet, 500 MG PO TID, TAB 10/05/16 Pantoprazole (Protonix) 40 Mg Tabec, 40 MG PO DAILY 06/26/13 Atorvastatin* (Atorvastatin*) 40 Mg Tablet, 40 MG PO HS 06/26/13 Aspirin Ec (Aspir 81) 81 Mg Tablet.dr, 81 MG PO DAILY 06/26/13 Discontinued Scripts Insulin Glargine* (Lantus*) 100 Unit/Ml Soln, 35 UNIT SC DAILY@20 for 30 Days, # 30 VIAL Prov:KAYA FONTENOT 09/07/16 Insulin Aspart* (Novolog Insulin Pen*) 100 Unit/Ml Soln, 12 UNIT SC WITH MEALS for 30 Days, #30 Prov:KAYA FONTENOT 09/07/16 Meclizine Hcl* (Antivert*) 12.5 Mg Tab, 12.5 MG PO TID for 14 Days, #30 TAB PRN for dizziness Prov:KAYA FONTENOT 09/07/16 Salmeterol Xinaf/Fluticasone* (Advair*) 250-50 Diskus Inhaler, 1 INH INH BID for 30 Days, #1 INHALER Prov:KAYA FONTENOT 09/07/16 Hydrochlorothiazide* (Hydrochlorothiazide*) 25 Mg Tab, 25 MG PO DAILY for 30 Days, #30 TAB Prov:KAYA FONTENOT 09/07/16 Furosemide (Lasix) 20 Mg Tab, 20 MG PO DAILY for 30 Days, #30 TAB Prov:KAYA FONTENOT 09/07/16 Nitroglycerin* (Nitrostat*) 0.4 Mg Tab.subl, 1 TAB SL Q5M Y for CHEST PAIN for 14 Days, #30 TAB.SL Prov:KAYA FONTENOT 09/07/16 Amlodipine Besylate* (Amlodipine Besylate*) 5 Mg Tablet, 10 MG PO DAILY for 30 Days, #30 TAB Prov:KAYA FONTENOT 09/07/16 Follow-up Plan PCP in one week Primary Care Provider Paulino Nichols Pending Labs Laboratory Tests Test 10/07/16 17:08 10/07/16 20:32 10/08/16 07:54 10/08/16 08:20 Bedside Glucose 133mg/dL (70-220) 102mg/dL (70-220) 111mg/dL (70-220) White Blood Count 7.610^3/ul (4.8-10.8) Red Blood Count 3.6910^6/ul (4.20-5.40) Hemoglobin 10.5g/dl (12.0-16.0) Hematocrit 33.6% (37.0-47.0) Mean Corpuscular Volume 91.1fl (82.0-101.0) Mean Corpuscular Hemoglobin 28.5pg (29.0-33.0) Mean Corpuscular Hemoglobin Concent 31.3g/dl (32.0-37.0) Red Cell Distribution Width 13.3% (11.5-14.5) Platelet Count 35779^3/UL (140-415) Mean Platelet Volume 9.7fl (7.4-10.4) Neutrophils % 64.6% (39.0-77.0) Lymphocytes % 19.7% (15.0-51.0) Monocytes % 8.6% (0.0-11.0) Eosinophils % 4.9% (0.0-7.0) Basophils % 0.8% (0.0-2.0) Nucleated Red Blood Cells % 0.0/100WBC (0.0-0.0) Neutrophils # 4.910^3/ul (1.6-7.5) Lymphocytes # 1.510^3/ul (0.8-2.9) Monocytes # 0.710^3/ul (0.3-0.9) Eosinophils # 0.410^3/ul (0.0-0.5) Basophils # 0.110^3/ul (0.0-0.1) Nucleated Red Blood Cells # 0.010^3/ul (0.0-0.0) Sodium Level 142mmol/L (135-144) Potassium Level 4.5mmol/L (3.5-5.1) Chloride Level 115mmol/L (97-110) Carbon Dioxide Level 25mmol/L (21-31) Anion Gap 7 (8-16) Blood Urea Nitrogen 46mg/dl (7-20) Creatinine 1.19mg/dl (0.44-1.00) Glucose Level 114mg/dl (70-220) Calcium Level 8.2mg/dl (8.4-10.2) Test 10/08/16 12:13 Bedside Glucose 127mg/dL (70-220) SALVADOR GALLAGHER MD October 08, 2016 16:33
== END 2016-10-08 17:29 | disposition home or self-care (01) | DRG 392 ==
LOC: E/R 14:55 → PP2 18:41 → OBSVTOIN 10-07 17:36
PROVIDERS: ADMIT Hospitalist; ATTEND Hospitalist
DX: K52.9 Noninfective gastroenteritis and colitis, unspecified (principal); N17.9 Acute kidney failure, unspecified; E11.22 Type 2 diabetes mellitus with diabetic chronic kidney disease; I08.0 Rheumatic disorders of both mitral and aortic valves; I13.0 Hypertensive heart and chronic kidney disease with heart failure and stage 1 through stage 4 chronic kidney disease, or unspecified chronic kidney disease; Z68.41 Body mass index [BMI] 40.0-44.9, adult; I50.32 Chronic diastolic (congestive) heart failure; N39.0 Urinary tract infection, site not specified; E86.0 Dehydration; N18.9 Chronic kidney disease, unspecified; E66.9 Obesity, unspecified; E11.40 Type 2 diabetes mellitus with diabetic neuropathy, unspecified; E78.5 Hyperlipidemia, unspecified; Z90.49 Acquired absence of other specified parts of digestive tract; Z96.651 Presence of right artificial knee joint; Z90.710 Acquired absence of both cervix and uterus; J44.9 Chronic obstructive pulmonary disease, unspecified
CPT/HCPCS: 36415; 71010; 76775; 80048; 80053; 80061; 81003; 82570; 82962; 83036; 83690; 83735; 83880; 84100; 84155; 84300; 84439; 84443; 84484; 85025; 87081; 87086; 89190; 94640; 94664; G0378; C9113; J0696; J1644; J1815; J7030